=== PATIENT | female | born 1955 | race American Indian/Alaskan Native ===

== ENCOUNTER 2019-09-14 16:03 | Emergency (ER) | payer MEDICARE, OTHER ==
[~2019-09-14] VITALS: Ht 160 cm; Wt 52.6 kg
--- OUTSIDE RECORDS SUMMARY | ~2019-09-14 | XMS | Encounter Summary ---
Demographics + + + | Address | [address] | | | [place] [address] | + + + | Home Phone | | + + + | Preferred Language | Unknown | + + + | Marital Status | Single | + + + | Christian Affiliation | NRP | + + + | Race | or | + + + | Ethnic Group | Not or | + + + Author + + + | Author | [place] [facility] | + + + | Organization | [facility] | + + + | Address | Unknown | + + + | Phone | Unavailable | + + + Support + + +---------+ + | Name | Relationship | Address | Phone | + + +---------+ + | Debra Vaca | ECON | Unknown | | + + +---------+ + Care Team Providers + +------+ + | Care Screener Perfumer Name | Role | Phone | + +------+ + | No Pcp Per Patient | PCP | Unavailable | + +------+ + Encounter Details +--------+ + + + + | Date | Type | Department | Care Team | Description | +--------+ + + + + | 04/15/ | Anesthesia | Cardiac Picking Belt Operator | Guilherme Navarro, | | | 2017 | Event | at [facility] [address] | [address] | | | | | [address] | [address] | | | | | [facility] | [place], [place] | | | | | [place], [place] | [address] | | | | | [address] | [phone] | | | | | [phone] | | | | | | | Breanne Thomas CRNA | | | | | | [address] | | | | | | [address] [place], | | | | | | [place] [address] | | | | | | [phone] | | | | | | | | +--------+ + + + + Anesthesia Record + + + + + | Procedure Name | Responsible | Anesthesia Start | Anesthesia Stop Time | | | Anesthesiologist | Time | | + + + + + | CAR PCU | | | | | CARDIOVERSION | | | | + + + + + + + | No events on file. | + + +------+ | Meds | +------+ + + + No medications | on file. | + + + + + | No agents on file. | + + + + | No blood administrations on file. | + + + + | No LDAs on file. | + + documented in this encounter Social History + + + +--------+------+ | Tobacco Use | Types | Packs/Day | Years | Date | | | | | Used | | + + + +--------+------+ | Current Every Day | Cigarettes | 1 | 45 | | | Smoker | | | | | + + + +--------+------+ + + | Comments: 03/09/2017: currently smoking 5 cigarettes/day | + + + + +---------+ + | Alcohol Use | Drinks/Week | oz/Week | Comments | + + +---------+ + | No | | | | + + +---------+ + + + + | Sex Assigned at | Date Recorded | | | | + + + | Not on file | | + + + + + + + | Job Start Date | Occupation | Industry | + + + + | Not on file | Not on file | Not on file | + + + + + + + + | Travel History | Travel Start | Travel End | + + + + + + | No recent travel history available. | + + documented as of this encounter Plan of Treatment Not on filedocumented as of this encounter Visit Diagnoses Not on filedocumented in this encounter"
--- OUTSIDE RECORDS SUMMARY | ~2019-09-14 | XMS | Encounter Summary ---
Demographics + + + | Address | [address] | | | [place] [address] | + + + | Home Phone | | + + + | Preferred Language | Unknown | + + + | Marital Status | Single | + + + | Samaritan Affiliation | NRP | + + + | Race | or | + + + | Ethnic Group | Not or | + + + Author + + + | Author | [facility] | + + + | Organization | [facility] | + + + | Address | Unknown | + + + | Phone | Unavailable | + + + Support + + +---------+ + | Name | Relationship | Address | Phone | + + +---------+ + | Debra Vaca | ECON | Unknown | | + + +---------+ + Care Team Providers + +------+ + | Care Associate Professor Of Chemistry Name | Role | Phone | + +------+ + | No Pcp Per Patient | PCP | Unavailable | + +------+ + Reason for Visit Diagnostic Testing (Routine) +--------+--------+ + + + + | Status | Reason | Specialty | Diagnoses / | Referred By | Referred To | | | | | Procedures | Contact | Contact | +--------+--------+ + + + + | Closed | | Cardiology | Diagnoses | Anneliese, | Car Echo | | | | | | Elysha K, | [facility] [address] | | | | | Neuroendocri | PA-C [address] | | | | | ne tumor | [address] | | | | | Procedures | [address] | Mailcode: | | | | | [address] | [address] | [address] | | | | | DOBUTAMINE | [place], [place] | [address] | | | | | ECHOCARDIOGR | [address] | Building | | | | | AM, ADULT | Phone: | [place], [place] | | | | | | [phone] | [address] | | | | | | Fax: | Phone: | | | | | | [phone] | [phone] | +--------+--------+ + + + + Encounter Details +--------+ + + + + | Date | Type | Department | Care Team | Description | +--------+ + + + + | 04/01/ | Hospital | Cardiac | | | | 2017 | Encounter | Non-Invasive Testing | | | | | | at [facility] [address] | | | | | [address] Mailcode: | | | | | | [facility], | | | | | | [address] | | | | | | [place], [place] | | | | | | [address] | | | | | | [phone] | | | +--------+ + + + + Social History + + + +--------+------+ | [...] + + documented as of this encounter Last Filed Vital Signs + + + + + | Vital Sign | Reading | Time Taken | Comments | + + + + + | Blood Pressure | - | - | | + + + + + | Pulse | - | - | | + + + + + | Temperature | - | - | | + + + + + | Respiratory Rate | - | - | | + + + + + | Oxygen Saturation | - | - | | + + + + + | Inhaled Oxygen | - | - | | | Concentration | | | | + + + + + | Weight | 56.7 kg (125 lb) | 04/01/2017 12:41 PM | | | | | PDT | | + + + + + | Height | 160 cm (5' 3") | 04/01/2017 12:41 PM | | | | | PDT | | + + + + + | Body Mass Index | 22.14 | 04/01/2017 12:41 PM | | | | | PDT | | + + + + + documented in this encounter Medications at Time of Discharge + + + +---------+ + + | Medication | Sig | Dispensed | Refills | Start | End Date | | | | | | Date | | + + + +---------+ + + | acetaminophen 325 | Take 1-2 tablets by | | 0 | 04/07/20 | | | mg oral | mouth every four | | | 17 | | | tabletIndications: | hours as needed. | | | | | | pain | Indications: Pain | | | | | + + + +---------+ + + | carvedilol 12.5 mg | Take 1 tablet by | 60 | 0 | 04/07/20 | | | oral | mouth two times | tablet | | 17 | | | tabletIndications: | daily with meals. | | | | | | Ventricular Rate | Administer with | | | | | | Control in Atrial | food. Indications: | | | | | | Fibrillation | Ventricular Rate | | | | | | | Control in Atrial | | | | | | | Fibrillation | | | | | + + + +---------+ + + | ibuprofen 600 mg | Take 600 mg by mouth | | 0 | | | | oral | every six hours as | | | | | | tabletIndications: | needed. Indications: | | | | | | pain | Pain | | | | | + + + +---------+ + + | | Inhale 1 puff four | | 0 | 12/03/19 | | | ipratropium-albutero | times daily. 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 | | | 17 | | | tabletIndications: | Indications: | | | | | | hypertension | hypertension | | | | | + + + +---------+ + + | senna-docusate | Take 1 tablet by | 20 | 0 | 04/07/20 | | | 8.6-50 mg oral | mouth twice daily as | tablet | | 17 | | | tabletIndications: | needed. | | | | | | constipation | Indications: | | | | | | | Constipation | | | | | + + + +---------+ + + | simvastatin 20 mg | Take 20 mg by mouth | | 0 | 02/18/20 | | | oral | once daily in the | | | 17 | | | tabletIndications: | evening. | | | | | | hyperlipidemia | Indications: | | | | | | | hyperlipidemia | | | | | + + + +---------+ + + documented as of this encounter Progress Notes Lola Baltazar RN - 04/01/2017 1:32 PM PDTDobutamine stress echocardiogram completed, rep ort to follow. IV removed, catheter intact. Patient released from echo lab at 1345. documented in this enc ounter Plan of Treatment Not on filedocumented as of this encounter Procedures + +--------+ + + + | Procedure Name | Priori | Date/Time | Associated Diagnosis | Comments | | | ty | | | | + +--------+ + + + | STRESS DOBUTAMINE | Routin | 04/01/2017 | Neuroendocrine | Results for this | | ECHOCARDIOGRAM, | e | 1:18 PM | tumor | procedure are in the | | ADULT | | PDT | | results section. | + +--------+ + + + documented in this encounter Visit Diagnoses Not on filedocumented in this encounter Administered Medications + +--------+ +--------+------+------+ | Medication Order | MAR | Action | Dose | Rate | Site | | | Action | Date | | | | + +--------+ +--------+------+------+ | atropine injection 0.3-0.4 mg | Given | 04/01/20 | 0.3 mg | | | | 0.3-0.4 mg, intravenous, | | 17 1:26 | | | | | INTRAPROCEDURE PRN, Starting Wed | | PM PDT | | | | | 04/01/17 at 1241, Until Thu04/01/17 | | | | | | | at 1440, per dobutamine stress | | | | | | | echo protocol | | | | | | + +--------+ +--------+------+------+ +---+---+ | | | +---+---+ + +---------+ + +--------+---+ | DOBUTamine (DOBUTREX) 500 | New Bag | 04/01/20 | 20 | 34.02 | | | mg/250 mL (2 mg/mL) IV infusion | | 17 1:23 | mcg/kg/m | mL/hr | | | (RTU) 5-50 mcg/kg/min | | PM PDT | in | | | | 56.7 kg Dosing weight | | | | | | | (8.505-85.05 mL/hr, rounded to | | | | | | | 8.51-85.05 mL/hr), intravenous, | | | | | | | INTRAPROCEDURE CONTINUOUS PRN, | | | | | | | Starting 04/01/17 at 1241, | | | | | | | Until Thu17 at 1440, per | | | | | | | DOBUTamine stress echo protocol | | | | | | + +---------+ + +--------+---+ +---------+ + +--------+---+ | New Bag | 04/01/20 | 10 | 17.01 | | | | 17 1:20 | mcg/kg/m | mL/hr | | | | PM PDT | in | | | +---------+ + +--------+---+ | New Bag | 04/01/20 | 5 | 8.51 | | | | 17 1:17 | mcg/kg/m | mL/hr | | | | PM PDT | in | | | +---------+ + +--------+---+ +---+---+ | | | +---+---+ + +-------+ +-------+---+---+ | esmolol (BREVIBLOC) injection | Given | 04/01/20 | 10 mg | | | | 10-30 mg 10-30 mg, intravenous, | | 17 1:30 | | | | | INTRAPROCEDURE PRN, Starting Wed | | PM PDT | | | | | 04/01/17 at 1241, Until Thu04/01/17 | | | | | | | at 1440, per dobutamine stress | | | | | | | echo protocol | | | | | | + +-------+ +-------+---+---+ +---+---+ | | | +---+---+ documented in this encounter
--- OUTSIDE RECORDS SUMMARY | ~2019-09-14 | XMS | Encounter Summary ---
Demographics + + + | Address | [address] | | | [place] [address] | + + + | Home Phone | | + + + | Preferred Language | Unknown | + + + | Marital Status | Single | + + + | Protestant Affiliation | NRP | + + + | Race | or | + + + | Ethnic Group | Not or | + + + Author + + + | Author | [facility] | + + + | Organization | [facility] | + + + | Address | Unknown | + + + | Phone | Unavailable | + + + Support + + +---------+ + | Name | Relationship | Address | Phone | + + +---------+ + | Debra Vaca | ECON | Unknown | | + + +---------+ + Care Team Providers + +------+ + | Care Biometrics Consultant Name | Role | Phone | + +------+ + | No Pcp Per Patient | PCP | Unavailable | + +------+ + Reason for Visit AUTH/CERT +--------+--------+ + + + + | Status | Reason | Specialty | Diagnoses / | Referred By | Referred To | | | | | Procedures | Contact | Contact | +--------+--------+ + + + + | | | | | | | +--------+--------+ + + + + Encounter Details +--------+---------+ + + + | Date | Type | Department | Care Team | Description | +--------+---------+ + + + | 04/02/ | Surgery | 6A Intra Op [facility] | Zeeshan Heredia, | FLEXIBLE | | 2017 | | [facility] | MD [address] | BRONCHOSCOPY, RIGHT | | | | Admitting Desk | [address] | THORACOSCOPY, | | | | Located on the | [place], [place] | SUPERIOR | | | | floor [address] | [address] | SEGMENTECTOMY; | | | | [address] | [phone] | MEDIASTINAL LYMPH | | | | [place], [place] | | NODE DISSECTION | | | | [address] | | | +--------+---------+ + + + Social History + + [...] + + + | Blood Pressure | 140/83 | 04/07/2017 4:17 PM | | | | | PDT | | + + + + + | Pulse | 81 | 04/07/2017 4:17 PM | | | | | PDT | | + + + + + | Temperature | 36.3 C (97.3 F) | 04/07/2017 11:48 AM | | | | | PDT | | + + + + + | Respiratory Rate | 18 | 04/07/2017 11:48 AM | | | | | PDT | | + + + + + | Oxygen Saturation | 88% | 04/07/2017 3:05 PM | while walking | | | | PDT | | + + + + + | Inhaled Oxygen | - | - | | | Concentration | | | | + + + + + | Weight | 61.7 kg (136 lb 0.4 | 04/04/2017 6:09 PM | | | | oz) | PDT | | + + + + + | Height | 160 cm (5' 3") | 04/02/2017 5:42 AM | | | | | PDT | | + + + + + | Body Mass Index | 24.1 | 04/02/2017 5:42 AM | | | | | PDT | | + + + + + documented in this encounter Discharge Summaries Pam Morales PA - 04/07/2017 6:41 AM PDTFormatting of this note might be different fr om the original. Thoracic Surgery Discharge Summary Patient Name: BAILEY ANDERS Patient Discharge Attending: Zeeshan Heredia MD Summary Author: Pam Morales PA-C Date of admission: 04/02/2017 Date of discharge: 04/07/2017 Patient Care Team: No Pcp Per Patient as PCP - General Principle diagnosis: pulmonary carcinoid Secondary diagnoses: atrial fibrillation Principle procedure: right-sided thoracoscopy, lower lobe superior segmentectomy Other procedures: epidural catheter placement Hospital course: On the day of the patient's planned procedure, the patient was taken to the operating theat er and underwent the above-listed procedure. During the procedure, no complications were not ed. At the end of the procedure, appropriate chest drains were placed, the patient was extub ated, and transferred to the post-anesthesia care unit. Once recovered, the patient was iqbal sferred to the post-operative ICU, where she remained for 2 days. On post-op day (POD) 2, th e patient was transferred to the post-surgical howell where she remained for the rest of the h ospitalization. The chest tube was removed on POD #4 and a ggouj-um-wryavejr pneumothorax wa s noted on follow-up chest x-ray. Chest x-ray the following morning showed worsening pneumo thorax and new subcutaneous emphysema, though the patient remained asymptomatic throughout. A new chest tube was placed via the previous insertion site and connected to a portable drai n. Prior to discharge, the patient had satisfactory pain control with oral pain medications only, was ambulating without difficulty, and was tolerating adequate PO intake without naus ea, vomiting, or constipation. The patient was discharged to home on POD #5 in satisfactory condition with a chest tube in place. Discharge Medications: . Bailey Anders Home Medication Instructions [id number] Printed on:04/07/17 0250 Medication Information acetaminophen 325 mg oral tablet Take 1-2 tablets by mouth every four hours as needed. Indications: Pain carvedilol 12.5 mg oral tablet Take 1 tablet by mouth two times daily with meals. Administer with food. Indications: Vent ricular Rate Control in Atrial Fibrillation ibuprofen 600 mg oral tablet Take 600 mg by mouth every six hours as needed. Indications: Pain ipratropium-albuterol 20-100 mcg/actuation inhalation mist Inhale 1 puff four times daily. Indications: Chronic Obstructive Pulmonary Disease with Bro nchospasms lisinopril 40 mg oral tablet Take 40 mg by mouth once daily. Indications: hypertension oxyCODONE (immediate release) 5 mg oral tablet Take 1 tablet by mouth every six hours as needed for severe pain. Indications: Pain senna-docusate 8.6-50 mg oral tablet Take 1 tablet by mouth twice daily as needed. Indications: Constipation simvastatin 20 mg oral tablet Take 20 mg by mouth once daily in the evening. Indications: hyperlipidemia traMADol 50 mg oral tablet Take 50 mg by mouth every eight hours as needed. Indications: Pain Cephalexin 500mg q6 while chest tube in place. Discharge Diet: Diet Regular Regular diet- There are no restrictions to your diet. You may eat or drink whatever you pr efer, though healthy food choices are recommended. Discharge Activity: As tolerated; no lifting greater than 10 pounds for six weeks and no dr iving or operating heavy machinery while taking narcotic pain medications. Vital signs at the time of discharge: BP 119/77 | Pulse 70 | Temp 36.3 C (97.3 F) | RR 18 | Ht 1.6 m (5' 3") | Wt 61.7 kg (136 lb 0.4 oz) | SpO2 97% | BMI 24.1 kg/(m^2) Discharge Instructions: BAILEY ANDERS was advised to contact the Thoracic Surgery Clinic or call if the patient experiences fevers greater than 101.5 F, chest pain, chest pres sure, new or worse shortness of breath, new or worse difficulty breathing, or new or worse i ncisional redness, tenderness, swelling, drainage, or inflammation. Discharge exam: Gen: NAD Neuro: AOX3; following commands HEENT: Normocephalic; atraumatic; Nares patent; MMM Neck: Supple, non-tender; no JVD or tracheal deviation Lungs: slightly diminished breath sounds at the right apex, otherwise CTA bilaterally CV: RRR, S1 S2; no S3 or S4; no MRGB Abd: S/NT/ND; + flatus; + BM in last three days Ext: MAEW; no C/C/E; all extremities warm with +2 distal pulses Wound site: C/D/I; no evidence of separation, dehiscence, or infection Wound care: The patient was advised to remove all dressings one day after the last chest tu be was removed and do not replace unless additional drainage continues. Also, the patient is advised to shower beginning no earlier than two days after the last chest tube was removed. Showers should include a mild soap and the wound sites should be pat-dried only. No salves, lotions, or oils should be applied to the wound site. The patient was advised to avoid imme rsion of the wounds in any water for at least four weeks after the time of the patient's mabel rachell. Follow-up appointment(s): [facility] Thoracic Surgery, Monday, April 10, 2017 Pathology report: still pending at time of discharge Copies of this summary should be sent to: No Pcp Per PATIENT; Elena Morales PA-C documented in this e ncounter Medications at Time of Discharge + + [...] documented as of this encounter Progress Notes Nelson Mccarty NP - 04/06/2017 8:48 AM PDT Thoracic Surgery Brief Inpatient Progress Note Patient name: BAILEY ANDERS Attending: Zeeshan Heredia MD Procedure day: 4 Procedure: Right VATS with superior segmentectomy (path pending) 24 hour events: No acute events 24 hour vitals: Last 24 hour min/max Temp: 36.6 C (97.9 F) Temp Min: 36.4 C (97.5 F) Max: 36.7 C (98.1 F) Pulse: 79 Pulse Min: 75 Max: 102 Resp: 18 Resp Min: 16 Max: 19 BP: 160/84 BP Min: 131/81 Max: 173/91 SpO2 94% 2L SpO2 Min: 88 % Max: 95 % Body mass index is 24.1 kg/(m^2). Chest tube output: 140/30. W/S. -A/L. S/S drainage. Lab Results Component Value Date NA 136 04/06/2017 K 3.5 04/06/2017 CL 100 04/06/2017 BICARB 29 04/06/2017 BUN 4 04/06/2017 CR 0.54 04/06/2017 GLU 97 04/06/2017 CA 9.1 04/06/2017 Lab Results Component Value Date WBC 8.26 04/06/2017 HB 12.9 04/06/2017 HCT 37.3 04/06/2017 PLT 146 04/06/2017 MCV 92.3 04/06/2017 RDW 40.7 04/06/2017 Brief Exam: NAD AOX3 Lungs diminished RRR S/NT/ND MAEW Wound healing without complication Assessment: 61 y.o. f w/ h/o biopsy-proven RLL typical carcinoid tumor doing well s/p resec tion Plan (xphl-go-jlteyzid issues): - Post-op pain: continue PRN Tylenol and oxycodone - Chest tube management: removed earlier today - Bigeminy: monitor for now - Hypokalemia: replete (along with magnesium) today - Other: F/U final path - Prophylaxis: remains on SQ enoxaparin; bowel regimen; no GI prophylaxis while eating - Dispo: anticipate discharge to home tomorrow Plan (xcc-rivwmtfg-wtljsrd issues); the brief history and exam findings are unchanged from above for this part of the note: - Hypertension: increase metoprolol dose; continue lisinopril at current dose and frequency - Hypercholesterolemia: continue simvastatin - Discuss with Dr. Zeeshan Heredia MD Reji Hammonds MD - 0 04/05/2017 10:48 AM PDT THORACIC SURGERY PROGRESS NOTE Attending Physician: Zeeshan Heredia MD Progress Note Note Date: 04/05/2017 Admission Date: 04/02/2017 BAILEY ANDERS, [id number] Hospital Day #3 PROCEDURE: 04/02/17 Procedure: flex bronch R VATS superior segmentectomy, bronchoplasty for s egmental bronchus stump, MLND INTERVAL HISTORY and SUBJECTIVE: - Tx to floor, no acute issues - Pain very well controlled with PRN PO and IV meds - O2 needs improving. Up and ambulating. Tolerating diet MEDICATIONS: Reviewed OBJECTIVE PHYSICAL EXAM: Last Vitals: BP 173/88 | Pulse 80 | Temp 36.5 C (97.7 F) | RR 16 | Ht 1.6 m (5' 3") | W t 61.7 kg (136 lb 0.4 oz) | SpO2 96% | BMI 24.1 kg/(m^2) 24 Hour Vital Min/Max: Systolic (24hrs), Av , Min:122 , Max:173 Diastolic (24hrs), Av, Min:54, Max:88 Pulse Min: 75 Max: 117 Temp Min: 36.5 C (97.7 F) Max: 36.8 C (98.2 F) Resp Min: 16 Max: 22 SpO2 Min: 94 % Max: 98 % Intake/Output Summary (Last 24 hours) at 04/05/17 1048 Last data filed at 04/05/17 0604 Gross per 24 hour Intake 825 ml Output 4365 ml Net -3540 ml Chest tube: 220cc GENERAL: Pleasant, talkative, alert, in NAD CHEST: Unlabored on 2LNC. Slightly coarse but clearing breath sounds. Heart regular rate Chest tube: serousang output, no airleak this morning with good cough. ABDOMEN: Soft, nontender, nondistended Extremities:Warm and well perfused, no edema. LABS: Recent Labs 04/02/17 1639 04/03/17 0308 04/04/17 0515 04/04/17 1903 04/04/17 2213 04/05/17 0837 NA 140 136 138 -- -- -- K 3.5 4.3 4.0 -- -- -- CL 107 101 102 -- -- -- BICARB 25 26 31 -- -- -- BUN 15 14 10 -- -- -- CR 0.66 0.78 0.73 -- -- -- GLU 150* 102* 100* 91 101* 77 CA 8.2* 8.4* 8.3* -- -- -- ALB 2.9* 3.0* 2.9* -- -- -- Recent Labs 03/09/17 1627 04/02/17 1639 04/03/17 03004/04/17 0515 WBC 5.99 -- 17.04* 17.40* 9.02 RBC 5.33* -- 4.33 3.91* 3.73* HB 17.4* -- 13.9 12.7 11.9* HCT 51.2* < > 40.5 37.0 35.6* PLT 163 -- 129* 124* 104* NEUTROPERC 57.5 -- -- -- -- LYMPHPERC 31.4 -- -- -- -- MONOPERC 7.7 -- -- -- -- BASOPERC 0.7 -- -- -- -- EOSPERC 2.5 -- -- -- -- < > = values in this interval not displayed. Recent Labs 04/02/17 1639 04/03/17 03004/04/17 0515 ALB 2.9* 3.0* 2.9* Lab Results Component Value Date APTT 25.8 (L) 04/02/2017 FIBRINOGEN 245 04/02/2017 IMAGING: None new ASSESSMENT/PLAN: Bailey Anders is a 61yo woman with Right superior segment carcinoid s/p RIGHT VATS superior segmentectomy. Progressing very well postop, ambulating, pain well controlled. Chest tube output decreasin g but more sanguinous that wanted, keep tube and continue postop rehab. - Acute pain: Continue PRN oxy, tylenol - s/p VATS superior segmentectomy - Chest tube: Waterseal, follow output - Aggressive pulm toilet, up and ambulating TID - PT - COPD: Continue inhalers - HTN/HLD: Continue lisinopril and statin. - Prophy: Lovenox (decreased to 30mg given sanguinous output and patients wt), SCD Dispo: 1-2days. Reji Elaine MD Pager: [phone] Anne Jean PA-C - 04/04/2017 2:04 PM PDT Cardiovascular Intensive Care Unit Team Progress Note CVICU D2 Assigned #[id number] ICU Admission Reason Most Recent Value ICU Admission reason managment post thoracic surgery filed at 04/02/2017 1650 Documentation Date 04/02/17 1650 Thoracic Thoracic Thoracic Procedures VATS VATS Segmentectomy Segmentectomy anatomical location Anatomical location R superior Admission dx: Neuroendocrine cancer 2 Days in ICU 2 Days in Hospital Abbreviated HPI / Daily Assessment Ms. Bailey Anders is a 61 yo female smoker with PMH of HTN, HLD, diet controlled type 2 DM , and COPD on home O2 who presents s/p R VATS superior segmentectomy, mediastinal LND, and closure of superior segment bronchus stump on 04/02. 24 Hour events BPs low overnight, bolused 1L fluid, went down on epidural rate, no change in BP Epidural changed to Hydromorphone Pain well controlled Code Status Code Status DNR/DNI Active Diagnosis with Assessment & Plan Priority Class POA Cardiovascular Essential hypertension Yes Current Assessment & Plan Pt on lisinopril 40mg daily - start lisinopril 10mg BID Respiratory/Chest Neuroendocrine carcinoma of lung (HCC) Yes Current Assessment & Plan S/p R VATS and superior segmentectomy, mediastinal LND, and bronchial stump closure 04/02. Concern for pnemothorax after pleuravac was found without fluid in the chamber. Pt stable wi th no increase O2 need. - cont oxycodone and APAP - d/c IV HM - albuterol nebs q6h PRN - duonebs q6h - CT to water seal - f/u repeat CXR -up and walking - intermediate level of care COPD (chronic obstructive pulmonary disease) (HCC) Yes Current Assessment & Plan Pt on home O2, will keep this in mind while titrating down O2 and not target room air. - duoneb q6h Endocrine/Metabolic Hyperlipidemia Yes Current Assessment & Plan Continue home simvastatin 20mg Other Acute post-operative pain No Current Assessment & Plan APS following. HM epidural broke and pt was transitioned to oral meds. Pain well controll ed on oral meds, pt has not needed IV coverage. - d/c IV HM - cont APAP and oxycodone PRN Smoking addiction Yes Current Assessment & Plan Pt a current smoker, and apparently uses home O2. Will talk to pt about the risks of smok ing and the HIGH risk of smoking on O2. Physical Exam Constitutional: She appears well-developed not diaphoretic no distress Thin appearing femal e HENT: Head:normocephalic and atraumatic Cardiovascular: normal rate, regular rhythm, normal heart sounds and intact distal pulses n o murmur heard.Exam reveals no friction rub and no gallop. Pulmonary: effort normal. Rales noted throughout R lung field, increased in base. Abdominal: Abdomen is soft. bowel sounds are normal. Musculoskeletal: She exhibits no edema. Neurological: She is alert and oriented to person, place, and time. Skin: Skin is warm and dry. Service Cardiac Surgery [[id number]] Admitting provider and ICU treatment team members Provider Role Specialty Pager Zeeshan Heredia MD Admitting Provider Cardiothoracic Surgery [id number] The Advanced Care Note for this patient can be found under the notes tab in chart review. Quality section FAST HUG Feeding: regular Analgesia: PRN oxycodone, APAP sched Sedation: none Thromboprophylaxis: Lovenox Head of Bed: Head of Bed >30 degrees Ulcer Prophylaxis: not clinically indicated Glycemic Control: not indicated I have spent a total of 25 Minutes independently in the direct care and management of th is patient.Time is independent of any time spent teaching or performing any separately billa ble procedures. I reviewed the documented findings, all data and the recent imaging availabl e. Date of Service: 04/04/2017 ZACK Cruz PA-C Author:Anne Pat PA-C [address] [address] [place] [email or web address] signed by Anne Pat PA-C at 04/04/2017 2:07 PM Elaine Ramirez MD - 04/04/2017 10:30 AM PDTBrief APS Follow-up Note Epidural catheter pulled yesterday, patient successfully transitioned to PO meds. Reports e xcellent pain control. APS will sign off. Please re-consult as necessary. Please page [phone] with any questions or concerns Elaine Barragan MD Pain Fellow Anesthesiology and Pain Management [facility] [place] alomon, Wilfredo beard MD - 04/04/2017 9:59 AM PDT Cardiovascular Intensive Care Unit Attending Progress Note CVICU D2 Assigned #[id number] ICU Admission Reason Most Recent Value ICU Admission reason managment post thoracic surgery filed at 04/02/2017 165 Documentation Date 04/02/17 165 Thoracic Thoracic Thoracic Procedures VATS VATS Segmentectomy Segmentectomy anatomical location Anatomical location R superior Hospital admission dx: Neuroendocrine cancer 2 Days in ICU 2 Days in Hospital Abbreviated HPI / Daily Assessment Ms. Bailey Anders is a 61 yo female smoker with PMH of HTN, HLD, diet controlled type 2 DM , and COPD on home O2 who presents s/p R VATS superior segmentectomy, mediastinal LND, and closure of superior segment bronchus stump on 04/02. Medical Decision Making 24 hr events: - epidural dislodged, pain well controlled on oral meds - right chest atrium without appropriate water seal - repeat CXR shows no pneumothorax 61 yo woman who is s/p VATS and RLL superior segmentectomy for neuroendocrine tumor on . Doing very well clinically, with no PTX and minimal pain, and O2 sats robust on 2L NC. Will plan to restart lisinopril at 10mg bid (half home dose) given mild HTN overnight. Concerned that pt continues to smoke while on home O2, and will cemetery counselor on the importance o f quitting. She has confirmed that code status is DNR/DNI. Stable for howell transfer Hospital Problems Priority POA Cardiovascular Essential hypertension Yes Respiratory/Chest Neuroendocrine carcinoma of lung (HCC) Yes COPD (chronic obstructive pulmonary disease) (HCC) Yes Endocrine/Metabolic Hyperlipidemia Yes Other Acute post-operative pain No Postoperative hypotension No Smoking addiction Yes Service Cardiac Surgery [[id number]] Admitting provider and ICU treatment team members Provider Role Specialty Pager Zeeshan Heredia MD Admitting Provider Cardiothoracic Surgery [id number] Code Status Code Status DNR/DNI The Advanced Care Note for this patient can be found under the notes tab in chart review. I have spent a total of 30 minutes in the direct care and management of this patient indepe ndent of any time spent teaching or performing any separately billable procedures. I reviewe d the documented findings, all data and the recent imaging available. Greater than 50% of th is time was spent on counseling and coordination of care.Seen with PA/WIRE TESTER Adilia. Please se e their note for details. I reviewed the documented findings, all data and the recent imagin g available. Date of Service: 04/04/2017 Author:Srinivasa Latif MD [address] Zeeshan Heredia MD - 04/04/2017 9:26 AM PDTThoracic Surgery Staff Note: I personally interviewed the patient, performed the espinoza elements of the physical examinatio n, and personally formulated the assessment and plan with the PA/resident/fellow. No acute events. Reports good pain control and no pain CT with grade 1 forced exp air leak Thin serosanguinous output 240 ml RLL bronchopulmonary carcinoid s/p; superior segmentectomy - continue chest tube to water seal - awaiting tx to [facility] Zeeshan Heredia M.D. FACS manager technical training [facility] Division of Cardiothoracic Surgery Section of Thoracic Surgery [address] [place] [address], [address] [place] [address] Sonia Wharton MD - 04/03 6:41 PM PDT Thoracic Surgery Brief Inpatient Progress Note Patient name: BAILEY ANDERS Attending: Zeeshan Heredia MD Procedure day: 1 Procedure: flex bronch R VATS superior segmentectomy, bronchoplasty for segmental bronchus stump, MLND 24 hour events: Transferred to icu after surgery Did well overnight, no major events. Clarified that pt is DNR status, due to previous wishe s CXR this AM w pneumothorax that was much smaller yday night immediately after OR 24 hour vitals: Last 24 hour min/max Temp: 37 C (98.6 F) Temp Min: 36.8 C (98.2 F) Max: 37 C (98.6 F) Pulse: 70 Pulse Min: 64 Max: 121 Resp: (!) 10 Resp Min: 7 Max: 21 BP: 120/70 BP Min: 70/38 Max: 138/106 SpO2: (P) 96 % SpO2 Min: 92 % Max: 100 % Body mass index is 24.45 kg/(m^2). Chest tube output: 453cc grade I AL w cough, serosang output Lab Results Component Value Date NA 136 04/03/2017 K 4.3 04/03/2017 CL 101 04/03/2017 BICARB 26 04/03/2017 BUN 14 04/03/2017 CR 0.78 04/03/2017 GLU 102 04/03/2017 CA 8.4 04/03/2017 Lab Results Component Value Date WBC 17.40 04/03/2017 HB 12.7 04/03/2017 HCT 37.0 04/03/2017 PLT 124 04/03/2017 MCV 94.6 04/03/2017 RDW 43.2 04/03/2017 Brief Exam: NAD AOX3 Lungs course on R w chest tube rub RRR S/NT/ND MAEW Incisions w dressings c/d/i Assessment: 61yo F with R sup seg carcinoid, s/p R VATS sup segmentectomy. Doing well. Plan (wciy-mj-ahxutztt issues): - chest tubes to waterseal - if CXR tmr does not improve consider backing chest tube out and placing back to suction - epidural for pain - getting OOB PT/OT - inhalers prn - aggressive IS - HLD - simvastatin - holding lisinopril - DNR - cont gay while chest tube in place - ok to transfer to floor when bed available - Discussed with Dr. Zeeshan Heredia MD Anne Jean PA-C - 03/2017 3:35 PM PDT Cardiovascular Intensive Care Unit Team Progress Note CVICU D2 Assigned #[id number] ICU Admission Reason Most Recent Value ICU Admission reason managment post thoracic surgery filed at 04/02/2017 1650 Documentation Date 04/02/17 165 Thoracic Thoracic Thoracic Procedures VATS VATS Segmentectomy Segmentectomy anatomical location Anatomical location R superior Admission dx: Neuroendocrine cancer 1 Days in ICU 1 Days in Hospital Abbreviated HPI / Daily Assessment Ms. Bailey Anders is a 61 yo female smoker with PMH of HTN, HLD, diet controlled type 2 DM , and COPD on home O2 who presents s/p R VATS superior segmentectomy, mediastinal LND, and closure of superior segment bronchus stump on 04/02. 24 Hour events BPs low overnight, bolused 1L fluid, went down on epidural rate, no change in BP Epidural changed to Hydromorphone Pain well controlled Code Status Code Status DNR/DNI Active Diagnosis with Assessment & Plan Priority Class POA Cardiovascular Essential hypertension Yes Current Assessment & Plan Pt on lisinopril 40mg daily, hold while immediately post op Respiratory/Chest Neuroendocrine carcinoma of lung (HCC) Yes Current Assessment & Plan S/p R VATS and superior segmentectomy, mediastinal LND, and bronchial stump closure 04/02. Pt had hypotension in the PACU that resolved with 500cc bolus of fluid. Had continuing hypot ension overnight, resolved with switching of epidural to HM from HM/bupi. - cont dilaudid epidural and PRN APAP - albuterol nebs q6h PRN - duonebs q6h - CT to suction - monitor CT output - if blood pressure stable in the afternoon, pt can likely be intermediate level of care COPD (chronic obstructive pulmonary disease) (HCC) Yes Current Assessment & Plan Pt on home O2, will keep this in mind while titrating down O2 and not target room air. - duoneb q6h Endocrine/Metabolic Hyperlipidemia Yes Current Assessment & Plan Continue home simvastatin 20mg Other Acute post-operative pain No Current Assessment & Plan APS following. Pt was hypotensive after starting HM/bupi epidural, hypotension resolved w ith switch to HM only epidural. Pt still has pain control with this medication. - cont HM epidural - cont APAP PRN Postoperative hypotension No Smoking addiction Yes Code Status Updated to: DNR/DNI Physical Exam Constitutional: She appears well-developed and well-nourished not diaphoretic no distress HENT: Head:normocephalic and atraumatic Cardiovascular: normal rate, regular rhythm, normal heart sounds and intact distal pulses n o murmur heard.Exam reveals no friction rub and no gallop. Pulmonary: effort normal. She has no wheezes R sided crackles throughout, worse in RLL. R c hest tube in place draining SS fluid, tidaling normally with no appreciable air leak Abdominal: Abdomen is soft. There is no tenderness She exhibits no distention. bowel soun ds are normal. Musculoskeletal: She exhibits no edema. Neurological: She is alert and oriented to person, place, and time.Pt hard of hearing Skin: Skin is warm and dry. Psychiatric: She has a normal mood and affect. Service Cardiac Surgery [1048] Admitting provider and ICU treatment team members Provider Role Specialty Pager Zeeshan Heredia MD Admitting Provider Cardiothoracic Surgery [id number] The Advanced Care Note for this patient can be found under the notes tab in chart review. Quality section FAST HUG Feeding: regular Analgesia: HM epidural, PRN APAP Sedation: none Thromboprophylaxis: Lovenox Head of Bed: Head of Bed >30 degrees Ulcer Prophylaxis: not clinically indicated Glycemic Control: not indicated I have spent a total of 27 Minutes independently in the direct care and management of th is patient.Time is independent of any time spent teaching or performing any separately billa ble procedures. I reviewed the documented findings, all data and the recent imaging availabl e. Date of Service: 04/03/2017 ZACK Cruz PA-C Author:Anne Pat PA-C [address] [address] [place] [id number] signed by Anne Pat PA-C at 04/03/2017 4:17 PM PDTRiki Urban NP - 04/03/2017 3:21 PM PDTBrief APS note: Paged by Anne Pat that Bailey's epidural had broken off near the pump. She is still on chest tube. Spoke with Les Mccarty about transition to PO oxycodone and IV hydromorphone whic h he was in agreement with. Pain well controlled. Epidural removed with tip intact. No compl ications. APS signing off. Please call with any pain related concerns. Riki Urban NP Adult Pain Service Srinivasa villatoro MD - 04/03/2017 10:48 AM PDTFormatting of this note might be different from th e original. Cardiovascular Intensive Care Unit Attending Progress Note CVICU D2 Assigned #[id number] ICU Admission Reason Most Recent Value ICU Admission reason managment post thoracic surgery filed at 04/02/2017 1650 Documentation Date 04/02/17 165 Thoracic Thoracic Thoracic Procedures VATS VATS Segmentectomy Segmentectomy anatomical location Anatomical location R superior Hospital admission dx: Neuroendocrine cancer 1 Days in ICU 1 Days in Hospital Abbreviated HPI / Daily Assessment Ms. Bailey Anders is a 61 yo female smoker with PMH of HTN, HLD, diet controlled type 2 DM , and COPD on home O2 who presents s/p R VATS superior segmentectomy, mediastinal LND, and closure of superior segment bronchus stump on 04/02. Medical Decision Making 61 yo woman who is s/p VATS and segmentectomy for neuroendocrine tumor on 04/02/17. Hypotension overnight appears to have been 2/2 sympathectomy related to epidural. With infu dimitri changed to opioid only, pain is well controlled on low rate (2 ml/hr), and SBP is stabl e in the 120s. 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 She has confirmed that code status is DNR/DNI. Stable for howell transfer Hospital Problems Priority POA Cardiovascular Essential hypertension Yes Respiratory/Chest Neuroendocrine carcinoma of lung (HCC) Yes COPD (chronic obstructive pulmonary disease) (HCC) Yes Endocrine/Metabolic Hyperlipidemia Yes Other Acute post-operative pain No Postoperative hypotension No Smoking addiction Yes Service Cardiac Surgery [1048] Admitting provider and ICU treatment team members Provider Role Specialty Pager Zeeshan Heredia MD Admitting Provider Cardiothoracic Surgery [id number] Code Status Code Status DNR/DNI The Advanced Care Note for this patient can be found under the notes tab in chart review. I have spent a total of 35 minutes in the direct care and management of this patient indepe ndent of any time spent teaching or performing any separately billable procedures. I reviewe d the documented findings, all data and the recent imaging available. Greater than 50% of th is time was spent on counseling and coordination of care.Seen with PA/WIRE TESTER Adilia. Please se e their note for details. I reviewed the documented findings, all data and the recent imagin g available. Date of Service: 04/03/2017 Author:Srinivasa Latif MD [address] [id number] signed by Srinivasa Latif MD at 04/03/2017 3:42 PM PDT Mandi Lopez RN - 04/03/2017 9:14 AM PDTUtilization Management Assessment MCG Care Guideline1 applied: Lobectomy, Lung, by Video-Assisted Thoracic Surgery (VATS) ( S-802 ) Goal or Benchmark LOS: 2 days Today is guideline day/stage 1 of 2. 1MCG Care Guidelines are nationally recognized evidence based care guidelines that include an Optimal Recovery Course and aid in medical necessity for admission and continued stay scr eening. The goal length of stay represents the optimal length of stay for the optimal patie nt. Nationally 25-40% of patients meet the goal or benchmark length of stay. Mandi Lopez RN, BSN, ACM Utilization Management Department of Care Management [facility] P: [phone]|PGR: [phone] #[id number] F: [phone]|[email or web address] Nelson Rivero MD - 04/02/2017 8:01 PM PDT Cardiovascular Intensive Care Unit Attending Progress Note CVICU D2 Assigned #[id number] ICU Admission Reason Most Recent Value ICU Admission reason managment post thoracic surgery filed at 04/02/2017 1650 Documentation Date 04/02/17 165 Thoracic Thoracic Thoracic Procedures VATS VATS Segmentectomy Segmentectomy anatomical location Anatomical location R superior Hospital admission dx: Neuroendocrine cancer Days in ICU Days in Hospital Abbreviated HPI / Daily Assessment Ms. Bailey Anders is a 61 yo female smoker with PMH of HTN, HLD, diet controlled type 2 DM , and COPD on home O2 who presents s/p R VATS superior segmentectomy, mediastinal LND, and closure of superior segment bronchus stump on 04/02. Medical Decision Making 61 year old critically ill female presenting to the CVICU s/p VATS and segmentectomy for n euroendocrine tumor. She was extubated and sent to the PACU. Her pain appears well controlle d with her epidural, and her current respirator status appears stable. Will continue to tabitha tor for any possible deterioration in her respiratory status, and continue her home COPD med s. Plan: - appreciate APS input for epidural - aggressive pulmonary toilet - okay for DVT ppx DISPO: CVICU Hospital Problems Priority POA Cardiovascular Essential hypertension Unknown Respiratory/Chest Neuroendocrine carcinoma of lung (HCC) Yes COPD (chronic obstructive pulmonary disease) (HCC) Unknown Endocrine/Metabolic Hyperlipidemia Unknown Other Acute post-operative pain Unknown Service Cardiac Surgery [1048] Admitting provider and ICU treatment team members Provider Role Specialty Pager Zeeshan Heredia MD Admitting Provider Cardiothoracic Surgery 38180 Code Status Code Status DNR/DNI Quality section Gay necessity reviewed: Hourly/Accurate measurement of urinary output for clinical manage ment of critically ill patients I have spent a total of 31 minutes in the direct care and management of this patient indepe ndent of any time spent teaching or performing any separately billable procedures. I reviewe d the documented findings, all data and the recent imaging available. Greater than 50% of th is time was spent on counseling and coordination of care. Date of Service: 04/02/2017 Author:Nelson Smart MD [address] [id number] signed by Nelson Smart MD at 04/02/2017 8:02 PM PD Tdocumented in this encounter Plan of Treatment Not on filedocumented as of this encounter Procedures + +--------+ + + + | Procedure Name | Priori | Date/Time | Associated Diagnosis | Comments | | | ty | | | | + +--------+ + + + | TEACHING PHYSICIAN | | 04/12/2017 | | Results for this | | | | 12:00 AM | | procedure are in the | | | | PDT | | results section. | + +--------+ + + + | X-RAY PORTABLE CHEST | Routin | 04/07/2017 | | Results for this | | 1 VIEW | e | 2:04 PM | | procedure are in the | | | | PDT | | results section. | + +--------+ + + + | X-RAY PORTABLE CHEST | Routin | 04/07/2017 | | Results for this | | 1 VIEW | e | 9:37 AM | | procedure are in the | | | | PDT | | results section. | + +--------+ + + + | CARDIOLOGY | | 04/07/2017 | | Results for this | | | | 12:00 AM | | procedure are in the | | | | PDT | | results section. | + +--------+ + + + | X-RAY PORTABLE CHEST | Routin | 04/06/2017 | | Results for this | | 1 VIEW | e | 3:59 PM | | procedure are in the | | | | PDT | | results section. | + +--------+ + + + | 12 LEAD ECG | Routin | 04/06/2017 | | Results for this | | | e | 3:43 PM | | procedure are in the | | | | PDT | | results section. | + +--------+ + + + | X-RAY PORTABLE CHEST | Routin | 04/06/2017 | | Results for this | | 1 VIEW | e | 12:17 PM | | procedure are in the | | | | PDT | | results section. | + +--------+ + + + | PROCEDURE NOTE | Routin | 04/06/2017 | | Results for this | | | e | 8:26 AM | | procedure are in the | | | | PDT | | results section. | + +--------+ + + + | CBC (HEMOGRAM) ONLY | Routin | 04/06/2017 | | Results for this | | | e | 4:29 AM | | procedure are in the | | | | PDT | | results section. | + +--------+ + + + | RENAL FUNCTION SET | Routin | 04/06/2017 | | Results for this | | (NA,K,CL,CO2,BUN,CRE | e | 4:29 AM | | procedure are in the | | AT,GLUC,CA,PHOS,ALB | | PDT | | results section. | | ) | | | | | + +--------+ + + + | CBC ONLY | Routin | 04/06/2017 | | Results for this | | | e | 4:29 AM | | procedure are in the | | | | PDT | | results section. | + +--------+ + + + | CARDIOLOGY | | 04/06/2017 | | Results for this | | | | 12:00 AM | | procedure are in the | | | | PDT | | results section. | + +--------+ + + + | CARDIOLOGY | | 04/06/2017 | | Results for this | | | | 12:00 AM | | procedure are in the | | | | PDT | | results section. | + +--------+ + + + | CARDIOLOGY | | 04/06/2017 | | Results for this | | | | 12:00 AM | | procedure are in the | | | | PDT | | results section. | + +--------+ + + + | CAPILLARY BLOOD | Routin | 04/05/2017 | Neuroendocrine | Results for this | | GLUCOSE (NO CHG), | e | 8:37 AM | cancer (HCC) | procedure are in the | | POC | | PDT | | results section. | + +--------+ + + + | CARDIOLOGY | | 04/05/2017 | | Results for this | | | | 12:00 AM | | procedure are in the | | | | PDT | | results section. | + +--------+ + + + | CARDIOLOGY | | 04/05/2017 | | Results for this | | | | 12:00 AM | | procedure are in the | | | | PDT | | results section. | + +--------+ + + + | CAPILLARY BLOOD | Routin | 04/04/2017 | Neuroendocrine | Results for this | | GLUCOSE (NO CHG), | e | 10:13 PM | cancer (HCC) | procedure are in the | | POC | | PDT | | results section. | + +--------+ + + + | CAPILLARY BLOOD | Routin | 04/04/2017 | Neuroendocrine | Results for this | | GLUCOSE (NO CHG), | e | 7:03 PM | cancer (HCC) | procedure are in the | | POC | | PDT | | results section. | + +--------+ + + + | X-RAY PORTABLE CHEST | Routin | 04/04/2017 | | Results for this | | 1 VIEW | e | 10:46 AM | | procedure are in the | | | | PDT | | results section. | + +--------+ + + + | X-RAY PORTABLE CHEST | Urgent | 04/04/2017 | | Results for this | | 1 VIEW | | 7:06 AM | | procedure are in the | | | | PDT | | results section. | + +--------+ + + + | OPERATION RECORD | | 04/04/2017 | | Results for this | | | | 6:52 AM | | procedure are in the | | | | PDT | | results section. | + +--------+ + + + | CBC (HEMOGRAM) ONLY | Routin | 04/04/2017 | | Results for this | | | e | 5:15 AM | | procedure are in the | | | | PDT | | results section. | + +--------+ + + + | RENAL FUNCTION SET | Urgent | 04/04/2017 | | Results for this | | (NA,K,CL,CO2,BUN,CRE | | 5:15 AM | | procedure are in the | | AT,GLUC,CA,PHOS,ALB | | PDT | | results section. | | ) | | | | | + +--------+ + + + | CBC ONLY | Routin | 04/04/2017 | | Results for this | | | e | 5:15 AM | | procedure are in the | | | | PDT | | results section. | + +--------+ + + + | MAGNESIUM, PLASMA | Urgent | 04/04/2017 | | Results for this | | | | 5:15 AM | | procedure are in the | | | | PDT | | results section. | + +--------+ + + + | CARDIOLOGY | | 04/04/2017 | | Results for this | | | | 12:00 AM | | procedure are in the | | | | PDT | | results section. | + +--------+ + + + | PROCEDURE NOTE | Routin | 04/03/2017 | | Results for this | | | e | 2:24 PM | | procedure are in the | | | | PDT | | results section. | + +--------+ + + + | PROCEDURE NOTE | Routin | 04/03/2017 | | Results for this | | | e | 7:36 AM | | procedure are in the | | | | PDT | | results section. | + +--------+ + + + | X-RAY PORTABLE CHEST | Urgent | 04/03/2017 | | Results for this | | 1 VIEW | | 5:35 AM | | procedure are in the | | | | PDT | | results section. | + +--------+ + + + | CBC (HEMOGRAM) ONLY | Urgent | 04/03/2017 | | Results for this | | | | 3:08 AM | | procedure are in the | | | | PDT | | results section. | + +--------+ + + + | RENAL FUNCTION SET | Urgent | 04/03/2017 | | Results for this | | (NA,K,CL,CO2,BUN,CRE | | 3:08 AM | | procedure are in the | | AT,GLUC,CA,PHOS,ALB | | PDT | | results section. | | ) | | | | | + +--------+ + + + | CBC ONLY | Urgent | 04/03/2017 | | Results for this | | | | 3:08 AM | | procedure are in the | | | | PDT | | results section. | + +--------+ + + + | MAGNESIUM, PLASMA | Urgent | 04/03/2017 | | Results for this | | | | 3:08 AM | | procedure are in the | | | | PDT | | results section. | + +--------+ + + + | PROCEDURE NOTE | Routin | 04/02/2017 | | Results for this | | | e | 9:39 PM | | procedure are in the | | | | PDT | | results section. | + +--------+ + + + | CBC (HEMOGRAM) ONLY | Urgent | 04/02/2017 | | Results for this | | | | 4:39 PM | | procedure are in the | | | | PDT | | results section. | + +--------+ + + + | RENAL FUNCTION SET | Urgent | 04/02/2017 | | Results for this | | (NA,K,CL,CO2,BUN,CRE | | 4:39 PM | | procedure are in the | | AT,GLUC,CA,PHOS,ALB | | PDT | | results section. | | ) | | | | | + +--------+ + + + | CBC ONLY | Urgent | 04/02/2017 | | Results for this | | | | 4:39 PM | | procedure are in the | | | | PDT | | results section. | + +--------+ + + + | COAGULOPATHY PANEL | Urgent | 04/02/2017 | | Results for this | | (INR,APTT,FIBRINOGEN | | 4:39 PM | | procedure are in the | | ) | | PDT | | results section. | + +--------+ + + + | MAGNESIUM, PLASMA | Urgent | 04/02/2017 | | Results for this | | | | 4:39 PM | | procedure are in the | | | | PDT | | results section. | + +--------+ + + + | CAPILLARY BLOOD | Routin | 04/02/2017 | Neuroendocrine | Results for this | | GLUCOSE (NO CHG), | e | 4:38 PM | cancer (HCC) | procedure are in the | | POC | | PDT | | results section. | + +--------+ + + + | X-RAY PORTABLE CHEST | Urgent | 04/02/2017 | | Results for this | | 1 VIEW | | 3:55 PM | | procedure are in the | | | | PDT | | results section. | + +--------+ + + + | CAPILLARY BLOOD | Routin | 04/02/2017 | Neuroendocrine | Results for this | | GLUCOSE (NO CHG), | e | 2:46 PM | cancer (HCC) | procedure are in the | | POC | | PDT | | results section. | + +--------+ + + + | ABG-FULL ABL, POC | Urgent | 04/02/2017 | Neuroendocrine | Results for this | | | | 1:17 PM | cancer (HCC) | procedure are in the | | | | PDT | | results section. | + +--------+ + + + | ABG-FULL ABL, POC | Urgent | 04/02/2017 | Neuroendocrine | Results for this | | | | 11:01 AM | cancer (HCC) | procedure are in the | | | | PDT | | results section. | + +--------+ + + + | ABG-FULL ABL, POC | Urgent | 04/02/2017 | Neuroendocrine | Results for this | | | | 9:07 AM | cancer (HCC) | procedure are in the | | | | PDT | | results section. | + +--------+ + + + | THORACOSCOPY, | Electi | 04/02/2017 | Neuroendocrine | | | LOBECTOMY | ve | 7:28 AM | cancer | | | | Surgic | PDT | | | | | al | | | | + +--------+ + + + +---+--------+ | | | | | Specia | | | l | | | Needs | | | ICU | | | POST | | | OP - | | | CVICU | | | TEAM | +---+--------+ + +--------+ + + + | ANTIBODY SCREEN | Urgent | 04/02/2017 | | Results for this | | | | 6:15 AM | | procedure are in the | | | | PDT | | results section. | + +--------+ + + + | TYPE AND SCREEN | Urgent | 04/02/2017 | | Results for this | | | | 6:15 AM | | procedure are in the | | | | PDT | | results section. | + +--------+ + + + | ABO & RH TYPE | Urgent | 04/02/2017 | | Results for this | | | | 6:15 AM | | procedure are in the | | | | PDT | | results section. | + +--------+ + + + | CAPILLARY BLOOD | Routin | 04/02/2017 | Neuroendocrine | Results for this | | GLUCOSE (NO CHG), | e | 6:14 AM | cancer (HCC) | procedure are in the | | POC | | PDT | | results section. | + +--------+ + + + | CARDIOLOGY | | 04/02/2017 | | Results for this | | | | 12:00 AM | | procedure are in the | | | | PDT | | results section. | + +--------+ + + + | SURGICAL PATHOLOGY | Routin | 04/02/2017 | | Results for this | | | e | | | procedure are in the | | | | | | results section. | + +--------+ + + + documented in this encounter Results TEACHING PHYSICIAN (04/12/2017 12:00 AM PDT) + + | Procedure Note | + + | Gwendolyn Toribio MD - 04/02/2017 3:25 PM PDT Date of Service: 04/02/2017 | | Attending Surgeon:Gwendolyn Toribio MD | | Please see Dr. Heredia's note for complete details of the dictation. Co-surgeon was needed | | due to the technical difficulty of this case as the endobronchial tumor had to be | | removed thoracoscopically by superior segmentectomy.CHRISTOPHER Stapleton/KAYLEYD: | | 04/02/2017 14:23:54DT: 04/02/2017 15:25:19Job #: [id number] | | | | | | | |Gwendolyn Toribio MD | |MS/MODL | | | | | | /[id number] | + + X-RAY PORTABLE CHEST 1 VIEW (04/07/2017 2:04 PM PDT) + + | Specimen | + + | | + + + + + | Narrative | Performed At | + + + | STUDY: NE CHEST 1 VIEW 04/07/17 13:30:59 HISTORY: Status post | [facility] | | chest tube placement, recent right VATS. COMPARISON: Multiple | RADIOLOGY VOICE | | prior radiographs, most recently earlier today FINDINGS: Right | RECOGNITION | | sided chest tube has been placed; the tip projects over the right | | | hilum. Surgical changes are noted in the right lung. There is a | | | moderate right pleural effusion, decreased in size from the radiograph | | | earlier today. Left lung is clear. Right chest wall soft tissue gas | | | is unchanged. IMPRESSION: Interval right chest tube placement | | | with decrease in size of the moderate right pneumothorax. I | | | have personally reviewed the images and, if necessary, edited the | | | report. I agree with the report as now presented. | | + + + + + | Procedure Note | + + | Service Account, Radiant Res In Interface - 04/07/2017 3:03 PM PDT STUDY: NE CHEST 1 | | VIEW 04/07/17 13:30:59 HISTORY: Status post chest tube placement, recent right | | VATS.COMPARISON: Multiple prior radiographs, most recently earlier todayFINDINGS: Right | | sided chest tube has been placed; the tip projects over the right hilum. Surgical | | changes are noted in the right lung. There is a moderate right pleural effusion, | | decreased in size from the radiograph earlier today. Left lung is clear. Right chest | | wall soft tissue gas is unchanged.IMPRESSION: Interval right chest tube placement with | | decrease in size of the moderate right pneumothorax.I have personally reviewed the | | images and, if necessary, edited the report. I agree with the report as now presented. | | | |IMPRESSION: | | | |Interval right chest tube placement with decrease in size of the moderate right pneumothora x. | | | | | |I have personally reviewed the images and, if necessary, edited the report. I agree with t he report as now presented. | + + + +---------+ + + | Performing | Address | City/State/Zipcode | Phone Number | | Organization | | | | + +---------+ + + | [facility] | | | | | VOICE RECOGNITION | | | | + +---------+ + + X-RAY PORTABLE CHEST 1 VIEW (04/07/2017 9:37 AM PDT) + + | Specimen | + + | | + + + + + | Narrative | Performed At | + + + | EXAM: NE CHEST 1 VIEW 04/07/17 09:08:12 HISTORY: Evaluate for | [facility] | | pneumothorax. COMPARISON: Yesterday FINDINGS: Increased | RADIOLOGY VOICE | | moderate right apical and new right basilar pneumothorax. Right | RECOGNITION | | chest wall subcutaneous gas has increased. Right mid and lower lung | | | atelectasis has increased. No new consolidation. No pulmonary | | | edema. The cardiomediastinal contour is normal. No pleural | | | effusion. No displaced fractures. IMPRESSION: Increased | | | moderate right apical and new right basilar pneumothorax. I | | | have personally reviewed the images and, if necessary, edited the | | | report. I agree with the report as now presented. | | + + + + + | Procedure Note | + + | Service Account, Radiant Res In Interface - 04/07/2017 11:13 AM PDT EXAM: NE CHEST 1 | | VIEW 04/07/17 09:08:12 HISTORY: Evaluate for pneumothorax.COMPARISON: YesterdayFINDINGS: | | Increased moderate right apical and new right basilar pneumothorax. Right chest wall | | subcutaneous gas has increased. Right mid and lower lung atelectasis has increased. No | | new consolidation. No pulmonary edema. The cardiomediastinal contour is normal. No | | pleural effusion. No displaced fractures.IMPRESSION:Increased moderate right apical and | | new right basilar pneumothorax.I have personally reviewed the images and, if necessary, | | edited the report. I agree with the report as now presented. | |Increased moderate right apical and new right basilar pneumothorax. Right chest wall subcu taneous gas has increased. Right mid and lower lung atelectasis has increased. No new cons olidation. No pulmonary edema. | | | |The cardiomediastinal contour is normal. | | | |No pleural effusion. | | | |No displaced fractures. | | | |IMPRESSION: | | | |Increased moderate right apical and new right basilar pneumothorax. | | | | | |I have personally reviewed the images and, if necessary, edited the report. I agree with t he report as now presented. | + + + +---------+ + + | Performing | Address | City/[facility] | Phone Number | | Organization | | | | + +---------+ + + | [facility] | | | | | VOICE RECOGNITION | | | | + +---------+ + + CARDIOLOGY (04/07/2017 12:00 AM PDT) + + + | Narrative | Performed At | + + + | | | + + + X-RAY PORTABLE CHEST 1 VIEW (04/06/2017 3:59 PM PDT) + + | Specimen | + + | | + + + + + | Narrative | Performed At | + + + | EXAM: NE CHEST 1 VIEW 11/30/99 00:00:00 HISTORY: Right sided | [facility] | | pneumothorax. COMPARISON: Earlier same day. FINDINGS: | RADIOLOGY VOICE | | Redemonstration of moderate right apical pneumothorax unchanged in | RECOGNITION | | configuration. Cardiomediastinal silhouette is unchanged. Right | | | perihilar focal opacity related to recent surgery is again evident. No | | | pulmonary edema. No pleural effusion. No acute osseous abnormality is | | | evident. Moderate gaseous small bowel distention is evident in the | | | limited imaged area of the upper abdomen. IMPRESSION: | | | Unchanged configuration of the moderate right apical pneumothorax. | | | Right perihilar opacification as before. I have personally | | | reviewed the images and, if necessary, edited the report. I agree | | | with the report as now presented. | | + + + + + | Procedure Note | + + | Service Account, RadiRevistronic Res In Interface - 04/06/2017 4:43 PM PDT EXAM: NE CHEST 1 | | VIEW 11/30/99 00:00:00HISTORY: Right sided pneumothorax.COMPARISON: Earlier same | | day.FINDINGS: Redemonstration of moderate right apical pneumothorax unchanged in | | configuration. Cardiomediastinal silhouette is unchanged. Right perihilar focal opacity | | related to recent surgery is again evident. No pulmonary edema. No pleural effusion. No | | acute osseous abnormality is evident. Moderate gaseous small bowel distention is evident | | in the limited imaged area of the upper abdomen.IMPRESSION: Unchanged configuration of | | the moderate right apical pneumothorax.Right perihilar opacification as before.I have | | personally reviewed the images and, if necessary, edited the report. I agree with the | | report as now presented. | |IMPRESSION: | | | |Unchanged configuration of the moderate right apical pneumothorax. | | | |Right perihilar opacification as before. | | | | | |I have personally reviewed the images and, if necessary, edited the report. I agree with t he report as now presented. | + + + +---------+ + + | Performing | Address | City/State/Zipcode | Phone Number | | Organization | | | | + +---------+ + + | [facility] | | | | | VOICE RECOGNITION | | | | + +---------+ + + 12 LEAD ECG (04/06/2017 3:43 PM PDT) + + + + + + | Component | Value | Ref Range | Performed | Pathologist | | | | | At | Signature | + + + + + + | VENTRICULAR | 99 | bpm | [facility] | | | RATE | | | OF | | | | | | CARDIOLOGY | | + + + + + + | ATRIAL RATE | 100 | ms | [facility] | | | | | | OF | | | | | | CARDIOLOGY | | + + + + + + | P-R | 140 | ms | [facility] | | | INTERVAL | | | OF | | | | | | CARDIOLOGY | | + + + + + + | P AXIS | 64 | deg | [facility] | | | | | | OF | | | | | | CARDIOLOGY | | + + + + + + | QRS | 88 | ms | [facility] | | | DURATION | | | OF | | | | | | CARDIOLOGY | | + + + + + + | QT | 356 | ms | [facility] | | | | | | OF | | | | | | CARDIOLOGY | | + + + + + + | QTCB | 457 | ms | [facility] | | | | | | OF | | | | | | CARDIOLOGY | | + + + + + + | R AXIS | -10 | deg | [facility] | | | | | | OF | | | | | | CARDIOLOGY | | + + + + + + | T AXIS | 53 | deg | [facility] | | | | | | OF | | | | | | CARDIOLOGY | | + + + + + + | ECG | SINUS RHYTHM | | [facility] | | | IMPRESSION | | | OF | | | | | | CARDIOLOGY | | + + + + + + | ECG | BORDERLINE RIGHT AXIS | | [facility] | | | IMPRESSION | DEVIATION- OTHERWISE | | OF | | | | NORMAL ECG - | | CARDIOLOGY | | + + + + + + | ECG | Electronically signed | | [facility] | | | IMPRESSION | by: MERLINE GANDHI | | OF | | | | 04-07-2017 14:34:58 | | CARDIOLOGY | | + + + + + + + + | Specimen | + + | | + + + + + | Narrative | Performed At | + + + | | | + + + + + + + + | Performing | Address | City/State/Zipcode | Phone Number | | Organization | | | | + + + + + | [facility] | [address] | [place], [place] | | | CARDIOLOGY | [address] | [address] | | + + + + + X-RAY PORTABLE CHEST 1 VIEW (04/06/2017 12:17 PM PDT) + + | Specimen | + + | | + + + + + | Narrative | Performed At | + + + | EXAM: NE CHEST 1 VIEW 04/06/17 11:57:26 HISTORY: Thoracostomy | [facility] | | tube removal. COMPARISON: 04/04/17 FINDINGS: Interval removal | RADIOLOGY VOICE | | of right hemithorax thoracostomy tube. Cardiomediastinal silhouette is | RECOGNITION | | unchanged. There is reoccurrence of moderate right apical | | | pneumothorax. There is increased right perihilar focal opacity in | | | likely due to recent surgery. Decreased retrocardiac atelectasis. No | | | pulmonary edema. No pleural effusion. No acute osseous abnormality is | | | evident. IMPRESSION: Recurrence of moderate right apical | | | pneumothorax post thoracostomy tube removal. Right perihilar | | | opacification likely related to increased perihilar and infrahilar | | | atelectasis however retained retained secretions/aspiration remain | | | considerations. These results were discussed with MAMTA Wright by | | | radiologist-resident Dr. Guerra at the time of dictation. | | | I have personally reviewed the images and, if necessary, edited the | | | report. I agree with the report as now presented. | | + + + + + | Procedure Note | + + | Service Account, Radiant Res In Interface - 04/06/2017 3:23 PM PDT EXAM: NE CHEST 1 | | VIEW 04/06/17 11:57:26HISTORY: Thoracostomy tube removal.COMPARISON: 04/04/17FINDINGS: | | Interval removal of right hemithorax thoracostomy tube. Cardiomediastinal silhouette is | | unchanged. There is reoccurrence of moderate right apical pneumothorax. There is | | increased right perihilar focal opacity in likely due to recent surgery. Decreased | | retrocardiac atelectasis. No pulmonary edema. No pleural effusion. No acute osseous | | abnormality is evident.IMPRESSION: Recurrence of moderate right apical pneumothorax post | | thoracostomy tube removal.Right perihilar opacification likely related to increased | | perihilar and infrahilar atelectasis however retained retained secretions/aspiration | | remain considerations.These results were discussed with MAMTA Wright by | | radiologist-resident Dr. Guerra at the time of dictation.I have personally reviewed | | the images and, if necessary, edited the report. I agree with the report as now | | presented. | | | |Right perihilar opacification likely related to increased perihilar and infrahilar atelecta sis however retained retained secretions/aspiration remain considerations. | | | |These results were discussed with MAMTA Wright by radiologist-resident Dr. Guerra at t he time of dictation. | | | | | |I have personally reviewed the images and, if necessary, edited the report. I agree with t he report as now presented. | + + + +---------+ + + | Performing | Address | City/State/Zipcode | Phone Number | | Organization | | | | + +---------+ + + | [facility] | | | | | VOICE RECOGNITION | | | | + +---------+ + + PROCEDURE NOTE (04/06/2017 8:26 AM PDT) + + + | Narrative | Performed At | + + + | Nelson Mccarty NP 04/06/2017 8:26 AM Right chest drain removed | | | without complication. Suture tied. Dressing applied. | | + + + CBC (HEMOGRAM) ONLY (04/06/2017 4:29 AM PDT) + +---------+ + + + | Component | Value | Ref Range | Performed | Pathologist | | | | | At | Signature | + +---------+ + + + | WHITE CELL | 8.26 | 3.50 - 10.80 | [facility] | | | COUNT | | K/cu mm | LABORATORY | | | | | | SERVICES, | | | | | | CORE | | + +---------+ + + + | RED CELL | 4.04 | 4.00 - 5.20 | [facility] | | | COUNT | | M/cu mm | LABORATORY | | | | | | SERVICES, | | | | | | CORE | | + +---------+ + + + | HEMOGLOBIN | 12.9 | 12.0 - 16.0 | [facility] | | | | | g/dL | LABORATORY | | | | | | SERVICES, | | | | | | CORE | | + +---------+ + + + | HEMATOCRIT | 37.3 | 36.0 - 46.0 % | [facility] | | | | | | LABORATORY | | | | | | SERVICES, | | | | | | CORE | | + +---------+ + + + | MCV | 92.3 | 80.0 - 96.0 fL | [facility] | | | | | | LABORATORY | | | | | | SERVICES, | | | | | | CORE | | + +---------+ + + + | MCHC | 34.6 | 33.0 - 35.5 | [facility] | | | | | g/dL | LABORATORY | | | | | | SERVICES, | | | | | | CORE | | + +---------+ + + + | RDW SD | 40.7 | 35.1 - 46.3 fL | [facility] | | | | | | LABORATORY | | | | | | SERVICES, | | | | | | CORE | | + +---------+ + + + | PLATELET | 146 (L) | 150 - 400 K/cu | [facility] | | | COUNT | | mm | LABORATORY | | | | | | SERVICES, | | | | | | CORE | | + +---------+ + + + | MPV | 10.8 | 9.7 - 12.3 fL | [facility] | | | | | | LABORATORY | | | | | | SERVICES, | | | | | | CORE | | + +---------+ + + + | NRBC% | 0.0 | 0.0 - 0.3 % | [facility] | | | | | | LABORATORY | | | | | | SERVICES, | | | | | | CORE | | + +---------+ + + + | NRBC# | 0.00 | 0.00 - 0.02 | [facility] | | | | | K/cu mm | LABORATORY | | | | | | SERVICES, | | | | | | CORE | | + +---------+ + + + + + | Specimen | + + | Blood - Blood | | (substance) | + + + + + + + | Performing | Address | City/State/Zipcode | Phone Number | | Organization | | | | + + + + + | [facility] | [address] | [place] [address] | | | SERVICES, CORE | [address] | | | + + + + + RENAL FUNCTION SET (NA,K,CL,CO2,BUN,CREAT,GLUC,CA,PHOS,ALB ) (04/06/2017 4:29 AM PDT) + + + + + + | Component | Value | Ref Range | Performed | Pathologist | | | | | At | Signature | + + + + + + | GLUCOSE, | 97 | 60 - 99 mg/dL | [facility] | | | PLASMA | | | LABORATORY | | | (LAB) | | | SERVICES, | | | | | | CORE | | + + + + + + | BUN, PLASMA | 4 (L) | 6 - 20 mg/dL | [facility] | | | (LAB) | | | LABORATORY | | | | | | SERVICES, | | | | | | CORE | | + + + + + + | CREATININE | 0.54 (L) | 0.60 - 1.10 | [facility] | | | PLASMA | | mg/dL | LABORATORY | | | (LAB) | | | SERVICES, | | | | | | CORE | | + + + + + + | EGFR | >60 | >60 mL/min | [facility] | | | - | | | LABORATORY | | | [place] | | | SERVICES, | | | | | | CORE | | + + + + + + | EGFR NON | >60 | >60 mL/min | [facility] | | | -MANDY | | | LABORATORY | | | [facility] | | | SERVICES, | | | | | | CORE | | + + + + + + | SODIUM, | 136 | 136 - 145 | [facility] | | | PLASMA | | mmol/L | LABORATORY | | | (LAB) | | | SERVICES, | | | | | | CORE | | + + + + + + | POTASSIUM, | 3.5 | 3.4 - 5.0 | [facility] | | | PLASMA | | mmol/L | LABORATORY | | | (LAB) | | | SERVICES, | | | | | | CORE | | + + + + + + | CHLORIDE, | 100 | 97 - 108 mmol/L | [facility] | | | PLASMA | | | LABORATORY | | | (LAB) | | | SERVICES, | | | | | | CORE | | + + + + + + | TOTAL CO2, | 29 | 21 - 32 mmol/L | [facility] | | | PLASMA | | | LABORATORY | | | (LAB) | | | SERVICES, | | | | | | CORE | | + + + + + + | CALCIUM, | 9.1 | 8.6 - 10.2 | [facility] | | | PLASMA | | mg/dL | LABORATORY | | | (LAB) | | | SERVICES, | | | | | | CORE | | + + + + + + | CALCIUM(ALB | 9.8 | 8.6 - 10.2 | [facility] | | | CORRECTED) | | mg/dL | LABORATORY | | | | | | SERVICES, | | | | | | CORE | | + + + + + + | ALBUMIN, | 3.1 (L) | 3.5 - 4.7 g/dL | [facility] | | | PLASMA | | | LABORATORY | | | (LAB) | | | SERVICES, | | | | | | CORE | | + + + + + + | PHOSPHORUS, | 2.8 | 2.4 - 4.7 mg/dL | [facility] | | | PLASMA | | | LABORATORY | | | (LAB) | | | SERVICES, | | | | | | CORE | | + + + + + + | POTASSIUM | No Hemo | | [facility] | | | CMNT | | | LABORATORY | | | | | | SERVICES, | | | | | | CORE | | + + + + + + | ANION GAP | 7 | mmol/L | [facility] | | | | | | LABORATORY | | | | | | SERVICES, | | | | | | CORE | | + + + + + + | ANION | 9 | 4 - 11 mmol/L | [facility] | | | GAP(ALB | | | LABORATORY | | | CORRECTED) | | | SERVICES, | | | | | | CORE | | + + + + + + + + | Specimen | + + | Blood - Blood | | (substance) | + + + + + | Narrative | Performed At | + + + | GFR is estimated using the MDRD equation recommended by the | [facility] | | National Kidney Disease Education Program. Estimated GFR | LABORATORY | | Interpretive Information: <60 mL/min/1.73 sq m | SERVICES, CORE | | Chronic Kidney Disease <15 mL/min/1.73 sq m | | | Kidney Failure Estimated GFR greater that 60 mL/min/1.73 sq m is of | | | limited clinical value. The MDRD equation is not valid in the | | | following situations: - Patients under 18 years of age - Severe | | | malnutrition or obesity - Vegetarian diet - Rapidly changing kidney | | | function | | + + + + + + + + | Performing | Address | City/State/Zipcode | Phone Number | | Organization | | | | + + + + + | [facility] | [address] | [place] [address] | | | [place], [place] | [place]Y [place]ES | | | + + + + + CARDIOLOGY (04/06/2017 12:00 AM PDT) + + + | Narrative | Performed At | + + + | | | + + + CARDIOLOGY (04/06/2017 12:00 AM PDT) + + + | Narrative | Performed At | + + + | | | + + + CARDIOLOGY (04/06/2017 12:00 AM PDT) + + + | Narrative | Performed At | + + + | | | + + + CAPILLARY BLOOD GLUCOSE (NO CHG), POC (04/05/2017 8:37 AM PDT) + +-------+ + + + | Component | Value | Ref Range | Performed | Pathologist | | | | | At | Signature | + +-------+ + + + | BLOOD | 77 | 60 - 99 mg/dL | [facility] | | | GLUCOSE, | | | [facility] | | | POC | | | [facility] | | | | | | OF CARE | | | | | | TESTS | | + +-------+ + + + + + | Specimen | + + | | + + + + + + + | Performing | Address | City/State/Zipcode | Phone Number | | Organization | | | | + + + + + | [facility] | [address] | [place], [place] | | | [facility] | [address] | [phone] | | | TESTS | | | | + + + + + CARDIOLOGY (04/05/2017 12:00 AM PDT) + + + | Narrative | Performed At | + + + | | | + + + CARDIOLOGY (04/05/2017 12:00 AM PDT) + + + | Narrative | Performed At | + + + | | | + + + CAPILLARY BLOOD GLUCOSE (NO CHG), POC (04/04/2017 10:13 PM PDT) + +---------+ + + + | Component | Value | Ref Range | Performed | Pathologist | | | | | At | Signature | + +---------+ + + + | BLOOD | 101 (H) | 60 - 99 mg/dL | [facility] | | | GLUCOSE, | | | [facility] | | | POC | | | [facility] | | | | | | OF CARE | | | | | | TESTS | | + +---------+ + + + + + | Specimen | + + | | + + + + + + + | Performing | Address | City/State/Zipcode | Phone Number | | Organization | | | | + + + + + | [facility] | [address] | [place], [place] | | | [facility] | [address] | [phone] | | | TESTS | | | | + + + + + CAPILLARY BLOOD GLUCOSE (NO CHG), POC (04/04/2017 7:03 PM PDT) + +-------+ + + + | Component | Value | Ref Range | Performed | Pathologist | | | | | At | Signature | + +-------+ + + + | BLOOD | 91 | 60 - 99 mg/dL | [facility] | | | GLUCOSE, | | | [facility] | | | POC | | | [facility] | | | | | | OF CARE | | | | | | TESTS | | + +-------+ + + + + + | Specimen | + + | | + + + + + + + | Performing | Address | City/State/Zipcode | Phone Number | | Organization | | | | + + + + + | [facility] | [address] | [place], [place] | | | [facility] [place] | [address] | [phone] | | | TESTS | | | | + + + + + X-RAY PORTABLE CHEST 1 VIEW (04/04/2017 10:46 AM PDT) + + | Specimen | + + | | + + + + + | Narrative | Performed At | + + + | EXAM: NE CHEST 1 VIEW 04/04/17 10:08:34 HISTORY: Airleak noted | [facility] | | on CT COMPARISON: 04/04/17 FINDINGS: Right chest tube is | RADIOLOGY VOICE | | unchanged in position. Right apical pneumothorax is no longer seen. | RECOGNITION | | There is no left pneumothorax. The mediastinal contours are stable. | | | Reticular nodular right infrahilar, lower lobe, and retrocardiac | | | atelectasis/secretions are unchanged. Left midlung linear | | | atelectasis/scarring is unchanged. There is no evidence of pulmonary | | | edema. Trace bilateral pleural effusions. No discrete fractures. | | | Multiple loops of prominent bowel are again seen in the left upper | | | quadrant. IMPRESSION: 1. Stable right infrahilar, lower lobe, | | | and retrocardiac atelectasis/retained secretions. 2. Right apical | | | pneumothorax is no longer seen. I have personally reviewed the | | | images and, if necessary, edited the report. I agree with the | | | report as now presented. | | + + + + + | Procedure Note | + + | Service Account, Radiant Res In Interface - 04/04/2017 11:16 AM PDT EXAM: NE CHEST 1 | | VIEW 04/04/17 10:08:34HISTORY: Airleak noted on CTCOMPARISON: 04/04/17FINDINGS: Right | | chest tube is unchanged in position. Right apical pneumothorax is no longer seen. There | | is no left pneumothorax. The mediastinal contours are stable. Reticular nodular right | | infrahilar, lower lobe, and retrocardiac atelectasis/secretions are unchanged. Left | | midlung linear atelectasis/scarring is unchanged. There is no evidence of pulmonary | | edema. Trace bilateral pleural effusions. No discrete fractures. Multiple loops of | | prominent bowel are again seen in the left upper quadrant.IMPRESSION: 1. Stable right | | infrahilar, lower lobe, and retrocardiac atelectasis/retained secretions.2. Right apical | | pneumothorax is no longer seen.I have personally reviewed the images and, if necessary, | | edited the report. I agree with the report as now presented. | |IMPRESSION: | | | |1. Stable right infrahilar, lower lobe, and retrocardiac atelectasis/retained secretions. | | | |2. Right apical pneumothorax is no longer seen. | | | | | |I have personally reviewed the images and, if necessary, edited the report. I agree with t he report as now presented. | + + + +---------+ + + | Performing | Address | City/State/Zipcode | Phone Number | | Organization | | | | + +---------+ + + | [facility] | | | | | VOICE RECOGNITION | | | | + +---------+ + + X-RAY PORTABLE CHEST 1 VIEW (04/04/2017 7:06 AM PDT) + + | Specimen | + + | | + + + + + | Narrative | Performed At | + + + | EXAM: NE CHEST 1 VIEW 11/30/99 00:00:00 HISTORY: Postoperative | [facility] | | day #2 status post VATS COMPARISON: Chest radiographs 04/02/2017 and | RADIOLOGY VOICE | | 04/03/2017 FINDINGS: Right chest tube is in unchanged position, | RECOGNITION | | with stable small apical pneumothorax. The mediastinal contours are | | | unremarkable. The cardiac silhouette is normal in size. Right | | | perihilar and bilateral lower lobe atelectasis is stable to minimally | | | increased from the most recent prior. The lungs are otherwise clear | | | without focal consolidation. There is no pulmonary edema or pleural | | | effusion. Regional osseous structures are intact without acute | | | fracture or focal destruction. Multiple loops of mildly prominent | | | bowel are again seen within the left upper quadrant. No additional | | | soft tissue abnormality is seen. IMPRESSION: 1. Essentially | | | unchanged right perihilar and bilateral lower lung atelectasis. 2. | | | Stable small right apical pneumothorax. I have personally | | | reviewed the images and, if necessary, edited the report. I agree | | | with the report as now presented. | | + + + + + | Procedure Note | + + | Service Account, Radiant Res In Interface - 04/04/2017 8:54 AM PDT EXAM: NE CHEST 1 | | VIEW 11/30/99 00:00:00HISTORY: Postoperative day #2 status post VATSCOMPARISON: Chest | | radiographs 04/02/2017 and 04/03/2017FINDINGS:Right chest tube is in unchanged position, | | with stable small apical pneumothorax. The mediastinal contours are unremarkable. The | | cardiac silhouette is normal in size. Right perihilar and bilateral lower lobe | | atelectasis is stable to minimally increased from the most recent prior. The lungs are | | otherwise clear without focal consolidation. There is no pulmonary edema or pleural | | effusion. Regional osseous structures are intact without acute fracture or focal | | destruction. Multiple loops of mildly prominent bowel are again seen within the left | | upper quadrant. No additional soft tissue abnormality is seen.IMPRESSION:1. Essentially | | unchanged right perihilar and bilateral lower lung atelectasis.2. Stable small right | | apical pneumothorax.I have personally reviewed the images and, if necessary, edited the | | report. I agree with the report as now presented. | | | |1. Essentially unchanged right perihilar and bilateral lower lung atelectasis. | | | |2. Stable small right apical pneumothorax. | | | | | |I have personally reviewed the images and, if necessary, edited the report. I agree with t he report as now presented. | + + + +---------+ + + | Performing | Address | City/State/Zipcode | Phone Number | | Organization | | | | + +---------+ + + | [facility] | | | | | VOICE RECOGNITION | | | | + +---------+ + + OPERATION RECORD (04/04/2017 6:52 AM PDT) + + | Procedure Note | + + | Zeeshan Heredia MD - 04/03/2017 8:52 AM PDT Date of Service: 04/02/2017 | | Attending Surgeon: Zeeshan Heredia MD Co-Surgeon: Gwendolyn Toribio. | | Personal Banking Advisor(s): Sonia Butt. Preoperative Diagnoses: 1. 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 Hypertension.3. Chronic | | obstructive pulmonary disease.Postprocedure Diagnoses: 1. Right lower lobe superior | | segment bronchopulmonary carcinoid.2. Hypertension.3. Chronic obstructive pulmonary | | disease.Procedures: 1. Flexible bronchoscopy.2. Right thoracoscopy with superior | | segmentectomy.3. Mediastinal lymph node sampling.Anesthesia: General endotracheal | | anesthesia.Drains: Right 28-Emirati chest tube.Complications: None apparent.Findings: | | The patient had a superior segment endobronchial tumor just beyond the takeoff of the | | superior segment bronchi. The mass was completely obstructing the airway. We were able | | to perform a superior segmentectomy with primary closure of the bronchial | | stump.Indications: Mrs. Amin is a 61-year-old female who was found to have a right | | lower lobe lung mass. She underwent biopsy and was found to have a typical carcinoid | | tumor. She now presents for resection.Procedure In Detail: After the patient was | | appropriately identified and consent was confirmed, she was taken to the operating room | | and placed in the supine position on the operating table. She received anesthesia and | | was then intubated without difficulty. Flexible bronchoscopy was performed. We needed | | to perform a bronchoscopy to see how close the endobronchial lesion was to the bronchus | | intermedius to allow for segmentectomy. The bronchoscope was placed through the | | endotracheal tube, and the trachea and right and left bronchial trees were examined down | | to the segmental airways. There was a moderate volume of thin clear secretions, which | | were suctioned out. Within the right lower lobe, the endobronchial mass was completely | | obstructing the superior segment bronchus. There was approximately a 5 mm margin from | | the takeoff of the lower lobe bronchus to the mass. The remaining exam was normal, with | | no other endobronchial lesions noted. The bronchoscope was carefully removed. A | | single-lumen tube was exchanged for a double-lumen endotracheal tube. The patient was | | placed in the left lateral decubitus position. The right chest was prepped and draped | | in the standard surgical fashion. Local anesthetic was injected in the skin in the | | anterior axillary line and 7th intercostal space. A 1 cm incision was made, and the | | dissection was carried down. The intercostal muscle and pleura were divided. Diagnostic | | thoracoscopy was performed. There were thin adhesions of the upper lobe and lower lobe | | to the chest wall. A working incision measuring 3 cm was made in the anterior 5th | | intercostal space. A posterior 1 cm incision in the posterior axillary line of the 8th | | intercostal space was made for an conservation assistant port. We began the dissection by dividing | | all the adhesions to the chest wall. The pulmonary ligament was divided to the inferior | | pulmonary vein. A 9R lymph node was harvested and sent for frozen section. This was | | negative for malignancy. The posterior mediastinal pleura was divided up to the level | | of the azygos vein. Subcarinal lymph node was harvested and sent for pathologic | | analysis. There was a dense firm mass within the superior segment of the lower lobe | | consistent with the findings on the CT scan. We then turned our attention to the | | anterior hilum, where we divided the mediastinal pleura adjacent to the middle lobe and | | lower lobe vein. We then dissected out the pulmonary artery within the fissure. The | | anterior aspect of the major fissure between the middle and lower lobe was divided with | | the Endo-LEIGHANN tissue load stapler. A level 11R lymph node was harvested adjacent to the | | middle lobe pulmonary arterial branch. The lower lobe pulmonary arterial branches were | | then dissected out with sharp dissection and the Harmonic scalpel. The superior | | segmental pulmonary arterial branch was identified and divided with a vascular load | | stapler. Further dissection along the major fissure was performed between the upper | | lobe and superior segment. The fissure was divided with multiple firings of the tissue | | load stapler. We then identified the bronchus and sharply dissected out the superior | | segmental bronchi. The bronchus was divided sharply at the takeoff along the bronchus | | intermedius. A proximal bronchial margin was sent and was negative for malignancy. The | | parenchyma between the superior segment and the basilar segments was divided with | | multiple firings of the Endo LEIGHANN tissue load stapler. The specimen was placed into a | | protective bag and sent to Pathology. The bronchus was repaired with interrupted 4-0 | | Vicryl suture. Small parenchymal air leaks along the upper lobe from the dissection | | within the fissure were sprayed with ProGEL. Initial examination of the bronchial stump | | showed no evidence of an air leak. A chest tube was placed, and then the incisions | | were closed. When the patient was placed back on double lung ventilation, there was a | | noticeable continuous air leak with a loss of tidal volume. Bronchoscopy was performed | | and showed a small defect within the lower aspect of the bronchial stump. The patient | | was placed back on single-lung ventilation, and the utility incision in the posterior | | conservation assistant port was reopened. The previously placed sutures had become loose and, | | therefore, they were removed. The bronchial stump was then reapproximated with new | | interrupted 4-0 Vicryl sutures. Reexamination of the bronchial stump showed no air leak | | from the stump. The right pleural space was irrigated out. The lung was reinflated | | under direct vision, and the utility incision in the posterior 8th intercostal incision | | was reapproximated with absorbable suture. A chest tube was placed through the anterior | | 7th intercostal incision. Sterile dressings were applied. All sponge, instrument, and | | needle counts were correct at the end the case. I was present and scrubbed throughout | | the entirety of this procedure.RAHEEM Vogel/KAYLEYD: 04/03/2017 07:09:16DT: | | 04/03/2017 08:52:19Job #: [id number] | + + CBC (HEMOGRAM) ONLY (04/04/2017 5:15 AM PDT) + + + + + + | Component | Value | Ref Range | Performed | Pathologist | | | | | At | Signature | + + + + + + | WHITE CELL | 9.02 | 3.50 - 10.80 | [facility] | | | COUNT | | K/cu mm | LABORATORY | | | | | | SERVICES, | | | | | | CORE | | + + + + + + | RED CELL | 3.73 (L) | 4.00 - 5.20 | [facility] | | | COUNT | | M/cu mm | LABORATORY | | | | | | SERVICES, | | | | | | CORE | | + + + + + + | HEMOGLOBIN | 11.9 (L) | 12.0 - 16.0 | [facility] | | | | | g/dL | LABORATORY | | | | | | SERVICES, | | | | | | CORE | | + + + + + + | HEMATOCRIT | 35.6 (L) | 36.0 - 46.0 % | [facility] | | | | | | LABORATORY | | | | | | SERVICES, | | | | | | CORE | | + + + + + + | MCV | 95.4 | 80.0 - 96.0 fL | [facility] | | | | | | LABORATORY | | | | | | SERVICES, | | | | | | CORE | | + + + + + + | MCHC | 33.4 | 33.0 - 35.5 | [facility] | | | | | g/dL | LABORATORY | | | | | | SERVICES, | | | | | | CORE | | + + + + + + | RDW SD | 43.4 | 35.1 - 46.3 fL | [facility] | | | | | | LABORATORY | | | | | | SERVICES, | | | | | | CORE | | + + + + + + | PLATELET | 104 (L) | 150 - 400 K/cu | [facility] | | | COUNT | | mm | LABORATORY | | | | | | SERVICES, | | | | | | CORE | | + + + + + + | MPV | 10.9 | 9.7 - 12.3 fL | [facility] | | | | | | LABORATORY | | | | | | SERVICES, | | | | | | CORE | | + + + + + + | NRBC% | 0.0 | 0.0 - 0.3 % | [facility] | | | | | | LABORATORY | | | | | | SERVICES, | | | | | | CORE | | + + + + + + | NRBC# | 0.00 | 0.00 - 0.02 | [facility] | | | | | K/cu mm | LABORATORY | | | | | | SERVICES, | | | | | | CORE | | + + + + + + + + | Specimen | + + | Blood - Blood | | (substance) | + + + + + + + | Performing | Address | City/State/Zipcode | Phone Number | | Organization | | | | + + + + + | [facility] | [address] | [place] [address] | | | SERVICES, CORE | [address] | | | + + + + + MAGNESIUM, PLASMA (04/04/2017 5:15 AM PDT) + +-------+ + + + | Component | Value | Ref Range | Performed | Pathologist | | | | | At | Signature | + +-------+ + + + | MAGNESIUM,P | 1.9 | 1.8 - 2.5 mg/dL | [facility] | | | LASMA | | | LABORATORY | | | | | | SERVICES, | | | | | | CORE | | + +-------+ + + + + + | Specimen | + + | Blood - Blood | | (substance) | + + + + + + + | Performing | Address | City/State/Zipcode | Phone Number | | Organization | | | | + + + + + | [facility] | [address] | [place] [address] | | | SERVICES, CORE | [address] | | | + + + + + RENAL FUNCTION SET (NA,K,CL,CO2,BUN,CREAT,GLUC,CA,PHOS,ALB ) (04/04/2017 5:15 AM PDT) + +---------+ + + + | Component | Value | Ref Range | Performed | Pathologist | | | | | At | Signature | + +---------+ + + + | GLUCOSE, | 100 (H) | 60 - 99 mg/dL | [facility] | | | PLASMA | | | LABORATORY | | | (LAB) | | | SERVICES, | | | | | | CORE | | + +---------+ + + + | BUN, PLASMA | 10 | 6 - 20 mg/dL | [facility] | | | (LAB) | | | LABORATORY | | | | | | SERVICES, | | | | | | CORE | | + +---------+ + + + | CREATININE | 0.73 | 0.60 - 1.10 | [facility] | | | PLASMA | | mg/dL | LABORATORY | | | (LAB) | | | SERVICES, | | | | | | CORE | | + +---------+ + + + | EGFR | >60 | >60 mL/min | [facility] | | | - | | | LABORATORY | | | [place] | | | SERVICES, | | | | | | CORE | | + +---------+ + + + | EGFR NON | >60 | >60 mL/min | [facility] | | | -[facility] | | | LABORATORY | | | [facility] | | | SERVICES, | | | | | | CORE | | + +---------+ + + + | SODIUM, | 138 | 136 - 145 | [facility] | | | PLASMA | | mmol/L | LABORATORY | | | (LAB) | | | SERVICES, | | | | | | CORE | | + +---------+ + + + | POTASSIUM, | 4.0 | 3.4 - 5.0 | [facility] | | | PLASMA | | mmol/L | LABORATORY | | | (LAB) | | | SERVICES, | | | | | | CORE | | + +---------+ + + + | CHLORIDE, | 102 | 97 - 108 mmol/L | [facility] | | | PLASMA | | | LABORATORY | | | (LAB) | | | SERVICES, | | | | | | CORE | | + +---------+ + + + | TOTAL CO2, | 31 | 21 - 32 mmol/L | [facility] | | | PLASMA | | | LABORATORY | | | (LAB) | | | SERVICES, | | | | | | CORE | | + +---------+ + + + | CALCIUM, | 8.3 (L) | 8.6 - 10.2 | [facility] | | | PLASMA | | mg/dL | LABORATORY | | | (LAB) | | | SERVICES, | | | | | | CORE | | + +---------+ + + + | CALCIUM(ALB | 9.2 | 8.6 - 10.2 | [facility] | | | CORRECTED) | | mg/dL | LABORATORY | | | | | | SERVICES, | | | | | | CORE | | + +---------+ + + + | ALBUMIN, | 2.9 (L) | 3.5 - 4.7 g/dL | [facility] | | | PLASMA | | | LABORATORY | | | (LAB) | | | SERVICES, | | | | | | CORE | | + +---------+ + + + | PHOSPHORUS, | 2.2 (L) | 2.4 - 4.7 mg/dL | [facility] | | | PLASMA | | | LABORATORY | | | (LAB) | | | SERVICES, | | | | | | CORE | | + +---------+ + + + | POTASSIUM | No Hemo | | [facility] | | | CMNT | | | LABORATORY | | | | | | SERVICES, | | | | | | CORE | | + +---------+ + + + | ANION GAP | 5 | mmol/L | [facility] | | | | | | LABORATORY | | | | | | SERVICES, | | | | | | CORE | | + +---------+ + + + | ANION | 7 | 4 - 11 mmol/L | [facility] | | | GAP(ALB | | | LABORATORY | | | CORRECTED) | | | SERVICES, | | | | | | CORE | | + +---------+ + + + + + | Specimen | + + | Blood - Blood | | (substance) | + + + + + | Narrative | Performed At | + + + | GFR is estimated using the MDRD equation recommended by the | [facility] | | National Kidney Disease Education Program. Estimated GFR | LABORATORY | | Interpretive Information: <60 mL/min/1.73 sq m | SERVICES, CORE | | Chronic Kidney Disease <15 mL/min/1.73 sq m | | | Kidney Failure Estimated GFR greater that 60 mL/min/1.73 sq m is of | | | limited clinical value. The MDRD equation is not valid in the | | | following situations: - Patients under 18 years of age - Severe | | | malnutrition or obesity - Vegetarian diet - Rapidly changing kidney | | | function | | + + + + + + + + | Performing | Address | City/State/Zipcode | Phone Number | | Organization | | | | + + + + + | [facility] [employer] | [address] | [place] [address] | | | SERVICES, [place] | [address] | | | + + + + + CARDIOLOGY (04/04/2017 12:00 AM PDT) + + + | Narrative | Performed At | + + + | | | + + + PROCEDURE NOTE (04/03/2017 2:24 PM PDT) + + + | Narrative | Performed At | + + + | Riki Urban NP 04/03/2017 2:24 PM INPATIENT ADULT PAIN | | | SERVICE NEURAXIAL BLOCK PROGRESS NOTE 04/03/2017 Author: Riki | | | Jere Urban NP Epidural day # 1. POD# 1. Status post: | | | Flexible bronchoscopy R VATS superior segmentectomy Mediastinal LN | | | dissection Bronchoplasty, closure of superior segment bronchus stump | | | Past Medical History: Diagnosis Date | | | Hearing loss of right ear | | | HTN (hypertension) | | | Pneumothorax after biopsy 10/2016 treated with chest tube | | | Type II diabetes mellitus (HCC) controlled with diet | | | Interval events since last APS visit: Hypotensive in morning | | | however at 0900 was 113/72, discontinued bupi in epidural, continue | | | to evaluate. Ms. Anders complains of right sided chest and flank | | | pain. Her pain score at rest is 1/10. With activity, her pain | | | score is 2/10. Specific activities that exacerbate Ms. Anders's | | | pain include most activities. Ms. Anders is satisfied with current | | | level of pain. History of chronic or preoperative pain: yes: | | | location: right sided chest and flank. Prior to | | | hospitalization: No significant chronic use of opioids at home. | | | Prescribed tramadol but state she did not take it. ROS/Side | | | Effects: Nausea/Vomiting: none Pruritus: mild | | | Numbness/Weakness: none Low BP: | | | moderate Dizziness: none Sedation: none Activity level: | | | Out of bed Diet: Full liquids/Reg Diet/Tube Feeds Medications: | | | Current Facility-Administered Medications Medication Dose Route | | | Frequency Last Rate | | | enoxaparin (LOVENOX) injection 40 mg 40 mg subcutaneous QPM | | | | | | ipratropium-albuterol (DUO-NEB) nebulizer solution 3 mL 3 mL | | | inhalation Q6H | | | lactated Ringers IV 500 mL intravenous ONCE | | | polyethylene glycol (MIRALAX) packet 17 g 17 g oral DAILY | | | senna-docusate (SENOKOT S) 8.6-50 mg 2 tablet 2 tablet oral BID | | | | | | simvastatin (ZOCOR) tablet 20 mg 20 mg oral QPM Current | | | Facility-Administered Medications Medication Dose Route Frequency | | | Last Rate | | | acetaminophen (TYLENOL) tablet 325-650 mg 325-650 mg oral Q4H | | | PRN | | | albuterol 0.083% (PROVENTIL,VENTOLIN) 2.5 mg /3 mL (0.083 %) | | | nebulizer solution 2.5 mg 2.5 mg inhalation Q6H PRN | | | bisacodyl (DULCOLAX) suppository 10 mg 10 mg rectal DAILY PRN | | | | | | nalbuphine (NUBAIN) injection 2.5 mg 2.5 mg intravenous Q15MIN | | | PRN | | | naloxone (NARCAN) injection intravenous PRN | | | ondansetron (ZOFRAN) injection 4 mg 4 mg intravenous Q12H PRN | | | | | | polyethylene glycol (MIRALAX) packet 34 g 34 g oral TID PRN | | | | | | prochlorperazine (COMPAZINE) injection 5 mg 5 mg intravenous Q6H | | | PRN Current Facility-Administered Medications Medication | | | Dose Route Frequency Last Rate | | | bupivacaine 0.05 %-HYDROmorphone 20 mcg/mL epidural infusion | | | epidural CONTINUOUS 4 mL/hr at 04/03/17 0610 Type: Epidural | | | Rate: 6 mL/hour Anticoagulants: No Lab Results Component Value | | | Date INRPT 1.14 04/02/2017 PLT 124 (L) 04/03/2017 APTT 25.8 | | | (L) 04/02/2017 Opioids: None Other analgesics: Acetaminophen PO | | | 325-650 mg q4h Other psychoactive medications: Compazine inj 5mg q6h | | | prn Physical Exam: Last Vitals:BP 70/38 | Pulse 75 | Temp 37 C | | | (98.6 F) | RR 9 | Ht 1.6 m (5' 3") | Wt 62.6 kg (138 lb 0.1 oz) | | | | SpO2 95% | BMI 24.45 kg/(m^2) 24 hour Vitals min/max : Systolic | | | (24hrs), Av , Min:70 , Max:116 Diastolic (24hrs), Av, | | | Min:38, Max:82 Pulse Min: 65 Max: 121 Temp Min: 36.2 C (97.2 | | | F) Max: 37 C (98.6 F) Resp Min: 7 Max: 23 SpO2 Min: | | | 92 % Max: 100 % General Appearance and Neurological Examination: | | | Mental Status: Alert Orientation: Oriented Sensory Level: intact | | | Motor: bilateral lower extremity(ies) -- No block: full flexion | | | and extension of hip, knee and foot Neuraxial Catheter: | | | Location: T5-6;depth at skin 10 cm Clinically significant migration | | | since placement? No Dressing: Intact Exit Site: Dried blood and | | | Non-tender Insertion site exposed? No Chest tube in place. | | | Assessment: Ms. Anders rates her pain relief as excellent. My | | | personal assessment is concordant with this evaluation Gay | | | status: Epidural: at thoracic level; If Gay is in place, it may | | | be removed if deemed appropriate by primary care team Diagnosis: | | | 1. Acute post operative pain My treatment plan is: Continue | | | neuraxial infusion, titrate infusion as needed. BP at 1000 was | | | 136/106. Analgesia well maintained. Consider transition to PO once | | | chest tube is discontinued. Riki Urban NP | | + + + PROCEDURE NOTE (04/03/2017 7:36 AM PDT) + + + | Narrative | Performed At | + + + | Sonia Butt MD 04/02/2017 2:41 PM BRIEF OPERATIVE NOTE | | | Procedure Date: 04/02/2017 Author: Sonia Butt MD Attending | | | Physician: MD Gwendolyn Vogel MD (assisting | | | attending) Assistants: Sonia Butt MD Prior to the beginning of | | | the procedure the team paused to verify the patient's identity, as | | | well as the procedure to be performed and the correct side/site. | | | All equipment required was ready and available. The patient was | | | positioned appropriately. 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 Dense adhesions from superior segment to chest wall, | | | airway and PA, LN densely fibrotic. At end of the procedure after | | | initial bronchial stump closure, hand sewn, airleak noted on | | | anesthesia circuit despite none at testing. Bronchoscopy done | | | showing small gap in stump. Therefore incisions reopened and stump | | | reclosed only airleak from parenchyma at end of case. Estimated | | | Blood Loss: 850cc Fluids: 2.4L Specimens: R superior | | | segment, LN 11, 10, 7, 9 Complications: reclosure of bronchial | | | stump with good approximation at the end of the case and only | | | airleak from parenchyma. Drains: 28F chest tube x1 | | | Disposition: PACU then ICU Dr. Heredia was present and scrubbed | | | for the entire procedure. | | + + + X-RAY PORTABLE CHEST 1 VIEW (04/03/2017 5:35 AM PDT) + + | Specimen | + + | | + + + + + | Narrative | Performed At | + + + | EXAM: NE CHEST 1 VIEW 04/03/17 04:36:51 HISTORY: Post right VATS | [facility] | | COMPARISON: Yesterday FINDINGS: Right chest tube has | RADIOLOGY VOICE | | been slightly retracted. Right apical pneumothorax has enlarged. The | RECOGNITION | | cardiomediastinal silhouette is stable. Scattered atelectasis have | | | increased. Gaseous distention of the stomach persists. IMPRESSION: | | | Minimally enlarging right apical pneumothorax following | | | repositioning of chest tube. Worsening mild atelectasis. I | | | have personally reviewed the images and, if necessary, edited the | | | report. I agree with the report as now presented. | | + + + + + | Procedure Note | + + | Service Account, Radiant Res In Interface - 04/03/2017 8:20 AM PDT EXAM: NE CHEST 1 | | VIEW 04/03/17 04:36:51 HISTORY: Post right VATSCOMPARISON: YesterdayFINDINGS: Right | | chest tube has been slightly retracted. Right apical pneumothorax has enlarged. The | | cardiomediastinal silhouette is stable. Scattered atelectasis have increased. Gaseous | | distention of the stomach persists.IMPRESSION: Minimally enlarging right apical | | pneumothorax following repositioning of chest tube.Worsening mild atelectasis.I have | | personally reviewed the images and, if necessary, edited the report. I agree with the | | report as now presented. | |Right chest tube has been slightly retracted. Right apical pneumothorax has enlarged. The c ardiomediastinal silhouette is stable. Scattered atelectasis have increased. Gaseous distent ion of the stomach persists. | | | |IMPRESSION: | | | |Minimally enlarging right apical pneumothorax following repositioning of chest tube. | | | |Worsening mild atelectasis. | | | | | |I have personally reviewed the images and, if necessary, edited the report. I agree with t he report as now presented. | + + + +---------+ + + | Performing | Address | City/State/Zipcode | Phone Number | | Organization | | | | + +---------+ + + | [facility] | | | | | VOICE RECOGNITION | | | | + +---------+ + + CBC (HEMOGRAM) ONLY (04/03/2017 3:08 AM PDT) + + + + + + | Component | Value | Ref Range | Performed | Pathologist | | | | | At | Signature | + + + + + + | WHITE CELL | 17.40 (H) | 3.50 - 10.80 | [facility] | | | COUNT | | K/cu mm | LABORATORY | | | | | | SERVICES, | | | | | | CORE | | + + + + + + | RED CELL | 3.91 (L) | 4.00 - 5.20 | [facility] | | | COUNT | | M/cu mm | LABORATORY | | | | | | SERVICES, | | | | | | CORE | | + + + + + + | HEMOGLOBIN | 12.7 | 12.0 - 16.0 | [facility] | | | | | g/dL | LABORATORY | | | | | | SERVICES, | | | | | | CORE | | + + + + + + | HEMATOCRIT | 37.0 | 36.0 - 46.0 % | [facility] | | | | | | LABORATORY | | | | | | SERVICES, | | | | | | CORE | | + + + + + + | MCV | 94.6 | 80.0 - 96.0 fL | [facility] | | | | | | LABORATORY | | | | | | SERVICES, | | | | | | CORE | | + + + + + + | MCHC | 34.3 | 33.0 - 35.5 | [facility] | | | | | g/dL | LABORATORY | | | | | | SERVICES, | | | | | | CORE | | + + + + + + | RDW SD | 43.2 | 35.1 - 46.3 fL | [facility] | | | | | | LABORATORY | | | | | | SERVICES, | | | | | | CORE | | + + + + + + | PLATELET | 124 (L)Comment: Giant | 150 - 400 K/cu | [facility] | | | COUNT | platelets present. | mm | LABORATORY | | | | | | SERVICES, | | | | | | CORE | | + + + + + + | MPV | 10.8 | 9.7 - 12.3 fL | [facility] | | | | | | LABORATORY | | | | | | SERVICES, | | | | | | CORE | | + + + + + + | NRBC% | 0.0 | 0.0 - 0.3 % | [facility] | | | | | | LABORATORY | | | | | | SERVICES, | | | | | | CORE | | + + + + + + | NRBC# | 0.00 | 0.00 - 0.02 | [facility] | | | | | K/cu mm | LABORATORY | | | | | | SERVICES, | | | | | | CORE | | + + + + + + + + | Specimen | + + | Blood - Blood | | (substance) | + + + + + + + | Performing | Address | City/State/Zipcode | Phone Number | | Organization | | | | + + + + + | [facility] | [address] | [place] [address] | | | SERVICES, CORE | [address] | | | + + + + + MAGNESIUM, PLASMA (04/03/2017 3:08 AM PDT) + +-------+ + + + | Component | Value | Ref Range | Performed | Pathologist | | | | | At | Signature | + +-------+ + + + | MAGNESIUM,P | 2.1 | 1.8 - 2.5 mg/dL | [facility] | | | LASMA | | | LABORATORY | | | | | | SEL[facility], | | | | | | CORE | | + +-------+ + + + + + | Specimen | + + | Blood - Blood | | (substance) | + + + + + + + | Performing | Address | City/State/Zipcode | Phone Number | | Organization | | | | + + + + + | [facility] | [address] | [place] [address] | | | SERVICES, CORE | [address] | | | + + + + + RENAL FUNCTION SET (NA,K,CL,CO2,BUN,CREAT,GLUC,CA,PHOS,ALB ) (04/03/2017 3:08 AM PDT) + +---------+ + + + | Component | Value | Ref Range | Performed | Pathologist | | | | | At | Signature | + +---------+ + + + | GLUCOSE, | 102 (H) | 60 - 99 mg/dL | [facility] | | | PLASMA | | | LABORATORY | | | (LAB) | | | SERVICES, | | | | | | CORE | | + +---------+ + + + | BUN, PLASMA | 14 | 6 - 20 mg/dL | [facility] | | | (LAB) | | | LABORATORY | | | | | | SERVICES, | | | | | | CORE | | + +---------+ + + + | CREATININE | 0.78 | 0.60 - 1.10 | [facility] | | | PLASMA | | mg/dL | LABORATORY | | | (LAB) | | | SERVICES, | | | | | | CORE | | + +---------+ + + + | EGFR | >60 | >60 mL/min | [facility] | | | - | | | LABORATORY | | | [place] | | | SERVICES, | | | | | | CORE | | + +---------+ + + + | EGFR NON | >60 | >60 mL/min | [facility] | | | -[facility] | | | LABORATORY | | | [facility] | | | SERVICES, | | | | | | CORE | | + +---------+ + + + | SODIUM, | 136 | 136 - 145 | [facility] | | | PLASMA | | mmol/L | LABORATORY | | | (LAB) | | | SERVICES, | | | | | | CORE | | + +---------+ + + + | POTASSIUM, | 4.3 | 3.4 - 5.0 | [facility] | | | PLASMA | | mmol/L | LABORATORY | | | (LAB) | | | SERVICES, | | | | | | CORE | | + +---------+ + + + | CHLORIDE, | 101 | 97 - 108 mmol/L | [facility] | | | PLASMA | | | LABORATORY | | | (LAB) | | | SERVICES, | | | | | | CORE | | + +---------+ + + + | TOTAL CO2, | 26 | 21 - 32 mmol/L | [facility] | | | PLASMA | | | LABORATORY | | | (LAB) | | | SERVICES, | | | | | | CORE | | + +---------+ + + + | CALCIUM, | 8.4 (L) | 8.6 - 10.2 | [facility] | | | PLASMA | | mg/dL | LABORATORY | | | (LAB) | | | SERVICES, | | | | | | CORE | | + +---------+ + + + | CALCIUM(ALB | 9.2 | 8.6 - 10.2 | [facility] | | | CORRECTED) | | mg/dL | LABORATORY | | | | | | SERVICES, | | | | | | CORE | | + +---------+ + + + | ALBUMIN, | 3.0 (L) | 3.5 - 4.7 g/dL | [facility] | | | PLASMA | | | LABORATORY | | | (LAB) | | | SERVICES, | | | | | | CORE | | + +---------+ + + + | PHOSPHORUS, | 3.0 | 2.4 - 4.7 mg/dL | [facility] | | | PLASMA | | | LABORATORY | | | (LAB) | | | SERVICES, | | | | | | CORE | | + +---------+ + + + | POTASSIUM | No Hemo | | [facility] | | | CMNT | | | LABORATORY | | | | | | SERVICES, | | | | | | CORE | | + +---------+ + + + | ANION GAP | 9 | mmol/L | [facility] | | | | | | LABORATORY | | | | | | SERVICES, | | | | | | CORE | | + +---------+ + + + | ANION | 11 | 4 - 11 mmol/L | [facility] | | | GAP(ALB | | | LABORATORY | | | CORRECTED) | | | SERVICES, | | | | | | CORE | | + +---------+ + + + + + | Specimen | + + | Blood - Blood | | (substance) | + + + + + | Narrative | Performed At | + + + | GFR is estimated using the MDRD equation recommended by the | [facility] | | National Kidney Disease Education Program. Estimated GFR | LABORATORY | | Interpretive Information: <60 mL/min/1.73 sq m | SERVICES, CORE | | Chronic Kidney Disease <15 mL/min/1.73 sq m | | | Kidney Failure Estimated GFR greater that 60 mL/min/1.73 sq m is of | | | limited clinical value. The MDRD equation is not valid in the | | | following situations: - Patients under 18 years of age - Severe | | | malnutrition or obesity - Vegetarian diet - Rapidly changing kidney | | | function | | + + + + + + + + | Performing | Address | City/State/Zipcode | Phone Number | | Organization | | | | + + + + + | [facility] | [address] | [place] [address] | | | SERVICES, CORE | [address] | | | + + + + + PROCEDURE NOTE (04/02/2017 9:39 PM PDT)CBC (HEMOGRAM) ONLY (04/02/2017 4:39 PM PDT) + + + + + + | Component | Value | Ref Range | Performed | Pathologist | | | | | At | Signature | + + + + + + | WHITE CELL | 17.04 (H) | 3.50 - 10.80 | [facility] | | | COUNT | | K/cu mm | LABORATORY | | | | | | SERVICES, | | | | | | CORE | | + + + + + + | RED CELL | 4.33 | 4.00 - 5.20 | [facility] | | | COUNT | | M/cu mm | LABORATORY | | | | | | SERVICES, | | | | | | CORE | | + + + + + + | HEMOGLOBIN | 13.9 | 12.0 - 16.0 | [facility] | | | | | g/dL | LABORATORY | | | | | | SERVICES, | | | | | | CORE | | + + + + + + | HEMATOCRIT | 40.5 | 36.0 - 46.0 % | [facility] | | | | | | LABORATORY | | | | | | SERVICES, | | | | | | CORE | | + + + + + + | MCV | 93.5 | 80.0 - 96.0 fL | [facility] | | | | | | LABORATORY | | | | | | SERVICES, | | | | | | CORE | | + + + + + + | MCHC | 34.3 | 33.0 - 35.5 | [facility] | | | | | g/dL | LABORATORY | | | | | | SERVICES, | | | | | | CORE | | + + + + + + | RDW SD | 42.6 | 35.1 - 46.3 fL | [facility] | | | | | | LABORATORY | | | | | | SERVICES, | | | | | | CORE | | + + + + + + | PLATELET | 129 (L) | 150 - 400 K/cu | [facility] | | | COUNT | | mm | LABORATORY | | | | | | SERVICES, | | | | | | CORE | | + + + + + + | MPV | 11.5 | 9.7 - 12.3 fL | [facility] | | | | | | LABORATORY | | | | | | SERVICES, | | | | | | CORE | | + + + + + + | NRBC% | 0.0 | 0.0 - 0.3 % | [facility] | | | | | | LABORATORY | | | | | | SERVICES, | | | | | | CORE | | + + + + + + | NRBC# | 0.00 | 0.00 - 0.02 | [facility] | | | | | K/cu mm | LABORATORY | | | | | | SERVICES, | | | | | | CORE | | + + + + + + + + | Specimen | + + | Blood - Blood | | (substance) | + + + + + + + | Performing | Address | City/State/Zipcode | Phone Number | | Organization | | | | + + + + + | [facility] | [address] | [place] [address] | | | SERVICES, CORE | [address] | | | + + + + + COAGULOPATHY PANEL (INR,APTT,FIBRINOGEN) (04/02/2017 4:39 PM PDT) + + + + + + | Component | Value | Ref Range | Performed | Pathologist | | | | | At | Signature | + + + + + + | INR | 1.14 | 0.90 - 1.20 INR | [facility] | | | | | | LABORATORY | | | | | | SERVICES, | | | | | | CORE | | + + + + + + | APTT | 25.8 (L) | 26.0 - 36.0 | [facility] | | | | | seconds | LABORATORY | | | | | | SERVICES, | | | | | | CORE | | + + + + + + | FIBRINOGEN | 245 | 200 - 450 mg/dL | [facility] | | | LEVEL | | | LABORATORY | | | | | | SERVICES, | | | | | | CORE | | + + + + + + + + | Specimen | + + | Blood - Blood | | (substance) | + + + + + | Narrative | Performed At | + + + | INR Therapeutic ranges for full anticoagulation: INR for | [facility] | | Venous Thromboembolism (2.0 - 3.0) INR INR for | LABORATORY | | most patients with mech. valves (2.5 - 3.5) INR APTT | SERVICES, CORE | | Therapeutic Range: (75 - 120) sec | | | Heparin levels of 0.35 - 0.7 U/mL | | + + + + + + + + | Performing | Address | City/State/Zipcode | Phone Number | | Organization | | | | + + + + + | [facility] | [address] | [place] [address] | | | SERVICES, CORE | [address] | | | + + + + + MAGNESIUM, PLASMA (04/02/2017 4:39 PM PDT) + +---------+ + + + | Component | Value | Ref Range | Performed | Pathologist | | | | | At | Signature | + +---------+ + + + | MAGNESIUM,P | 1.5 (L) | 1.8 - 2.5 mg/dL | [facility] | | | [facility] | | | LABORATORY | | | | | | SERVICES, | | | | | | CORE | | + +---------+ + + + + + | Specimen | + + | Blood - Blood | | (substance) | + + + + + + + | Performing | Address | City/State/Zipcode | Phone Number | | Organization | | | | + + + + + | [facility] | [address] | [place] [address] | | | SELENE, DESTINEE | [address] | | | + + + + + RENAL FUNCTION SET (NA,K,CL,CO2,BUN,CREAT,GLUC,CA,PHOS,ALB ) (04/02/2017 4:39 PM PDT) + +---------+ + + + | Component | Value | Ref Range | Performed | Pathologist | | | | | At | Signature | + +---------+ + + + | GLUCOSE, | 150 (H) | 60 - 99 mg/dL | [facility] | | | PLASMA | | | LABORATORY | | | (LAB) | | | SERVICES, | | | | | | CORE | | + +---------+ + + + | BUN, PLASMA | 15 | 6 - 20 mg/dL | [facility] | | | (LAB) | | | LABORATORY | | | | | | SERVICES, | | | | | | CORE | | + +---------+ + + + | CREATININE | 0.66 | 0.60 - 1.10 | [facility] | | | PLASMA | | mg/dL | LABORATORY | | | (LAB) | | | SERVICES, | | | | | | CORE | | + +---------+ + + + | EGFR | >60 | >60 mL/min | [facility] | | | - | | | LABORATORY | | | [facility] | | | SERVICES, | | | | | | CORE | | + +---------+ + + + | EGFR NON | >60 | >60 mL/min | [facility] | | | -MAND[facility] | | | LABORATORY | | | [facility] | | | SERVICES, | | | | | | CORE | | + +---------+ + + + | SODIUM, | 140 | 136 - 145 | [facility] | | | PLASMA | | mmol/L | LABORATORY | | | (LAB) | | | SERVICES, | | | | | | CORE | | + +---------+ + + + | POTASSIUM, | 3.5 | 3.4 - 5.0 | [facility] | | | PLASMA | | mmol/L | LABORATORY | | | (LAB) | | | SERVICES, | | | | | | CORE | | + +---------+ + + + | CHLORIDE, | 107 | 97 - 108 mmol/L | [facility] | | | PLASMA | | | LABORATORY | | | (LAB) | | | SERVICES, | | | | | | CORE | | + +---------+ + + + | TOTAL CO2, | 25 | 21 - 32 mmol/L | [facility] | | | PLASMA | | | LABORATORY | | | (LAB) | | | SERVICES, | | | | | | CORE | | + +---------+ + + + | CALCIUM, | 8.2 (L) | 8.6 - 10.2 | [facility] | | | PLASMA | | mg/dL | LABORATORY | | | (LAB) | | | SERVICES, | | | | | | CORE | | + +---------+ + + + | CALCIUM(ALB | 9.1 | 8.6 - 10.2 | [facility] | | | CORRECTED) | | mg/dL | LABORATORY | | | | | | SERVICES, | | | | | | CORE | | + +---------+ + + + | ALBUMIN, | 2.9 (L) | 3.5 - 4.7 g/dL | [facility] | | | PLASMA | | | LABORATORY | | | (LAB) | | | SERVICES, | | | | | | CORE | | + +---------+ + + + | PHOSPHORUS, | 3.1 | 2.4 - 4.7 mg/dL | [facility] | | | PLASMA | | | LABORATORY | | | (LAB) | | | SERVICES, | | | | | | CORE | | + +---------+ + + + | POTASSIUM | No Hemo | | [facility] | | | CMNT | | | LABORATORY | | | | | | SERVICES, | | | | | | CORE | | + +---------+ + + + | ANION GAP | 8 | mmol/L | [facility] | | | | | | LABORATORY | | | | | | SERVICES, | | | | | | CORE | | + +---------+ + + + | ANION | 10 | 4 - 11 mmol/L | [facility] | | | GAP(ALB | | | LABORATORY | | | CORRECTED) | | | SERVICES, | | | | | | CORE | | + +---------+ + + + + + | Specimen | + + | Blood - Blood | | (substance) | + + + + + | Narrative | Performed At | + + + | GFR is estimated using the MDRD equation recommended by the | [facility] | | National Kidney Disease Education Program. Estimated GFR | LABORATORY | | Interpretive Information: <60 mL/min/1.73 sq m | SERVICES, CORE | | Chronic Kidney Disease <15 mL/min/1.73 sq m | | | Kidney Failure Estimated GFR greater that 60 mL/min/1.73 sq m is of | | | limited clinical value. The MDRD equation is not valid in the | | | following situations: - Patients under 18 years of age - Severe | | | malnutrition or obesity - Vegetarian diet - Rapidly changing kidney | | | function | | + + + + + + + + | Performing | Address | City/State/Zipcode | Phone Number | | Organization | | | | + + + + + | [facility] | [address] | [place] [address] | | | SERVICES, CORE | [address] | | | + + + + + CAPILLARY BLOOD GLUCOSE (NO CHG), POC (04/02/2017 4:38 PM PDT) + +---------+ + + + | Component | Value | Ref Range | Performed | Pathologist | | | | | At | Signature | + +---------+ + + + | BLOOD | 153 (H) | 60 - 99 mg/dL | [facility] | | | GLUCOSE, | | | [facility] | | | POC | | | [facility] | | | | | | OF CARE | | | | | | TESTS | | + +---------+ + + + + + | Specimen | + + | | + + + + + + + | Performing | Address | City/State/Zipcode | Phone Number | | Organization | | | | + + + + + | [facility] | [address] | [place], [place] | | | [facility] [place] | [address] | [address] | | | TESTS | | | | + + + + + X-RAY PORTABLE CHEST 1 VIEW (04/02/2017 3:55 PM PDT) + + | Specimen | + + | | + + + + + | Narrative | Performed At | + + + | EXAM: NE CHEST 1 VIEW 04/02/17 15:25:31 HISTORY: Post right VATS | [facility] | | COMPARISON: None. FINDINGS: The cardiomediastinal | RADIOLOGY VOICE | | silhouette is unremarkable. Right chest tube has its tip in the right | RECOGNITION | | lung apex. There is no pneumothorax, pleural effusion or pulmonary | | | edema. Minimal right perihilar atelectasis is noted. IMPRESSION: | | | Minimal right perihilar atelectasis. Otherwise clear lungs. | | | I have personally reviewed the images and, if necessary, edited | | | the report. I agree with the report as now presented. | | + + + + + | Procedure Note | + + | Service Account, Radiant Res In Interface - 04/02/2017 5:08 PM PDT EXAM: NE CHEST 1 | | VIEW 04/02/17 15:25:31 HISTORY: Post right VATSCOMPARISON: None.FINDINGS: The | | cardiomediastinal silhouette is unremarkable. Right chest tube has its tip in the right | | lung apex. There is no pneumothorax, pleural effusion or pulmonary edema. Minimal right | | perihilar atelectasis is noted.IMPRESSION: Minimal right perihilar atelectasis.Otherwise | | clear lungs.I have personally reviewed the images and, if necessary, edited the report. | | I agree with the report as now presented. | | | |The cardiomediastinal silhouette is unremarkable. Right chest tube has its tip in the right lung apex. There is no pneumothorax, pleural effusion or pulmonary edema. Minimal right per ihilar atelectasis is noted. | | | |IMPRESSION: | | | |Minimal right perihilar atelectasis. | | | |Otherwise clear lungs. | | | | | |I have personally reviewed the images and, if necessary, edited the report. I agree with t he report as now presented. | + + + +---------+ + + | Performing | Address | City/State/Zipcode | Phone Number | | Organization | | | | + +---------+ + + | [facility] | | | | | VOICE RECOGNITION | | | | + +---------+ + + CAPILLARY BLOOD GLUCOSE (NO CHG), POC (04/02/2017 2:46 PM PDT) + +---------+ + + + | Component | Value | Ref Range | Performed | Pathologist | | | | | At | Signature | + +---------+ + + + | BLOOD | 131 (H) | 60 - 99 mg/dL | [facility] | | | GLUCOSE, | | | [facility] | | | POC | | | [facility] | | | | | | OF CARE | | | | | | TESTS | | + +---------+ + + + + + | Specimen | + + | | + + + + + + + | Performing | Address | City/State/Zipcode | Phone Number | | Organization | | | | + + + + + | [facility] | [address] | [place], [place] | | | [facility] | [address] | [address] | | | TESTS | | | | + + + + + VICENTE-GETACHEW OMER (04/02/2017 1:17 PM PDT) + + + + + + | Component | Value | Ref Range | Performed | Pathologist | | | | | At | Signature | + + + + + + | PH | 7.46 (H) | 7.37 - 7.44 | [facility] | | | ARTERIAL, | | | [facility] | | | POC | | | [facility] | | | | | | OF CARE | | | | | | TESTS | | + + + + + + | PO2 | 418 (H) | 72 - 104 mmHg | [facility] | | | ARTERIAL, | | | [facility] | | | POC | | | [facility] | | | | | | OF CARE | | | | | | TESTS | | + + + + + + | PCO2 | 35 | 32 - 43 mmHg | [facility] | | | ARTERIAL, | | | [facility] | | | POC | | | [facility] | | | | | | OF CARE | | | | | | TESTS | | + + + + + + | TOTAL | 14.2 | 12.0 - 16.0 | [facility] - | | | HEMOGLOBIN, | | g/dL | [facility] | | | POC | | | [facility] | | | | | | OF CARE | | | | | | TESTS | | + + + + + + | O2 SAT | 100.3 (H) | 92.0 - 98.0 % | [facility] | | | ARTERIAL, | | | [facility] | | | POC | | | [facility] POINT | | | | | | OF CARE | | | | | | TESTS | | + + + + + + | OXYHEMOGLOB | 98.2 | 94.0 - 100 % | [facility] - | | | IN, POC | | | [facility] | | | | | | [facility] | | | | | | OF CARE | | | | | | TESTS | | + + + + + + | HEMATOCRIT, | 43.5 | 36.0 - 46.0 % | [facility] - | | | POC | | | [facility] | | | | | | [facility]INT | | | | | | OF CARE | | | | | | TESTS | | + + + + + + | POTASSIUM, | 3.0 (L) | 3.4 - 5.0 | [facility] | | | POC | | mmol/L | [facility] | | | | | | [facility] | | | | | | OF CARE | | | | | | TESTS | | + + + + + + | SODIUM, POC | 137 | 134 - 143 | [facility] - | | | | | mmol/L | [facility] | | | | | | [facility] | | | | | | OF CARE | | | | | | TESTS | | + + + + + + | MANE | 1.17 | 1.14 - 1.32 | [facility] - | | | IONIZED CA, | | mmol/L | [facility] | | | POC | | | [facility] | | | | | | OF CARE | | | | | | TESTS | | + + + + + + | CHLORIDE, | 107 | 97 - 108 mmol/L | [facility] - | | | POC | | | [facility] | | | | | | [facility] | | | | | | OF CARE | | | | | | TESTS | | + + + + + + | GLUCOSE, | 145 (H) | 60 - 99 mg/dL | [facility] - | | | POC | | | [facility] | | | | | | [facility] | | | | | | OF CARE | | | | | | TESTS | | + + + + + + | HCO3 | 24.8 | 21 - 28 mmol/L | [facility] - | | | ARTERIAL, | | | [facility] | | | POC | | | [facility] | | | | | | OF CARE | | | | | | TESTS | | + + + + + + | BASE EXCESS | 1.0 | | [facility] - | | | ARTERIAL, | | | [facility] | | | POC | | | [facility] | | | | | | OF CARE | | | | | | TESTS | | + + + + + + | LACTATE | 1.9 (H) | 0.5 - 1.6 | [facility] - | | | ARTERIAL, | | mmol/L | [facility] | | | POC | | | [facility] | | | | | | OF CARE | | | | | | TESTS | | + + + + + + | METHEMOGLOB | 0.2 | 0.0 - 1.9 % | [facility] - | | | IN, POC | | | [facility] | | | | | | [facility] | | | | | | OF CARE | | | | | | TESTS | | + + + + + + + + | Specimen | + + | Blood - Blood | | (substance) | + + + + + + + | Performing | Address | City/State/Zipcode | Phone Number | | Organization | | | | + + + + + | [facility] | [address] | [place], [place] | | | [facility] OF [facility] | [address] | [address] | | | TESTS | | | | + + + + + ABMabel-GETACHEW OMER (04/02/2017 11:01 AM PDT) + + + + + + | Component | Value | Ref Range | Performed | Pathologist | | | | | At | Signature | + + + + + + | PH | 7.43 | 7.37 - 7.44 | [facility] | | | ARTERIAL, | | | [facility] | | | POC | | | [facility] | | | | | | OF CARE | | | | | | TESTS | | + + + + + + | PO2 | 74 | 72 - 104 mmHg | [facility] - | | | ARTERIAL, | | | [facility] | | | POC | | | [facility] | | | | | | OF CARE | | | | | | TESTS | | + + + + + + | PCO2 | 38 | 32 - 43 mmHg | [facility] - | | | ARTERIAL, | | | [facility] | | | POC | | | [facility] | | | | | | OF CARE | | | | | | TESTS | | + + + + + + | TOTAL | 16.4 (H) | 12.0 - 16.0 | [facility] - | | | HEMOGLOBIN, | | g/dL | [facility] | | | POC | | | [facility] | | | | | | OF CARE | | | | | | TESTS | | + + + + + + | O2 SAT | 96.9 | 92.0 - 98.0 % | [facility] - | | | ARTERIAL, | | | [facility] | | | POC | | | [facility] | | | | | | OF CARE | | | | | | TESTS | | + + + + + + | OXYHEMOGLOB | 93.9 (L) | 94.0 - 100 % | [facility] - | | | IN, POC | | | [facility] | | | | | | [facility] | | | | | | OF CARE | | | | | | TESTS | | + + + + + + | HEMATOCRIT, | 50.3 (H) | 36.0 - 46.0 % | [facility] - | | | POC | | | [facility] | | | | | | [facility] | | | | | | OF CARE | | | | | | TESTS | | + + + + + + | POTASSIUM, | 3.3 (L) | 3.4 - 5.0 | [facility] - | | | POC | | mmol/L | [facility] | | | | | | [facility] | | | | | | OF CARE | | | | | | TESTS | | + + + + + + | SODIUM, POC | 139 | 134 - 143 | [facility] - | | | | | mmol/L | [facility] | | | | | | [facility] | | | | | | OF CARE | | | | | | TESTS | | + + + + + + | MANE | 1.21 | 1.14 - 1.32 | [facility] - | | | IONIZED CA, | | mmol/L | [facility] | | | POC | | | [facility] | | | | | | OF CARE | | | | | | TESTS | | + + + + + + | CHLORIDE, | 105 | 97 - 108 mmol/L | [facility] - | | | POC | | | [facility] | | | | | | [facility] | | | | | | OF CARE | | | | | | TESTS | | + + + + + + | GLUCOSE, | 154 (H) | 60 - 99 mg/dL | [facility] - | | | POC | | | [facility] | | | | | | [facility] | | | | | | OF CARE | | | | | | TESTS | | + + + + + + | HCO3 | 25.8 | 21 - 28 mmol/L | [facility] - | | | ARTERIAL, | | | [facility] | | | POC | | | [facility] | | | | | | OF CARE | | | | | | TESTS | | + + + + + + | BASE EXCESS | 1.5 | | [facility] - | | | ARTERIAL, | | | [facility] | | | POC | | | [facility] | | | | | | OF CARE | | | | | | TESTS | | + + + + + + | LACTATE | 1.0 | 0.5 - 1.6 | [facility] - | | | ARTERIAL, | | mmol/L | [facility] | | | POC | | | [facility] | | | | | | OF CARE | | | | | | TESTS | | + + + + + + | METHEMOGLOB | 0.3 | 0.0 - 1.9 % | [facility] - | | | IN, POC | | | [facility] | | | | | | [facility] | | | | | | OF CARE | | | | | | TESTS | | + + + + + + + + | Specimen | + + | Blood - Blood | | (substance) | + + + + + + + | Performing | Address | City/State/Zipcode | Phone Number | | Organization | | | | + + + + + | [facility] | [address] | [place], [place] | | | [facility] | [facility] | [address] | | | TESTS | | | | + + + + + ABG-FULL ABL, POC (04/02/2017 9:07 AM PDT) + + + + + + | Component | Value | Ref Range | Performed | Pathologist | | | | | At | Signature | + + + + + + | PH | 7.34 (L) | 7.37 - 7.44 | [facility] | | | ARTERIAL, | | | [facility] | | | POC | | | [facility] | | | | | | OF CARE | | | | | | TESTS | | + + + + + + | PO2 | 215 (H) | 72 - 104 mmHg | [facility] - | | | ARTERIAL, | | | [facility] | | | POC | | | [facility] | | | | | | OF CARE | | | | | | TESTS | | + + + + + + | PCO2 | 52 (H) | 32 - 43 mmHg | [facility] - | | | ARTERIAL, | | | [facility] | | | POC | | | [facility] | | | | | | OF CARE | | | | | | TESTS | | + + + + + + | TOTAL | 15.2 | 12.0 - 16.0 | [facility] - | | | HEMOGLOBIN, | | g/dL | [facility] | | | POC | | | [facility] | | | | | | OF CARE | | | | | | TESTS | | + + + + + + | O2 SAT | 99.8 (H) | 92.0 - 98.0 % | [facility] - | | | ARTERIAL, | | | [facility] | | | POC | | | [facility] | | | | | | OF CARE | | | | | | TESTS | | + + + + + + | OXYHEMOGLOB | 95.5 | 94.0 - 100 % | [facility] - | | | IN, POC | | | [facility] | | | | | | [facility] POINT | | | | | | OF CARE | | | | | | TESTS | | + + + + + + | HEMATOCRIT, | 46.7 (H) | 36.0 - 46.0 % | [facility] - | | | POC | | | [facility] | | | | | | [facility] | | | | | | OF CARE | | | | | | TESTS | | + + + + + + | POTASSIUM, | 3.6 | 3.4 - 5.0 | [facility] - | | | POC | | mmol/L | [facility] | | | | | | [facility] | | | | | | OF CARE | | | | | | TESTS | | + + + + + + | SODIUM, POC | 138 | 134 - 143 | [facility] - | | | | | mmol/L | [facility] | | | | | | [facility] | | | | | | OF CARE | | | | | | TESTS | | + + + + + + | MANE | 1.25 | 1.14 - 1.32 | [facility] - | | | IONIZED CA, | | mmol/L | [facility] | | | POC | | | [facility] | | | | | | OF CARE | | | | | | TESTS | | + + + + + + | CHLORIDE, | 106 | 97 - 108 mmol/L | [facility] - | | | POC | | | [facility] | | | | | | [facility] | | | | | | OF CARE | | | | | | TESTS | | + + + + + + | GLUCOSE, | 132 (H) | 60 - 99 mg/dL | [facility] - | | | POC | | | [facility] | | | | | | [facility] | | | | | | OF CARE | | | | | | TESTS | | + + + + + + | HCO3 | 28.1 (H) | 21 - 28 mmol/L | [facility] - | | | ARTERIAL, | | | [facility] | | | POC | | | [facility] | | | | | | OF CARE | | | | | | TESTS | | + + + + + + | BASE EXCESS | 2.4 | | [facility] - | | | ARTERIAL, | | | [facility] | | | POC | | | [facility] | | | | | | OF CARE | | | | | | TESTS | | + + + + + + | LACTATE | 0.6 | 0.5 - 1.6 | [facility] - | | | ARTERIAL, | | mmol/L | [facility] | | | POC | | | [facility] | | | | | | OF CARE | | | | | | TESTS | | + + + + + + | METHEMOGLOB | 0.6 | 0.0 - 1.9 % | [facility] - | | | IN, POC | | | [facility] | | | | | | [facility] | | | | | | OF CARE | | | | | | TESTS | | + + + + + + + + | Specimen | + + | Blood - Blood | | (substance) | + + + + + + + | Performing | Address | City/State/Zipcode | Phone Number | | Organization | | | | + + + + + | [facility] | [address] | [place], [place] | | | [facility] | [address] | [address] | | | TESTS | | | | + + + + + ANTIBODY SCREEN (04/02/2017 6:15 AM PDT) + + + + + + | Component | Value | Ref Range | Performed | Pathologist | | | | | At | Signature | + + + + + + | Antibody | Negative | | [facility] | | | Screen | | | LABORATORY | | | | | | SERVICES, | | | | | | TRANSFUSION | | | | | | MEDICINE | | + + + + + + + + | Specimen | + + | Blood - Blood | | (substance) | + + + + + + + | Performing | Address | City/State/Zipcode | Phone Number | | Organization | | | | + + + + + | [facility] | [address] | [place] [address] | | | SERVICES, | [address] | | | | TRANSFUSION MEDICINE | | | | + + + + + ABO & RH TYPE (04/02/2017 6:15 AM PDT) + + + + + + | Component | Value | Ref Range | Performed | Pathologist | | | | | At | Signature | + + + + + + | ABO Group | A | | [facility] | | | | | | LABORATORY | | | | | | SERVICES, | | | | | | TRANSFUSION | | | | | | MEDICINE | | + + + + + + | Rh Type | Positive | | [facility] | | | | | | LABORATORY | | | | | | SERVICES, | | | | | | TRANSFUSION | | | | | | MEDICINE | | + + + + + + + + | Specimen | + + | Blood - Blood | | (substance) | + + + + + + + | Performing | Address | City/State/Zipcode | Phone Number | | Organization | | | | + + + + + | [facility] | [address] | [place] [address] | | | SERVICES, | [address] | | | | TRANSFUSION MEDICINE | | | | + + + + + CAPILLARY BLOOD GLUCOSE (NO CHG), POC (04/02/2017 6:14 AM PDT) + +---------+ + + + | Component | Value | Ref Range | Performed | Pathologist | | | | | At | Signature | + +---------+ + + + | BLOOD | 111 (H) | 60 - 99 mg/dL | [facility] - | | | GLUCOSE, | | | [facility] | | | POC | | | [facility] | | | | | | OF CARE | | | | | | TESTS | | + +---------+ + + + + + | Specimen | + + | | + + + + + + + | Performing | Address | City/State/Zipcode | Phone Number | | Organization | | | | + + + + + | [facility] | [address] | [place], [place] | | | [facility] OF [facility] | [address] | [address] | | | TESTS | | | | + + + + + SURGICAL PATHOLOGY (04/02/2017) + + + + + + | Component | Value | Ref Range | Performed | Pathologist | | | | | At | Signature | + + + + + + | SURGICAL | SOURCE OF SPECIMEN:A 9R | | [facility] | | | PATHOLOGY | lymph node FSSOURCE OF | | DEPARTMENT | | | | SPECIMEN:B 11R lymph | | OF | | | | node FSSOURCE OF | | PATHOLOGY | | | | SPECIMEN:C Right lower | | | | | | lobe superior | | | | | | segmentSOURCE OF | | | | | | SPECIMEN:D Proximal | | | | | | bronchial margin | | | | | | FSSOURCE OF SPECIMEN:E | | | | | | Level 7 lymph node | | | | | | Final Pathologic | | | | | | Diagnosis:A. 9R lymph | | | | | | node, biopsy: - | | | | | | One lymph node, negative | | | | | | for malignancy (0/1) | | | | | | B.11 R lymph node, | | | | | | dissection: - Four | | | | | | lymph nodes, negative | | | | | | for malignancy (0/4) | | | | | | C. 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 | | | | | | Proximal bronchial | | | | | | margin, biopsy: - | | | | | | Neurovascular bundle and | | | | | | minor salivary gland | | | | | | tissue, negative | | | | | | formalignancy E. | | | | | | Level 7 lymph node, | | | | | | biopsy: - One | | | | | | lymph node, negative for | | | | | | malignancy (0/1) | | | | | | Comment: Non necrosis is | | | | | | identified in the | | | | | | carcinoid. The mitotic | | | | | | rate is 1per10 high | | | | | | power driscoll and the | | | | | | Ki67 proliferative rate | | | | | | (specimen C) isless than | | | | | | 2% on average. | | | | | | Case seen by:Babsran | | | | | | Neishaboori, | | | | | | M.D./Pathology | | | | | | ResidentPhilipp Raess, | | | | | | M.D., Ph.D./Pathologist | | | | | | Lung Resection | | | | | | Cancer SynopsisSpecimens | | | | | | InvolvedSpecimens: | | | | | | A: 9R lymph node FSB: | | | | | | 11R lymph node FSC: | | | | | | Right lower lobe | | | | | | superior segmentD: | | | | | | Proximal bronchial | | | | | | margin FSE: Level 7 | | | | | | lymph node LUNG: | | | | | | ResectionSpecimen: | | | | | | Lobe(s) of lungright | | | | | | lowerProcedure: | | | | | | SegmentectomySpecimen | | | | | | Laterality: | | | | | | RightTumor Site: | | | | | | Lower lobeTumor Size: | | | | | | Greatest dimension: | | | | | | 2.5cmTumor Focality: | | | | | | UnifocalHistologic | | | | | | Type: Typical | | | | | | carcinoid | | | | | | tumorHistologic Grade: | | | | | | [id number] Pleura | | | | | | Invasion: | | | | | | AbsentTumor Extension: | | | | | | None | | | | | | identifiedMarginsAll | | | | | | margins negative for | | | | | | invasive | | | | | | carcinomaSpecify margin: | | | | | | bronchialCloset | | | | | | margin: 0.1cmBronchial | | | | | | Margin: Negative for | | | | | | invasive carcinoma and | | | | | | carcinoma in | | | | | | situVascular Margin: | | | | | | Negative for invasive | | | | | | carcinomaParenchymal | | | | | | Margin: Negative for | | | | | | invasive carcinomaOther | | | | | | attached tissue margin: | | | | | | Not applicableTreatment | | | | | | Effect: Not | | | | | | applicableAngiolymphatic | | | | | | Invasion (V/L): | | | | | | AbsentAJCC Stage (7th | | | | | | Edition) (pTNM)Primary | | | | | | Tumor (pT): [id number] | | | | | | Lymph Nodes (pN): | | | | | | qY5Yzzsio of regional | | | | | | lymph nodes involved: | | | | | | 0Number of regional | | | | | | lymph nodes examined: | | | | | | 7Distant Metastasis | | | | | | (pM): Not | | | | | | applicableAdditional | | | | | | Pathologic Findings: | | | | | | Emphysema | | | | | | Intraoperative | | | | | | Consult (Frozen Section) | | | | | | Diagnosis:9R lymph node | | | | | | (specimen A):- | | | | | | Negative for | | | | | | malignancy 11 R | | | | | | lymph node (specimen | | | | | | B):- Negative for | | | | | | malignancy | | | | | | Intraoperative consult | | | | | | diagnosis confirmed by: | | | | | | [place]ian | | | | | | Patel/MedicalStudent | | | | | | Fellow and Vernon | | | | | | MD Corona, | | | | | | PhD/Pathologist | | | | | | Proximal bronchial | | | | | | margin (specimen D):- | | | | | | Negative for | | | | | | malignancy | | | | | | Intraoperative consult | | | | | | diagnosis confirmed by: | | | | | | [place] | | | | | | Patel/MedicalStudent | | | | | | Fellow, Jacque Bruner, | | | | | | MD/Surgical Pathology | | | | | | FellowFrancis | | | | | | M.Gatter/Hematopathologi | | | | | | st Clinical | | | | | | History:Per requisition: | | | | | | neuroendocrine tumor. 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 45py | | | | | | smokinghistory. | | | | | | Gross | | | | | | Description:Received are | | | | | | 5 specimens fresh in | | | | | | containers labeled with | | | | | | the patient'sname and | | | | | | medical record | | | | | | #[id number].A. 9R lymph | | | | | | node: Received is a 1.2 | | | | | | x 0.4 x 0.3 cm baez-pink | | | | | | red piece oftissue. The | | | | | | specimen is submitted | | | | | | entirely for frozen | | | | | | section diagnosis andis | | | | | | resubmitted in toto.B. | | | | | | 11 R lymph node: | | | | | | Received is a 1.5 x 1 x | | | | | | 0.5 cm red black piece | | | | | | oftissue. The specimen | | | | | | is submitted entirely | | | | | | for frozen section | | | | | | diagnosis andis | | | | | | resubmitted in toto.C. | | | | | | Right lower lobe | | | | | | superior segment: | | | | | | Received is a 45 g (post | | | | | | fixation),7.5 x 4.5 x | | | | | | 3.5 cm lung wedge | | | | | | resection closed via | | | | | | multiple staple | | | | | | lines.These pleura is | | | | | | red-purple with a 4 x | | | | | | 2.5 cm area of roughened | | | | | | adhesionAdjacent to the | | | | | | hilum is a 1.7 x 1.5 x | | | | | | 1.3 cm indurated baez | | | | | | brown mass.Sectioning | | | | | | through the mass reveals | | | | | | extension into the lung | | | | | | parenchymal andthrough | | | | | | the bronchial and | | | | | | bulging out from the | | | | | | bronchial margin. Total | | | | | | massdimension is 2.5 x | | | | | | 2.5 x 2.5 cm. The mass | | | | | | abuts nearest | | | | | | parenchymal margin(inked | | | | | | blue). Remaining | | | | | | parenchyma is dark red | | | | | | with focal areas | | | | | | offibrosis. | | | | | | Machine Spreader sections | | | | | | are submitted. A portion | | | | | | the specimen issampled | | | | | | for the Biolibrary.D. | | | | | | Proximal bronchial | | | | | | margin: Received is a | | | | | | 0.7 x 0.2 x 0.2 cm | | | | | | baez-pinkpiece of tissue. | | | | | | The specimen is | | | | | | submitted entirely for | | | | | | frozen sectiondiagnosis | | | | | | and is resubmitted in | | | | | | toto.E. Level 7 lymph | | | | | | node: Received is a 2 x | | | | | | 1.3 x 0.5 cm cole-black | | | | | | piece oftissue. The | | | | | | specimen is bisected and | | | | | | entirely submitted. | | | | | | Cassette Index:A. | | | | | | 9R lymph node:A1, frozen | | | | | | section residueB. 11 | | | | | | R lymph node:B1, frozen | | | | | | section residueC. | | | | | | Right lower lobe | | | | | | superior segment:C1, | | | | | | perpendicular section of | | | | | | tumor with respect to | | | | | | bronchial specimenmargin | | | | | | and also at closest | | | | | | approach to nearest | | | | | | parenchymal margin | | | | | | (inkedblue)C2, | | | | | | perpendicular sections | | | | | | of tumor to bronchial | | | | | | margin (entire | | | | | | remainingbronchial | | | | | | specimen margin), single | | | | | | section of vascular | | | | | | margin en faceC3, mass | | | | | | to parenchymal marginC4, | | | | | | construction sales representative | | | | | | adhesionC5, | | | | | | construction sales representative | | | | | | uninvolved pulmonary | | | | | | parenchymaD. Proximal | | | | | | bronchial margin:D1, | | | | | | frozen section residueE. | | | | | | Level 7 lymph | | | | | | node:E1, bisected | | | | | | (AMJ) (Analyte | | | | | | specific reagents are | | | | | | used in many laboratory | | | | | | tests necessary | | | | | | [facility] | | | | | | care. This test was | | | | | | developed and its | | | | | | performancecharacteristi | | | | | | cs determined by [place] | | | | | | laboratories. It has | | | | | | not been clearedor | | | | | | approved by the [place] Food | | | | | | and Drug Administration | | | | | | (FDA). FDA does | | | | | | notrequire this test to | | | | | | go through premarket FDA | | | | | | review. This test is | | | | | | used forclinical | | | | | | purposes. It should | | | | | | not be regarded as | | | | | | investigational or | | | | | | forresearch. This | | | | | | laboratory is certified | | | | | | under the Clinical | | | | | | LaboratoryImprovement | | | | | | Amendments (CLIA) as | | | | | | qualified to perform | | | | | | high complexityclinical | | | | | | laboratory testing.) | | | | | | My electronic | | | | | | signature indicates that | | | | | | I have personally | | | | | | reviewed alldiagnostic | | | | | | slides, the gross and/or | | | | | | microscopic portion of | | | | | | thisreport and | | | | | | formulated the final | | | | | | diagnosis. | | | | | | Rendering Diagnostician: | | | | | | Sky Fitch M.D., | | | | | | | | | | | | Ph.D.PathologistElectron | | | | | | kathi Signed 04/08/2017 | | | | | | 9:09AM | | | | + + + + + + + + | Specimen | + + | | + + + + + | Narrative | Performed At | + + + | | | + + + + + + + + | Performing | Address | City/State/Zipcode | Phone Number | | Organization | | | | + + + + + | [facility] | [address] | [place] [address] | | | PATHOLOGY | [address] | | | + + + + + CARDIOLOGY (04/02/2017 12:00 AM PDT) + + + | Narrative | Performed At | + + + | | | + + + documented in this encounter Visit Diagnoses Not on filedocumented in this encounter Administered Medications + +--------+ +--------+------+------+ | Medication Order | MAR | Action | Dose | Rate | Site | | | Action | Date | | | | + +--------+ +--------+------+------+ | acetaminophen (TYLENOL) tablet | Given | 04/03/20 | 650 mg | | | | 325-650 mg 325-650 mg, oral, | | 17 10:44 | | | | | EVERY 4 HOURS NEEDED, Starting | | AM PDT | | | | | Michelle 04/02/17 at 1621, Until Tue | | | | | | | 04/07/17 at 2310, mild pain, | | | | | | | multimodal pain control | | | | | | + +--------+ +--------+------+------+ +---+---+ | | | +---+---+ + +-------+ +-------+---+-------+ | bupivacaine | Given | 04/02/20 | 11 mL | | Chest | | (MARCAINE,SENSORCAINE-MPF) 0.25 % | | 17 8:52 | | | | | (2.5 mg/mL) injection | | AM PDT | | | | | INTRAPROCEDURE PRN, Starting Michelle | | | | | | | 04/02/17 at 0852, Until Michelle 04/02/17 | | | | | | | at 1440 | | | | | | + +-------+ +-------+---+-------+ +---+---+ | | | +---+---+ + +-------+ +---------+---+---+ | carvedilol (COREG) tablet 12.5 | Given | 04/07/20 | 12.5 mg | | | | mg 12.5 mg, oral, TWICE DAILY | | 17 4:14 | | | | | WITH MEALS, First dose on Mon | | PM PDT | | | | | 04/06/17 at 1700, Until | | | | | | | Discontinued | | | | | | + +-------+ +---------+---+---+ +-------+ +---------+---+---+ | Given | 04/07/20 | 12.5 mg | | | | | 17 8:48 | | | | | | AM PDT | | | | +-------+ +---------+---+---+ | Given | 04/06/20 | 12.5 mg | | | | | 17 6:07 | | | | | | PM PDT | | | | +-------+ +---------+---+---+ +---+---+ | | | +---+---+ + +-------+ +-------+---+---------+ | enoxaparin (LOVENOX) injection | Given | 04/06/20 | 30 mg | | Abdomen | | 30 mg 30 mg, subcutaneous, EVERY | | 17 9:32 | | | | | EVENING, First dose (after last | | PM PDT | | | | | modification) on 04/05/17 at | | | | | | | 2100, Until Discontinued | | | | | | + +-------+ +-------+---+---------+ +-------+ +-------+---+---------+ | Given | 04/05/20 | 30 mg | | Abdomen | | | 17 8:22 | | | | | | PM PDT | | | | +-------+ +-------+---+---------+ + +---+ | | | + +---+ | hydrALAZINE (APRESOLINE) | | | injection 10 mg 10 mg, | | | intravenous, EVERY 6 HOURS | | | NEEDED, Starting 04/06/17 at | | | 1237, Until Thu04/07/17 at 2310, | | | SBP > 170 mmHg | | + +---+ | | | + +---+ | ipratropium-albuterol (DUO-NEB) | | | nebulizer solution 3 mL 3 mL, | | | inhalation, EVERY 4 HOURS | | | NEEDED, Starting 04/04/17 at | | | 2115, Until Thu04/07/17 at 2310, | | | dyspnea/SOB | | + +---+ | | | + +---+ + +-------+ +-------+---+---+ | lisinopril (PRINIVIL) tablet 20 | Given | 04/07/20 | 20 mg | | | | mg 20 mg, oral, TWICE DAILY, | | 17 8:48 | | | | | First dose on Thu04/06/17 at 2100, | | AM PDT | | | | | Until Discontinued | | | | | | + +-------+ +-------+---+---+ +-------+ +-------+---+---+ | Given | 04/06/20 | 20 mg | | | | | 17 9:32 | | | | | | PM PDT | | | | +-------+ +-------+---+---+ +---+---+ | | | +---+---+ + +-------+ +------+---+---+ | ondansetron (ZOFRAN) injection | Given | 04/06/20 | 4 mg | | | | 4 mg 4 mg, intravenous, EVERY 12 | | 17 12:00 | | | | | HOURS NEEDED, Starting Mon | | PM PDT | | | | | 04/06/17 at 1153, Until Thu04/07/17 | | | | | | | at 2310, nausea/vomiting, first | | | | | | | line | | | | | | + +-------+ +------+---+---+ +---+---+ | | | +---+---+ + +-------+ +------+---+---+ | oxyCODONE (immediate release) | Given | 04/04/20 | 5 mg | | | | (ROXICODONE) tablet 5-15 mg 5-15 | | 17 3:10 | | | | | mg, oral, EVERY 3 HOURS | | PM PDT | | | | | NEEDED, Starting Thu04/03/17 at | | | | | | | 1508, Until Thu04/07/17 at 2310, | | | | | | | severe pain | | | | | | + +-------+ +------+---+---+ +-------+ +------+---+---+ | Given | 04/03/20 | 5 mg | | | | | 17 10:19 | | | | | | PM PDT | | | | +-------+ +------+---+---+ | Given | 04/03/20 | 5 mg | | | | | 17 5:37 | | | | | | PM PDT | | | | +-------+ +------+---+---+ +---+---+ | | | +---+---+ + +-------+ +------+---+---+ | polyethylene glycol (MIRALAX) | Given | 04/05/20 | 17 g | | | | packet 17 g 17 g, oral, DAILY, | | 17 3:22 | | | | | First dose on Thu04/03/17 at 0900, | | PM PDT | | | | | Until Discontinued | | | | | | + +-------+ +------+---+---+ +-------+ +------+---+---+ | Given | 04/04/20 | 17 g | | | | | 17 9:48 | | | | | | AM PDT | | | | +-------+ +------+---+---+ | Given | 04/03/20 | 17 g | | | | | 17 9:30 | | | | | | AM PDT | | | | +-------+ +------+---+---+ +---+---+ | | | +---+---+ + +-------+ +------+---+---+ | polyethylene glycol (MIRALAX) | Given | 04/05/20 | 34 g | | | | packet 34 g 34 g, oral, THREE | | 17 8:23 | | | | | TIMES DAILY NEEDED, Starting | | PM PDT | | | | | Michelle 04/02/17 at 1621, Until Tue | | | | | | | 04/07/17 at 2310, 1st line - for no | | | | | | | BM for 2 days | | | | | | + +-------+ +------+---+---+ + +---+ | | | + +---+ | prochlorperazine (COMPAZINE) | | | injection 5 mg 5 mg, | | | intravenous, EVERY 6 HOURS | | | NEEDED, Starting Michelle 04/02/17 at | | | 0902, Until 04/07/17 at 2310, | | | nausea/vomiting, second line | | + +---+ | | | + +---+ + +-------+ +---------+---+---+ | senna-docusate (SENOKOT S) | Given | 04/05/20 | 2 | | | | 8.6-50 mg 2 tablet 2 tablet, | | 17 8:22 | tablets | | | | oral, TWICE DAILY, First dose on | | PM PDT | | | | | Michelle 04/02/17 at 2100, Until | | | | | | | Discontinued | | | | | | + +-------+ +---------+---+---+ +-------+ +---------+---+---+ | Given | 04/05/20 | 2 | | | | | 17 9:00 | tablets | | | | | AM PDT | | | | +-------+ +---------+---+---+ | Given | 04/04/20 | 2 | | | | | 17 8:45 | tablets | | | | | PM PDT | | | | +-------+ +---------+---+---+ +---+---+ | | | +---+---+ + +-------+ +-------+---+---+ | simvastatin (ZOCOR) tablet 20 | Given | 04/06/20 | 20 mg | | | | mg 20 mg, oral, EVERY EVENING, | | 17 9:31 | | | | | First dose on Thu04/02/17 at 2100, | | PM PDT | | | | | Until Discontinued | | | | | | + +-------+ +-------+---+---+ +-------+ +-------+---+---+ | Given | 04/05/20 | 20 mg | | | | | 17 8:26 | | | | | | PM PDT | | | | +-------+ +-------+---+---+ | Given | 04/04/20 | 20 mg | | | | | 17 8:46 | | | | | | PM PDT | | | | +-------+ +-------+---+---+ +---+---+ | | | +---+---+ documented in this encounter
--- OUTSIDE RECORDS SUMMARY | ~2019-09-14 | XMS | Clinical Summary ---
Demographics + + + | Address | [address] | | | [place] [address] | + + + | Home Phone | | + + + | Preferred Language | Unknown | + + + | Marital Status | Single | + + + | Amish Affiliation | NRP | + + + | Race | or | + + + | Ethnic Group | Not or | + + + Author + + + | Author | NON REVENUE LOCATIONS | + + + | Organization | NON REVENUE LOCATIONS | + + + | Address | Unknown | + + + | Phone | Unavailable | + + + Support + + +---------+ + | Name | Relationship | Address | Phone | + + +---------+ + | Debra Vaca | ECON | Unknown | | + + +---------+ + Care Team Providers + +------+ + | Care Campground Cleaning Attendant Name | Role | Phone | + +------+ + | Elena Montano MD | PCP | | + +------+ + Source Comments KELVIN is fully live on both [facility] and [facility] In[facility] Allergies No Known Allergies Medications + + + +---------+------+------+-------+ | Medication | Sig | Dispensed | Refills | Star | End | Statu | | | | | | t | Date | s | | | | | | Date | | | + + + +---------+------+------+-------+ | lisinopril 40 mg | Take 40 mg by mouth | | 0 | 03/2 | | Activ | | oral | once daily. | | | 1/20 | | e | | tabletIndications: | Indications: | | | 17 | | | | hypertension | hypertension | | | | | | + + + +---------+------+------+-------+ | simvastatin 20 mg | Take 20 mg by mouth | | 0 | 03/2 | | Activ | | oral | once daily in the | | | 12/19 | | e | | tabletIndications: | evening. | | | 17 | | | | hyperlipidemia | Indications: | | | | | | | | hyperlipidemia | | | | | | + + + +---------+------+------+-------+ | | Inhale 1 puff four | | 0 | 01/0 | | Activ | | ipratropium-albutero | times daily. | | | 03/19 | | e | | l 20-100 | Indications: Chronic | | | 17 | | | | mcg/actuation | Obstructive | | | | | | | inhalation | Pulmonary Disease | | | | | | | mistIndications: | with Bronchospasms | | | | | | | Chronic Obstructive | | | | | | | | Pulmonary Disease | | | | | | | | with Bronchospasms | | | | | | | + + + +---------+------+------+-------+ | ibuprofen 600 mg | Take 600 mg by mouth | | 0 | | | Activ | | oral | every six hours as | | | | | e | | tabletIndications: | needed. Indications: | | | | | | | pain | Pain | | | | | | + + + +---------+------+------+-------+ | acetaminophen 325 | Take 1-2 tablets by | | 0 | 05/0 | | Activ | | mg oral | mouth every four | | | 9/20 | | e | | tabletIndications: | hours as needed. | | | 17 | | | | pain | Indications: Pain | | | | | | + + + +---------+------+------+-------+ | carvedilol 12.5 mg | Take 1 tablet by | 60 | 0 | 05/0 | | Activ | | oral | mouth two times | tablet | | 9/20 | | e | | tabletIndications: | daily with meals. | | | 17 | | | | Ventricular Rate | Administer with | | | | | | | Control in Atrial | food. Indications: | | | | | | | Fibrillation | Ventricular Rate | | | | | | | | Control in Atrial | | | | | | | | Fibrillation | | | | | | + + + +---------+------+------+-------+ | senna-docusate | Take 1 tablet by | 20 | 0 | 05/0 | | Activ | | 8.6-50 mg oral | mouth twice daily as | tablet | | 9/20 | | e | | tabletIndications: | needed. | | | 17 | | | | constipation | Indications: | | | | | | | | Constipation | | | | | | + + + +---------+------+------+-------+ | oxyCODONE | Take 1 tablet by | 30 | 0 | 05/2 | | Activ | | (immediate release) | mouth every four | tablet | | 2/20 | | e | | 5 mg oral | hours as needed for | | | 17 | | | | tabletIndications: | severe pain. | | | | | | | pain | Indications: Pain | | | | | | + + + +---------+------+------+-------+ | traMADol 50 mg | Take 1 tablet by | | 0 | 05/2 | | Activ | | oral | mouth every eight | | | 2/20 | | e | | tabletIndications: | hours as needed. | | | 17 | | | | pain | Don't take together | | | | | | | | with oxycodone | | | | | | | | Indications: Pain | | | | | | + + + +---------+------+------+-------+ Active Problems + + + | Problem | Noted Date | + + + | Smoking addiction | 04/03/2017 | + + + + + | Last Assessment & Plan: Pt a current smoker, and apparently | | uses home O2. Will talk to pt about the risks of smoking and the | | HIGH risk of smoking on O2. | + + + + + | Essential hypertension | 04/02/2017 | + + + + + | Last Assessment & Plan: Pt on lisinopril 40mg daily | | - start lisinopril 10mg BID | + + + + + | Hyperlipidemia | 04/02/2017 | + + + + + | Last Assessment & Plan: Continue home simvastatin 20mg | + + + + + | COPD (chronic obstructive pulmonary disease) | 04/02/2017 | + + + + + | Last Assessment & Plan: Pt on home O2, will keep this in mind | | while titrating down O2 and not target room air. - brandon q6h | + + + + + | Acute post-operative pain | 04/02/2017 | + + + + + | Last Assessment & Plan: APS following. HM epidural broke and | | pt was transitioned to oral meds. Pain well controlled on oral | | meds, pt has not needed IV coverage. - d/c IV HM - cont APAP and | | oxycodone PRN | + + + + + | Neuroendocrine carcinoma of lung | 03/25/2017 | + + + + + | Last Assessment & Plan: S/p R VATS and superior | | segmentectomy, mediastinal LND, and bronchial stump closure 04/02. | | Concern for pnemothorax after pleuravac was found without fluid | | in the chamber. Pt stable with no increase O2 need. 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 | + + Last Filed Vital Signs + + + + + | Vital Sign | Reading | Time Taken | Comments | + + + + + | Blood Pressure | 140/75 | 05/11/2017 11:40 AM | | | | | PDT | | + + + + + | Pulse | 68 | 05/11/2017 11:40 AM | | | | | PDT | | + + + + + | Temperature | 36.6 C (97.9 F) | 05/11/2017 11:40 AM | | | | | PDT | | + + + + + | Respiratory Rate | 15 | 05/11/2017 11:40 AM | | | | | PDT | | + + + + + | Oxygen Saturation | 92% | 05/11/2017 11:40 AM | | | | | PDT | | + + + + + | Inhaled Oxygen | - | - | | | Concentration | | | | + + + + + | Weight | 57.2 kg (126 lb) | 05/11/2017 11:40 AM | | | | | PDT | | + + + + + | Height | 160 cm (5' 3") | 04/11/2017 3:08 AM | | | | | PDT | | + + + + + | Body Mass Index | 22.32 | 04/11/2017 3:08 AM | | | | | PDT | | + + + + + Plan of Treatment + + + + + | Health Maintenance | Due Date | Last Done | Comments | + + + + + | Pneumococcal | | | | | vaccination (1 of 2 | 8 | | | | - PCV13) | | | | + + + + + | Influenza (Flu) | | | | | vaccination (#1) | 9 | | | + + + + + Implants + +------+--------+ +--------+--------+--------+ | Implanted | Type | Area | Manufacture | Device | Shelf | Model | | | | | r | | Expira | / | | | | | | Identi | tion | Serial | | | | | | fier | Date | / Lot | + +------+--------+ +--------+--------+--------+ | Kit Tissue Closure Progel | | Right: | BARD | | 10/30/ | [id number] | | Pleura Sealant Adhesive Air | | Chest | | | 2016 | 2 / | | Leak 4ml Sterile - | | | | | | [id number] | | [id number]: Qty: 2 on | | | | | | 7-001 | | 04/02/2017 by Zeeshan Heredia | | | | | | | | MD Rosh[facility] at [facility] | | | | | | | | LOC | | | | | | | + +------+--------+ +--------+--------+--------+ Results Not on filefrom Last 3 Months Advance Directives + + + + + | Code Status | Date | Date | Comments | | | Activated | Inactivated | | + + + + + | DNR/DNI | 04/16/2017 | 04/20/2017 | | | | 7:12 AM | 7:33 PM | | + + + + + +---------+ + +---+ | | | | | +---------+ + +---+ | DNR/DNI | 04/02/2017 | 04/07/2017 | | | | 7:01 PM | 11:11 PM | | +---------+ + +---+ + + + +---+ | | | | | + + + +---+ | Full Code | 04/02/2017 | 04/02/2017 | | | | 4:21 PM | 7:01 PM | | + + + +---+ + + + +---+ | | | | | + + + +---+ | Full Code | 04/02/2017 | 04/02/2017 | | | | 5:43 AM | 4:21 PM | | + + + +---+
--- OUTSIDE RECORDS SUMMARY | ~2019-09-14 | XMS | Clinical Summary ---
Demographics + + + | Address | [address] | | | [place] [address] | + + + | Home Phone | | + + + | Preferred Language | Unknown | + + + | Marital Status | | + + + | Muslim Affiliation | 1041 | + + + | Race | Unknown | + + + | Ethnic Group | Unknown | + + + Author + + + | Author | [employer] (Historical as of | | | 07-16-19) | + + + | Organization | [employer] [facility] (Historical as of | | | 07-16-19) | + + + | Address | Unknown | + + + | Phone | Unavailable | + + + Support + + +---------+ + | Name | Relationship | Address | Phone | + + +---------+ + | Torri Osuna | ECON | Unknown | | + + +---------+ + | Erica Ramirez | ECON | Unknown | | + + +---------+ + Care Team Providers + +------+ + | Care Automobile Mechanic Assistant Name | Role | Phone | + +------+ + | Shagufta Woods PA-C | PP | | + +------+ + Allergies No Known Allergies Current Medications + + +--------+---------+------+------+-------+ | Prescription | Sig. | Disp. | Refills | Star | End | Statu | | | | | | t | Date | s | | | | | | Date | | | + + +--------+---------+------+------+-------+ | lisinopril | Take 40 mg by mouth | | | | | Activ | | (ZESTRIL) 40 MG | daily. | | | | | e | | tablet | | | | | | | + + +--------+---------+------+------+-------+ | simvastatin | Take 20 mg by mouth | | | | | Activ | | (ZOCOR) 20 MG tablet | nightly. | | | | | e | + + +--------+---------+------+------+-------+ | fexofenadine | Take 60 mg by mouth | | | | | Activ | | (EDIN) 60 MG | as needed. | | | | | e | | tabletIndications: | Indications: | | | | | | | Seasonal Allergic | Hayfever | | | | | | | Rhinitis | | | | | | | + + +--------+---------+------+------+-------+ | naproxen | Take 500 mg by mouth | | | | | Activ | | (NAPROSYN) 500 MG | 2 (two) times daily | | | | | e | | tabletIndications: | with meals. | | | | | | | Pain/Inflammation | Indications: | | | | | | | | Pain/Inflammation | | | | | | + + +--------+---------+------+------+-------+ | metoprolol | Take 1 tablet by | 60 | 0 | 12/2 | | Activ | | (LOPRESSOR) 25 MG | mouth 2 (two) times | tablet | | 4/20 | | e | | tablet | daily. 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 | + + + | Simple chronic bronchitis (HCC) | 12/03/2016 | + + + | Iatrogenic pneumothorax | 11/18/2016 | + + + | Hilar mass | 11/13/2016 | + + + + + | Overview: On right | + + Family History + + +------+ + | Medical History | Relation | Name | Comments | + + +------+ + | Aneurysm | Mother | | | + + +------+ + | Diabetes type II | Mother | | | + + +------+ + + +------+ + + | Relation | Name | Status | Comments | + +------+ + + | Mother | | | | + +------+ + + Social History + +-------+ +--------+------+ | Tobacco Use | Types | Packs/Day | Years | Date | | | | | Used | | + +-------+ +--------+------+ | Current Every Day | | 0.5 | 50 | | | Smoker | | | | | + +-------+ +--------+------+ + +---+---+---+ | Smokeless Tobacco: | | | | | Current User | | | | + +---+---+---+ + + +---------+ + | Alcohol Use | Drinks/We | oz/Week | Comments | | | ek | | | + + +---------+ + | Yes | | | rarely | + + +---------+ + + + + | Sex Assigned at | Date Recorded | | | | + + + | Not on file | | + + + Last Filed Vital Signs + + + + | Vital Sign | Reading | Time Taken | + + + + | Blood Pressure | 142/85 | 12/23/2017 11:11 AM PST | + + + + | Pulse | 72 | 12/23/2017 11:11 AM PST | + + + + | Temperature | 36 C (96.8 F) | 12/23/2017 11:11 AM PST | + + + + | Respiratory Rate | 18 | 11/22/2016 7:31 AM PST | + + + + | Oxygen Saturation | 95% | 12/23/2017 11:11 AM PST | + + + + | Inhaled Oxygen | - | - | | Concentration | | | + + + + | Weight | 56.2 kg (124 lb) | 12/23/2017 11:11 AM PST | + + + + | Height | 160 cm (5' 3") | 12/23/2017 11:11 AM PST | + + + + | Body Mass Index | 21.97 | 12/23/2017 11:11 AM PST | + + + + Plan of Treatment + + + + + | Health Maintenance | Due Date | Last Done | Comments | + + + + + | Vaccine: | | | | | Dtap/Tdap/Td (1 - | 2 | | | | Tdap) | | | | + + + + + | Colon Cancer | | | | | Screening | 3 | | | | (Colonoscopy) | | | | + + + + + | Vaccine: Zoster (1 | | | | | of 2) | 3 | | | + + + + + | DEXA SCAN SCREENING | | | | | | 8 | | | + + + + + | Vaccine: | | | | | Pneumococcal 65+ | 8 | | | | Low/Medium Risk (1 | | | | | of 2 - PCV13) | | | | + + + + + | Breast Cancer | | 11/06/2016, 01/17/2016, | | | Screening | 8 | 10/30/2015, Additional history | | | (Mammogram) | | exists | | + + + + + | Vaccine: Influenza | | | | | (#1) | 9 | | | + + + + + Results Not on filefrom Last 3 Months Insurance + +--------+ +------+-------+---------+ | Payer | Benefi | Subscriber | Type | Phone | Address | | | t Plan | ID | | | | | | / | | | | | | | Group | | | | | + +--------+ +------+-------+---------+ | [employer] | [employer] | [id number] | | | | | | WORK | | | | | + +--------+ +------+-------+---------+ + +--------+ +--------+ + + | Guarantor Name | Accoun | Relation to | Date | Phone | Billing Address | | | t Type | Patient | of | | | | | | | | | | + +--------+ +--------+ + + | BAILEY ANDERS | Person | Self [birth year] | Home: | [address] | | | al/[place] | | [phone] | | | [place] | | | [phone] | [place] [id number] | + +--------+ +--------+ + +
--- OUTSIDE RECORDS SUMMARY | ~2019-09-14 | XMS | Encounter Summary ---
Demographics + + + | Address | [address] | | | [place] [address] | + + + | Home Phone | | + + + | Preferred Language | Unknown | + + + | Marital Status | Single | + + + | Hinduism Affiliation | NRP | + + + | Race | or | + + + | Ethnic Group | Not or | + + + Author + + + | Author | [place] [facility] | + + + | Organization | [facility] | + + + | Address | Unknown | + + + | Phone | Unavailable | + + + Support + + +---------+ + | Name | Relationship | Address | Phone | + + +---------+ + | Debra Vaca | ECON | Unknown | | + + +---------+ + Care Team Providers + +------+ + | Care Set Up Mechanic Crown Assembly Machine Name | Role | Phone | + +------+ + | No Pcp Per Patient | PCP | Unavailable | + +------+ + Encounter Details +--------+ + + + + | Date | Type | Department | Care Team | Description | +--------+ + + + + | 04/15/ | Anesthesia | Cardiac Gun Numberer | Guilherme Navarro, | | | 2017 | Event | at [facility] [address] | [address] | | | | | [address] | [address] | | | | | [facility] | [place], [place] | | | | | [place], [place] | [address] | | | | | [address] | [phone] | | | | | [phone] | | | | | | | Breanne Thomas CRNA | | | | | | [address] | | | | | | [place] [place], | | | | | | [place] [address] | | | | | | [phone] | | | | | | | [...]
--- OUTSIDE RECORDS SUMMARY | ~2019-09-14 | XMS | Encounter Summary ---
Demographics + + + | Address | [address] | | | [place] [address] | + + + | Home Phone | | + + + | Preferred Language | Unknown | + + + | Marital Status | Single | + + + | Yazidi Affiliation | NRP | + + + | Race | or | + + + | Ethnic Group | Not or | + + + Author + + + | Author | [place] [facility] | + + + | Organization | [facility] | + + + | Address | Unknown | + + + | Phone | Unavailable | + + + Support + + +---------+ + | Name | Relationship | Address | Phone | + + +---------+ + | Debra Vaca | ECON | Unknown | | + + +---------+ + Care Team Providers + +------+ + | Care Wire Coiler Name | Role | Phone | + +------+ + | Elena Montano MD | PCP | | + +------+ + Encounter Details +--------+ + + + + | Date | Type | Department | Care Team | Description | +--------+ + + + + | 11/20/ | Ancillary | Registration [id number] | | | [address] | [address] | [address] | [address] Mailcode: [id number] | | | | | | [place], [place] | | | | | | [address] | | | | | | [phone] | | | +--------+ + + + + Social History + +-------+ +--------+------+ | Tobacco Use | Types | Packs/Day | Years | Date | | | | | Used | | + +-------+ +--------+------+ | Never Assessed | | | | | + +-------+ +--------+------+ + + + | Sex Assigned at [...]
--- OUTSIDE RECORDS SUMMARY | ~2019-09-14 | XMS | Encounter Summary ---
Demographics + + + | Address | [address] | | | [place] [address] | + + + | Home Phone | | + + + | Preferred Language | Unknown | + + + | Marital Status | Single | + + + | Restorationist Affiliation | NRP | + + + | Race | or | + + + | Ethnic Group | Not or | + + + Author + + + | Author | [place] [facility] | + + + | Organization | [facility] | + + + | Address | Unknown | + + + | Phone | Unavailable | + + + Support + + +---------+ + | Name | Relationship | Address | Phone | + + +---------+ + | Debra Vaca | ECON | Unknown | | + + +---------+ + Care Team Providers + +------+ + | Care Drum Reel Cutter Name | Role | Phone | + +------+ + | No Pcp Per Patient | PCP | Unavailable | + +------+ + Reason for Visit + + + | Reason | Comments | + + + | Pre-op evaluation | | + + + Encounter Details +--------+ + + + + | Date | Type | Department | Care Team | Description | +--------+ + + + + | 03/31/ | Telephone-S | Preoperative | | Pre-op evaluation | | 2017 | bill | [facility] | | | | | | [facility] | | | | | | Stay [address] | | | | | | [address] | | | | | | Mailcode: [id number] | | | | | | [place] [address] | | | | | | [address] [place], [place] | | | | | | [address] | | | | | | [phone] | | | +--------+ + + + + Anesthesia Record + + + + + | Procedure Name | Responsible | Anesthesia Start | Anesthesia Stop Time | | | Anesthesiologist | Time | | + + + + + | FLEXIBLE | Chantal Yoon MD | 04/02/17 0723 | 04/02/17 1446 | | BRONCHOSCOPY, RIGHT | | | | | THORACOSCOPY, | | | | | SUPERIOR | | | | | SEGMENTECTOMY; | | | | | MEDIASTINAL LYMPH | | | | | NODE DISSECTION | | | | | (Right Chest) | | | | + + + + + +----+---+ + + | Da | T | Event | Comment | | te | i | | | | | m | | | | | e | | | +----+---+ + + | 05 | 0 | Eq Check | Anesthesia machine checked Equipment verified | | /0 | 6 | | | | 4/ | 3 | | | | 20 | 0 | | | | 17 | | | | +----+---+ + + | | 0 | Pt. Check | Prior to anesthesia start, pt. Identified, examined, chart | | | 6 | | reviewed, PARQ held, anesthetic plan made or approved by | | | 4 | | attending anesthesiologist. NPO status confirmed as appropriate | | | 8 | | for procedure Preoperative evaluation: unchanged | +----+---+ + + | | 0 | Preprocedur | Pt ID confirmed, informed consent obtained, insertion site | | | 6 | e Checklist | marked, equipment available | | | 4 | | | | | 8 | | | +----+---+ + + | | 0 | Block Pause | | | | 6 | | | | | 4 | | | | | 8 | | | +----+---+ + + | | 0 | Epidural | | | | 6 | Start | | | | 4 | | | | | 8 | | | +----+---+ + + | | 0 | Epidural | | | | 7 | Stop | | | | 1 | | | | | 0 | | | +----+---+ + + | | 0 | An Start | | | | 7 | | | | | 2 | | | | | 3 | | | +----+---+ + + | | 0 | An Start | | | | 7 | Data | | | | 2 | | | | | 9 | | | +----+---+ + + | | 0 | Vitals | Monitors applied Vital signs checked Patient ready for anesthesia | | | 7 | Checked | | | | 3 | | | | | 3 | | | +----+---+ + + | | 0 | ETT | | | | 7 | | | | | 4 | | | | | 1 | | | +----+---+ + + | | 0 | Art Line | | | | 7 | | | | | 5 | | | | | 2 | | | +----+---+ + + | | 0 | Quick Note | PATY placement | | | 7 | | | | | 5 | | | | | 8 | | | +----+---+ + + | | 0 | Ready | | | | 8 | | | | | 0 | | | | | 0 | | | +----+---+ + + | | 0 | Abx | | | | 8 | Administere | | | | 1 | d | | | | 4 | | | +----+---+ + + | | 0 | An one lung | | | | 8 | vent | | | | 2 | | | | | 0 | | | +----+---+ + + | | 0 | Timeout | | | | 8 | | | | | 2 | | | | | 7 | | | +----+---+ + + | | 0 | Local | | | | 8 | Anesthetic | | | | 2 | by Surgeon | | | | 8 | | | +----+---+ + + | | 0 | Incision | | | | 8 | | | | | 2 | | | | | 9 | | | +----+---+ + + | | 0 | An Two-Lung | | | | 8 | Vent | | | | 5 | | | | | 7 | | | +----+---+ + + | | 0 | An one lung | | | | 8 | vent | | | | 5 | | | | | 9 | | | +----+---+ + + | | 1 | Abx | | | | 2 | Administere | | | | 1 | d | | | | 4 | | | +----+---+ + + | | 1 | Quick Note | Surgeon incised pulmonary vein, unintentionally, ~600 ml blood | | | 2 | | loss | | | 4 | | | | | 0 | | | +----+---+ + + | | 1 | AN | | | | 3 | Recruitment | | | | 1 | Breath | | | | 3 | | | +----+---+ + + | | 1 | An Two-Lung | | | | 3 | Vent | | | | 2 | | | | | 8 | | | +----+---+ + + | | 1 | Quick Note | Significant air leak ~300ml Surgeon performing bronch to assess | | | 3 | | stump | | | 3 | | | | | 4 | | | +----+---+ + + | | 1 | An one lung | | | | 3 | vent | | | | 4 | | | | | 0 | | | +----+---+ + + | | 1 | An Two-Lung | | | | 4 | Vent | | | | 1 | | | | | 4 | | | +----+---+ + + | | 1 | Surgery end | | | | 4 | | | | | 3 | | | | | 5 | | | +----+---+ + + | | 1 | An Extubate | Neuromuscular function Intact. Pharynx suctioned. Patient obeys | | | 4 | | commands. Adequate pulmonary mechanics. | | | 3 | | | | | 6 | | | +----+---+ + + | | 1 | an stop | | | | 4 | data | | | | 3 | | | | | 7 | | | +----+---+ + + | | 1 | Anesthesia | | | | 4 | End | | | | 4 | | | | | 6 | | | +----+---+ + + +------+ | Meds | +------+ + + + No medications | on file. | + + + + + | No agents on file. | + + + + | No blood administrations on file. | + + +--------+ + + + | Type | Details | Placement | Removal | +--------+ + + + | Incisi | 04/02/17; 08; Dr. Heredia; Right; | 04/02/17826 by | | | on | Lateral; chest | Heide Santoyo RN | | +--------+ + + + | Incisi | 04/02/17; 08; DR. Heredia; Right; | 04/02/17843 by | | | on | Lateral; chest | Heide Santoyo RN | | +--------+ + + + | Periph | Scar Orozco; Right; Dorsal; Hand; | 04/02/17 0833 by | 04/05/17 1211 by | | eral | 18 g; None; No; Positive; | | Iris Jacome RN | | IV | 04/05/17; 1211; Drainage | | | +--------+ + + + | Periph | 04/02/17; 0615; Left; | 04/02/17 0615 by | 04/02/17 2300 by | | eral | Antecubital; 18 g; Positive; | Ileana Morel RN | Brunilda Moore, | | IV | 04/02/17; 2300; Drainage, Other | | RN | | | (Comment) (bleeding) | | | +--------+ + + + | Epidur | 04/02/17; 0648; Kenn; Thoracic; | 04/02/17 0648 by | 04/03/17 1500 by | | al | 04/03/17; 1500 | Marlin Hawk MD | Ayanna Bartlett RN | +--------+ + + + | Arteri | 04/02/17; 0752; Kenn; Standard; | 04/02/17 0752 by | 04/02/17 1620 by | | al | Left; Radial; 20g; 04/02/17; | Marlin Hawk MD | Clarita Sterling RN | | Line | 1620 | | | +--------+ + + + | Urethr | 04/02/17; 0800; NEENA Arango; | 04/02/17 0800 by | 04/03/17 0545 by | | al | Ирина; 16 Fr.; 10 mL; 04/03/17; | Heide Santoyo RN | Brunilda Moore, | | Kasieet | 0545; Per order | | RN | | er | | | | +--------+ + + + | Chest | 04/02/17; 1033; Dr. Heredia; | 04/02/17 1033 by | 04/06/17 0830 by | | Tube | Standard; Right; Pleural; 28 Fr.; | Heide Santoyo RN | Acacia Landa, | | | 04/06/17; 0830; No longer | | RN | | | present (removed per MD rivero) | | | +--------+ + + + documented in this encounter Social [...]
--- OUTSIDE RECORDS SUMMARY | ~2019-09-14 | XMS | Encounter Summary ---
Demographics + + + | Address | [address] | | | [place] [address] | + + + | Home Phone | | + + + | Preferred Language | Unknown | + + + | Marital Status | Single | + + + | Sikh Affiliation | NRP | + + + | Race | or | + + + | Ethnic Group | Not or | + + + Author + + + | Author | [facility] | + + + | Organization | [facility] [...] Team Providers + +------+ + | Care Film Producer Name | Role | Phone | + +------+ + | No Pcp Per Patient | PCP | Unavailable | + +------+ + Reason for Visit + + + | Reason | Comments | + + + | Chest Tube | | | Management | | + + + AUTH/CERT +--------+--------+ + + + + | [...] | +--------+ + + + + | 04/10/ | Hospital | [address] | Christian Martinez MD | | | 2017 - | Encounter | [address] | [address] | | | | | [address] [place] [address] | [address] | | | 04/20/ | | [place], [place] | [place], [place] | | | 2016 | | [address] | [address] | | | | | [phone] | [phone] | | | | | | | | | | | | Zeeshan Heredia MD | | | | | | [address] | | | | | | [address] [place], | | | | | | [place] [address] | | | | | | [phone] | | | | | | | [...] + + + | Blood Pressure | 145/77 | 04/20/2017 7:59 AM | | | | | PDT | | + + + + + | Pulse | 72 | 04/20/2017 7:59 AM | | | | | PDT | | + + + + + | Temperature | 36.5 C (97.7 F) | 04/20/2017 7:43 AM | | | | | PDT | | + + + + + | Respiratory Rate | 16 | 04/20/2017 7:59 AM | | | | | PDT | | + + + + + | Oxygen Saturation | 96% | 04/20/2017 7:59 AM | | | | | PDT | | + + + + + | Inhaled Oxygen | - | - | | | Concentration | | | | + + + + + | Weight | 57 kg (125 lb 10.6 | 04/13/2017 4:32 AM | | | | oz) | PDT | | + + + + + | Height | 160 cm (5' 3") | 04/11/2017 3:08 AM | | | | | PDT | | + + + + + | Body Mass Index | 22.26 | 04/11/2017 3:08 AM | | | | | PDT | | + + + + + documented in this encounter Discharge Summaries Pam Morales PA - 04/20/2017 8:29 AM PDTFormatting of this note might be different fr om the original. Thoracic Surgery Discharge Summary Patient Name: BAILEY ANDERS Patient Discharge Attending: Zeeshan Heredia MD Summary Author: MAMTA Munoz Date of admission: 04/10/2017 Date of discharge: 04/20/2017 Patient Care Team: No Pcp Per Patient as PCP - General Principle diagnosis: recurrent right-sided pneumothorax Secondary diagnoses: hypertension, history of lung cancer Principle procedure: bedside chemical pleurodesis Other procedures: re-insertion of right-sided chest tube Hospital course: Ms. Anders was admitted from [place] with reports of persistent fluid dr ainachristiano from around her right-sided chest tube (she was discharged with this drain following lung surgery for lung cancer.) The chest tube was removed on HD# 2, but she developed a pne umothorax later that day. A new chest tube was placed with re-expansion of the lung. Doxyc ycline was administered via this chest tube on HD #6 for chemical pleurodesis. The chest tu be was kept to wall suction until HD #8. She tolerated water seal for > 24 hours without si gns/symptoms of pneumothorax, so a clamping trial of the chest tube was performed. She tole rated clamping of the chest tube for > 24 hours, so the chest tube was removed. Follow-up c hest x-ray showed no pneumothorax. By HD #10, she was not requiring supplemental oxygen, to lerating a regular diet, and ambulating without difficulty. Therefore the decision was made to discharge the patient to home. Discharge Medications: . Bailey Anders Home Medication Instructions [id number] Printed on:04/20/17 0510 Medication Information acetaminophen 325 mg oral tablet [...] as needed for severe pain. Indications: Pain oxyCODONE (immediate release) 5 mg oral tablet Take 1 tablet by mouth every four hours as needed for severe pain. Indications: Pain senna-docusate 8.6-50 mg oral tablet Take 1 tablet by mouth twice daily as needed. Indications: Constipation simvastatin 20 mg oral tablet Take 20 mg by mouth once daily in the evening. Indications: hyperlipidemia traMADol 50 mg oral tablet Take 50 mg by mouth every eight hours as needed. Indications: Pain Discharge Diet: Diet Regular Regular diet- There are no restrictions to your diet. You may eat or drink whatever you pr efer, though healthy food choices are recommended. Discharge Activity: As tolerated; no lifting greater than 10 pounds for six weeks and no dr iving or operating heavy machinery while taking narcotic pain medications. Vital signs at the time of discharge: BP 132/72 | Pulse 74 | Temp 36.5 C (97.7 F) | RR 16 | Ht 1.6 m (5' 3") | Wt 57 kg (125 lb 10.6 oz) | SpO2 96% | BMI 22.26 kg/(m^2) Discharge Instructions: BAILEY Burrows ANDERS was advised to contact the Thoracic [...] non-tender; no JVD or tracheal deviation Lungs: decreased breath sounds at right base, otherwise CTA bilaterally CV: RRR, S1 S2; [...] the time of the patient's mabel rachell. Smoking cessation counseling: patient declined Follow-up appointment(s): [facility] Thoracic Surgery in 2 weeks Pathology report: N/A Copies of this summary should be sent to: No Pcp Per PATIENT; Kevan Morales PA-C documented in this e ncounter [...] + + + +---------+ + + | oxyCODONE | Take 1 tablet by | 30 | 0 | 04/20/20 | | | (immediate release) | mouth every four | tablet | | 17 | | | 5 mg oral | hours as needed for | | | | | | tabletIndications: | severe pain. | | | | | | pain [...] + + + +---------+ + + | traMADol 50 mg | Take 1 tablet by | | 0 | 04/20/20 | | | oral | mouth every eight | | | 17 | | | tabletIndications: | hours as needed. | | | | | | pain | Don't take together | | | | | | | with oxycodone | | | | | | | Indications: Pain | | | | | + + + +---------+ + + documented as of this encounter Progress Notes Micah Tee MD - 04/19/2017 9:43 PM PDTFormatting of this note might be different from t young original. [facility] DEPARTMENT OF SURGERY Cardiothoracic Surgery Attending Physician: MD Micah Vogel MD Attending Physician: Christian Martinez MD for Dr. Heredia Hospital Day #8 recurrent pneumothorax following lung resection, s/p doxycycline pleurodesi s Past 24 hour Events Passed clamp trial Subjective: Doing well, no complains Objective: Last Vitals: BP 173/88 | Pulse 65 | Temp 36.6 C (97.9 F) | RR 16 | Ht 1.6 m (5' 3") | W t 57 kg (125 lb 10.6 oz) | SpO2 98% | BMI 22.26 kg/(m^2) 24 Hour Vital Min/Max: Systolic (24hrs), Av , Min:136 , Max:173 Diastolic (24hrs), Av, Min:76, Max:89 Pulse Av.3 Min: 61 Max: 74 Temp Av.6 C (97.8 F) Min: 36.5 C (97.7 F) Max: 36.7 C (98.1 F) Resp Av.3 Min: 16 Max: 18 SpO2 Av.5 % Min: 95 % Max: 98 % Intake/Output Summary (Last 24 hours) at 04/19/17 214 Last data filed at 04/19/171999 Gross per 24 hour Intake 785 ml Output 1850 ml Net -1065 ml Right-sided chest tube output: minimal cc/24 hours. no air leak. Appearance: in no respiratory distress and acyanotic, alert and oriented times 3. Respiratory: chest is clear Cardiovascular: Regular rate, rhythm Imaging: no chest imaging today Assessment: 61 y.o. f w/ h/o typical carcinoid tumor, s/p resection, re-admitted with pneum othorax requiring chest tube replacement, doxycycline pleurodesis Plan: - Pain: PRN Tylenol, ibuprofen, & oxycodone - CT removed, f/u CXR - Hypertension: on home dose of lisinopril - Atrial fibrillation: continue Coreg (1/2 dose of home regimen) - Hypercholesterolemia: continue simvastatin - Tobacco abuse: counseling provided; we can add NRT if cravings develop - Prophylaxis: not on bowel regimen given recent diarrhea; onenoxaparin for DVT prophylax is - dispo: home Pam Henson PA - Rob 04/18/2017 2:07 PM PDT GENERAL THORACIC SURGERY INPATIENT PROGRESS NOTE Author: Pam Morales PA-C Attending Physician: Christian Martinez MD Hospital Day #8 recurrent pneumothorax following lung resection, s/p doxycycline pleurodesi s Subjective: Interval Hx: chest tube placed to water seal yesterday without increased shortness of breat h; very interested in going home soon Objective: Last Vitals: BP 107/59 | Pulse 69 | Temp 36.6 C (97.9 F) | RR 18 | Ht 1.6 m (5' 3") | W t 57 kg (125 lb 10.6 oz) | SpO2 96% | BMI 22.26 kg/(m^2) 24 Hour Vital Min/Max: Systolic (24hrs), Av , Min:107 , Max:148 Diastolic (24hrs), Av, Min:56, Max:91 Pulse Av.3 Min: 65 Max: 76 Temp Av.7 C (98 F) Min: 36.5 C (97.7 F) Max: 36.8 C (98.2 F) Resp Av.6 Min: 16 Max: 18 SpO2 Av % Min: 92 % Max: 97 % Intake/Output Summary (Last 24 hours) at 04/18/17 1409 Last data filed at 04/18/17 1200 Gross per 24 hour Intake 1082 ml Output 1600 ml Net -518 ml Right-sided chest tube output: minimal cc/24 hours. no air leak. Appearance: in no respiratory distress and acyanotic, alert and oriented times 3. Respiratory: chest is clear Cardiovascular: Regular rate, rhythm Imaging: no chest imaging today Assessment: 61 y.o. f w/ h/o typical carcinoid tumor, s/p resection, re-admitted with pneum othorax requiring chest tube replacement, doxycycline pleurodesis Plan: - Pain: PRN Tylenol, ibuprofen, & oxycodone - Pneumothorax: clamp chest tube this morning, CXR 8 hours later to assess pneumothorax; on cefazolin for coverage given recent surgery, replacement (x2) of chest tube - Lung cancer: case discussed at Lung Tumor Board yesterday; plan for surveillance alone - no chemotherapy or radiation indicated - Hypertension: on home dose of lisinopril - Atrial fibrillation: continue Coreg (1/2 dose of home regimen) - Hypercholesterolemia: continue simvastatin - Tobacco abuse: counseling provided; we can add NRT if cravings develop - Prophylaxis: not on bowel regimen given recent diarrhea; on enoxaparin for DVT prophylaxi s - Dispo: remains howell-status; anticipate discharge to home in 24-72 hours once chest tube i s safely removed MAMTA Munoz-C Nelson Peralta NP - 04/17/2017 3:38 PM PDT Thoracic Surgery Brief Inpatient Progress Note Patient name: BAILEYRA Stormy ANDERS Attending: Zeeshan Heredia MD Procedure day: ; 2 Procedure: R VATS w/ RLL superior segmentectomy (T1bN0 typical carcinoid); doxycycline pleu rodesis Hospital day: 7 Reason for admission: chest tube management 24 hour events: No acute events; weaned to room air 24 hour vitals: Last 24 hour min/max Temp: 36.8 C (98.2 F) Temp Min: 36.2 C (97.2 F) Max: 36.8 C (98.2 F) Pulse: 69 Pulse Min: 59 Max: 69 Resp: 16 Resp Min: 16 Max: 18 BP: 141/74 BP Min: 106/55 Max: 148/92 SpO2: 95 % RA SpO2 Min: 95 % Max: 97 % Body mass index is 22.26 kg/(m^2). Chest tube output: 10/0. W/S. -A/L. S/S drainage. Lab Results Component Value Date NA 138 04/10/2017 K 3.4 04/10/2017 CL 99 04/10/2017 BICARB 31 04/10/2017 BUN 16 04/10/2017 CR 0.74 04/10/2017 GLU 199 04/10/2017 CA 8.9 04/10/2017 Lab Results Component Value Date WBC 8.62 04/10/2017 HB 12.0 04/10/2017 HCT 34.8 04/10/2017 PLT 209 04/10/2017 MCV 94.1 04/10/2017 RDW 42.5 04/10/2017 Water-seal CXR: Brief Exam: NAD AOX3 Lungs clear bilaterally RRR S/NT/ND MAEW Wound healing without complication Assessment: 61 y.o. f w/ h/o typical carcinoid tumor, s/p resection, re-admitted with pneum othorax requiring chest tube replacement, doxycycline pleurodesis Plan: - Pain: PRN Tylenol, ibuprofen, & oxycodone - Pneumothorax: chest tube to water-seal; on cefazolin for coverage given recent surgery, r eplacement (x2) of chest tube; may clamp chest tube tomorrow given recent history of recurre nt pneumothoraces - Lung cancer: case discussed at Lung Tumor Board earlier today; plan for surveillance carmelita e - no chemotherapy or radiation indicated - Hypertension: lisinopril increased to full home dose - Atrial fibrillation: continue Coreg (1/2 dose of home regimen) - Hypercholesterolemia: continue simvastatin - Tobacco abuse: counseling provided; we can add NRT if cravings develop - Prophylaxis: not on bowel regimen given recent diarrhea; on enoxaparin for DVT prophylaxi s - Dispo: remains howell-status; anticipate discharge to home in 24-72 hours once chest tube i s safely removed - Discussed with Dr. Zeeshan Heredia MD Nelson Milner NP - 8:44 AM PDT Thoracic Surgery Brief Inpatient Progress Note Patient name: BAILEY ANDERS Attending: Zeeshan Heredia MD Procedure day: ; 1 Procedure: R VATS w/ RLL superior segmentectomy (T1bN0 typical carcinoid tumor); chest tube replacement; doxycycline pleurodesis 24 hour events: doxycycline pleurodesis completed; tolerated well 24 hour vitals: Last 24 hour min/max Temp: 36.8 C (98.2 F) Temp Min: 36.3 C (97.3 F) Max: 37 C (98.6 F) Pulse: 64 Pulse Min: 53 Max: 70 Resp: 16 Resp Min: 13 Max: 23 BP: 133/76 BP Min: 98/53 Max: 171/88 SpO2: 95 % RA SpO2 Min: 93 % Max: 100 % Body mass index is 22.26 kg/(m^2). Chest tube output: 25/10. -20. -A/L. S/S drainage. Lab Results Component Value Date NA 138 04/10/2017 K 3.4 04/10/2017 CL 99 04/10/2017 BICARB 31 04/10/2017 BUN 16 04/10/2017 CR 0.74 04/10/2017 GLU 199 04/10/2017 CA 8.9 04/10/2017 Lab Results Component Value Date WBC 8.62 04/10/2017 HB 12.0 04/10/2017 HCT 34.8 04/10/2017 PLT 209 04/10/2017 MCV 94.1 04/10/2017 RDW 42.5 04/10/2017 Brief Exam: NAD AOX3 Lungs with inspiratory wheezing, L>R RRR S/NT/ND MAEW Assessment: 61 y.o. f w/ h/o typical carcinoid tumor, s/p resection, re-admitted with pneum othorax requiring chest tube replacement, doxycycline pleurodesis Plan: - Pain: PRN Tylenol, ibuprofen, & oxycodone - Pneumothorax: keep chest tube to suction until tomorrow; on cefazolin for coverage given recent surgery, replacement (x2) of chest tube - Hypertension: continue lisinopril (1/2 dose of home regimen) - Atrial fibrillation: continue Coreg (1/2 dose of home regimen) - Hypercholesterolemia: continue simvastatin - Tobacco abuse: counseling provided; we can add NRT if cravings develop - Prophylaxis: not on bowel regimen given recent diarrhea; will add back enoxaparin for DVT prophylaxis - Dispo: remains howell-status; anticipate discharge to home in 24-72 hours once chest tube i s safely removed - Discussed with Dr. Zeeshan Heredia MD ijennifer, Jaclyn Bob PA-C - 04/15/2017 12:18 PM PDT Thoracic Surgery Brief Inpatient Progress Note Patient name: BAILEY ANDERS Attending: Zeeshan Heredia MD HD: 5 Reason for admission: leaking around chest tube 24 hour events: chest tube unintentionally disconnected overnight 24 hour vitals: Last 24 hour min/max Temp: 36.6 C (97.8 F) Temp Min: 36.2 C (97.2 F) Max: 36.6 C (97.9 F) Pulse: 58 Pulse Min: 58 Max: 66 Resp: 15 Resp Min: 15 Max: 18 BP: 141/72 BP Min: 107/56 Max: 157/80 SpO2: 99 % on 1 L SpO2 Min: 94 % Max: 99 % Body mass index is 22.26 kg/(m^2). Chest tube output: 2/0 ml, W/S, + 1 forced expiratory air leak, serous fluid Lab Results Component Value Date NA 138 04/10/2017 K 3.4 04/10/2017 CL 99 04/10/2017 BICARB 31 04/10/2017 BUN 16 04/10/2017 CR 0.74 04/10/2017 GLU 199 04/10/2017 CA 8.9 04/10/2017 Lab Results Component Value Date WBC 8.62 04/10/2017 HB 12.0 04/10/2017 HCT 34.8 04/10/2017 PLT 209 04/10/2017 MCV 94.1 04/10/2017 RDW 42.5 04/10/2017 Brief Exam: NAD AOX3 Lungs clear to ausculation RRR S/NT/ND MAEW Wound healing without complication Assessment: Ms. Anders is a 61 year old female c HTN, COPD on home O2, HLD, and pulmonary c arcinoid s/p R thoracoscopy and lower lobe superior segmentectomy on 04/02/2017 who was transf erredfrom OSH for persistent leaking of serosang fluid from CT insertion site. Her chest t ube was removed on April 11 and required replacement for increasing right pneumothorax and res piratory distress. Plan (osbs-wk-nqfeivuw issues): - Chest tube management: chest tube disconnected overnight and reconnected, patient remaine d asymptomatic, continue chest tube to water seal, continue ancef, add probiotic - PCU today for right doxycycline pleurodesis under conscious sedation, NPO since midnight, medications ordered (will need to go with patient to PCU), will place chest tube to suction following procedure - Post-procedural pain: continue acetaminophen and oxycodone - Bowel care: advance as tolerated - DVT Proph: encourage ambulation, SCD's while in bed - Dispo: remains howell status, anticipate discharge in 3-4 days pending progress Plan (dby-moxxbygp-qndhipw issues); the brief history and exam findings are unchanged from above for this part of the note: - HTN: hypotension resolved, consider increasing home carvedilol and lisinopril doses tomor row - Hypercholesterolemia: continue simvastatin - Discussed with MD Jaclyn Morales PA-C [address] [facility] [address] [place] [address] Jaclyn Hunt PA -C - 04/14/2017 5:10 PM PDT Thoracic Surgery Brief Inpatient Progress Note Patient name: BAILEY ANDERS Attending: Zeeshan Heredia MD HD: 4 Reason for admission: leaking around chest tube 24 hour events: small forced expiratory air leak appreciated, no acute events overnight 24 hour vitals: Last 24 hour min/max Temp: 36.2 C (97.2 F) Temp Min: 36.2 C (97.2 F) Max: 37 C (98.6 F) Pulse: 61 Pulse Min: 57 Max: 70 Resp: 16 Resp Min: 12 Max: 18 BP: 126/64 BP Min: 82/63 Max: 130/61 SpO2: 94 % on 1 L NC SpO2 Min: 93 % Max: 98 % Body mass index is 22.26 kg/(m^2). Chest tube output: 8/3 ml, W/S, + 1 intermittent forced expiratory air leak, serous drainag e Lab Results Component Value Date NA 138 04/10/2017 K 3.4 04/10/2017 CL 99 04/10/2017 BICARB 31 04/10/2017 BUN 16 04/10/2017 CR 0.74 04/10/2017 GLU 199 04/10/2017 CA 8.9 04/10/2017 Lab Results Component Value Date WBC 8.62 04/10/2017 HB 12.0 04/10/2017 HCT 34.8 04/10/2017 PLT 209 04/10/2017 MCV 94.1 04/10/2017 RDW 42.5 04/10/2017 Brief Exam: NAD AOX3 Lungs clear to auscultation RRR S/NT/ND MAEW Wound healing without complication Assessment: Ms. Anders is a 61 year old female c HTN, COPD on home O2, HLD, and pulmonary c arcinoid s/p R thoracoscopy and lower lobe superior segmentectomy on 04/02/2017 who was transf erredfrom OSH for persistent leaking of serosang fluid from CT insertion site. Her chest t ube was removed on April 11 and required replacement for increasing right pneumothorax and res piratory distress. Plan (ctxy-nl-bgjuypjb issues): - Chest tube management: continue chest tube to water seal, continue ancef, add probiotic - PCU tomorrow for right doxycycline pleurodesis under conscious sedation, NPO at midnight, medications ordered (will need to go with patient to PCU) - Post-procedural pain: continue acetaminophen and oxycodone - Bowel care: advance as tolerated - DVT Proph: encourage ambulation, SCD's while in bed - Dispo: remains howell status Plan (bmu-yugyaoxn-vruqgaa issues); the brief history and exam findings are unchanged from above for this part of the note: - HTN: some hypotension yesterday and today, asymptomatic, decrease home carvedilol and lis inopril doses - Hypercholesterolemia: continue simvastatin - Discussed with Dr. Zeeshan Heredia MD il, Ronnell Burrows MD - 04/13/2017 7:55 AM PDT Thoracic Surgery Brief Inpatient Progress Note Patient name: BAILEY ANDERS Attending: Zeeshan Heredia MD HD: 3 Reason for admission: leaking around chest tube 24 hour events: No sig events o/n. Tolerated chest tube to water seal. 24 hour vitals: Last 24 hour min/max Temp: 36.5 C (97.7 F) Temp Min: 36.2 C (97.2 F) Max: 36.7 C (98.1 F) Pulse: 63 Pulse Min: 57 Max: 69 Resp: 18 Resp Min: 14 Max: 18 BP: 99/55 BP Min: 76/41 Max: 141/71 SpO2: 97 % SpO2 Min: 93 % Max: 99 % Body mass index is 22.26 kg/(m^2). Chest tube output: 6 ml, W/S, - A/L, S/S Lab Results Component Value Date NA 138 04/10/2017 K 3.4 04/10/2017 CL 99 04/10/2017 BICARB 31 04/10/2017 BUN 16 04/10/2017 CR 0.74 04/10/2017 GLU 199 04/10/2017 CA 8.9 04/10/2017 Lab Results Component Value Date WBC 8.62 04/10/2017 HB 12.0 04/10/2017 HCT 34.8 04/10/2017 PLT 209 04/10/2017 MCV 94.1 04/10/2017 RDW 42.5 04/10/2017 Brief Exam: NAD AOX3 Lungs diminished breath sounds bilaterally RRR S/NT/ND Persistent air leak with cough Wound healing without complication Assessment: Ms. Andres is a 61 year old female c HTN, COPD on home O2, HLD, and pulmonary carcinoid s/p R thoracoscopy and lower lobe superior segmentectomy on 04/02/2017 who was transferred from [facility] for persistent leaking of serosang fluid from CT insertion site now with persistent air l eak and pneumothorax Plan (tuln-zz-olynunyd issues): - Chest tube management: continue waterseal. Will consider pleurodesis prior to removing ch est tube again. Restart Ancef. - Supplemental oxygen: patient with h/o COPD with home O2. Continue. - Post-procedural pain: continue acetaminophen and oxycodone - Bowel care: reg - DVT Proph: encourage ambulation, SCD's while in bed. Will start px lovenox this evening i f patient to remain inpatient. - Dispo: 2/2 clinical course, decision of pleurodesis during this admission vs discharge wi th CT in place. Associated attestation - Zeeshan Heredia MD - 04/13/2017 1:53 PM PDTThoracic Surgery Staf f Note: I personally interviewed the patient, performed the espinoza elements of the physical examinatio n, and personally formulated the assessment and plan with the PA/resident/fellow. See PA/res ident/fellow note for full details. Small forced expiratory airleak Discussed the risks and benefits of a right doxycycline pleurodesis She agrees and wishes to proceed Plan for pleurodesis Tues or Thu Zeeshan Heredia M.D. FACS accounting professional [facility] Division of Cardiothoracic Surgery Section of Thoracic Surgery [address] [place] [address], [address] [phone] Melly Rodriguez RN - 04/12/2017 12:16 PM PDTMD Daquan placed CT to water seal and rem robby suction. Continue to monitor pt. Sonia Wharton MD - 04/12/2017 9:49 AM PDT Thoracic Surgery Brief Inpatient Progress Note Patient name: BAILEY ANDERS Attending: Zeeshan Heredia MD HD: 2 Reason for admission: leaking around chest tube 24 hour events: Chest tube removed reaccumulation of ptx, which enlarged with pt respiratory distress, requiring replacement o f R chest tube This AM no AL 24 hour vitals: Last 24 hour min/max Temp: 36.6 C (97.9 F) Temp Min: 36.2 C (97.2 F) Max: 36.6 C (97.9 F) Pulse: 62 Pulse Min: 58 Max: 82 Resp: 16 Resp Min: 16 Max: 20 BP: 141/71 BP Min: 100/51 Max: 148/71 SpO2: 99 % SpO2 Min: 87 % Max: 100 % Body mass index is 22.14 kg/(m^2). Chest tube output: 6 ml, W/S, - A/L, S/S Lab Results Component Value Date NA 138 04/10/2017 K 3.4 04/10/2017 CL 99 04/10/2017 BICARB 31 04/10/2017 BUN 16 04/10/2017 CR 0.74 04/10/2017 GLU 199 04/10/2017 CA 8.9 04/10/2017 Lab Results Component Value Date WBC 8.62 04/10/2017 HB 12.0 04/10/2017 HCT 34.8 04/10/2017 PLT 209 04/10/2017 MCV 94.1 04/10/2017 RDW 42.5 04/10/2017 Brief Exam: NAD AOX3 Lungs diminished breath sounds bilaterally RRR S/NT/ND MAEW Wound healing without complication Assessment: Ms. Anders is a 61 year old female c HTN, COPD on home O2, HLD, and pulmonary carcinoid s/p R thoracoscopy and lower lobe superior segmentectomy on 04/02/2017 who was transferred from [facility] for persistent leaking of serosang fluid from CT insertion site. Plan (hupn-ok-lgtdryqn issues): - [facility] Will consider pleurodesis prior to removi ng chest tube again. Restart Ancef. - Post-procedural pain: continue acetaminophen and oxycodone - Bowel care: advance as tolerated - DVT Proph: encourage ambulation, SCD's while in bed - Dispo: remains howell status, anticipate discharge to home in 1-2 days pending resolution o f pneumothorax, will need assistance from rehabilitation case coordinator to arrange transport upon discharge Plan (eup-dnjjyuek-mabzxxn issues); the brief history and exam findings are unchanged from above for this part of the note: - HTN: continue home carvedilol and lisinopril - Hypercholesterolemia: continue simvastatin - Discussed with Dr. Gwendolyn Toribio nneliese, Jaclyn Bob PA-C - 3:54 PM PDT Thoracic Surgery Brief Inpatient Progress Note Patient name: BAILEY ANDERS Attending: Zeeshan Heredia MD HD: 2 Reason for admission: leaking around chest tube 24 hour events: no acute events overnight, no air leak appreciated 24 hour vitals: Last 24 hour min/max Temp: 36.4 C (97.5 F) Temp Min: 36.3 C (97.3 F) Max: 36.8 C (98.2 F) Pulse: 74 Pulse Min: 60 Max: 74 Resp: 16 Resp Min: 12 Max: 18 BP: 100/51 BP Min: 100/51 Max: 119/67 SpO2: 91 % SpO2 Min: 87 % Max: 99 % Body mass index is 22.14 kg/(m^2). Chest tube output: 22/2 ml, W/S, - A/L, S/S Lab Results Component Value Date NA 138 04/10/2017 K 3.4 04/10/2017 CL 99 04/10/2017 BICARB 31 04/10/2017 BUN 16 04/10/2017 CR 0.74 04/10/2017 GLU 199 04/10/2017 CA 8.9 04/10/2017 Lab Results Component Value Date WBC 8.62 04/10/2017 HB 12.0 04/10/2017 HCT 34.8 04/10/2017 PLT 209 04/10/2017 MCV 94.1 04/10/2017 RDW 42.5 04/10/2017 Brief Exam: NAD AOX3 Lungs diminished breath sounds bilaterally RRR S/NT/ND MAEW Wound healing without complication Assessment: Ms. Anders is a 61 year old female c HTN, COPD on home O2, HLD, and pulmonary carcinoid s/p R thoracoscopy and lower lobe superior segmentectomy on 04/02/2017 who was transferred from [facility] for persistent leaking of serosang fluid from CT insertion site. Plan (cwyu-[id number] issues): - Chest tube management: chest tube without air leak on water seal this morning, chest tube removed without complications, post-pull chest x-ray with pneumothorax, repeat chest x-ray at 1700, consider chest tube replacement if respiratory distress or enlarging pneumothorax o n repeat chest x-ray, discontinue keflex - Post-procedural pain: continue acetaminophen and oxycodone - Bowel care: advance as tolerated - DVT Proph: encourage ambulation, SCD's while in bed - Dispo: remains [facility] status, anticipate discharge to home in 1-2 days pending resolution o f pneumothorax, will need assistance from rehabilitation case coordinator to arrange transport upon discharge Plan (muf-[id number] issues); the brief history and exam findings are unchanged from above for this part of the note: - HTN: continue home carvedilol and lisinopril - Hypercholesterolemia: continue simvastatin - Discussed with Dr. Gwendolyn Toribio Mandi Fritz RN - 04/10/2017 3:51 PM PDTUtilization Management Assessment [facility] [place] Care Guideline1 applied: General Criteria: Observation Care ( OC-022 ) Goal or Benchmark LOS: <48 hrs 1MCG Care Guidelines are nationally recognized evidence based care guidelines that include an Optimal Recovery Course and aid in medical necessity for admission and continued stay scr eening. The goal length of stay represents the optimal length of stay for the optimal patie nt. Nationally 25-40% of patients meet the goal or benchmark length of stay. Mandi Lopez RN, BSN, AC Utilization Management Department of Care Management [facility] P: [phone]|PGR: [phone] #[id number] F: [phone] [email or web address] Hunt PA -[email or web address] - 04/10/2017 2:44 PM PDT Thoracic Surgery Brief Inpatient Progress Note Patient name: BAILEY Stormy ANDERS Attending: Zeeshan Heredia MD HD: 1 Reason for admission: leaking chest tube 24 hour events: arrived to [facility] 24 hour vitals: Last 24 hour min/max Temp: 36.8 C (98.2 F) Temp Min: 36.4 C (97.5 F) Max: 36.8 C (98.2 F) Pulse: 69 Pulse Min: 67 Max: 83 Resp: 18 Resp Min: 16 Max: 18 BP: 119/64 BP Min: 110/57 Max: 123/70 SpO2: 91 % SpO2 Min: 90 % Max: 97 % Body mass index is 22.14 kg/(m^2). Chest tube output: 0, - A/L, W/S Lab Results Component Value Date NA 138 04/10/2017 K 3.4 04/10/2017 CL 99 04/10/2017 BICARB 31 04/10/2017 BUN 16 04/10/2017 CR 0.74 04/10/2017 GLU 199 04/10/2017 CA 8.9 04/10/2017 Lab Results Component Value Date WBC 8.62 04/10/2017 HB 12.0 04/10/2017 HCT 34.8 04/10/2017 PLT 209 04/10/2017 MCV 94.1 04/10/2017 RDW 42.5 04/10/2017 Brief Exam: NAD AOX3 Lungs diminished breath sounds RRR S/NT/ND MAEW Wound healing without complication, small amount of S/S fluid draining around chest tube si te Assessment: Ms. Anders is a 61 year old female c HTN, COPD on home O2, HLD, and pulmonary c arcinoid s/p R thoracoscopy and lower lobe superior segmentectomy on 04/02/2017 who was transf erred from [facility] for persistent leaking of serosang fluid from CT insertion site. Plan (prrm-hl-[id number] issues): - Chest tube management: place chest tube to water seal, monitor closely for drainage and r eplace dressing as needed, drain flushed and patent, continue keflex while drain is in place - Post-procedural pain: continue acetaminophen and oxycodone - Bowel care: advance as tolerated - DVT Proph: encourage ambulation, SCD's while in bed - Dispo: remains [place] status, anticipate discharge to home in 1-2 days pending drain remova l Plan (oqv-[id number]-[id number] issues); the brief history and exam findings are unchanged from above for this part of the note: - HTN: continue home carvedilol and lisinopril - Hypercholesterolemia: continue simvastatin - Discussed with Dr. Zeeshan Heredia MD documented in this encounter Plan of Treatment Not on filedocumented as of this encounter Procedures + +--------+ + + + | Procedure Name | Priori | Date/Time | Associated Diagnosis | Comments | | | ty | | | | + +--------+ + + + | X-RAY PORTABLE CHEST | Urgent | 04/20/2017 | | Results for this | | 1 VIEW | | 8:58 AM | | procedure are in the | | | | PDT | | results section. | + +--------+ + + + | X-RAY PORTABLE CHEST | Urgent | 04/19/2017 | | Results for this | | 1 VIEW | | 10:55 AM | | procedure are in the | | | | PDT | | results section. | + +--------+ + + + | X-RAY PORTABLE CHEST | Urgent | 04/18/2017 | | Results for this | | 1 VIEW | | 5:14 PM | | procedure are in the | | | | PDT | | results section. | + +--------+ + + + | X-RAY PORTABLE CHEST | Routin | 04/17/2017 | | Results for this | | 1 VIEW | e | 12:17 PM | | procedure are in the | | | | PDT | | results section. | + +--------+ + + + | PROCEDURE NOTE | Routin | 04/15/2017 | | Results for this | | | e | 1:12 PM | | procedure are in the | | | | PDT | | results section. | + +--------+ + + + | X-RAY PORTABLE CHEST | Urgent | 04/13/2017 | | Results for this | | 1 VIEW | | 6:29 AM | | procedure are in the | | | | PDT | | results section. | + +--------+ + + + | X-RAY PORTABLE CHEST | Routin | 04/12/2017 | | Results for this | | 1 VIEW | e | 10:56 AM | | procedure are in the | | | | PDT | | results section. | + +--------+ + + + | PROCEDURE NOTE | Routin | 04/12/2017 | | Results for this | | | e | 12:04 AM | | procedure are in the | | | | PDT | | results section. | + +--------+ + + + | X-RAY PORTABLE CHEST | Routin | 04/11/2017 | | Results for this | | 1 VIEW | e | 7:34 PM | | procedure are in the | | | | PDT | | results section. | + +--------+ + + + | X-RAY PORTABLE CHEST | Routin | 04/11/2017 | | Results for this | | 1 VIEW | e | 5:10 PM | | procedure are in the | | | | PDT | | results section. | + +--------+ + + + | X-RAY PORTABLE CHEST | Routin | 04/11/2017 | | Results for this | | 1 VIEW | e | 12:59 PM | | procedure are in the | | | | PDT | | results section. | + +--------+ + + + | PROCEDURE NOTE | Routin | 04/11/2017 | | Results for this | | | e | 9:29 AM | | procedure are in the | | | | PDT | | results section. | + +--------+ + + + | X-RAY PORTABLE CHEST | Routin | 04/10/2017 | | Results for this | | 1 VIEW | e | 2:26 AM | | procedure are in the | | | | PDT | | results section. | + +--------+ + + + | CBC (HEMOGRAM) ONLY | Routin | 04/10/2017 | | Results for this | | | e | 2:09 AM | | procedure are in the | | | | PDT | | results section. | + +--------+ + + + | RENAL FUNCTION SET | Routin | 04/10/2017 | | Results for this | | (NA,K,CL,CO2,BUN,CRE | e | 2:09 AM | | procedure are in the | | AT,GLUC,CA,PHOS,ALB | | PDT | | results section. | | ) | | | | | + +--------+ + + + | CBC ONLY | Routin | 04/10/2017 | | Results for this | | | e | 2:09 AM | | procedure are in the | | | | PDT | | results section. | + +--------+ + + + | ANESTHESIA/SEDATION | | 04/10/2017 | | Results for this | | | | 12:00 AM | | procedure are in the | | | | PDT | | results section. | + +--------+ + + + documented in this encounter Results X-RAY PORTABLE CHEST 1 VIEW (04/20/2017 8:58 AM PDT) + + | Specimen | + + | | + + + + + | Narrative | Performed At | + + + | EXAM: LA CHEST 1 VIEW 04/20/17 08:35:21 HISTORY: Lung cancer. | [facility] | | Recurrent right-sided pneumothorax status post chemical pleurodesis. | RADIOLOGY VOICE | | COMPARISON: 04/19/17 FINDINGS: Resolved right apical | RECOGNITION | | pneumothorax. Cardiomediastinal silhouette is stable. The lungs are | | | otherwise unchanged with changes from right lower lobe superior | | | segmentectomy again noted. No pleural effusion, pulmonary edema or | | | left pneumothorax. IMPRESSION: Resolved right apical | | | pneumothorax I have personally reviewed the images and, if | | | necessary, edited the report. I agree with the report as now | | | presented. | | + + + + + | Procedure Note | + + | Service Account, Radiant Res In Interface - 04/20/2017 10:07 AM PDT EXAM: LA CHEST 1 | | VIEW 04/20/17 08:35:21 HISTORY: Lung cancer. Recurrent right-sided pneumothorax status | | post chemical pleurodesis.COMPARISON: 04/19/17FINDINGS: Resolved right apical | | pneumothorax. Cardiomediastinal silhouette is stable. The lungs are otherwise unchanged | | with changes from right lower lobe superior segmentectomy again noted. No pleural | | effusion, pulmonary edema or left pneumothorax.IMPRESSION: Resolved right apical | | pneumothoraxI have personally reviewed the images and, if necessary, edited the report. | | I agree with the report as now presented. | |Resolved right apical pneumothorax. Cardiomediastinal silhouette is stable. The lungs are o therwise unchanged with changes from right lower lobe superior segmentectomy again noted. No pleural effusion, pulmonary edema or left pneumothorax. | | | |IMPRESSION: | | | |Resolved right apical pneumothorax | | | | | |I have [...] + + X-RAY PORTABLE CHEST 1 VIEW (04/19/2017 10:55 AM PDT) + + | Specimen | + + | | + + + + + | Narrative | Performed At | + + + | EXAM: LA CHEST 1 VIEW 11/30/99 00:00:00 HISTORY: Chest tube | [facility] | | removal. COMPARISON: 04/18/2017 FINDINGS: Right-sided | RADIOLOGY VOICE | | chest tube has been removed. Trace right basilar pneumothorax is | RECOGNITION | | noted. Otherwise the lungs are unchanged. The cardiac mediastinal | | | silhouette is stable. Subcutaneous gas over the right upper quadrant. | | | IMPRESSION: Right chest tube removal with trace right basilar | | | pneumothorax. I have personally reviewed the images and, if | | | necessary, edited the report. I agree with the report as now | | | presented. | | + + + + + | Procedure Note | + + | Service Account, Radiant Res In Interface - 04/19/2017 10:55 AM PDT EXAM: LA CHEST 1 | | VIEW 11/30/99 00:00:00HISTORY: Chest tube removal.COMPARISON: 04/18/2017FINDINGS: | | Right-sided chest tube has been removed. Trace right basilar pneumothorax is noted. | | Otherwise the lungs are unchanged. The cardiac mediastinal silhouette is stable. | | Subcutaneous gas over the right upper quadrant.IMPRESSION: Right chest tube removal with | | trace right basilar pneumothorax.I have personally reviewed the images and, if | | necessary, edited the report. I agree with the report as now presented. | | | |Right-sided chest tube has been removed. Trace right basilar pneumothorax is noted. Otherwi se the lungs are unchanged. The cardiac mediastinal silhouette is stable. Subcutaneous gas o mouna the right upper quadrant. | | | |IMPRESSION: | | | |Right chest tube removal with trace right basilar pneumothorax. | | | | [...] + + X-RAY PORTABLE CHEST 1 VIEW (04/18/2017 5:14 PM PDT) + + | Specimen | + + | | + + + + + | Narrative | Performed At | + + + | EXAM: LA CHEST 1 VIEW 04/18/17 17:02:03 HISTORY: Chest tube. | [facility] | | COMPARISON: 04/17/2017. FINDINGS: The right-sided chest tube | RADIOLOGY VOICE | | is unchanged in position. A tiny right apical pneumothorax is | RECOGNITION | | unchanged. Remainder the chest is stable. IMPRESSION: | | | Unchanged right chest tube and trace right apical pneumothorax. | | | I have personally reviewed the images and, if necessary, edited the | | | report. I agree with the report as now presented. | | + + + + + | Procedure Note | + + | Service Account, Radiant Res In Interface - 04/18/2017 5:25 PM PDT EXAM: LA CHEST 1 | | VIEW 04/18/17 17:02:03HISTORY: Chest tube.COMPARISON: 04/17/2017.FINDINGS: The | | right-sided chest tube is unchanged in position. A tiny right apical pneumothorax is | | unchanged. Remainder the chest is stable.IMPRESSION: Unchanged right chest tube and | | trace right apical pneumothorax.I have personally reviewed the images and, if necessary, | | edited the report. I agree with the report as now presented. | |FINDINGS: | | | |The right-sided chest tube is unchanged in position. A tiny right apical pneumothorax is un changed. Remainder the chest is stable. | | | |IMPRESSION: | | | |Unchanged right chest tube and trace right apical pneumothorax. | | | | [...] + + X-RAY PORTABLE CHEST 1 VIEW (04/17/2017 12:17 PM PDT) + + | Specimen | + + | | + + + + + | Narrative | Performed At | + + + | STUDY: LA CHEST 1 VIEW 04/17/17 11:34:55 COMPARISON: 04/13/17 | [facility] | | HISTORY:Right apical pneumothorax. Chest tube to water seal. | RADIOLOGY VOICE | | FINDINGS: Support equipment: Right basilar chest tube as before. | RECOGNITION | | Lungs: No confluent parenchymal lung opacities. Pleura: Tiny right | | | apical pneumothorax with pleural separation measuring less than 3 mm. | | | Cardiomediastinal: Normal. Musculoskeletal: Thoracic | | | levoscoliosis. IMPRESSION: Tiny right apical pneumothorax. | | | I have personally reviewed the images and, if necessary, edited the | | | report. I agree with the report as now presented. | | + + + + + | Procedure Note | + + | Service Account, Radiant Res In Interface - 04/17/2017 2:35 PM PDT STUDY: LA CHEST 1 | | VIEW 04/17/17 11:34:55COMPARISON: 04/13/17HISTORY:Right apical pneumothorax. Chest | | tube to water seal.FINDINGS:Support equipment: Right basilar chest tube as before.Lungs: | | No confluent parenchymal lung opacities.Pleura: Tiny right apical pneumothorax with | | pleural separation measuring less than 3 mm.Cardiomediastinal: Normal.Musculoskeletal: | | Thoracic levoscoliosis.IMPRESSION: Tiny right apical pneumothorax.I have personally | | reviewed the images and, if necessary, edited the report. I agree with the report as | | now presented. | | | |Lungs: No confluent parenchymal lung opacities. | | | |Pleura: Tiny right apical pneumothorax with pleural separation measuring less than 3 mm. | | | |Cardiomediastinal: Normal. | | | |Musculoskeletal: Thoracic levoscoliosis. | | | |IMPRESSION: Tiny right apical pneumothorax. | | | | [...] | + +---------+ + + PROCEDURE NOTE (04/15/2017 1:12 PM PDT) + + + | Narrative | Performed At | + + + | Nelson Mccarty NP 04/15/2017 1:12 PM 20 ml of 1% lidocaine | | | and 500 mg doxycycline intrapleural sclerosing agent administered | | | for treatment of a persistent air leak. No complications. | | | Pleurevac to be lowered at 1:15 PM. | | + + + X-RAY PORTABLE CHEST 1 VIEW (04/13/2017 6:29 AM PDT) + + | Specimen | + + | | + + + + + | Narrative | Performed At | + + + | EXAM: LA CHEST 1 VIEW HISTORY: Evaluate pneumothorax. Chest | [facility] | | tube in place. Status post right lower lobe superior segmentectomy. | RADIOLOGY VOICE | | COMPARISON: Yesterday FINDINGS: Right chest tube remains | RECOGNITION | | in place. Trace right apical pneumothorax unchanged. Right basilar | | | atelectasis as before. Small right pleural effusion persists. | | | There is no pulmonary edema. No new consolidation. IMPRESSION: | | | Unchanged trace right apical pneumothorax. Small right | | | pleural effusion and minimal right basilar atelectasis. I have | | | personally reviewed the images and, if necessary, edited the report. | | | I agree with the report as now presented. | | + + + + + | Procedure Note | + + | Service Account, Radiant Res In Interface - 04/13/2017 8:34 AM PDT EXAM: LA CHEST 1 | | VIEW HISTORY: Evaluate pneumothorax. Chest tube in place. Status post right lower lobe | | superior segmentectomy.COMPARISON: YesterdayFINDINGS: Right chest tube remains in | | place. Trace right apical pneumothorax unchanged. Right basilar atelectasis as before. | | Small right pleural effusion persists. There is no pulmonary edema. No new | | consolidation.IMPRESSION: Unchanged trace right apical pneumothorax.Small right pleural | | effusion and minimal right basilar atelectasis.I have personally reviewed the images | | and, if necessary, edited the report. I agree with the report as now presented. | |Right chest tube remains in place. Trace right apical pneumothorax unchanged. Right basil ar atelectasis as before. Small right pleural effusion persists. There is no pulmonary alesia ma. No new consolidation. | | | |IMPRESSION: | | | |Unchanged trace right apical pneumothorax. | | | |Small right pleural effusion and minimal right basilar atelectasis. | | | | | |I [...] + + X-RAY PORTABLE CHEST 1 VIEW (04/12/2017 10:56 AM PDT) + + | Specimen | + + | | + + + + + | Narrative | Performed At | + + + | STUDY: LA CHEST 1 VIEW 04/12/17 10:35:01 HISTORY: Pneumothorax. | [facility] | | COMPARISON: Yesterday FINDINGS: Right sided chest tube is | RADIOLOGY VOICE | | unchanged. Right apical and basilar pneumothorax is decreased, with | RECOGNITION | | trace residual apical gas. Right lower lung mild atelectasis is | | | noted. The left lung is clear. Cardiomediastinal silhouette is | | | stable. IMPRESSION: Decrease, trace right pneumothorax. | | | Mild right lower lung atelectasis. I have personally reviewed | | | the images and, if necessary, edited the report. I agree with the | | | report as now presented. | | + + + + + | Procedure Note | + + | Service Account, Radiant Res In Interface - 04/12/2017 3:54 PM PDT STUDY: LA CHEST 1 | | VIEW 04/12/17 10:35:01HISTORY: Pneumothorax.COMPARISON: YesterdayFINDINGS: Right sided | | chest tube is unchanged. Right apical and basilar pneumothorax is decreased, with trace | | residual apical gas. Right lower lung mild atelectasis is noted. The left lung is | | clear. Cardiomediastinal silhouette is stable.IMPRESSION: Decrease, trace right | | pneumothorax.Mild right lower lung atelectasis.I have personally reviewed the images | | and, if necessary, edited the report. I agree with the report as now presented. | |Right sided chest tube is unchanged. Right apical and basilar pneumothorax is decreased, w ith trace residual apical gas. Right lower lung mild atelectasis is noted. The left lung i s clear. Cardiomediastinal silhouette is stable. | | | |IMPRESSION: | | | |Decrease, trace right pneumothorax. | | | |Mild right lower lung atelectasis. | | | | | |I [...] | + +---------+ + + PROCEDURE NOTE (04/12/2017 12:04 AM PDT) + + + | Narrative | Performed At | + + + | Sonia Butt MD 04/11/2017 7:16 PM Procedure Note: Chest | | | Tube Insertion Name: Bailey Anders 04/11/2017 | | | Time: 7:14 PM Performed By: Sonia Butt MD Indication: | | | Pneumothorax Consent: Discussion of the risks, benefits, and | | | alternatives was had with the patient prior to the procedure. A | | | signed consent form for this procedure was obtained and placed on | | | chart. Procedure Details: A Team Pause was performed. Patient | | | positioned appropriately. Landmarks appreciated and marked. | | | Local anesthetic injected subcutaneously into operative site total | | | of 10 mL of lidocaine. The area was prepped and draped in the | | | usual sterile fashion. Previous chest tube site suture was removed, | | | and immediately there was a gush of air. The chest tube was | | | carefully reinsterted through the same incision. A securing stitch | | | was placed and the chest tube was connected to a pleurevac. | | | Dressings were placed. Findings: There were no changes to | | | vital signs. Patient did tolerate procedure well. Specimens: | | | None CXR ordered to verify placement. yes Sonia Butt MD | | | Cardiothoracic Surgery Fellow Pager:[phone] | | + + + X-RAY PORTABLE CHEST 1 VIEW (04/11/2017 7:34 PM PDT) + + | Specimen | + + | | + + + + + | Narrative | Performed At | + + + | STUDY: LA CHEST 1 VIEW 04/11/17 19:22:04 HISTORY: Tube placement | [facility] | | COMPARISON: Earlier today FINDINGS: A tip of a new right | RADIOLOGY VOICE | | sided chest tube projects over the right hilum. Right-sided | RECOGNITION | | apical/basilar pneumothorax is decreased, now small to moderate in | | | size. There is mild right lung atelectasis. The left lung is | | | clear. The cardiomediastinal silhouette is stable. IMPRESSION: | | | Right sided chest tube as above, with decreased right | | | pneumothorax. I have personally reviewed the images and, if | | | necessary, edited the report. I agree with the report as now | | | presented. | | + + + + + | Procedure Note | + + | Service Account, Radiant Res In Interface - 04/11/2017 10:06 PM PDT STUDY: LA CHEST 1 | | VIEW 04/11/17 19:22:04HISTORY: Tube placementCOMPARISON: Earlier todayFINDINGS: A tip | | of a new right sided chest tube projects over the right hilum. Right-sided | | apical/basilar pneumothorax is decreased, now small to moderate in size. There is mild | | right lung atelectasis. The left lung is clear. The cardiomediastinal silhouette is | | stable.IMPRESSION: Right sided chest tube as above, with decreased right pneumothorax.I | | have personally reviewed the images and, if necessary, edited the report. I agree with | | the report as now presented. | |A tip of a new right sided chest tube projects over the right hilum. Right-sided apical/ba silar pneumothorax is decreased, now small to moderate in size. There is mild right lung at electasis. The left lung is | |clear. The cardiomediastinal silhouette is stable. | | | |IMPRESSION: | | | |Right sided chest tube as above, with decreased right pneumothorax. | | | | | |I [...] + + X-RAY PORTABLE CHEST 1 VIEW (04/11/2017 5:10 PM PDT) + + | Specimen | + + | | + + + + + | Narrative | Performed At | + + + | STUDY: LA CHEST 1 VIEW 04/11/17 17:04:14 HISTORY: Pneumothorax. | [facility] | | COMPARISON: Earlier today FINDINGS: Right sided pneumothorax | RADIOLOGY VOICE | | is increased in size, now moderate to large in size, with apical, | RECOGNITION | | lateral, and basilar components. There is increased right lung | | | atelectasis. The left lung is clear. The cardiomediastinal | | | silhouette is stable. IMPRESSION: Increased, moderate to | | | large right pneumothorax. I have personally reviewed the images | | | and, if necessary, edited the report. I agree with the report as | | | now presented. | | + + + + + | Procedure Note | + + | Service Account, Radiant Res In Interface - 04/11/2017 10:07 PM PDT STUDY: LA CHEST 1 | | VIEW 04/11/17 17:04:14HISTORY: Pneumothorax.COMPARISON: Earlier todayFINDINGS: Right | | sided pneumothorax is increased in size, now moderate to large in size, with apical, | | lateral, and basilar components. There is increased right lung atelectasis. The left | | lung is clear. The cardiomediastinal silhouette is stable.IMPRESSION: Increased, | | moderate to large right pneumothorax.I have personally reviewed the images and, if | | necessary, edited the report. I agree with the report as now presented. | |Right sided pneumothorax is increased in size, now moderate to large in size, with apical, lateral, and basilar components. There is increased right lung atelectasis. The left lung is clear. The cardiomediastinal silhouette is stable. | | | |IMPRESSION: | | | |Increased, moderate to large right pneumothorax. | | | | | |I [...] + + X-RAY PORTABLE CHEST 1 VIEW (04/11/2017 12:59 PM PDT) + + | Specimen | + + | | + + + + + | Narrative | Performed At | + + + | STUDY: LA CHEST 1 VIEW 04/11/17 11:53:56 HISTORY: Pneumothorax. | [facility] | | COMPARISON: Yesterday FINDINGS: Right sided chest tube has | RADIOLOGY VOICE | | been removed. There is a small to moderate right apical | RECOGNITION | | pneumothorax, increased in size. Right mid perihilar and lower lung | | | atelectasis is increased. The left lung is clear. Small right | | | pleural effusion is present. Cardiomediastinal contours are stable. | | | IMPRESSION: Increased, small to moderate right pneumothorax | | | following chest tube removal. Increased right lung atelectasis. | | | I have personally reviewed the images and, if necessary, edited | | | the report. I agree with the report as now presented. | | + + + + + | Procedure Note | + + | Service Account, Radiant Res In Interface - 04/11/2017 3:59 PM PDT STUDY: LA CHEST 1 | | VIEW 04/11/17 11:53:56HISTORY: Pneumothorax.COMPARISON: YesterdayFINDINGS: Right sided | | chest tube has been removed. There is a small to moderate right apical pneumothorax, | | increased in size. Right mid perihilar and lower lung atelectasis is increased. The | | left lung is clear. Small right pleural effusion is present. Cardiomediastinal | | contours are stable.IMPRESSION: Increased, small to moderate right pneumothorax | | following chest tube removal.Increased right lung atelectasis.I have personally reviewed | | the images and, if necessary, edited the report. I agree with the report as now | | presented. | | | |IMPRESSION: | | | |Increased, small to moderate right pneumothorax following chest tube removal. | | | |Increased right lung atelectasis. | | | | | |I [...] | + +---------+ + + PROCEDURE NOTE (04/11/2017 9:29 AM PDT) + + + | Narrative | Performed At | + + + | Jaclyn Coy PA-C 04/11/2017 9:29 AM Right chest drain | | | removed without complication. Suture tied. Dressing applied. | | + + + X-RAY PORTABLE CHEST 1 VIEW (04/10/2017 2:26 AM PDT) + + | Specimen | + + | | + + + + + | Narrative | Performed At | + + + | EXAM: LA CHEST 1 VIEW 04/10/17 02:11:46 HISTORY: Evaluate chest | [facility] | | tube placement. History of pulmonary carcinoid status post right lower | RADIOLOGY VOICE | | lobe superior segmentectomy. COMPARISON: Multiple outside | RECOGNITION | | radiographs from yesterday, PET/CT 01/30/17 FINDINGS: Right | | | inferolateral approach right chest tube unchanged in position. Sutures | | | from right lower lobe superior segmentectomy noted projecting over | | | the right hilum. A small right apical pneumothorax and small right | | | pleural effusion are present, unchanged. No left pneumothorax. The | | | cardiomediastinal silhouette is stable. Moderate right lateral chest | | | wall soft tissue gas noted. IMPRESSION: Stable postoperative | | | changes of right lower lobe superior segmentectomy. Unchanged | | | small right pneumothorax and small right pleural effusion. I | | | have personally reviewed the images and, if necessary, edited the | | | report. I agree with the report as now presented. | | + + + + + | Procedure Note | + + | Service Account, Radiant Res In Interface - 04/10/2017 9:37 AM PDT EXAM: LA CHEST 1 | | VIEW 04/10/17 02:11:46 HISTORY: Evaluate chest tube placement. History of pulmonary | | carcinoid status post right lower lobe superior segmentectomy.COMPARISON: Multiple | | outside radiographs from yesterday, PET/CT 01/30/17FINDINGS: Right inferolateral approach | | right chest tube unchanged in position. Sutures from right lower lobe superior | | segmentectomy noted projecting over the right hilum. A small right apical pneumothorax | | and small right pleural effusion are present, unchanged. No left pneumothorax. The | | cardiomediastinal silhouette is stable. Moderate right lateral chest wall soft tissue | | gas noted.IMPRESSION: Stable postoperative changes of right lower lobe superior | | segmentectomy.Unchanged small right pneumothorax and small right pleural effusion.I have | | personally reviewed the images and, if necessary, edited the report. I agree with the | | report as now presented. | | | |Stable postoperative changes of right lower lobe superior segmentectomy. | | | |Unchanged small right pneumothorax and small right pleural effusion. | | | | | |I have [...] + +---------+ + + CBC (HEMOGRAM) ONLY (04/10/2017 2:09 AM PDT) + + + + + + | Component | Value | Ref Range | Performed | Pathologist | | | | | At | Signature | + + + + + + | WHITE CELL | 8.62 | 3.50 - 10.80 | [facility] | | | COUNT | | K/cu mm | LABORATORY | | | | | | SERVICES, | | | | | | CORE | | + + + + + + | RED CELL | 3.70 (L) | 4.00 - 5.20 | [facility] | | | COUNT | | M/cu mm | LABORATORY | | | | | | SERVICES, | | | | | | CORE | | + + + + + + | HEMOGLOBIN | 12.0 | 12.0 - 16.0 | [facility] | | | | | g/dL | LABORATORY | | | | | | SERVICES, | | | | | | CORE | | + + + + + + | HEMATOCRIT | 34.8 (L) | 36.0 - 46.0 % | [facility] | | | | | | LABORATORY | | | | | | SERVICES, | | | | | | CORE | | + + + + + + | MCV | 94.1 | 80.0 - 96.0 fL | [facility] | | | | | | LABORATORY | | | | | | SERVICES, | | | | | | CORE | | + + + + + + | MCHC | 34.5 | 33.0 - 35.5 | [facility] | | | | | g/dL | LABORATORY | | | | | | SERVICES, | | | | | | CORE | | + + + + + + | RDW SD | 42.5 | 35.1 - 46.3 fL | [facility] | | | | | | LABORATORY | | | | | | SERVICES, | | | | | | CORE | | + + + + + + | PLATELET | 209 | 150 - 400 K/cu | [facility] | | | COUNT | | mm | LABORATORY | | | | | | SERVICES, | | | | | | CORE | | + + + + + + | MPV | 10.1 | 9.7 - 12.3 fL | [facility] [...] | + + + + + | [facility] | [address] | [place] [address] | | | [place], CORE | [address] | | | + + + + + RENAL FUNCTION SET (NA,K,CL,CO2,BUN,CREAT,GLUC,CA,PHOS,ALB ) (04/10/2017 2:09 AM PDT) + +---------+ + + + | Component | Value | Ref Range | Performed | Pathologist | | | | | At | Signature | + +---------+ + + + | GLUCOSE, | 199 (H) | 60 - 99 mg/dL | [facility] | | | PLASMA | | | LABORATORY | | | (LAB) | | | SERVICES, | | | | | | CORE | | + +---------+ + + + | BUN, PLASMA | 16 | 6 - 20 mg/dL | [facility] | | | (LAB) | | | LABORATORY | | | | | | SERVICES, | | | | | | CORE | | + +---------+ + + + | CREATININE | 0.74 | 0.60 - 1.10 | [facility] | | | PLASMA | | mg/dL | LABORATORY | | | (LAB) | | | SERVICES, | | | | | | CORE | | + +---------+ + + + | EGFR | >60 | >60 mL/min | [facility] | | | - | | | LABORATORY | | | CZECH | | | SERVICES, | | | [...] +---------+ + + + | POTASSIUM, | 3.4 | 3.4 - 5.0 | [facility] | | | PLASMA | | mmol/L | LABORATORY | | | (LAB) | | | SERVICES, | | | | | | CORE | | + +---------+ + + + | CHLORIDE, | 99 | 97 - 108 mmol/L | [facility] [...] +---------+ + + + | CALCIUM, | 8.9 | 8.6 - 10.2 | [facility] | | | PLASMA | | mg/dL | LABORATORY | | | (LAB) | | | SERVICES, | | | | | | CORE | | + +---------+ + + + | CALCIUM(ALB | 9.9 | 8.6 - 10.2 | [facility] | | | CORRECTED) | | mg/dL | LABORATORY | | | | | | SERVICES, | | | | | | CORE | | + +---------+ + + + | ALBUMIN, | 2.8 (L) | 3.5 - 4.7 g/dL | [facility] | | | PLASMA | | | LABORATORY | | | (LAB) | | | SERVICES, | | | | | | CORE | | + +---------+ + + + | PHOSPHORUS, | 2.4 | 2.4 - 4.7 mg/dL | [facility] [...] | + + + + + | [facility] | [address] | [place] [address] | | | DESTINEE MORTON | [address] | | | + + + + + ANESTHESIA/SEDATION (04/10/2017 12:00 AM PDT) + + + | Narrative | Performed At | + + + | | | + + + documented in this encounter Visit Diagnoses + + | Diagnosis | + + | 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 | + + | 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 | + + documented in this encounter Administered Medications + +--------+ +--------+------+------+ | Medication Order | MAR | Action | Dose | Rate | Site | | | Action | Date | | | | + +--------+ +--------+------+------+ | acetaminophen (TYLENOL) tablet | Given | 04/20/20 | 650 mg | | | | 325-650 mg 325-650 mg, oral, | | 17 1:05 | | | | | EVERY 4 HOURS NEEDED, Starting | | PM PDT | | | | | 04/10/17 at 0128, Until Mon | | | | | | | 04/20/17 at 1932, mild pain | | | | | | + +--------+ +--------+------+------+ +-------+ +--------+---+---+ | Given | 04/15/20 | 650 mg | | | | | 17 1:50 | | | | | | PM PDT | | | | +-------+ +--------+---+---+ +---+---+ | | | +---+---+ + +-------+ +---------+---+---+ | carvedilol (COREG) tablet 12.5 | Given | 04/14/20 | 12.5 mg | | | | mg 12.5 mg, oral, TWICE DAILY | | 17 5:06 | | | | | WITH MEALS, First dose on Thu | | PM PDT | | | | | 04/10/17 at 0730, Until | | | | | | | Discontinued | | | | | | + +-------+ +---------+---+---+ +-------+ +---------+---+---+ | Given | 04/14/20 | 12.5 mg | | | | | 17 7:33 | | | | | | AM PDT | | | | +-------+ +---------+---+---+ | Given | 04/13/20 | 12.5 mg | | | | | 17 6:42 | | | | | | PM PDT | | | | +-------+ +---------+---+---+ +---+---+ | | | +---+---+ + +-------+ +---------+---+---+ | carvedilol (COREG) tablet 6.25 | Given | 04/20/20 | 6.25 mg | | | | mg 6.25 mg, oral, TWICE DAILY | | 17 7:57 | | | | | WITH MEALS, First dose (after | | AM PDT | | | | | last modification) on Thu04/15/17 | | | | | | | at 0730, Until Discontinued | | | | | | + +-------+ +---------+---+---+ +-------+ +---------+---+---+ | Given | 04/19/20 | 6.25 mg | | | | | 17 7:30 | | | | | | PM PDT | | | | +-------+ +---------+---+---+ | Given | 04/19/20 | 6.25 mg | | | | | 17 8:29 | | | | | | AM PDT | | | | +-------+ +---------+---+---+ +---+---+ | | | +---+---+ + +---------+ +-----+-------+---+ | ceFAZolin IV 1 gram in NS (MB+) | New Bag | 04/20/20 | 1 g | 100 | | | 1 g, intravenous, EVERY 8 | | 17 7:57 | | mL/hr | | | HOURS, First dose on 04/12/17 | | AM PDT | | | | | at 2345, Until Discontinued | | | | | | + +---------+ +-----+-------+---+ +---------+ +-----+-------+---+ | New Bag | 04/20/20 | 1 g | 100 | | | | 17 12:42 | | mL/hr | | | | AM PDT | | | | +---------+ +-----+-------+---+ | New Bag | 04/19/20 | 1 g | 100 | | | | 17 4:29 | | mL/hr | | | | PM PDT | | | | +---------+ +-----+-------+---+ +---+---+ | | | +---+---+ + +-------+ +--------+---+---+ | cephALEXin (KEFLEX) capsule 500 | Given | 04/11/20 | 500 mg | | | | mg 500 mg, oral, EVERY 6 HOURS, | | 17 3:24 | | | | | First dose (after last | | PM PDT | | | | | modification) on Thu04/10/17 at | | | | | | | 0215, Until Discontinued | | | | | | + +-------+ +--------+---+---+ +-------+ +--------+---+---+ | Given | 04/11/20 | 500 mg | | | | | 17 9:08 | | | | | | AM PDT | | | | +-------+ +--------+---+---+ | Given | 04/11/20 | 500 mg | | | | | 17 2:19 | | | | | | AM PDT | | | | +-------+ +--------+---+---+ +---+---+ | | | +---+---+ + +-------+ +---+---+---+ | doxycycline (VIBRAMYCIN) 10 | Given | 04/15/20 | | | | | mg/mL 500 mg injection | | 17 11:30 | | | | | injection, PROCEDURE ONCE, 1 | | AM PDT | | | | | dose, 04/15/17 at 0600 | | | | | | + +-------+ +---+---+---+ +---+---+ | | | +---+---+ + +-------+ +-------+---+---------+ | enoxaparin (LOVENOX) injection | Given | 04/17/20 | 40 mg | | Abdomen | | 40 mg 40 mg, subcutaneous, EVERY | | 17 8:26 | | | | | EVENING, First dose on Thu | | PM PDT | | | | | 04/16/17 at 2100, Until | | | | | | | Discontinued | | | | | | + +-------+ +-------+---+---------+ +---+---+ | | | +---+---+ + +-------+ +--------+---+---+ | ibuprofen (MOTRIN) tablet 600 | Given | 04/19/20 | 600 mg | | | | mg 600 mg, oral, EVERY 6 HOURS | | 17 4:29 | | | | | NEEDED, Starting Thu04/10/17 | | PM PDT | | | | | at 0129, Until 04/20/17 at | | | | | | | 1932, moderate pain | | | | | | + +-------+ +--------+---+---+ +-------+ +--------+---+---+ | Given | 04/18/20 | 600 mg | | | | | 17 8:47 | | | | | | PM PDT | | | | +-------+ +--------+---+---+ | Given | 04/18/20 | 600 mg | | | | | 17 6:10 | | | | | | AM PDT | | | | +-------+ +--------+---+---+ +---+---+ | | | +---+---+ + +-------+ +--------+---+---+ | ipratropium-albuterol | Given | 04/20/20 | 1 puff | | | | (COMBIVENT RESPIMAT) inhaler | | 17 7:57 | | | | | puff 1 puff, inhalation, FOUR | | AM PDT | | | | | TIMES DAILY, First dose on Thu | | | | | | | 04/10/17 at 0900, Until | | | | | | | Discontinued | | | | | | + +-------+ +--------+---+---+ +-------+ +--------+---+---+ | Given | 04/19/20 | 1 puff | | | | | 17 9:42 | | | | | | PM PDT | | | | +-------+ +--------+---+---+ | Given | 04/19/20 | 1 puff | | | | | 17 4:29 | | | | | | PM PDT | | | | +-------+ +--------+---+---+ +---+---+ | | | +---+---+ + +-------+ +---------+---+---+ | lactobacillus rhamnosus (GG) | Given | 04/20/20 | 1 | | | | (CULTURELLE) 15 billion cell | | 17 7:57 | capsule | | | | capsule 1 capsule 1 capsule, | | AM PDT | | | | | oral, DAILY, First dose on Thu | | | | | | | 04/14/17 at 1915, Until | | | | | | | Discontinued | | | | | | + +-------+ +---------+---+---+ +-------+ +---------+---+---+ | Given | 04/19/20 | 1 | | | | | 17 8:29 | capsule | | | | | AM PDT | | | | +-------+ +---------+---+---+ | Given | 04/18/20 | 1 | | | | | 17 8:20 | capsule | | | | | AM PDT | | | | +-------+ +---------+---+---+ +---+---+ | | | +---+---+ + +-------+ +--------+---+---+ | lidocaine (XYLOCAINE) 10 mg/mL | Given | 04/15/20 | 100 mg | | | | (1 %) injection 100 mg 100 mg, | | 17 11:30 | | | | | infiltration, PROCEDURE ONCE, 1 | | AM PDT | | | | | dose, 04/15/17 at 0600 | | | | | | + +-------+ +--------+---+---+ +---+---+ | | | +---+---+ + +-------+ +-------+---+---+ | lidocaine (XYLOCAINE) 10 mg/mL | Given | 04/11/20 | 20 mL | | | | (1 %) injection 20 mL 20 mL, | | 17 7:29 | | | | | infiltration, ONCE, 1 dose, Sat | | PM PDT | | | | | 04/11/17 at 1815 | | | | | | + +-------+ +-------+---+---+ +---+---+ | | | +---+---+ + +-------+ +-------+---+---+ | lisinopril (PRINIVIL) tablet 20 | Given | 04/17/20 | 20 mg | | | | mg 20 mg, oral, DAILY, First | | 17 7:55 | | | | | dose (after last modification) on | | AM PDT | | | | | 04/15/17 at 0900, Until | | | | | | | Discontinued | | | | | | + +-------+ +-------+---+---+ +-------+ +-------+---+---+ | Given | 04/16/20 | 20 mg | | | | | 17 8:54 | | | | | | AM PDT | | | | +-------+ +-------+---+---+ | Given | 04/15/20 | 20 mg | | | | | 17 9:12 | | | | | | AM PDT | | | | +-------+ +-------+---+---+ +---+---+ | | | +---+---+ + +-------+ +-------+---+---+ | lisinopril (PRINIVIL) tablet 40 | Given | 04/12/20 | 40 mg | | | | mg 40 mg, oral, DAILY, First | | 17 8:52 | | | | | dose on Thu04/10/17 at 0900, | | AM PDT | | | | | Until Discontinued | | | | | | + +-------+ +-------+---+---+ +-------+ +-------+---+---+ | Given | 04/11/20 | 40 mg | | | | | 17 9:08 | | | | | | AM PDT | | | | +-------+ +-------+---+---+ | Given | 04/10/20 | 40 mg | | | | | 17 10:03 | | | | | | AM PDT | | | | +-------+ +-------+---+---+ +---+---+ | | | +---+---+ + +-------+ +-------+---+---+ | lisinopril (PRINIVIL) tablet 40 | Given | 04/20/20 | 40 mg | | | | mg 40 mg, oral, DAILY, First | | 17 7:57 | | | | | dose (after last modification) on | | AM PDT | | | | | 04/18/17 at 0900, Until | | | | | | | Discontinued | | | | | | + +-------+ +-------+---+---+ +-------+ +-------+---+---+ | Given | 04/19/20 | 40 mg | | | | | 17 8:28 | | | | | | AM PDT | | | | +-------+ +-------+---+---+ | Given | 04/18/20 | 40 mg | | | | | 17 8:20 | | | | | | AM PDT | | | | +-------+ +-------+---+---+ +---+---+ | | | +---+---+ + +-------+ +------+---+---+ | oxyCODONE (immediate release) | Given | 04/20/20 | 5 mg | | | | (ROXICODONE) tablet 5 mg 5 mg, | | 17 1:27 | | | | | oral, EVERY 6 HOURS NEEDED, | | PM PDT | | | | | Starting Thu04/10/17 at 0130, | | | | | | | Until 04/20/17 at 1932, severe | | | | | | | pain | | | | | | + +-------+ +------+---+---+ +-------+ +------+---+---+ | Given | 04/20/20 | 5 mg | | | | | 17 8:07 | | | | | | AM PDT | | | | +-------+ +------+---+---+ | Given | 04/17/20 | 5 mg | | | | | 17 8:26 | | | | | | PM PDT | | | | +-------+ +------+---+---+ +---+---+ | | | +---+---+ + +-------+ +------+---+---+ | polyethylene glycol (MIRALAX) | Given | 04/13/20 | 34 g | | | | packet 34 g 34 g, oral, THREE | | 17 3:36 | | | | | TIMES DAILY NEEDED, Starting | | PM PDT | | | | | Thu04/10/17 at 0131, Until Mon | | | | | | | 04/20/17 at 1932, 1st line - for | | | | | | | no BM for 2 days | | | | | | + +-------+ +------+---+---+ +-------+ +------+---+---+ | Given | 04/13/20 | 34 g | | | | | 17 6:59 | | | | | | AM PDT | | | | +-------+ +------+---+---+ +---+---+ | | | +---+---+ + +-------+ + +---+---+ | senna-docusate (SENOKOT S) | Given | 04/14/20 | 1 tablet | | | | 8.6-50 mg 1 tablet 1 tablet, | | 17 9:25 | | | | | oral, TWICE DAILY NEEDED, | | AM PDT | | | | | Starting Thu04/10/17 at 0130, | | | | | | | Until 04/20/17 at 1932, | | | | | | | constipation | | | | | | + +-------+ + +---+---+ +-------+ + +---+---+ | Given | 04/13/20 | 1 tablet | | | | | 17 6:59 | | | | | | AM PDT | | | | +-------+ + +---+---+ +---+---+ | | | +---+---+ + +-------+ + +---+---+ | senna-docusate (SENOKOT S) | Given | 04/10/20 | 1 tablet | | | | 8.6-50 mg 1 tablet 1 tablet, | | 17 10:03 | | | | | oral, TWICE DAILY, First dose on | | AM PDT | | | | | Thu04/10/17 at 0900, Until | | | | | | | Discontinued | | | | | | + +-------+ + +---+---+ +---+---+ | | | +---+---+ + +-------+ +-------+---+---+ | simvastatin (ZOCOR) tablet 20 | Given | 04/19/20 | 20 mg | | | | mg 20 mg, oral, EVERY EVENING, | | 17 9:42 | | | | | First dose on 5/12/17 at | | PM PDT | | | | | 2100, Until Discontinued | | | | | | + +-------+ +-------+---+---+ +-------+ +-------+---+---+ | Given | 05/20/20 | 20 mg | | | | | 17 8:47 | | | | | | PM PDT | | | | +-------+ +-------+---+---+ | Given | 05//20 | 20 mg | | | | | 17 8:26 | | | | | | PM PDT | | | | +-------+ +-------+---+---+ +---+---+ | | | +---+---+ documented in this encounter
--- OUTSIDE RECORDS SUMMARY | ~2019-09-14 | XMS | Encounter Summary ---
Demographics + + + | Address | [address] | | | [place] [address] | + + + | Home Phone | | + + + | Preferred Language | Unknown | + + + | Marital Status | Single | + + + | Restoration Affiliation | NRP | + + + | Race | or | + + + | Ethnic Group | Not or | + + + Author + + + | Author | [facility] | + + + | Organization | [facility] | + + + | Address | Unknown | + + + | Phone | Unavailable | + + + Support + + +---------+ + | Name | Relationship | Address | Phone | + + +---------+ + | Debra Vaca | ECON | Unknown | | + + +---------+ + Care Team Providers + +------+ + | Care Textile Science Technician Name | Role | Phone | + +------+ + | No Pcp Per Patient | PCP | Unavailable | + +------+ + Reason for Visit + + + | Reason | Comments | + + + | Thoracic Oncology | | | Conference | | + + + Encounter Details +--------+ + + + + | Date | Type | Department | Care Team | Description | +--------+ + + + + | 04/24/ | Documentati | Cardiothoracic | Christian Martinez MD | Thoracic Oncology | | 2017 | on | [facility] at [facility] | [address] | Conference | | | | [facility] | [address] | | | | | Dev Mailcode: [id number] | [place], [place] | | | | | Physician's | [address] | | | | | [place], | [phone] | | | | | [place] [address] | | | | | | [phone] | | | +--------+ + + + [...]
--- OUTSIDE RECORDS SUMMARY | ~2019-09-14 | XMS | Encounter Summary ---
Demographics + + + | Address | [address] | | | [place] [address] | + + + | Home Phone | | + + + | Preferred Language | Unknown | + + + | Marital Status | Single | + + + | Latter Day Affiliation | NRP | + + + | Race | or | + + + | Ethnic Group | Not or | + + + Author + + + | Author | [facility] | + + + | Organization | [facility] | + + + | Address | Unknown | + + + | Phone | Unavailable | + + + Support + + +---------+ + | Name | Relationship | Address | Phone | + + +---------+ + | Debra Vaca | ECON | Unknown | | + + +---------+ + Care Team Providers + +------+ + | Care Icing Machine Operator Name | Role | Phone | + +------+ + | No Pcp Per Patient | PCP | Unavailable | + +------+ + Reason for Visit + + + | Reason | Comments | + + + | Neuroendocrine tumor | right lower lobe | + + + Consultation (Routine) +--------+--------+ + + + + | Status | Reason | Specialty | Diagnoses / | Referred By | Referred To | | | | | Procedures | Contact | Contact | +--------+--------+ + + + + | Closed | | Thoracic | Diagnoses | Charmaine, | Yan, | | | | Surgery | right hilar | MD Elena | Zeeshan Barakat MD | | | | | carcinoid | [address] | [address] [facility] | | | | | | [address]ethals | [facility] | | | | | | Drive | Rd | | | | | | [place], [place] | [place], [place] | | | | | | [address] | [address] | | | | | | Phone: | Phone: | | | | | | [phone] | [phone] | | | | | | Fax: | Fax: | | | | | | [phone] | [phone] | +--------+--------+ + + + + Encounter Details +--------+---------+ + + + | Date | Type | Department | Care Team | Description | +--------+---------+ + + + | 03/09/ | Office | Cardiothoracic | Yan, Zeeshan H, | Neuroendocrine | | 2017 | Visit | Surgery at [facility] [address] | MD [address] | cancer (HCC) | | | | [address] | (Primary Dx) | | | | Rd [address]: [address] | [place], [place] | | | | | Physician's | [address] | | | | | [place], | [phone] | | | | | [place] [address] | | | | | | [phone] | | | +--------+---------+ + + + [...] + + + | Blood Pressure | 135/78 | 03/09/2017 2:43 PM | | | | | PDT | | + + + + + | Pulse | 70 | 03/09/2017 2:43 PM | | | | | PDT | | + + + + + | Temperature | - | - | | + + + + + | Respiratory Rate | 16 | 03/09/2017 2:43 PM | | | | | PDT | | + + + + + | Oxygen Saturation | 95% | 03/09/2017 2:43 PM | on room air | | | | PDT | | + + + + + | Inhaled Oxygen | - | - | | | Concentration | | | | + + + + + | Weight | 58.5 kg (129 lb) | 03/09/2017 2:43 PM | | | | | PDT | | + + + + + | Height | - | - | | + + + + + | Body Mass Index | - | - | | + + + + + documented in this encounter Progress Notes Pam Morales PA - 03/09/2017 2:45 PM PDTFormatting of this note might be different fr om the original. General Thoracic Surgery Clinic Date of Service: 03/09/2017 Referring Provider: Elena Montano MD [address] [id number] Primary Care Physician: No Pcp Per PATIENT NO PCP PER PATIENT None Care Team: NO PCP PER PATIENT Chief Complaint: Neuroendocrine tumor (right lower lobe) History of Present Illness: Ms. Bailey Frias is a 61 year old female who presented with left-sided chest pain and wa s found to have a right hilar lung mass. A CT-guided needle biopsy in October 2016 reveale d a low-grade neuroendocrine carcinoma. Staging work-up included a PET scan, which revealed low avidity of the mass and no other areas suspicious for malignancy. She was referred to Thoracic Surgery clinic by Dr. Elena Montano, CT surgeon, for consideration of surgical res ection due to the central location of the mass. She uses supplemental oxygen at the snf home where she lives in [place], but did n ot bring it with her to [place] today and reports that she walks frequently. She continues to have chest pain but cannot describe it in any more detail (frequency, alleviating or wor sening factors.) She has no complaint of headache. She has not lost weight in the last [address] [facility]. Exercise Capacity: She walks frequently. She climbed 4 flights of stairs in clinic today before stopping for shortness of breath. Medications: ibuprofen 600 mg oral tablet, Take 600 mg by mouth every six hours as needed. ipratropium-albuterol 20-100 mcg/actuation inhalation mist, Inhale. lisinopril 40 mg oral tablet, simvastatin 20 mg oral tablet, traMADol 50 mg oral tablet, Allergies: The patient has No Known Allergies.. Past Medical History: No date: Hearing loss of right ear No date: HTN (hypertension) 10/2016: Pneumothorax after biopsy Comment: treated with chest tube No date: Type II diabetes mellitus (HCC) Comment: controlled with diet Past Surgical History: 1967: APPENDECTOMY 10/2016: INSERTION OF RIGHT CHEST TUBE Comment: iatrogenic pneumothorax s/p needle biopsy of lung No date: TUBAL LIGATION Social History: She reports that she has been smoking Cigarettes. She has a 45.00 pack-year smoking histo ry. She does not have any smokeless tobacco history on file. She reports that she does not d rink alcohol. Review of Systems Constitutional: Negative for chills, fever and weight loss. HENT: Positive for hearing loss. Negative for headaches and neck pain. Bilateral hearing loss, right > left Eyes: Negative for blurred vision and double vision. Respiratory: Positive for shortness of breath. Negative for cough and hemoptysis. Cardiovascular: Positive for chest pain. Negative for palpitations and leg swelling. Center of her chest Gastrointestinal: Negative for constipation, diarrhea, heartburn, nausea and vomiting. Genitourinary: Negative for dysuria. Musculoskeletal: Negative for myalgias and neck pain. Neurological: Negative for dizziness and loss of consciousness. Psychiatric/Behavioral: Negative for depression. Filed Vitals: 03/09/2017 2:43 PM Weight: 58.5 kg (129 lb) BP: 135/78 Pulse: 70 Resp: 16 SpO2: 95% PainSc: 03 - Mild to Moderate PainLoc: Back (Lower) Physical Exam Constitutional: She is oriented to person, place, and time and well-developed, well-nourish ed, and in no distress. HENT: Head: Normocephalic and atraumatic. Eyes: Conjunctivae are normal. Pupils are equal, round, and reactive to light. Neck: Normal range of motion. Neck supple. No tracheal deviation present. Cardiovascular: Normal rate, regular rhythm and normal heart sounds. Pulmonary/Chest: Effort normal and breath sounds normal. No stridor. No respiratory distres s. Abdominal: Soft. Bowel sounds are normal. She exhibits no distension. Musculoskeletal: Normal range of motion. She exhibits no edema. Neurological: She is alert and oriented to person, place, and time. Skin: Skin is warm and dry. Psychiatric: Affect and judgment normal. Studies: I personally reviewed the patient's chest CT scan, PET scan, PFTs and prior medical records . PET/CT scan: 01/30/2017 Pulmonary Function Tests: 02/03/2017 FEV1 = 52% DLCO = 53% Assessment: In summary, Ms. 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 I had a long conversation with Ms. Frias, her sister, and her daughter regarding her condition and the natural history of this. We discussed the potential risks, benefits, and alternatives of flexible bronchoscopy, right-sided thoracosco py, possible thoracotomy, right superior segmentectomy, possible lower lobectomy in detail. Ms. Frias expressed understanding and would like to proceed with this. Plan: We will be obtaining some routine preoperative tests today. These include: CBC, renal function panel, INR, type and screen We also plan to get a dobutamine stress echo due to her chest pain and high risk factors fo r coronary artery disease (smoking, HTN, age) If these are favorable, we plan on proceeding with surgery on 04/02/2017. I spent 60 minutes with Ms. Frias. Greater than 50% of this time was spent counseling her and coordinating her care. Pam Morales PA-C CARDIOTHORACIC SURGERY AT [address] Mailcode: [address] [place] [id number] Zeeshan Olson MD - 03/09/2017 2:45 PM PDTPatient Name: Bailey Frias Date of : 1955 [facility] I personally interviewed the patient, performed espinoza elements of the physical examination, a nd personally formulated the assessment and plan with Pam Max. See her note for deta ils. I spent 30 minutes on the unit with Ms. Frias. Greater than 50% of this time was spent c ounseling her and coordinating her care. Ms Frias presents with a biopsy proven RLL low grade NE carcinoma. She reports no symptoms related to the this tumor but does note anterior chest wall pain. She has a long smoking hx and continues to smoke. She tries to remain active and walked 4 flights of stairs today. She reports some anterior chest wall pain which appears to be unrelated to the mass. CT and PET/CT reviewed: RLL mass in the superior segment with obstruction of the superior s egment bronchus. No other lesions noted. Mild PET avidity Path report: SPECIMEN(S): A Rt. LUNG BIOPSY Rt. HILAR MASS SPECIMEN SOURCE: A. Rt. LUNG BIOPSY Rt. HILAR MASS CLINICAL HISTORY: 11/18/2016 at 0935 H.Right lung hilar mass. FINAL PATHOLOGIC DIAGNOSIS: Right hilar mass, CT-guided needle core biopsies: - Low-grade neuroendocrine tumor (typical carcinoid).See description and comment. COMMENT: As part of the Mortgage Analyst Program, this case was reviewed by another member of [facility] ([facility]). AMB:emb:C1NR GROSS DESCRIPTION: The specimen is received in formalin labeled with the patient's name and designated "right lung" and consists of multiple pink-white needle core tissue fragments that range in length from 0.3 cm up to 1.7 cm and have an average diameter of 0.1 cm.The specimen is entirely submitted in ganesh settes A1-A4.FAM:[facility] Intraprocedural Cytologic Examination (I.C.E.) The pathologist performed an Intraprocedural Cytologic Exam [I.C.E.] ([id number], [id number]) The patient's name, date, specimen site were confirmed at time of collection. Core # Slides [facility] or [facility] Pathologist Notes 11 AM R 21A MR 31A A Cytologic Exam Pathologist Name: Dr. Kevan Rojas Evaluation Episodes: 3 Number of Lesions: 1 MICROSCOPIC EXAMINATION: Nearly all of the biopsies show infiltration of pulmonary tissue by groups of small round b lue cells with high NC ratios, but minimal nuclear pleomorphism and no appreciable increased mitotic activity. Distinct glandular structures are not identified. Immunostains are performed on A 3 with appropriate positive controls, showing the following results: - CD56:strong membranous positivity in lesional cells. - Chromogranin:positive in lesional cells. - CK AE1/AE3:dot-like cytoplasmic positivity in lesional cells. - Synaptophysin: strongly positive in lesional cells. - Ki-67:proliferation index <2% - PAX8:negative in lesional cells. Immunohistochemical studies were performed on this case with the appropriate controls. Th debra tests were developed and their performance characteristics determined by [facility] and/or [facility]. These tests may have not been cleared or approved by the U.S. Food and Drug Ad ministration. The FDA has determined that such clearance or approval is not necessary. T his test is intended to be used for clinical purposes. It should not be regarded as investigational or for res earch. [facility] and [facility] are certified under the Clinical Laboratory Improvement Amendment Act of 1988 (CLIA) as qualified to perform high complexity clinical laboratory testing. PERFORMING LABORATORY: Professional interpretation and technical preparation was performed by freee, [facility] [address] [address] (Marble Mechanic Helper: Kevan Lacey M.D.; CLIA#:[id number]). 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 FEV-1/FVC is 0.49. 2. FEV-1 is 1.24L/52%. 3. FVC is 22.51L/81%. 4.There is no significant bronchodilator response. DIFFUSING CAPACITY: 1. Diffusing capacity is 53%. 2. DLCO/VA is 70%. INTERPRETATION: Moderately severe obstructive lung disease is present without significant bronchodilator response.Diffusing capacity is moderately reduced. Dheeraj Cherry MD 02/03/2017 12:31 PM A/P: RLL low grade NE carcinoma- [id number], Stage IB We discussed the natural hx of this disease and recommended surgical resection via a right VATs, possible thoracotomy, superior segmentectomy, possible lobectomy. We have ordered a dobutamine stress test as she is having chest pain and is high risk for C AD Surgery scheduled for April [address] Catarino Heredia M.D. FACS gunsmith apprentice [facility] [place] Division of Cardiothoracic Surgery Section of Thoracic Surgery [address], [address] [place] [address] documented in this en counter Plan of Treatment + +------+--------+ + + | Name | Type | Priori | Associated Diagnoses | Order Schedule | | | | ty | | | + +------+--------+ + + | 12 LEAD ECG | ECG | Routin | Neuroendocrine | Ordered: 03/09/2017 | | | | e | cancer (HCC) | | + +------+--------+ + + documented as of this encounter Procedures + +--------+ + + + | Procedure Name | Priori | Date/Time | Associated Diagnosis | Comments | | | ty | | | | + +--------+ + + + | RADIOLOGY | | 01/30/2017 | | Results for this | | | | 12:00 AM | | procedure are in the | | | | PST | | results section. | + +--------+ + + + | RADIOLOGY | | 11/18/2016 | | Results for this | | | | 12:00 AM | | procedure are in the | | | | PST | | results section. | + +--------+ + + + documented in this encounter Results RENAL FUNCTION SET (NA,K,CL,CO2,BUN,CREAT,GLUC,CA,PHOS,ALB ) (03/09/2017 4:27 PM PDT) + +---------+ + + + | Component | Value | Ref Range | Performed | Pathologist | | | | | At | Signature | + +---------+ + + + | GLUCOSE, | 71 | 60 - 99 mg/dL | [facility] [...] +---------+ + + + | CREATININE | 0.84 | 0.60 - 1.10 | [facility] | | | PLASMA | | mg/dL | LABORATORY | | | (LAB) | | | SERVICES, | | | | | | CORE | | + +---------+ + + + | EGFR | >60 | >60 mL/min | [facility] | | | - | | | LABORATORY | | | TRISTANIAN | | | SERVICES, | | | | | | CORE | | + +---------+ + + + | EGFR NON | >60 | >60 mL/min | [facility] | | | -MANDY | | | LABORATORY | | | RICAN | | | SERVICES, | | | | | | CORE | | + +---------+ + + + | SODIUM, | 142 | 136 - 145 | [facility] | | | PLASMA | | mmol/L | LABORATORY | | | (LAB) | | | SERVICES, | | | | | | CORE | | + +---------+ + + + | POTASSIUM, | 3.9 | 3.4 - 5.0 | [facility] | | | PLASMA | | mmol/L | LABORATORY | | | (LAB) | | | SERVICES, | | | | | | CORE | | + +---------+ + + + | CHLORIDE, | 103 | 97 - 108 mmol/L | [facility] [...] +---------+ + + + | CALCIUM, | 9.8 | 8.6 - 10.2 | [facility] | | | PLASMA | | mg/dL | LABORATORY | | | (LAB) | | | SERVICES, | | | | | | CORE | | + +---------+ + + + | CALCIUM(ALB | 9.8 | 8.6 - 10.2 | [facility] | | | CORRECTED) | | mg/dL | LABORATORY | | | | | | SERVICES, | | | | | | CORE | | + +---------+ + + + | ALBUMIN, | 4.0 | 3.5 - 4.7 g/dL | [facility] | | | PLASMA | | | LABORATORY | | | (LAB) | | | SERVICES, | | | | | | CORE | | + +---------+ + + + | PHOSPHORUS, | 3.8 | 2.4 - 4.7 mg/dL | [facility] [...] +---------+ + + + | ANION | 8 | 4 - 11 mmol/L | [facility] [...] | + + + + + | [facility] | [address] | [place] [address] | | | SERVICES, CORE | [address] | | | + + + + + INR (03/09/2017 4:27 PM PDT) + +-------+ + + + | Component | Value | Ref Range | Performed | Pathologist | | | | | At | Signature | + +-------+ + + + | INR | 0.94 | 0.90 - 1.20 INR | [facility] [...] with mech. valves (2.5 - 3.5) INR | SERVICES, CORE | + + + + + + + + | Performing | Address | City/State/Zipcode | Phone Number | | Organization | | | | + + + + + | [facility] | [address] | [place] [address] | | | SERVICES, CORE | [address] | | | + + + + + HEMOGLOBIN A1C, BLOOD (03/09/2017 4:27 PM PDT) + + + + + + | Component | Value | Ref Range | Performed | Pathologist | | | | | At | Signature | + + + + + + | HEMOGLOBIN | 4.9Comment: Hgb A1C | <5.7 % | [facility] | | | A1C | Interpretive | | LABORATORY | | | | Information: | | SERVICES, | | | | <5.7% - Normal | | SPECIAL IMM | | | | 5.7-6.4% - Consistent | | + COAG | | | | with pre-diabetes | | | | | | >6.4% - Consistent | | | | | | with diabetes | | | | | | | | | | + + + + + + + + | Specimen | + + | Blood - Blood | | (substance) | + + + + + | Narrative | Performed At | + + + | Alternate forms of testing such as glycated serum protein or | [facility] | | glycated albumin should be considered for monitoring salvage determiner | LABORATORY | | glycemic control in patients with: Increased red cell turnover, | SERVICES, | | certain hemoglobinopathies (e.g., HbS, HbE, HbC and thalassemia | SPECIAL IMM + | | syndromes), anemias, blood loss, chronic liver disease and | [facility] | | hemochromatosis (artefactually low HbA1c); iron deficiency anemia | | | (artefactually high HbA1c due to enhanced glycation of hemoglobin). | | | | | + + + + + + + + | Performing | Address | City/State/Zipcode | Phone Number | | Organization | | | | + + + + + | [facility] | [address] | [place] [address] | | | SERVICES, SPECIAL | [address] | | | | IMM + COAG | | | | + + + + + RADIOLOGY (01/30/2017 12:00 AM PST) + + + | Narrative | Performed At | + + + | | | + + + RADIOLOGY (11/18/2016 12:00 AM PST) + + + | Narrative | Performed At | + + + | | | + + + documented in this encounter Visit Diagnoses + + | Diagnosis | + + | Neuroendocrine cancer (HCC) - Primary Other malignant neoplasm without specification | | of site | + + documented in this encounter
--- OUTSIDE RECORDS SUMMARY | ~2019-09-14 | XMS | Clinical Summary ---
Demographics + + + | Address | [address] | | | [place] [address] | + + + | Home Phone | | + + + | Preferred Language | Unknown | + + + | Marital Status | | + + + | Spiritism Affiliation | [phone] | + + + | Race | Unknown | + + + | Ethnic Group | Unknown | + + + Author + + + | Author | [employer] (Historical as of | | | 07-16-19) | + + + | Organization | [email or web address] (Historical as of | | | 07-16-19) [...] Team Providers + +------+ + | Care Technology Administrator Name | Role | Phone | + [...] +------+-------+---------+ | [employer] | [employer] | [phone] | | | | | | WORK [...] | | | [address] | [place] [address] | + +--------+ +--------+ + +
--- OUTSIDE RECORDS SUMMARY | ~2019-09-14 | XMS | Encounter Summary ---
Demographics + + + | Address | [address] | | | [place] [address] | + + + | Home Phone | | + + + | Preferred Language | Unknown | + + + | Marital Status | Single | + + + | Adventism Affiliation | NRP | + + + | Race | or | + + + | Ethnic Group | Not or | + + + Author + + + | Author | [place] [employer] [facility] | + + + | Organization | [facility] | + + + | Address | Unknown | + + + | Phone | Unavailable | + + + Support + + +---------+ + | Name | Relationship | Address | Phone | + + +---------+ + | Debra Vaca | ECON | Unknown | | + + +---------+ + Care Team Providers + +------+ + | Care Electric Power Superintendent Name | Role | Phone | + +------+ + | No Pcp Per Patient | PCP | Unavailable | + +------+ + Encounter Details +--------+------+ + + + | Date | Type | Department | Care Team | Description | +--------+------+ + + + | 03/09/ | Lab | Laboratory, | | Neuroendocrine | | 2016 | | Specimen Collection | | cancer (HCC) | | | | at [facility] 3rd Floor | | | | | | [address] | | | | | | [place], | | | | | | [place] [address] | | | | | | [phone] | | | +--------+------+ + + + Social History + +-------+ +--------+------+ | Tobacco Use | Types | Packs/Day | Years | Date | | | | | Used | | + +-------+ +--------+------+ | Current Every Day | | | | | | Smoker | | | [...] + +--------+ + + + | CBC AND AUTO DIFF | Routin | 03/09/2017 | Neuroendocrine | Results for this | | | e | 4:27 PM | cancer (HCC) | procedure are in the | | | | PDT | | results section. | + +--------+ + + + | INR | Routin | 03/09/2017 | Neuroendocrine | Results for this | | | e | 4:27 PM | cancer (HCC) | procedure are in the | | | | PDT | | results section. | + +--------+ + + + | CBC, WITH | Routin | 03/09/2017 | Neuroendocrine | Results for this | | DIFFERENTIAL | e | 4:27 PM | cancer (HCC) | procedure are in the | | | | PDT | | results section. | + +--------+ + + + | RENAL FUNCTION SET | Routin | 03/09/2017 | Neuroendocrine | Results for this | | (NA,K,CL,CO2,BUN,CRE | e | 4:27 PM | cancer (HCC) | procedure are in the | | AT,GLUC,CA,PHOS,ALB | | PDT | | results section. | | ) | | | | | + +--------+ + + + | ANTIBODY SCREEN | Routin | 03/09/2017 | Neuroendocrine | Results for this | | | e | 4:27 PM | cancer (HCC) | procedure are in the | | | | PDT | | results section. | + +--------+ + + + | TYPE AND SCREEN | Routin | 03/09/2017 | Neuroendocrine | Results for this | | | e | 4:27 PM | cancer (HCC) | procedure are in the | | | | PDT | | results section. | + +--------+ + + + | ABO & RH TYPE | Routin | 03/09/2017 | Neuroendocrine | Results for this | | | e | 4:27 PM | cancer (HCC) | procedure are in the | | | | PDT | | results section. | + +--------+ + + + | HEMOGLOBIN A1C, | Routin | 03/09/2017 | Neuroendocrine | Results for this | | BLOOD | e | 4:27 PM | cancer (HCC) | procedure are in the | | | | PDT | | results section. | + +--------+ + + + documented in this encounter Results ANTIBODY SCREEN (03/09/2017 4:27 PM PDT) + + + [...] + + | [facility] | [address] | [place] [address] | | | SERVICES, | [address] | | | | TRANSFUSION MEDICINE | | | | + + + + + ABO & RH TYPE (03/09/2017 4:27 PM PDT) + + + [...] + | [facility] | [address] | [place] [address] | | | SERVICES, | [address] | | | | TRANSFUSION MEDICINE | | | | + + + + + CBC AND AUTO DIFF (03/09/2017 4:27 PM PDT) + + + + + + | Component | Value | Ref Range | Performed | Pathologist | | | | | At | Signature | + + + + + + | WHITE CELL | 5.99 | 3.50 - 10.80 | [facility] | | | COUNT | | K/cu mm | LABORATORY | | | | | | SERVICES, | | | | | | CORE | | + + + + + + | RED CELL | 5.33 (H) | 4.00 - 5.20 | [facility] | | | COUNT | | M/cu mm | LABORATORY | | | | | | SERVICES, | | | | | | CORE | | + + + + + + | HEMOGLOBIN | 17.4 (H) | 12.0 - 16.0 | [facility] | | | | | g/dL | LABORATORY | | | | | | SERVICES, | | | | | | CORE | | + + + + + + | HEMATOCRIT | 51.2 (H) | 36.0 - 46.0 % | [facility] | | | | | | LABORATORY | | | | | | SERVICES, | | | | | | CORE | | + + + + + + | MCV | 96.1 (H) | 80.0 - 96.0 fL | [facility] | | | | | | LABORATORY | | | | | | SERVICES, | | | | | | CORE | | + + + + + + | MCHC | 34.0 | 33.0 - 35.5 | [facility] | | | | | g/dL | LABORATORY | | | | | | SERVICES, | | | | | | CORE | | + + + + + + | RDW SD | 46.6 (H) | 35.1 - 46.3 fL | [facility] | | | | | | LABORATORY | | | | | | SERVICES, | | | | | | CORE | | + + + + + + | PLATELET | 163 | 150 - 400 K/cu | [facility] [...] + + + + + + | NEUTROPHIL | 57.5 | 50.0 - 70.0 % | [facility] | | | % | | | LABORATORY | | | | | | SERVICES, | | | | | | CORE | | + + + + + + | LYMPHOCYTE | 31.4 | 18.0 - 42.0 % | [facility] | | | % | | | LABORATORY | | | | | | SERVICES, | | | | | | CORE | | + + + + + + | MONOCYTE % | 7.7 | 3.5 - 9.0 % | [facility] | | | | | | LABORATORY | | | | | | SERVICES, | | | | | | CORE | | + + + + + + | EOS % | 2.5 | 1.0 - 3.0 % | [facility] | | | | | | LABORATORY | | | | | | SERVICES, | | | | | | CORE | | + + + + + + | BASO % | 0.7 | 0.0 - 2.0 % | [facility] | | | | | | LABORATORY | | | | | | SERVICES, | | | | | | CORE | | + + + + + + | IG% | 0.2Comment: Immature | 0.0 - 0.6 % | [facility] | | | | Granulocytes (IG) | | LABORATORY | | | | include metamyelocytes, | | SERVICES, | | | | myelocytes and | | CORE | | | | promyelocytes. Bands | | | | | | are not included in the | | | | | | IG count. Bands are | | | | | | included in the | | | | | | neutrophil count. | | | | + + + + + + | NEUTROPHIL | 3.45 | 1.80 - 7.70 | [facility] | | | # | | K/cu mm | LABORATORY | | | | | | SERVICES, | | | | | | CORE | | + + + + + + | LYMPHOCYTE | 1.88 | 1.00 - 4.80 | [facility] | | | # | | K/cu mm | LABORATORY | | | | | | SERVICES, | | | | | | CORE | | + + + + + + | MONOCYTE # | 0.46 | 0.10 - 0.90 | [facility] | | | | | K/cu mm | LABORATORY | | | | | | SERVICES, | | | | | | CORE | | + + + + + + | EOS # | 0.15 | 0.00 - 0.50 | [facility] | | | | | K/cu mm | LABORATORY | | | | | | SERVICES, | | | | | | CORE | | + + + + + + | BASO # | 0.04 | 0.00 - 0.10 | [facility] | | | | | K/cu mm | LABORATORY | | | | | | SERVICES, | | | | | | CORE | | + + + + + + | IG# | 0.01 | 0.00 - 0.03 | [facility] | | | | | K/cu mm | LABORATORY | | | | | | SERVICES, | | | | | | CORE | | + + + + + + + + | Specimen | + + | Blood - Blood | | (substance) | + + + + + | Narrative | Performed At | + + + | New adult WBC reference ranges effective October 15, 2016. | [facility] | | Immature Granulocytes (IG) include metamyelocytes, myelocytes and | LABORATORY | | promyelocytes. Bands are not included in the IG count. Bands are | [facility] | | included in the neutrophil count. | | + + + + + + + + | Performing | Address | City/State/Zipcode | Phone Number | | Organization | | | | + + + + + | [facility] | [address] | [place] [address] | | | [place] | [address] | | | + + + + + RENAL FUNCTION SET (NA,K,CL,CO2,BUN,CREAT,GLUC,CA,PHOS,ALB ) (03/09/2017 4:27 [...] | | | LABORATORY | | | [place] | | | SERVICES, | | | [...] | + + + + + | [facility] [facility] | [address] | [place] [address] | | | SERVICES, CORE | [address] | | | + + + + [...] | + + + + + | [facility] | [address] | [place] [address] | | | SERVICES, CORE | [address] [...] glycated albumin should be considered for monitoring snf | LABORATORY | | glycemic control in [...] + | [facility] | [address] | [place] [address] | | | SERVICES, SPECIAL | [address] | | | | IMM + COAG | | | | + + + + + documented in this encounter Visit Diagnoses + + | Diagnosis | + + | Neuroendocrine cancer (HCC) Other malignant neoplasm without specification of site | + + documented in this encounter"
--- OUTSIDE RECORDS SUMMARY | ~2019-09-14 | XMS | Encounter Summary ---
Demographics + + + | Address | [address] | | | [place] [address] | + + + | Home Phone | | + + + | Preferred Language | Unknown | + + + | Marital Status | Single | + + + | Oriental Orthodox Affiliation | NRP | + + + | Race | or | + + + | Ethnic Group | Not or | + + + Author + + + | Author | [place] [employer] [facility] | + + + | Organization | [facility] | + + + | Address | Unknown | + + + | Phone | Unavailable | + + + Support + + +---------+ + | Name | Relationship | Address | Phone | + + +---------+ + | Debra Vaca | ECON | Unknown | | + + +---------+ + Care Team Providers + +------+ + | Care Development Administrator Name | Role | Phone | + +------+ + | Elena Montano MD | PCP | | + +------+ + Encounter Details +--------+ + + + + | Date | Type | Department | Care Team | Description | +--------+ + + + + | 04/02/ | Procedure | 6A Intra Op [facility] | | | | 2017 | Pass | [facility] | | | | | | Admitting Desk | | | | | | Located on the 9th | | | | | | floor [address] | | | | | | [address] | | | | | | [place], [place] | | | | | | [address] | | | +--------+ + + + [...]
--- OUTSIDE RECORDS SUMMARY | ~2019-09-14 | XMS | Encounter Summary ---
Demographics + + + | Address | [address] | | | [place] [address] | + + + | Home Phone [...] Author + + + | Author | [place] [employer] [facility] | + + + | Organization | [facility] | + + + | Address | Unknown | + + + | Phone | Unavailable | + + + Support + + +---------+ + | Name | Relationship | Address | Phone | + + +---------+ + | Debra Vaca | ECON | Unknown | | + + +---------+ + Care Team Providers + +------+ + | Care Driver License Agent Name | Role | Phone | + [...] | | | | Elysha K, | [facility] [address] | | | | | Neuroendocri | PA-C [address] | | | | | ne tumor | [address] | | | | | Procedures | [address] | Mailcode: | | | | | STRESS | [address] | [id number] | | | | | DOBUTAMINE | [place] | [address] | | | | | ECHOCARDIOGR | [address] | Building | | | | | AM, ADULT | Phone: | [place], [place] | | | | | | [phone] | [address] | | | | | | Fax: | Phone: | | | | | | [phone] | [phone] | +--------+--------+ + + + + Encounter Details +--------+ + + + + | Date | Type | Department | Care Team | Description | +--------+ + + + + | 04/01/ | Hospital | Cardiac | | | | 2017 | Encounter | Non-Invasive Testing | | | | | | at [facility] [address] | | | | | | [address] Mailcode: | | | | | | [facility] | [facility], | | | | | | [address] | | | | | | [place], [place] | | | | | | [address] | | | | | | [phone] | | | +--------+ + + + [...]
--- OUTSIDE RECORDS SUMMARY | ~2019-09-14 | XMS | Clinical Summary ---
Demographics + + + | Address | [address] | | | [place] [address] | + + + | Home Phone | | + + + | Preferred Language | Unknown | + + + | Marital Status | Single | + + + | Congregational Affiliation | NRP | + + + [...] Team Providers + +------+ + | Care Sighter Name | Role | Phone | + +------+ + | Elena Montano MD | PCP | | + +------+ + Source Comments [facility] is fully live on both [facility] and [facility] InPatient.[facility] Allergies No Known Allergies Medications + + [...] - | | | | | | /[id number] | | [id number]: Qty: 2 on | | | | | | 7-001 | | 04/02/2017 by Zeeshan Heredia | | | | | | | | MD [facility] at [facility] | | | | | [...]
--- OUTSIDE RECORDS SUMMARY | ~2019-09-14 | XMS | Encounter Summary ---
Demographics + + + | Address | [address] | | | [place] [address] | + + + | Home Phone | | + + + | Preferred Language | Unknown | + + + | Marital Status | Single | + + + | Anabaptist Affiliation | NRP | + + + | Race | or | + + + | Ethnic Group | Not or | + + + Author + + + | Author | [facility] | + + + | Organization | [facility] | + + + | Address | Unknown | + + + | Phone | Unavailable | + + + Support + + +---------+ + | Name | Relationship | Address | Phone | + + +---------+ + | Debra Vaca | ECON | Unknown | | + + +---------+ + Care Team Providers + +------+ + | Care Aviation Maintenance Instructor Name | Role | Phone | + [...] + + + + | 04/02/ | Anesthesia | 6A Intra Op [facility] | Chantal Yoon MD | | | 2017 | Event | [facility] | [address] | | | | | Admitting Desk | Baylee Méndez [facility] | | | | | [facility] on the | [place] [address] | | | | | floor [address] [place] [address] | [phone] | | | | | [address] | | | | | | [place], [place] | | | | | | [address] | | | +--------+ + + + [...] | Meds | +------+ + + + | Name | Total | + + + | lidocaine 1.5% EPINEPHrine 1:200K | 5 mL | + + + | midazolam | 1 mg | + + + | fentaNYL | 150 mcg | + + + | lidocaine 2% | 60 mg | + + + | propofol | 220 mg | + + + | rocuronium | 170 mg | + + + | ceFAZolin | 4,000 mg | + + + | dexamethasone | 6 mg | + + + | PHENYLEPHrine | 1,750 mcg | + + + | ePHEDrine | 5 mg | + + + | ondansetron | 4 mg | + + + | glycopyrrolate | 0.9 mg | + + + | neostigmine | 2.5 mg | + + + | albuterol inhaler | 18 puff | + + + | bupivacaine 0.125% | 20 mL | + + + | PHENYLEPHrine INF (50mg/250mL) | 7,641.44 mcg | + + + | LR | 2,200 mL | + + + + + | Name | + + | O2 FR Avance (Total Liters) | + + | N2O FR Avance (l/min) | + + | Insp Sevo | + + | Et Sevo | + + | EtN2O % | + + | Insp N2O % | + + | O2 Flow Rate (Total Liters) | + + + + | No blood administrations on file. | + + +--------+ + + + | Type | Details | Placement | Removal | +--------+ + + + | Incisi | 04/02/17; 08; Dr. Heredia; Right; | 04/02/17826 by | | | on | Lateral; chest | Heide Santoyo RN | | +--------+ + + + | Incisi | 04/02/17; 0844; DR. Heredia; Right; | 04/02/17 08 by | | | on | Lateral; chest | Heide Santoyo RN | | +--------+ + + + | Delmi | Scar Orozco; Right; Dorsal; Hand; | 04/02/17 0833 by | 04/05/17 1211 by | | eral | 18 g; None; No; Positive; | | Iris Jacome RN | | IV | 04/05/17; 1211; Drainage | | | +--------+ + + + | Periph | 04/02/17; 0615; Left; | 04/02/17 0615 by | 04/02/17 2300 by | | yeison | Antecubital; 18 g; Positive; | Ileana [...] Santoyo RN | Brunilda Moore, | | Cathet | 0545; Per order | | RN [...] | + +--------+ + + + | ANE ETT | Routin | 04/02/2017 | | Results for this | | | e | 9:13 AM | | procedure are in the | | | | PDT | | results section. | + +--------+ + + + | ANE ETT | Routin | 04/02/2017 | | Results for this | | | e | 9:13 AM | | procedure are in the | | | | PDT | | results section. | + +--------+ + + + | ANE ART LINE | Routin | 04/02/2017 | | Results for this | | | e | 9:13 AM | | procedure are in the | | | | PDT | | results section. | + +--------+ + + + | ANE EPIDURAL | Routin | 04/02/2017 | | Results for this | | | e | 9:13 AM | | procedure are in the | | | | PDT | | results section. | + +--------+ + + + documented in this encounter Results ANE ETT (04/02/2017 9:13 AM PDT) + + + | Narrative | Performed At | + + + | Marlin Hawk MD 04/02/2017 8:35 AM Procedure Reason for | | | Intubation: For surgical procedure, Location Performed: [place] , Patient | | | was preoxygenated Mask Ventilation Grade 2 - Ventilated by mask | | | with oral airway/adjuvant Intubation Blade type: Virgie , | | | Blade size: 3, Atraumatic laryngoscopy: Atraumatic Laryngoscopy, | | | Intubation adjuncts: N/A , Laryngoscopic view: Grade I, Fiberoptics | | | used: N/A , Number of Attempts: 1, Positive for EtCO2: Yes, Breath | | | sounds: Bilateral and equal ETT Ett Adult: Single-lumen | | | cuffed ETT Size: 8 ETT secured with: adhesive tape Depth at | | | Lip: 22 Cm Narrative Attending physically present | | | Performed by Resident | | + + + ANE ETT (04/02/2017 9:13 AM PDT) + + + | Narrative | Performed At | + + + | Marlin Hawk MD 04/02/2017 8:44 AM Procedure Reason for | | | Intubation: For surgical procedure, Location Performed: [place] , Patient | | | was preoxygenated Mask Ventilation Grade 0 - Ventilation by mask | | | not attempted Intubation Blade type: Virgie , Blade size: 3, | | | Atraumatic laryngoscopy: Atraumatic Laryngoscopy, Intubation | | | adjuncts: Other Other intubation adjuncts: stylet, Laryngoscopic | | | view: Grade I, Number of Attempts: 1, Positive for EtCO2: Yes, | | | Breath sounds: Bilateral and equal ETT Ett Adult: | | | Double-lumen (left) ETT Size: 35F ETT secured with: adhesive tape | | | Depth at Lip: 29 Cm Narrative Attending physically present | | | Performed by Resident No damage to lips, gums, teeth, or tongue. | | | ETT passed easily through open cords. | | + + + ANE ART LINE (04/02/2017 9:13 AM PDT) + + + | Narrative | Performed At | + + + | Marlin Hawk MD 04/02/2017 8:34 AM Procedure ART LINE | | | Procedure Information Inserted: After Induction 5 minutes to | | | perform. Type Catheter: Arrow kit Indications: Beat to beat blood | | | pressure monitoring and Frequent lab draws Location Performed: [place] | | | Informed Consent: Included in anesthesia consent Protective Barrier: | | | Cap, Mask, Hand scrub and Sterile Gloves Skin Prep: Chloraprep | | | Draped: Partially draped Anesthesia Method: General anesthesia | | | Insertion side: Left Insertion Site: Radial Access device: 20g | | | Line secured by:Tape, Dressing Applied and StatLock | | | Assessment Number of attempts: 1st Complications: None Assessment: | | | Catheter connected to pressure line and flushed, catheter manually | | | flushed, Tolerated procedure well and Perfusion checked distal to | | | catheter Attending physically present Attending Name: CARMEN | | | EVELINE Hermosillo Performed by Resident Name: MARLIN HAWK | | + + + ANE EPIDURAL (04/02/2017 9:13 AM PDT) + + + | Narrative | Performed At | + + + | Marlin Hawk MD 04/02/2017 7:17 AM PROCEDURE NAME | | | Epidural or Caudal Information Epidural . Have received and | | | accepted request from attending surgeon to offer advanced acute pain | | | management services to the patient Location performed: Pre-Op | | | Adult or Pediatric: Adult Procedure Patient position: | | | Sitting, Epidural approach: Midline, Monitors: NIBP, SpO2 and EKG, | | | Supplemental Oxygen Given, Sterile prep (ChloraPrep) drape and | | | technique Technology Used: None Needle Tuohy with a 17g | | | Needle insertion depth 4 cm Catheter depth 10 cm Depth at loss | | | of resistance 4 cm on the 1st attempt Parasthesia: No. Negative | | | for blood. Vertebral Interspace: T5-6 CSF: Aspiration | | | negative for CSF, Sensory Band:Side: bilateral, Tested: | | | Temperature sensation to cold spray, Upper Level: T2, Lower Band:T8 | | | MACIE: saline Assessment test dose given, Negative test dose | | | reaction See MAR for Drug and Dose Complications: None, Technical | | | Difficulty: Easy Intended Analgesia: Satisfactory block in | | | appropriate fashion Sensory Assessment: Decreased in area of block | | | Motor Assessment: Deferred; Narrative Attending physically | | | present EVELINE MORALES RPerformed by Resident: MARLIN HAWK | | + + + documented in this encounter Visit Diagnoses Not on filedocumented in this encounter Administered Medications + +--------+ + +------+------+ | Medication Order | MAR | Action | Dose | Rate | Site | | | Action | Date | | | | + +--------+ + +------+------+ | albuterol (PROVENTIL, VENTOLIN) | Given | 04/02/20 | 12 puffs | | | | 90 mcg/actuation inhaler | | 17 8:52 | | | | | INTRAPROCEDURE PRN, Starting Michelle | | AM PDT | | | | | 04/02/17 at 0733, Until Michelle 04/02/17 | | | | | | | at 1439 | | | | | | + +--------+ + +------+------+ +-------+ +---------+---+---+ | Given | 04/02/20 | 6 puffs | | | | | 17 7:33 | | | | | | AM PDT | | | | +-------+ +---------+---+---+ +---+---+ | | | +---+---+ + +-------+ +------+---+---+ | bupivacaine 0.125% PF injection | Given | 04/02/20 | 4 mL | | | | INTRAPROCEDURE PRN, Starting | | 17 1:23 | | | | | Michelle 04/02/17 at 0915, Until Michelle | | PM PDT | | | | | 04/02/17 at 1439 | | | | | | + +-------+ +------+---+---+ +-------+ +------+---+---+ | Given | 04/02/20 | 5 mL | | | | | 17 11:49 | | | | | | AM PDT | | | | +-------+ +------+---+---+ | Given | 04/02/20 | 5 mL | | | | | 17 10:06 | | | | | | AM PDT | | | | +-------+ +------+---+---+ +---+---+ | | | +---+---+ + +-------+ + +---+---+ | ceFAZolin (ANCEF) injection | Given | 04/02/20 | 2,000 mg | | | | intravenous, INTRAPROCEDURE PRN, | | 17 12:14 | | | | | Starting [facility] 04/02/17 at 0814, | | PM PDT | | | | | Until [facility] 04/02/17 at 1439 | | | | | | + +-------+ + +---+---+ +-------+ + +---+---+ | Given | 04/02/20 | 2,000 mg | | | | | 17 8:14 | | | | | | AM PDT | | | | +-------+ + +---+---+ +---+---+ | | | +---+---+ + +-------+ +------+---+---+ | dexamethasone (DECADRON) | Given | 04/02/20 | 6 mg | | | | injection intravenous, | | 17 8:14 | | | | | INTRAPROCEDURE PRN, Starting Michelle | | AM PDT | | | | | 04/02/17 at 0814, Until Michelle 04/02/17 | | | | | | | at 1439 | | | | | | + +-------+ +------+---+---+ +---+---+ | | | +---+---+ + +-------+ +------+---+---+ | ePHEDrine injection | Given | 04/02/20 | 5 mg | | | | intravenous, INTRAPROCEDURE PRN, | | 17 9:04 | | | | | Starting Michelle 04/02/17 at 0904, | | AM PDT | | | | | Until Michelle 04/02/17 at 1439 | | | | | | + +-------+ +------+---+---+ +---+---+ | | | +---+---+ + +-------+ +--------+---+---+ | fentaNYL citrate (PF) | Given | 04/02/20 | 50 mcg | | | | (SUBLIMAZE) injection | | 17 8:33 | | | | | intravenous, INTRAPROCEDURE PRN, | | AM PDT | | | | | Starting Michelle 04/02/17 at 0738, | | | | | | | Until Michelle 04/02/17 at 1439 | | | | | | + +-------+ +--------+---+---+ +-------+ +---------+---+---+ | Given | 04/02/20 | 100 mcg | | | | | 17 7:38 | | | | | | AM PDT | | | | +-------+ +---------+---+---+ +---+---+ | | | +---+---+ + +-------+ +--------+---+---+ | glycopyrrolate (ROBINUL) | Given | 04/02/20 | 0.4 mg | | | | injection intravenous, | | 17 2:30 | | | | | INTRAPROCEDURE PRN, Starting Michelle | | PM PDT | | | | | 04/02/17 at 0912, Until Michelle 04/02/17 | | | | | | | at 1439 | | | | | | + +-------+ +--------+---+---+ +-------+ +--------+---+---+ | Given | 04/02/20 | 0.1 mg | | | | | 17 12:54 | | | | | | PM PDT | | | | +-------+ +--------+---+---+ | Given | 04/02/20 | 0.2 mg | | | | | 17 10:08 | | | | | | AM PDT | | | | +-------+ +--------+---+---+ +---+---+ | | | +---+---+ + + + +---+---+---+ | lactated Ringers IV | given by | 04/02/20 | | | | | intravenous, INTRAPROCEDURE | | 17 1:59 | | | | | CONTINUOUS PRN, Starting Michelle | anesthes | PM PDT | | | | | 04/02/17 at 0648, Until Michelle 04/02/17 | iology | | | | | | at 1439 | | | | | | + + + +---+---+---+ + + +---+---+---+ | New Bag | 04/02/20 | | | | | | 17 1:30 | | | | | | PM PDT | | | | + + +---+---+---+ | given by anesthesiology | 04/02/20 | | | | | | 17 1:21 | | | | | | PM PDT | | | | + + +---+---+---+ +---+---+ | | | +---+---+ + +-------+ +-------+---+---+ | lidocaine PF (XYLOCAINE MPF) 20 | Given | 04/02/20 | 60 mg | | | | mg/mL (2 %) injection | | 17 7:38 | | | | | INTRAPROCEDURE PRN, Starting Michelle | | AM PDT | | | | | 04/02/17 at 0738, Until Michelle 04/02/17 | | | | | | | at 1439 | | | | | | + +-------+ +-------+---+---+ +---+---+ | | | +---+---+ + +-------+ +------+---+---+ | lidocaine-EPINEPHrine | Given | 04/02/20 | 2 mL | | | | (XYLOCAINE-MPF WITH EPINEPHRINE) | | 17 7:10 | | | | | 1.5 %-1:200,000 injection | | AM PDT | | | | | INTRAPROCEDURE PRN, Starting Michelle | | | | | | | 04/02/17 at 0700, Until Michelle 04/02/17 | | | | | | | at 1439 | | | | | | + +-------+ +------+---+---+ +-------+ +------+---+---+ | Given | 04/02/20 | 3 mL | | | | | 17 7:00 | | | | | | AM PDT | | | | +-------+ +------+---+---+ +---+---+ | | | +---+---+ + +-------+ +------+---+---+ | midazolam (VERSED) injection | Given | 04/02/20 | 1 mg | | | | intravenous, INTRAPROCEDURE PRN, | | 17 7:23 | | | | | Starting Michelle 04/02/17 at 0723, | | AM PDT | | | | | Until Michelle 5/4/17 at 1439 | | | | | | + +-------+ +------+---+---+ +---+---+ | | | +---+---+ + +-------+ +--------+---+---+ | neostigmine (PROSTIGMIN) | Given | 04/02/20 | 2.5 mg | | | | injection intravenous, | | 17 2:30 | | | | | INTRAPROCEDURE PRN, Starting Michelle | | PM PDT | | | | | 04/02/17 at 1430, Until Michelle 04/02/17 | | | | | | | at 1439 | | | | | | + +-------+ +--------+---+---+ +---+---+ | | | +---+---+ + +-------+ +------+---+---+ | ondansetron (ZOFRAN) injection | Given | 04/02/20 | 4 mg | | | | intravenous, INTRAPROCEDURE PRN, | | 17 2:30 | | | | | Starting Michelle 04/02/17 at 1430, | | PM PDT | | | | | Until Michelle 04/02/17 at 1439 | | | | | | + +-------+ +------+---+---+ +---+---+ | | | +---+---+ + +-------+ +---------+---+---+ | PHENYLEPHrine 100 mcg/mL IV | Given | 04/02/20 | 100 mcg | | | | syringe intravenous, | | 17 1:55 | | | | | INTRAPROCEDURE PRN, Starting Michelle | | PM PDT | | | | | 04/02/17 at 0753, Until Michelle 04/02/17 | | | | | | | at 1439 | | | | | | + +-------+ +---------+---+---+ +-------+ +---------+---+---+ | Given | 04/02/20 | 100 mcg | | | | | 17 1:19 | | | | | | PM PDT | | | | +-------+ +---------+---+---+ | Given | 04/02/20 | 200 mcg | | | | | 17 12:46 | | | | | | PM PDT | | | | +-------+ +---------+---+---+ +---+---+ | | | +---+---+ + + + + +-------+---+ | PHENYLEPHrine 50 mg/250 mL (0.2 | Rate/Dos | 04/02/20 | 0.4 | 7.03 | | | mg/mL) IV infusion (ADC) | e Change | 17 12:56 | mcg/kg/m | mL/hr | | | intravenous, INTRAPROCEDURE | | PM PDT | in | | | | CONTINUOUS PRN, Starting Michelle | | | | | | | 04/02/17 at 0925, Until Michelle 04/02/17 | | | | | | | at 1439 | | | | | | + + + + +-------+---+ + + + +--------+---+ | Rate/Dose Change | 04/02/20 | 0.6 | 10.55 | | | | 17 12:29 | mcg/kg/m | mL/hr | | | | PM PDT | in | | | + + + +--------+---+ | Rate/Dose Change | 04/02/20 | 0.4 | 7.03 | | | | 17 12:18 | mcg/kg/m | mL/hr | | | | PM PDT | in | | | + + + +--------+---+ +---+---+ | | | +---+---+ + +-------+ +-------+---+---+ | propofol intravenous, | Given | 04/02/20 | 20 mg | | | | INTRAPROCEDURE PRN, Starting Michelle | | 17 10:12 | | | | | 04/02/17 at 0738, Until Michelle 04/02/17 | | AM PDT | | | | | at 1439 | | | | | | + +-------+ +-------+---+---+ +-------+ +-------+---+---+ | Given | 04/02/20 | 20 mg | | | | | 17 10:10 | | | | | | AM PDT | | | | +-------+ +-------+---+---+ | Given | 04/02/20 | 30 mg | | | | | 17 9:15 | | | | | | AM PDT | | | | +-------+ +-------+---+---+ +---+---+ | | | +---+---+ + +-------+ +-------+---+---+ | rocuronium (ZEMURON) injection | Given | 04/02/20 | 20 mg | | | | intravenous, INTRAPROCEDURE PRN, | | 17 12:17 | | | | | Starting Michelle 04/02/17 at 0738, | | PM PDT | | | | | Until Michelle 04/02/17 at 1439 | | | | | | + +-------+ +-------+---+---+ +-------+ +-------+---+---+ | Given | 04/02/20 | 30 mg | | | | | 17 9:54 | | | | | | AM PDT | | | | +-------+ +-------+---+---+ | Given | 04/02/20 | 20 mg | | | | | 17 9:41 | | | | | | AM PDT | | | | +-------+ +-------+---+---+ +---+---+ | | | +---+---+ documented in this encounter"
--- OUTSIDE RECORDS SUMMARY | ~2019-09-14 | XMS | Encounter Summary ---
Demographics + + + | Address | [address] | | | [place] [address] | + + + | Home Phone | | + + + | Preferred Language | Unknown | + + + | Marital Status | Single | + + + | Mandaen Affiliation | NRP | + + + | Race | or | + + + | Ethnic Group | Not or | + + + Author + + + | Author | [place] [employer] [facility] | + + + | Organization | [facility] | + + + | Address | Unknown | + + + | Phone | Unavailable | + + + Support + + +---------+ + | Name | Relationship | Address | Phone | + + +---------+ + | Debra Vaca | ECON | Unknown | | + + +---------+ + Care Team Providers + +------+ + | Care Cane Stripper Name | Role | Phone | + +------+ + | No Pcp Per Patient | PCP | Unavailable | + +------+ + Reason for Visit + + + | Reason | Comments | + + + | Referral to social | | | worker | | + + + Encounter Details +--------+ + + + + | Date | Type | Department | Care Team | Description | +--------+ + + + + | 03/18/ | Telephone | SOCIAL WORK | [facility] | Referral to social | | 2017 | | [facility] [address] | worker | | | | [address] | Baylee Méndez [place], | | | | | Mailcode: [facility] | [place] [address] | | | | | [place], [place] | | | | | | [address] | | | | | | [phone] | | | +--------+ + + + [...]
--- OUTSIDE RECORDS SUMMARY | ~2019-09-14 | XMS | Encounter Summary ---
Demographics + + + | Address | [address] | | | [place] [address] | + + + | Home Phone | | + + + | Preferred Language | Unknown | + + + | Marital Status | Single | + + + | Pentecostalism Affiliation | NRP | + + + | Race | or | + + + | Ethnic Group | Not or | + + + Author + + + | Author | [place] [employer] [facility] | + + + | Organization | [facility] | + + + | Address | Unknown | + + + | Phone | Unavailable | + + + Support + + +---------+ + | Name | Relationship | Address | Phone | + + +---------+ + | Debra Vaca | ECON | Unknown | | + + +---------+ + Care Team Providers + +------+ + | Care Oracle Fusion Middleware Developer Name | Role | Phone | + +------+ + | Elena Montano MD | PCP | | + +------+ + Encounter Details +--------+ + + + + | Date | Type | Department | Care Team | Description | +--------+ + + + + | 05/11/ | Hospital | Diagnostic | Jaclyn Coy, | | | 2017 | Encounter | [facility] | PA-C [address] | | | | | [address] | [address] | | | | | [place]lee M[place]dez Mailcode: | [place], [place] | | | | | [address] [facility] | [phone] | | | | | [place], | [phone] | | | | | [place] [address] | | | | | | [phone] | | | +--------+ + + + [...] + + documented as of this encounter Medications at Time of Discharge [...] + +--------+ + + + | X-RAY CHEST 2 VIEW | Routin | 05/11/2017 | Neuroendocrine | Results for this | | | e | 11:03 AM | carcinoma of lung | procedure are in the | | | | PDT | ([facility]) | results section. | + +--------+ + + + documented in this encounter Results X-RAY CHEST 2 VIEW (05/11/2017 11:03 AM PDT) + + | Specimen | + + | | + + + + + | Narrative | Performed At | + + + | EXAM: CHEST 2 VIEWS HISTORY: Lung cancer, status post right | [facility] | | lower lobe superior segmentectomy, recurrent right-sided pneumothorax, | RADIOLOGY VOICE | | status post pleurodesis. COMPARISON: 04/19/17 FINDINGS: | RECOGNITION | | Right chest wall subcutaneous gas has resolved. Trace right | | | costophrenic angle blunting noted. There is no pneumothorax. Right | | | perihilar postoperative change redemonstrated. There is no new | | | consolidation. IMPRESSION: No pneumothorax. | | | Postoperative changes of right lower lobe superior segmentectomy. No | | | new consolidation. I have personally reviewed the images and, | | | if necessary, edited the report. I agree with the report as now | | | presented. | | + + + + + | Procedure Note | + + | Service Account, Radiant Res In Interface - 05/11/2017 11:22 AM PDT EXAM: CHEST 2 | | VIEWS HISTORY: Lung cancer, status post right lower lobe superior segmentectomy, | | recurrent right-sided pneumothorax, status post pleurodesis.COMPARISON: 04/19/17FINDINGS: | | Right chest wall subcutaneous gas has resolved. Trace right costophrenic angle | | blunting noted. There is no pneumothorax. Right perihilar postoperative change | | redemonstrated. There is no new consolidation.IMPRESSION: No pneumothorax. | | Postoperative changes of right lower lobe superior segmentectomy. No new | | consolidation.I have personally reviewed the images and, if necessary, edited the | | report. I agree with the report as now presented. | | | |IMPRESSION: | | | |No pneumothorax. | | | |Postoperative changes of right lower lobe superior segmentectomy. No new consolidation. 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
--- OUTSIDE RECORDS SUMMARY | ~2019-09-14 | XMS | Encounter Summary ---
Demographics + + + | Address | [address] | | | [place] [address] | + + + | Home Phone | | + + + | Preferred Language | Unknown | + + + | Marital Status | Single | + + + | Rastafari Affiliation | NRP | + + + | Race | or | + + + | Ethnic Group | Not or | + + + Author + + + | Author | [place] [facility] | + + + | Organization | [facility] | + + + | Address | Unknown | + + + | Phone | Unavailable | + + + Support + + +---------+ + | Name | Relationship | Address | Phone | + + +---------+ + | Debra Vaca | ECON | Unknown | | + + +---------+ + Care Team Providers + +------+ + | Care Supervisor Maintenance Name | Role | Phone | + [...] | | | 2017 | Event | [facility] | [address] | | | | | Admitting Desk | [place]lee M[place]dez [facility] | | | | | [facility] on the | [place] [address] | | | | | floor [address] [place] [address] | [phone] | | | | | [address] | | | | | | [place], [place] | | | | | | [address] | | | +--------+ + + + [...] 12:14 | | | | | Starting [facility] 04/02/17 at 0814, | | PM PDT | | | | | Until [facility] 04/02/17 at 1439 | | | | [...] PDT | | | | | Until Michele[facility] 04/02/17 at 1439 | | | | [...]
--- OUTSIDE RECORDS SUMMARY | ~2019-09-14 | XMS | Encounter Summary ---
Demographics + + + | Address | [address] | | | [place] [address] | + + + | Home Phone | | + + + | Preferred Language | Unknown | + + + | Marital Status | Single | + + + | Quaker Affiliation | NRP | + + + | Race | or | + + + | Ethnic Group | Not or | + + + Author + + + | Author | [place] [facility] | + + + | Organization | Replaced By [facility] | + + + | Address | Unknown | + + + | Phone | Unavailable | + + + Support + + +---------+ + | Name | Relationship | Address | Phone | + + +---------+ + | Debra Vaca | ECON | Unknown | | + + +---------+ + Care Team Providers + +------+ + | Care Nurse Wound Care Name | Role | Phone | + [...] | | carcinoid | [address] | [address] [facility] [address] | | | | | | [place] | [facility] | | | | | | Drive | Rd | | | | | | [place], [place] | [place], [place] | | | | | | [address] | [address] | | | | | | Phone: | Phone: | | | | | | [phone] | [phone] | | | | | | Fax: | Fax: | | | | | | [phone] | [phone] | +--------+--------+ + + + + Encounter [...] | | | Rd Mailcode: [address] | [place], [place] | | | | | Physician's | [address] | | | | | [place], | [phone] | | | | | [place] [address] | | | | | | [phone] | | | +--------+---------+ + + + [...] Service: 03/09/2017 Referring Provider: Elena Montano MD [address] [address] Primary Care Physician: No Pcp Per PATIENT [...] mass. She uses supplemental oxygen at the skilled nursing home where she lives in [place], but did n ot bring it with her to [place] today and reports that she walks frequently. She continues to have chest pain but cannot describe it in any more detail (frequency, alleviating or wor sening factors.) She has no complaint of headache. She has not lost weight in the last 3 m [place]. Exercise Capacity: She walks frequently. She climbed [...] care. Pam Morales PA-C CARDIOTHORACIC SURGERY AT [address] Mailcode: [address] [place] [id number] Zeeshan Olson MD - 03/09/2017 2:45 PM PDTPatient Name: Bailey Frias Date of : 1955 [facility] I personally interviewed the patient, performed espinoza elements of the physical examination, a nd personally formulated the assessment and plan with Pma Max. See her note for deta ils. [...] and comment. COMMENT: As part of the [employer] [facility], this case was reviewed by another member of [facility] ([facility]). AMB:emb:C1NR GROSS DESCRIPTION: The specimen is received in formalin labeled with the patient's name and designated "right lung" and consists of multiple pink-white needle core tissue fragments that range in length from 0.3 cm up to 1.7 cm and have an average diameter of 0.1 cm.The specimen is entirely submitted in ganesh settes A1-A4.FAM:[facility] [place] Intraprocedural Cytologic Examination (I.C.E.) The pathologist performed an Intraprocedural Cytologic Exam [I.C.E.] ([id number], [id number]) The patient's name, date, specimen site were [...] developed and their performance characteristics determined by [facility] and/or [facility]. These tests may have not been cleared or approved by the U.S. Food and Drug Ad ministration. The FDA has determined that such clearance or approval is not necessary. T his test is intended to be used for clinical purposes. It should not be regarded as investigational or for res earch. [facility] and [facility] are certified under the Clinical Laboratory Improvement Amendment Act of 1988 (CLIA) as qualified to perform high complexity clinical laboratory testing. PERFORMING LABORATORY: Professional interpretation and technical preparation was performed by [place], [facility] [address] (Seamstress Fitter: Kevan Lacey M.D.; CLIA#:[id number]). Diagnostician:Kevan Lacey MD Pathologist Diagnostician:Ami Carrillo MD Pathologist Electronically Signed 11/20/2016 PFTs Dheeraj Cherry MD 02/03/2017 12:34 PM [facility]:Pulmonology PULMONARY FUNCTION TEST Name : Bailey [...] PM A/P: RLL low grade NE carcinoma- [id number], Stage IB We discussed the natural hx of this disease and recommended surgical resection via a right VATs, possible thoracotomy, superior segmentectomy, possible lobectomy. We have ordered a dobutamine stress test as she is having chest pain and is high risk for C AD Surgery scheduled for April [address] Catarino Heredia M.D. FACS compliance quality performance analyst Replaced By [facility] Division of Cardiothoracic Surgery Section of Thoracic Surgery [address] [facility] [address], [address] [place] [address] documented in this en counter Plan of [...] | | | LABORATORY | | | [facility] | | | SERVICES, | | | [...] | + + + + + | [facility] | [address] | [place] [address] | | | SERVICES, CORE | PARK [...] | + + + + + | [facility] | [address] | [place] [address] | | | SERVICES, CORE | WILLY [...] glycated albumin should be considered for monitoring exterminator helper termite | LABORATORY | | glycemic control in [...] | + + + + + | [facility] | [address] | [place] [address] | | | SERVICES, SPECIAL | WILLY [...]
--- OUTSIDE RECORDS SUMMARY | ~2019-09-14 | XMS | Encounter Summary ---
Demographics + + + | Address | [address] | | | [place] [address] | + + + | Home Phone | | + + + | Preferred Language | Unknown | + + + | Marital Status | Single | + + + | Yazidism Affiliation | NRP | + + + | Race | or | + + + | Ethnic Group | Not or | + + + Author + + + | Author | [place] [facility] | + + + | Organization | [facility] | + + + | Address | Unknown | + + + | Phone | Unavailable | + + + Support + + +---------+ + | Name | Relationship | Address | Phone | + + +---------+ + | Debra Vaca | ECON | Unknown | | + + +---------+ + Care Team Providers + +------+ + | Care Oil Separator Name | Role | Phone | + [...] | [address] | [place], | | | | | Mailcode: [facility] | [place] [address] | | | | | [place], [place] | | | | | | [address] | | | | | | [phone] | | | +--------+ + + + [...]
--- OUTSIDE RECORDS SUMMARY | ~2019-09-14 | XMS | Encounter Summary ---
Demographics + + + | Address | [address] | | | [place] [address] | + + + | Home Phone | | + + + | Preferred Language | Unknown | + + + | Marital Status | Single | + + + | Hoahaoism Affiliation | NRP | + + + | Race | or | + + + | Ethnic Group | Not or | + + + Author + + + | Author | [place] [facility] | + + + | Organization | [facility] | + + + | Address | Unknown | + + + | Phone | Unavailable | + + + Support + + +---------+ + | Name | Relationship | Address | Phone | + + +---------+ + | Debra Vaca | ECON | Unknown | | + + +---------+ + Care Team Providers + +------+ + | Care Sand Temperer Name | Role | Phone | + +------+ + | No Pcp Per Patient | PCP | Unavailable | + +------+ + Reason for Referral Diagnostic Testing (Routine) +--------+--------+ + + + + | Status | Reason | Specialty | Diagnoses / | Referred By | Referred To | | | | | Procedures | Contact | Contact | +--------+--------+ + + + + | Closed | | Cardiology | Diagnoses | Anneliese, | Car Echo | | | | | | Elysha K, | [facility] [address] | | | | | Neuroendocri | PA-C [address] | | | | | ne tumor | [address] | | | | | Procedures | [place] | Mailcode: | | | | | STRESS | Rd | [address] | | | | | DOBUTAMINE | [place], [place] | [facility] | | | | | ECHOCARDIOGR | [address] | Building | | | | | AM, ADULT | Phone: | [place], [place] | | | | | | [phone] | [address] | | | | | | Fax: | Phone: | | | | | | [phone] | [phone] | +--------+--------+ + + + + Encounter Details +--------+ + + + + | Date | Type | Department | Care Team | Description | +--------+ + + + + | 03/23/ | Photographic Plate Maker | Cardiothoracic | Jaclyn Coy, | Neuroendocrine tumor | | 2017 | | Surgery at [facility] [address] | PA-C [address] | (Primary Dx) | | | | [address] | [address] | | | | | Rd Mail[address]: [address] | [place], [place] | | | | | Physician's | [address] | | | | | [place], | [phone] | | | | | [place] [address] | | | | | | [phone] | | | +--------+ + + + [...] + + documented in this encounter Results STRESS DOBUTAMINE ECHOCARDIOGRAM, ADULT (04/01/2017 1:18 PM PDT) + + | Specimen | + + | | + + + + + | Narrative | Performed At | + + + | [facility] | [facility] DEPT OF | | [facility] Adult Echocardiography Laboratory [address] | CARDIOLOGY | | [address], [place] [address] Ph: | | | Pt Name: BAILEY ANDERS | | | Study Date / Time 04/01/2017 / 1:18:09 PMMRN: [id number] | | | Most recent prior: -Acc #: [id number] | | | No. previous echos: 0DOB: 1955 Age: 61 | | | years Gender: FHeight: 63.0 in | | | BSA: 1.60 i8Dmpukw: 128 lb | | | Order ID: [id number] | | | medications: Japser-Inhibitor and Anti-hyperlipidemic.Indications: | | | Preoperative Evaluation Junior Software Engineer: Ashley Brower [facility] Referring | | | Provider: Jaclyn Sloan Location: [facility] Performed: | | | Definity contrast and Dobutamine stress echo.History: 61 year old | | | female who presented with left-sided chest pain and was found to have | | | a right hilar lung mass. Patient history has been obtained from the | | | [facility] Dobutamine Stress Echocardiographic Report | | | + | | | ---------+Final Impressions: | | | | | | | | | | | | | | | 1. At rest there is normal left ventricular systolic function. | | | 2. There was no chest pain reported with | | | infusion. 3. The blood | | | pressure response was flat. | | | | | | 4. EKG | | | portion of stress test is normal. | | | 5. Echo negative for ischemia. | | | 6. Low risk | | | stress echo in a patient who achieved > 85% MAPHR or > 25,000 | | | peak DP, and no inducible ischemia. | | | | | | | | | | | | + | | | + Exercise Capacity:Symptoms: The patient had no symptoms | | | during the test. Exam Protocol: The patient was infused with | | | Dobutamine for 10 minutes and 28 seconds. Dobutamine infused in | | | increasing doses up to a maximum of 20 mcg/kg/min was given. Atropine | | | .30 mg was given. Esmolol 10 mg was given. Procedural Findings: The | | | patients resting blood pressure was 115 /68 mmHg. The peak blood | | | pressure during stress was 128/44 mm Hg. The blood pressure response | | | was flat. The peak heart rate achieved was 151 beats per minute, which | | | was 96% of the age predicted maximal heart rate of 157 beats per | | | minute. The test was stopped due to target heart rate achieved. There | | | was no chest pain reported with infusion. Peak Stress ECG Findings: | | | EKG portion of stress test is normal. There were premature atrial | | | contractions during stress. Echocardiographic Findings: The quality of | | | echo imaging is good (with contrast). There were no stress-induced | | | wall motion abnormalities. Echo negative for ischemia. There is normal | | | left ventricular ejection fraction. At peak stress the LV function | | | augments normally. Due to poor endocardial definition, ultrasound | | | contrast was used (Definity). Baseline All segments are normal. | | | 1=Normal, 2=Hypokinetic, 3=Akinetic, | | | 4=Dyskinetic, | | | 5=Aneurysmal Low Dose All segments are normal. | | | 1=Normal, 2=Hypokinetic, 3=Akinetic, | | | 4=Dyskinetic, | | | 5=Aneurysmal Peak All segments are normal. 1=Normal, 2=Hypokinetic, | | | 3=Akinetic, 4=Dyskinetic, | | | 5=Aneurysmal | | | Recovery All segments are normal. 1=Normal, | | | 2=Hypokinetic, 3=Akinetic, | | | 4=Dyskinetic, 5=Aneurysmal | | | Supervising RN: Lola Baltazar, RNSupervising Physician: Terry Johnson | | | , PhDReport electronically signed by: [id number] Terry Johnson MD, | | | PhD (04/01/2017, 2:30:24 PM) Final | | | | | |Peak All segments are normal. 1=Normal, 2=Hypokinetic, 3=Akinetic, 4=Dyskinetic, | | | 5=Aneurysmal | | | | | |Recovery All segments are normal. 1=Normal, 2=Hypokinetic, 3=Akinetic, | | | 4=Dyskinet ic, 5=Aneurysmal | | | | | | | | |Supervising RN: Lola Baltazar RN | | |Supervising Physician: Terry Johnson MD, PhD | | |Report electronically signed by: [id number] Terry Johnson MD, PhD (04/01/2017, 2:30:24 | | | PM) | | | | | | | | | | | | | | | | | | | | | | | | Final | | + + + + + | Procedure Note | + + | Interface, Cardiology Results - 04/01/2017 2:30 PM PDT [facility] Rank By Search | | [facility] Echocardiography Laboratory [facility] | | [place], [place] [address] Pt Name: BAILEY Burrows | | MARTITA Study Date / Time 04/01/2017 / 1:18:09 PMMRN: [id number] | | Most recent prior: -[facility] #: [id number] No. previous echos: 0DOB: | | 1955 Age: 61 years Gender: FHeight: 63.0 in BSA: | | 1.60 d7Ygbegq: 128 lb Order ID: | | [id number] medications: Jasper-Inhibitor and Anti-hyperlipidemic.Indications: | | Preoperative Evaluation Junior Software Engineer: Ashley Brower RDCS Referring Provider: Jaclyn Bob | | WiestPatient Location: [facility] Performed: Definity contrast and Dobutamine stress | | echo.History: 61 year old female who presented with left-sided chest pain and was found | | to have a right hilar lung mass. Patient history has been obtained from the EHR | | Dobutamine Stress Echocardiographic | | Report+ +Fi | | nal Impressions: | | | | 1. At rest there is normal left | | ventricular systolic function. 2. There was no chest pain reported with | | infusion. 3. The blood pressure response was flat. | | | | 4. EKG portion of stress test is normal. | | 5. Echo negative for ischemia. 6. | | Low risk stress echo in a patient who achieved > 85% MAPHR or > 25,000 peak DP, and | | no inducible ischemia. | | | | + + | | Exercise Capacity:Symptoms: The patient had no symptoms during the test. Exam Protocol: | | The patient was infused with Dobutamine for 10 minutes and 28 seconds. Dobutamine | | infused in increasing doses up to a maximum of 20 mcg/kg/min was given. Atropine .30 mg | | was given. Esmolol 10 mg was given. Procedural Findings: The patients resting blood | | pressure was 115 /68 mmHg. The peak blood pressure during stress was 128/44 mm Hg. The | | blood pressure response was flat. The peak heart rate achieved was 151 beats per minute, | | which was 96% of the age predicted maximal heart rate of 157 beats per minute. The test | | was stopped due to target heart rate achieved. There was no chest pain reported with | | infusion. Peak Stress ECG Findings: EKG portion of stress test is normal. There were | | premature atrial contractions during stress. Echocardiographic Findings: The quality of | | echo imaging is good (with contrast). There were no stress-induced wall motion | | abnormalities. Echo negative for ischemia. There is normal left ventricular ejection | | fraction. At peak stress the LV function augments normally. Due to poor endocardial | | definition, ultrasound contrast was used (Definity). Baseline All segments are normal. | | 1=Normal, 2=Hypokinetic, 3=Akinetic, | | 4=Dyskinetic, 5=AneurysmalLow Dose All segments are normal. | | 1=Normal, 2=Hypokinetic, 3=Akinetic, | | 4=Dyskinetic, 5=AneurysmalPeak All segments are normal. 1=Normal, 2=Hypokinetic, | | 3=Akinetic, 4=Dyskinetic, | | 5=AneurysmalRecovery All segments are normal. 1=Normal, 2=Hypokinetic, | | 3=Akinetic, 4=Dyskinetic, | | 5=Aneurysmal Supervising RN: Lola Baltazar, RNSupervising Physician: Terry Johnson MD, | | PhDReport electronically signed by: [id number] Terry Johnson MD, PhD (04/01/2017, 2:30:24 | | PM) Final | |Procedural Findings: The patients resting blood pressure was 115 /68 mmHg. The peak | |blood pressure during stress was 128/44 mm Hg. The blood pressure response was flat. | |The peak heart rate achieved was 151 beats per minute, which was 96% of the age | |predicted maximal heart rate of 157 beats per minute. The test was stopped due to | |target heart rate achieved. There was no chest pain reported with infusion. | | | |Peak Stress ECG Findings: EKG portion of stress test is normal. There were premature | |atrial contractions during stress. | | | |Echocardiographic Findings: The quality of echo imaging is good (with contrast). | |There were no stress-induced wall motion abnormalities. Echo negative for ischemia. | |There is normal left ventricular ejection fraction. At peak stress the LV function | |augments normally. Due to poor endocardial definition, ultrasound contrast was used | |(Definity). | | | |Baseline All segments are normal. 1=Normal, 2=Hypokinetic, 3=Akinetic, | | 4=Dyskinetic, 5=Aneurysmal | | | |Low Dose All segments are normal. 1=Normal, 2=Hypokinetic, 3=Akinetic, | | 4=Dyskinetic, 5=Aneurysmal | | | |Peak All segments are normal. 1=Normal, 2=Hypokinetic, 3=Akinetic, 4=Dyskinetic, | | 5=Aneurysmal | | | |Recovery All segments are normal. 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
--- OUTSIDE RECORDS SUMMARY | ~2019-09-14 | XMS | Encounter Summary ---
Demographics + + + | Address | [address] | | | [place] [address] | + + + | Home Phone [...] + + + | Author | [place] [facility] | + + + | Organization | [facility] | + + + | Address | Unknown | + + + | Phone | Unavailable | + + + Support + + +---------+ + | Name | Relationship | Address | Phone | + + +---------+ + | Debra Vaca | ECON | Unknown | | + + +---------+ + Care Team Providers + +------+ + | Care Women Nurse Name | Role | Phone | + [...] | +--------+--------+ + + + + | Denied | | Cardiology | Diagnoses | Morales, | | | | | | Carcinoid | Pam, PA | | | | | | tumor of | [address] [facility] | | | | | | lung | [place] | | | | | | Procedures | Rd | | | | | | STRESS | [place], [place] | | | | | | DOBUTAMINE | [address] | | | | | | ECHOCARDIOGR | Phone: | | | | | | AM, ADULT | [phone] | | | | | | | Fax: | | | | | | | [phone] | | +--------+--------+ + + + + Encounter Details +--------+ + + + + | Date | Type | Department | Care Team | Description | +--------+ + + + + | 03/10/ | City Carrier Assistant | Cardiothoracic | Morales, Pam, | Carcinoid tumor of | | 2017 | | Surgery at [facility] [address] | [place] [address] | lung (Primary Dx) | | | | [address] [facility] | [facility] [address] | | | | | Rd Mail[address]: [address] | [place], [place] | | | | | Physician's | [address] | | | | | [place], | [phone] | | | | | [place] [address] | | | | | | [phone] | | | +--------+ + + + [...] as of this encounter Plan of Treatment + +------+--------+ + + | Name | Type | Priori | Associated Diagnoses | Order Schedule | | | | ty | | | + +------+--------+ + + | STRESS DOBUTAMINE | ECG | Routin | Carcinoid tumor of | Ordered: 03/10/2017 | | ECHOCARDIOGRAM, | | e | lung | | | ADULT | | | | | + +------+--------+ + + | 12 LEAD ECG | ECG | Routin | Carcinoid tumor of | Ordered: 03/10/2017 | | | | e | lung | | + +------+--------+ + + documented as of this encounter Visit Diagnoses + + | Diagnosis | + + | 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
--- OUTSIDE RECORDS SUMMARY | ~2019-09-14 | XMS | Encounter Summary ---
Demographics + + + | Address | [address] | | | [place] [address] | + + + | Home Phone [...] Author + + + | Author | [place] [email or web address] [facility] | + + + | Organization | [facility] | + + + | Address | Unknown | + + + | Phone | Unavailable | + + + Support + + +---------+ + | Name | Relationship | Address | Phone | + + +---------+ + | Debra Vaca | ECON | Unknown | | + + +---------+ + Care Team Providers + +------+ + | Care Engine Tester Name | Role | Phone | + +------+ + | No Pcp Per Patient | PCP | Unavailable | + +------+ + Encounter Details +--------+ + + + + | Date | Type | Department | Care Team | Description | +--------+ + + + + | 03/23/ | Engagement Mgr | Cardiothoracic | Nelson Mccarty NP | Neuroendocrine tumor | | 2017 | | Surgery at [facility] [address] | [address] | (Primary Dx) | | | | [address] [facility] | [place], [place] | | | | | Rd Mail[address]: [address] | [address] | | | | | Physician's | [phone] | | | | | [place], | | | | | | [place] [address] | | | | | | [phone] | | | +--------+ + + + [...] filedocumented as of this encounter Visit Diagnoses + + | Diagnosis | + + | 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
--- OUTSIDE RECORDS SUMMARY | ~2019-09-14 | XMS | Encounter Summary ---
Demographics + + + | Address | [address] | | | [place] [address] | + + + | Home Phone | | + + + | Preferred Language | Unknown | + + + | Marital Status | Single | + + + | Religion Affiliation | NRP | + + + | Race | or | + + + | Ethnic Group | Not or | + + + Author + + + | Author | [place] [facility] [facility] | + + + | Organization | Formerly [facility] | + + + | Address | Unknown | + + + | Phone | Unavailable | + + + Support + + +---------+ + | Name | Relationship | Address | Phone | + + +---------+ + | Debra Vaca | ECON | Unknown | | + + +---------+ + Care Team Providers + +------+ + | Care Powder Line Repairer Name | Role | Phone | + [...] + + + + | 04/02/ | Hospital | [facility] [address] | Zeeshan Heredia, | | | 2017 - | Encounter | [address] | [address] [facility] | | | | | [id number] [facility] | [address] | | | 04/07/ | | [facility], | [place], [place] | | | 2016 | | [place] [address] | [address] | | | | | [phone] | [phone] | | | | | | | [...] was removed on POD #4 and a hiier-nc-bcodtwoo pneumothorax wa s noted on follow-up chest [...] Medications: . Bailey Anders Home Medication Instructions JAM:[id number] Printed on:04/07/17 0642 Medication Information acetaminophen 325 mg oral tablet [...] of the patient's mabel rachell. Follow-up appointment(s): [facility] Thoracic Surgery, Monday, April 10, 2017 Pathology report: still pending at time of discharge Copies of this summary should be sent to: No Pcp Per PATIENT; Elnea Morales PA-C documented in this e ncounter [...] as of this encounter Progress Notes Nelson Mccarty, SAM - 04/06/2017 8:48 AM PDT Thoracic Surgery [...] tumor doing well s/p resec tion Plan (gask-jg-ounulque issues): - Post-op pain: continue PRN Tylenol and oxycodone - Chest tube management: removed earlier today - Bigeminy: monitor for now - Hypokalemia: replete (along with magnesium) today - Other: F/U final path - Prophylaxis: remains on SQ enoxaparin; bowel regimen; no GI prophylaxis while eating - Dispo: anticipate discharge to home tomorrow Plan (suf-liqymzlp-eqryhxr issues); the brief history and exam findings [...] Date: 04/05/2017 Admission Date: 04/02/2017 BAILEY ANDERS, [id number] Hospital Day #3 PROCEDURE: 04/02/17 Procedure: flex [...] Recent Labs 03/09/17 1627 04/02/17 1639 04/03/17 0308 04/04/17 0515 WBC 5.99 -- 17.04* 17.40* 9.02 [...] SCD Dispo: 1-2days. Reji Elaine MD Pager: [phone] Anne Jean PA-C - 04/04/2017 2:04 PM PDT Cardiovascular Intensive Care Unit Team Progress Note CVICU D2 Assigned #[id number] ICU Admission Reason Most Recent Value ICU Admission reason managment post thoracic surgery filed at 04/02/2017 165 Documentation Date 04/02/171649 Thoracic Thoracic Thoracic Procedures VATS VATS Segmentectomy [...] Zeeshan Heredia MD Admitting Provider Cardiothoracic Surgery [id number] The Advanced Care Note for this patient [...] 04/04/2017 ZACK Cruz PA-C Author:Anne Pat PA-C [address] [place] [address]Blytdtuznhblfa signed by Anne Pat PA-C at 04/04/2017 2:07 PM Elaine Ramirez MD - 04/04/2017 10:30 AM PDTBrief APS Follow-up Note Epidural catheter pulled yesterday, patient successfully transitioned to PO meds. Reports e xcellent pain control. APS will sign off. Please re-consult as necessary. Please page [phone] with any questions or concerns Elaine Barragan MD Pain Fellow Anesthesiology and Pain Management [facility] ak, Wilfredo beard MD - 04/04/2017 9:59 AM PDT Cardiovascular Intensive Care Unit Attending Progress Note CVICU D2 Assigned #[id number] ICU Admission Reason Most Recent Value ICU [...] smoke while on home O2, and will breastfeeding peer counselor on the importance o f quitting. [...] Zeeshan Heredia MD Admitting Provider Cardiothoracic Surgery 75459 Code Status Code Status DNR/DNI The Advanced [...] on counseling and coordination of care.Seen with PA/VECTOR CONTROL ASSISTANT Adilia. Please se e their note for details. I reviewed the documented findings, all data and the recent imagin g available. Date of Service: 04/04/2017 Author:Srinivasa Latif MD [address] [id number] signed by Srinivasa Latif MD at 04/04/2017 12:43 PM PDT Zeeshan Heredia MD - 04/04/2017 9:26 AM [...] tx to howell Zeeshan Heredia M.D. FACS bottling equipment sales representative [facility] Division of Cardiothoracic Surgery Section of Thoracic Surgery [address] [facility] [place] [address] Sonia Wharton MD - 04/03 6:41 PM [...] R VATS sup segmentectomy. Doing well. Plan (kpps-fk-saryalsy issues): - chest tubes to waterseal - [...] Unit Team Progress Note CVICU D2 Assigned #[id number] ICU Admission Reason Most Recent Value ICU [...] Zeeshan Heredia MD Admitting Provider Cardiothoracic Surgery 10732 The Advanced Care Note for this patient [...] 04/03/2017 ZACK Cruz PA-C Author:Anne Pat PA-C [address] [id number] signed by Anne Pat PA-C at 04/03/2017 4:17 PM Riki Alamo NP - 04/03/2017 3:21 PM PDTBrief APS [...] concerns. Riki Urban NP Adult Pain Service akSrinivasa MD - 04/03/2017 10:48 AM PDTFormatting of this note might be different from th e original. Cardiovascular Intensive Care Unit Attending Progress Note CVICU D2 Assigned #[id number] ICU Admission Reason Most Recent Value ICU [...] smoke while on home O2, and will breastfeeding peer counselor on the importa nce of quitting. [...] Zeeshan Heredia MD Admitting Provider Cardiothoracic Surgery 94760 Code Status Code Status DNR/DNI The Advanced [...] on counseling and coordination of care.Seen with PA/VECTOR CONTROL ASSISTANT Lavarias. Please se e their note for details. I reviewed the documented findings, all data and the recent imagin g available. Date of Service: 04/03/2017 Author:Srinivasa Latif MD [address] [email or web address] signed by Srinivasa Latif MD at 04/03/2017 3:42 PM PDT Mandi Lopez RN - 04/03/2017 9:14 AM PDTUtilization Management Assessment [facility] Care Guideline1 applied: Lobectomy, Lung, by Video-Assisted [...] ACM Utilization Management Department of Care Management [facility] P: [phone]|PGR: [phone] #[id number] F: [phone]|[email or web address] Nelson Rivero MD - 04/02/2017 8:01 PM PDT Cardiovascular Intensive Care Unit Attending Progress Note CVICU D2 Assigned #[id number] ICU Admission Reason Most Recent Value ICU [...] status appears stable. Will continue to tabitha earlene for any possible deterioration in her respiratory [...] Zeeshan Heredia MD Admitting Provider Cardiothoracic Surgery 89595 Code Status Code Status DNR/DNI Quality section [...] Date of Service: 04/02/2017 Author:Nelson Smart MD [address] [id number] signed by Nelson Smart MD at 04/02/2017 [...] | | removed thoracoscopically by superior segmentectomy.CHRISTOPHER Stapleton/OTONIELLDD: | | 04/02/2017 14:23:54DT: 04/02/2017 15:25:19Job #: [id number] | | | | | | | |Gwendolyn Toribio MD | |MS/MODL | | | | | | /[id number] | + + X-RAY PORTABLE CHEST 1 VIEW (04/07/2017 2:04 PM PDT) + + | Specimen | + + | | + + + + + | Narrative | Performed At | + + + | STUDY: CT CHEST 1 VIEW 04/07/17 13:30:59 HISTORY: Status [...] Interface - 04/07/2017 3:03 PM PDT STUDY: CT CHEST 1 | | VIEW 04/07/17 13:30:59 [...] At | + + + | EXAM: CT CHEST 1 VIEW 04/07/17 09:08:12 HISTORY: Evaluate [...] Interface - 04/07/2017 11:13 AM PDT EXAM: CT CHEST 1 | | VIEW 04/07/17 09:08:12 [...] At | + + + | EXAM: CT CHEST 1 VIEW 11/30/99 00:00:00 HISTORY: Right [...] Account, Radiant Res In Interface - 04/06/2017 4:43 PM PDT EXAM: CT CHEST 1 | | VIEW 11/30/99 00:00:00HISTORY: [...] + + + + + | [facility] | [address] | [place], [place] | | | CARDIOLOGY | [address] | [address] | | + + + + + X-RAY PORTABLE CHEST 1 VIEW (04/06/2017 12:17 PM PDT) + + | Specimen | + + | | + + + + + | Narrative | Performed At | + + + | EXAM: CT CHEST 1 VIEW 04/06/17 11:57:26 HISTORY: Thoracostomy [...] Interface - 04/06/2017 3:23 PM PDT EXAM: CT CHEST 1 | | VIEW 04/06/17 11:57:26HISTORY: [...] | | + +---------+ + + | [facility] | | | | | VOICE [...] | + + + + + | [facility] | [address] | [place] [address] | | | SERVICES, CORE | PARK [...] | | | LABORATORY | | | AUSTRIAN | | | SERVICES, | | | [...] the MDRD equation recommended by the | [facility] | | National Kidney Disease Education Program. [...] + + + + + | [facility] | [address] [facility] | [place] [address] | | | SELENE, DESTINEE | WILLY [...] [facility] | [address] | [place], [place] | | | YOLANDA AVERY OF CARE | [address] | [address] | | | TESTS | | | [...] + | [facility] | [address] | [place], [place] | | | YOLANDA AVERY OF CARE | [address] | [address] | | | TESTS | | | [...] [facility] | [address] | [place], [place] | | | BENNIE POINT OF CARE | [address] | [address] | | | TESTS | | | | + + + + + X-RAY PORTABLE CHEST 1 VIEW (04/04/2017 10:46 AM PDT) + + | Specimen | + + | | + + + + + | Narrative | Performed At | + + + | EXAM: CT CHEST 1 VIEW 04/04/17 10:08:34 HISTORY: Airleak [...] Interface - 04/04/2017 11:16 AM PDT EXAM: CT CHEST 1 | | VIEW 04/04/17 10:08:34HISTORY: [...] At | + + + | EXAM: CT CHEST 1 VIEW 11/30/99 00:00:00 HISTORY: Postoperative [...] Interface - 04/04/2017 8:54 AM PDT EXAM: CT CHEST 1 | | VIEW 11/30/99 00:00:00HISTORY: [...] Heredia MD Co-Surgeon: Gwendolyn Toribio. | | Fuselage Framer(s): Sonia Butt. Preoperative Diagnoses: 1. 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 Hypertension.3. Chronic | | obstructive pulmonary disease.Postprocedure Diagnoses: 1. Right lower lobe superior | | segment bronchopulmonary carcinoid.2. Hypertension.3. Chronic obstructive pulmonary | | disease.Procedures: 1. Flexible bronchoscopy.2. Right thoracoscopy with superior | | segmentectomy.3. Mediastinal lymph node sampling.Anesthesia: General endotracheal | | anesthesia.Drains: Right 28-Setswana chest tube.Complications: None apparent.Findings: | | The [...] | intercostal space was made for an assistant professor of chemistry port. We began the dissection by dividing [...] utility incision in the posterior | | assistant professor of chemistry port was reopened. The previously placed sutures [...] 04/03/2017 07:09:16DT: | | 04/03/2017 08:52:19Job #: [id number] | + + CBC (HEMOGRAM) ONLY (04/04/2017 [...] | + + + + + | [facility] | [address] | [place] [address] | | | SERVICES, CORE | [address] | | | + [...] SELENE, | | | | | | DESTINEE | | + +-------+ + + + + + | Specimen | + + | Blood - Blood | | (substance) | + + + + + + + | Performing | Address | City/State/Zipcode | Phone Number | | Organization | | | | + + + + + | [facility] | [address] | [place] [address] | | | [place] | WILLY [...] | | | LABORATORY | | | AUSTRIAN | | | SERVICES, | | | [...] | + + + + + | [facility] | [address] [facility] | [place] [address] | | | [place]INEE [place] | WILLY [...] At | + + + | EXAM: CT CHEST 1 VIEW 04/03/17 04:36:51 HISTORY: Post [...] Interface - 04/03/2017 8:20 AM PDT EXAM: CT CHEST 1 | | VIEW 04/03/17 04:36:51 [...] + + + + + | [facility] | [address] | [place] [address] | | | SERVICES, CORE | [address] | | | + + + + + MAGNESIUM, PLASMA (04/03/2017 3:08 AM PDT) + +-------+ + + + | Component | Value | Ref Range | Performed | Pathologist | | | | | At | Signature | + +-------+ + + + | MAGNESIUM,P | 2.1 | 1.8 - 2.5 mg/dL | [facility]O | | | JUSTUSMA | | | [...] | + + + + + | [facility] | [address] [facility] | [place] [address] | | | SERVICES, CORE | WILLY [...] | | | LABORATORY | | | AUSTRIAN | | | SERVICES, | | | [...] the MDRD equation recommended by the | [facility] | | National Kidney Disease Education Program. [...] [facility] | [address] | [place] [address] | | | SERVICES, CORE | PARK [...] [facility] | [address] | [place] [address] | | | SERVICES, CORE | WILLY [...] + + + + + | [facility] | [address] | [place] [address] | | | SERVICES, CORE | [address] | | | + + + + + MAGNESIUM, PLASMA (04/02/2017 4:39 PM PDT) + +---------+ + + + | Component | Value | Ref Range | Performed | Pathologist | | | | | At | Signature | + +---------+ + + + | MAGNESIUM,P | 1.5 (L) | 1.8 - 2.5 mg/dL | [facility] [...] + + + + + | [facility] | [address] | [place] [address] | | | SERVICES, CORE | PARK [...] | | | LABORATORY | | | AUSTRIAN | | | SERVICES, | | | [...] | + + + + + | [facility] | [address] | [place] [address] | | | SERVICES, CORE | WILLY [...] + + + + + | [facility] | [address] | [place], [place] | | | YOL[place]DA AVERY OF [place] | [address] | [address] | | | TESTS | | | | + + + + + X-RAY PORTABLE CHEST 1 VIEW (04/02/2017 3:55 PM PDT) + + | Specimen | + + | | + + + + + | Narrative | Performed At | + + + | EXAM: CT CHEST 1 VIEW 04/02/17 15:25:31 HISTORY: Post [...] Interface - 04/02/2017 5:08 PM PDT EXAM: CT CHEST 1 | | VIEW 04/02/17 15:25:31 [...] + + + + + | [facility] | [address] | [place], [place] | | | YOLANDA AVERY OF CARE | [address] | [address] | | | TESTS | | | [...] + + + + + | [facility] | [address] | [place], [place] | | | YOLANDA AVERY OF CARE | [address] | [address] | | | TESTS | | | | + + + + + ABG-FULL ABL, POC (04/02/2017 11:01 AM PDT) + + + [...] % | [facility] - | | | IN POC | | | [facility] | | | | | | YOLANDA [...] [facility] | [address] | [place], [place] | | | YOLANDA AVERY OF CARE | [facility] | [address] | | | TESTS | | | [...] [facility] | [address] | [place], [place] | | | BENNIE POINT OF CARE | [address] | [address] | | | TESTS | | | [...] | + + + + + | [facility] | [address] | [place] [address] | | | SERVICES, | [address] [...] + + + + + | [facility] | [address] | [place] [address] | | | SELENE | [address] | | | | TRANSFUSION MEDICINE | [...] (H) | 60 - 99 mg/dL | [facility] - | | | GLUCOSE, | | [...] [facility] | [address] | [place], [place] | | | BENNIE POINT OF CARE | [address] | [address] | | | TESTS | | | [...] | | | | | Case seen by:Nastaran | | | | | | Neishaboori, [...] Grade: | | | | | | C0Fpdpejsc Pleura | | | | | | [...] | | | | | Tumor (pT): [id number] | | | | | | Lymph Nodes (pN): | | | | | | pK1Ckvawt of regional | | | | | [...] by: | | | | | | [place] | | | | | | Patel/MedicalStudent | | | | | | Fellow and Mosque | | | | | | MD [...] by: | | | | | | [place] | | | | | | Patel/MedicalStudent | | | | | | Fellow, Jacque Bruner, | | | | | | MD/Surgical Pathology | | | | | | Fellow and Romain | | | | | | Prateek/Hematopathologi | | | | | | st [...] record | | | | | | #[id number].A. 9R lymph | | | | | [...] offibrosis. | | | | | | Carbon Coating Machine Operator sections | | | | | | [...] marginC4, | | | | | | lead generation representative | | | | | | adhesionC5, | | | | | | lead generation representative | | | | | | [...] necessary | | | | | | forstanda medical | | | | | | care. This test was | | | | | | developed and its | | | | | | performancecharacteristi | | | | | | cs determined by [facility] | | | | | | laboratories. [...] Ph.D.PathologistElectron | | | | | | ically Signed 04/08/2017 | | | | | [...] | + + + + + | 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 | + + | COPD (chronic obstructive pulmonary disease) (HCC) Chronic airway obstruction, not | | elsewhere classified | + + | Acute post-operative pain | + + | Postoperative hypotension Other iatrogenic hypotension | + + | Smoking addiction Tobacco use disorder | + + documented in this encounter [...] +--------+------+------+ +---+---+ | | | +---+---+ + + + +---+---------+---+ | bupivacaine 0.05 | Rate/Dos | 04/03/20 | | 2 mL/hr | | | %-HYDROmorphone 20 mcg/mL | e Verify | 17 10:00 | | | | | epidural infusion epidural, | | AM PDT | | | | | CONTINUOUS, Starting Michelle 04/02/17 | | | | | | | at 0800, Until 04/03/17 at 1508 | | | | | | + + + +---+---------+---+ + + +---+---------+---+ | Rate/Dose Verify | 04/03/20 | | 2 mL/hr | | | | 17 9:00 | | | | | | AM PDT | | | | + + +---+---------+---+ | Rate/Dose Verify | 04/03/20 | | 2 mL/hr | | | | 17 8:00 | | | | | | AM PDT | | | | + + +---+---------+---+ +---+---+ | | | +---+---+ + +-------+ [...] +---+---+ | | | +---+---+ + +---------+ +-----+---+---+ | ceFAZolin IV 2 gram in dextrose | New Bag | 04/03/20 | 2 g | | | | (RTU) 2 g, intravenous, EVERY 8 | | 17 4:02 | | | | | HOURS, 2 doses, First dose on | | AM PDT | | | | | Michelle 04/02/17 at 2000, Last dose on | | | | | | | 04/03/17 at 0400 | | | | | | + +---------+ +-----+---+---+ +---------+ +-----+---+---+ | New Bag | 04/02/20 | 2 g | | | | | 17 8:25 | | | | | | PM PDT | | | | +---------+ +-----+---+---+ +---+---+ | | | +---+---+ + +---------+ + + +---+ | dextrose 5%-NaCl 0.45%-KCl 20 | New Bag | 04/02/20 | 50 mL/hr | 50 mL/hr | | | mEq/L IV infusion 50 mL/hr, | | 17 3:28 | | | | | intravenous, CONTINUOUS, Starting | | PM PDT | | | | | Michelle 04/02/17 at 1515, Until Michelle | | | | | | | 04/02/17 at 1636 | | | | | | + +---------+ + + +---+ +---+---+ | | | +---+---+ + +-------+ [...] PDT | | | | +-------+ +-------+---+---------+ +---+---+ | | | +---+---+ + +-------+ +-------+---+---------+ | enoxaparin (LOVENOX) injection | Given | 04/04/20 | 40 mg | | Abdomen | | 40 mg 40 mg, subcutaneous, EVERY | | 17 8:46 | | | | | EVENING, First dose on Fri | | PM PDT | | | | | 04/03/17 at 2100, Until | | | | | | | Discontinued | | | | | | + +-------+ +-------+---+---------+ +-------+ +-------+---+---------+ | Given | 04/03/20 | 40 mg | | Abdomen | | | 17 10:09 | | | | | | PM PDT | | | | +-------+ +-------+---+---------+ +---+---+ | | | +---+---+ + +-------+ +--------+---+---+ | fentaNYL (SUBLIMAZE) injection | Given | 04/02/20 | 50 mcg | | | | 50 mcg 50 mcg, intravenous, | | 17 3:15 | | | | | POSTPROCEDURE PRN, 4 doses, | | PM PDT | | | | | Starting Michelle 04/02/17 at 0902, | | | | | | | Until Michelle 04/02/17 at 1620, severe | | | | | | | pain while in Phase I Recovery | | | | | | + +-------+ +--------+---+---+ + +---+ | | | + +---+ | fentaNYL (SUBLIMAZE) injection | | | 1 dose, Starting Michelle 04/02/17 at | | | 1515, Until [facility] 04/02/17 at 1515 | | + +---+ | | | + +---+ | hydrALAZINE (APRESOLINE) | | | injection 10 mg 10 mg, | | | intravenous, EVERY 6 HOURS | | | NEEDED, Starting 04/06/17 at | | | 1237, Until 04/07/17 at 2310, | | | SBP > 170 mmHg | | + +---+ | | | + +---+ + +-------+ +--------+---+---+ | HYDROmorphone (DILAUDID) | Given | 04/02/20 | 0.3 mg | | | | injection 0.2-0.5 mg 0.2-0.5 mg, | | 17 3:27 | | | | | intravenous, POSTPROCEDURE PRN, | | PM PDT | | | | | Starting [facility] 04/02/17 at 0902, | | | | | | | Until [facility] 04/02/17 at 1620, | | | | | | | moderate pain while in Phase I | | | | | | | Recovery | | | | | | + +-------+ +--------+---+---+ +-------+ +--------+---+---+ | Given | 04/02/20 | 0.2 mg | | | | | 17 3:17 | | | | | | PM PDT | | | | +-------+ +--------+---+---+ + +---+ | | | + +---+ | HYDROmorphone (DILAUDID) | | | injection 1 dose, Starting Michelle | | | 04/02/17 at 1515, Until Michelle 04/02/17 | | | at 1517 | | + +---+ | | | + +---+ + +-------+ +------+---+---+ | ipratropium-albuterol (DUO-NEB) | Given | 04/04/20 | 3 mL | | | | nebulizer solution 3 mL 3 mL, | | 17 9:01 | | | | | inhalation, EVERY 6 HOURS, First | | PM PDT | | | | | dose (after last modification) on | | | | | | | Michelle 04/02/17 at 1730, Until | | | | | | | Discontinued | | | | | | + +-------+ +------+---+---+ +-------+ +------+---+---+ | Given | 04/04/20 | 3 mL | | | | | 17 4:00 | | | | | | PM PDT | | | | +-------+ +------+---+---+ | Given | 04/04/20 | 3 mL | | | | | 17 10:06 | | | | | | AM PDT | | | | +-------+ +------+---+---+ + +---+ | | | + +---+ | ipratropium-albuterol (JORGEO-NEB) | | | nebulizer solution 3 mL 3 mL, | | | inhalation, EVERY 4 HOURS | | | NEEDED, Starting 04/04/17 at | | | 2115, Until Thu04/07/17 at 2310, | | | dyspnea/SOB | | + +---+ | | | + +---+ | ipratropium-albuterol (DUO-NEB) | | | nebulizer solution 1 dose, | | | Starting Michelle 04/02/17 at 1705, | | | Until Michelle 04/02/17 at 1707 | | + +---+ | | | + +---+ + +---------+ + + +---+ | lactated Ringers IV 10 mL/hr, | New Bag | 04/02/20 | 10 mL/hr | 10 mL/hr | | | intravenous, PROCEDURE | | 17 6:16 | | | | | CONTINUOUS, Starting Michelle 04/02/17 | | AM PDT | | | | | at 0545, Until Michelle 04/02/17 at 1620 | | | | | | + +---------+ + + +---+ +---+---+ | | | +---+---+ + + + +--------+---+---+ | lactated Ringers IV 500 mL, | Bolus | 04/02/20 | 500 mL | | | | intravenous, POSTPROCEDURE PRN, 1 | from | 17 10:10 | | | | | dose, Starting Michelle 04/02/17 at | Same Bag | PM PDT | | | | | 0902, Until Michelle 04/02/17 at 2210, | | | | | | | systolic blood pressure less than | | | | | | | 80 mmHg. 1st line | | | | | | + + + +--------+---+---+ +---------+ +--------+---+---+ | New Bag | 04/02/20 | 500 mL | | | | | 17 3:39 | | | | | | PM PDT | | | | +---------+ +--------+---+---+ +---+---+ | | | +---+---+ + +---------+ +--------+---+---+ | lactated Ringers IV 500 mL, | New Bag | 04/02/20 | 500 mL | | | | intravenous, ONCE, 1 dose, Michelle | | 17 5:09 | | | | | 04/02/17 at 1745 | | PM PDT | | | | + +---------+ +--------+---+---+ +---+---+ | | | +---+---+ + +---------+ +--------+---+---+ | lactated Ringers IV 500 mL, | New Bag | 04/03/20 | 500 mL | | | | intravenous, ONCE, 1 dose, Fri | | 17 6:56 | | | | | 04/03/17 at 0715 | | AM PDT | | | | + +---------+ +--------+---+---+ +---+---+ | | | +---+---+ + +---------+ +--------+---+---+ | lactated Ringers IV 500 mL, | New Bag | 04/03/20 | 500 mL | | | | intravenous, ONCE, 1 dose, Fri | | 17 8:14 | | | | | 04/03/17 at 0815 | | AM PDT | | | | + +---------+ +--------+---+---+ +---+---+ | | | +---+---+ + +-------+ +-------+---+---+ | lisinopril (PRINIVIL) tablet 10 | Given | 04/05/20 | 10 mg | | | | mg 10 mg, oral, TWICE DAILY, | | 17 9:00 | | | | | First dose on 04/04/17 at 1015, | | AM PDT | | | | | Until Discontinued | | | | | | + +-------+ +-------+---+---+ +-------+ +-------+---+---+ | Given | 04/04/20 | 10 mg | | | | | 17 8:45 | | | | | | PM PDT | | | | +-------+ +-------+---+---+ | Given | 04/04/20 | 10 mg | | | | | 17 11:33 | | | | | | AM PDT | | | | +-------+ +-------+---+---+ +---+---+ | | | +---+---+ + +-------+ +-------+---+---+ | lisinopril (PRINIVIL) tablet 20 | Given | 04/06/20 | 20 mg | | | | mg 20 mg, oral, TWICE DAILY, | | 17 10:05 | | | | | First dose (after last | | AM PDT | | | | | modification) on Thu04/05/17 at | | | | | | | 2100, Until Discontinued | | | | | | + +-------+ +-------+---+---+ +-------+ +-------+---+---+ | Given | 04/05/20 | 20 mg | | | | | 17 8:22 | | [...] +-------+---+---+ +---+---+ | | | +---+---+ + +---------+ +-----+---+---+ | magnesium sulfate in water IV | New Bag | 04/02/20 | 2 g | | | | (RTU) 2 g 2 g, intravenous, | | 17 5:38 | | | | | ONCE, 1 dose, Michelle 04/02/17 at 1815 | | PM PDT | | | | + +---------+ +-----+---+---+ +---+---+ | | | +---+---+ + +---------+ +-----+---+---+ | magnesium sulfate in water IV | New Bag | 04/06/20 | 2 g | | | | (RTU) 2 g 2 g, intravenous, | | 17 10:09 | | | | | ONCE, 1 dose, 04/06/17 at 0900 | | AM PDT | | | | + +---------+ +-----+---+---+ +---+---+ | | | +---+---+ + +-------+ +---------+---+---+ | metoprolol tartrate (LOPRESSOR) | Given | 04/06/20 | 12.5 mg | | | | tablet 12.5 mg 12.5 mg, oral, | | 17 10:05 | | | | | EVERY 6 HOURS, First dose (after | | AM PDT | | | | | last modification) on 04/06/17 | | | | | | | at 1000, Until Discontinued | | | | | | + +-------+ +---------+---+---+ +---+---+ | | | +---+---+ + +-------+ +---------+---+---+ | metoprolol tartrate (LOPRESSOR) | Given | 04/06/20 | 6.25 mg | | | | tablet 6.25 mg 6.25 mg, oral, | | 17 5:07 | | | | | EVERY 6 HOURS, First dose on Sun | | AM PDT | | | | | 04/05/17 at 1545, Until | | | | | | | Discontinued | | | | | | + +-------+ +---------+---+---+ +-------+ +---------+---+---+ | Given | 04/05/20 | 6.25 mg | | | | | 17 9:42 | | | | | | PM PDT | | | | +-------+ +---------+---+---+ | Given | 04/05/20 | 6.25 mg | | | | | 17 3:45 | | | | | | PM PDT | | | | +-------+ +---------+---+---+ +---+---+ | | | +---+---+ + +-------+ +--------+---+---+ | nalbuphine (NUBAIN) injection | Given | 04/03/20 | 2.5 mg | | | | 2.5 mg 2.5 mg, intravenous, | | 17 10:43 | | | | | EVERY 15 MINUTES NEEDED, | | AM PDT | | | | | Starting Michelle 04/02/17 at 0724, | | | | | | | Until 04/03/17 at 1508, | | | | | | | itching, persistent | | | | | | | nausea/vomiting 30 min following | | | | | | | ondansetron administration | | | | | | + +-------+ +--------+---+---+ +---+---+ | | | +---+---+ + +-------+ +------+---+---+ | ondansetron (ZOFRAN) injection | Given | 04/03/20 | 4 mg | | | | 4 mg 4 mg, intravenous, EVERY 12 | | 17 6:42 | | | | | HOURS NEEDED, Starting Michelle | | AM PDT | | | | | 04/02/17 at 0724, Until 04/03/17 | | | | | | | at 1508, nausea/vomiting, first | | | | | [...] | | +---+---+ + +-------+ +--------+---+---+ | potassium chloride (KAOCHLOR) | Given | 04/06/20 | 60 mEq | | | | liquid 10% 60 mEq 60 mEq, oral, | | 17 10:05 | | | | | ONCE, 1 dose, 04/06/17 at 0900 | | AM PDT | | | | + +-------+ +--------+---+---+ +---+---+ | | | +---+---+ + +---------+ +--------+---+---+ | potassium chloride IV | New Bag | 04/02/20 | 20 mEq | | | | (peripheral line) 20 mEq 20 mEq, | | 17 6:15 | | | | | intravenous, ONCE, 1 dose, Michelle | | PM PDT | | | | | 04/02/17 at 1815 | | | | | | + +---------+ +--------+---+---+ + +---+ | | | + +---+ [...]
--- OUTSIDE RECORDS SUMMARY | ~2019-09-14 | XMS | Encounter Summary ---
Demographics + + + | Address | [address] | | | [place] [address] | + + + | Home Phone [...] Author + + + | Author | [place] [employer] [facility] | + + + | Organization | [facility] | + + + | Address | Unknown | + + + | Phone | Unavailable | + + + Support + + +---------+ + | Name | Relationship | Address | Phone | + + +---------+ + | Debra Vaca | ECON | Unknown | | + + +---------+ + Care Team Providers + +------+ + | Care Cota Name | Role | Phone | + [...] cancer (HCC) | | | | at [facility] 3rd Floor | | | | | | [address] | | | | | | [place], | | | | | | [place] [address] | | | | | | [phone] | | | +--------+------+ + + + [...] + + | [facility] | [address] [facility] | [place] [address] | | | SERVICES, | [address] [...] [facility] | [address] | [place] [address] | | | SERVICES, | [address] [...] | + + + + + | [facility] | [address] | [place] [address] | | | DESTINEE MORTON | WILLY [...] | | | LABORATORY | | | GERMAN | | | SERVICES, | | | [...] | + + + + + | [facility] | [address] | [place] [address] | | | SERVICES, CORE | WILLY [...] | + + + + + | [facility] | [address] | [place] [address] | | | SERVICES, CORE | [address] [...] glycated albumin should be considered for monitoring half-way | LABORATORY | | glycemic control in [...] [facility] | [address] | [place] [address] | | | SERVICES, SPECIAL | [address] | | | | IMM + COAG | | | | + + + + + documented in this encounter Visit Diagnoses + + | Diagnosis | + + | Neuroendocrine cancer (HCC) Other malignant neoplasm without specification of site | + + documented in this encounter"
--- OUTSIDE RECORDS SUMMARY | ~2019-09-14 | XMS | Encounter Summary ---
Demographics + + + | Address | [address] | | | [place] [address] | + + + | Home Phone | | + + + | Preferred Language | Unknown | + + + | Marital Status | Single | + + + | Confucianism Affiliation | NRP | + + + | Race | or | + + + | Ethnic Group | Not or | + + + Author + + + | Author | [place] [employer] [facility] | + + + | Organization | [facility] | + + + | Address | Unknown | + + + | Phone | Unavailable | + + + Support + + +---------+ + | Name | Relationship | Address | Phone | + + +---------+ + | Debra Vaca | ECON | Unknown | | + + +---------+ + Care Team Providers + +------+ + | Care Real Estate Internship Name | Role | Phone | + +------+ + | No Pcp Per Patient | PCP | Unavailable | + +------+ + Encounter Details +--------+ + + + + | Date | Type | Department | Care Team | Description | +--------+ + + + + | 04/09/ | Clinical Documentation Improvement Specialist | Cardiothoracic | Nelson Mccarty NP | Neuroendocrine | | 2017 | | Surgery at [facility] [address] | [address] | carcinoma of lung | | | | [facility] | [place], [place] | (HCC) (Primary Dx) | | | | Rd Mail[address]: [address] | [address] | | | | | Physician's | [phone] | | | | | [place], | | | | | | [place] [address] | | | | | | [phone] | | | +--------+ + + + [...] | bronchus and lung | + + documented in this encounter"
--- OUTSIDE RECORDS SUMMARY | ~2019-09-14 | XMS | Encounter Summary ---
Demographics + + + | Address | [address] | | | [place] [address] | + + + | Home Phone | | + + + | Preferred Language | Unknown | + + + | Marital Status | Single | + + + | Yarsani Affiliation | NRP | + + + | Race | or | + + + | Ethnic Group | Not or | + + + Author + + + | Author | [place] [employer] [facility] | + + + | Organization | [facility] | + + + | Address | Unknown | + + + | Phone | Unavailable | + + + Support + + +---------+ + | Name | Relationship | Address | Phone | + + +---------+ + | Debra Vaca | ECON | Unknown | | + + +---------+ + Care Team Providers + +------+ + | Care Silo Painter Name | Role | Phone | + +------+ + | No Pcp Per Patient | PCP | Unavailable | + +------+ + Encounter Details +--------+ + + + + | Date | Type | Department | Care Team | Description | +--------+ + + + + | 04/09/ | Server Security Administrator | Cardiothoracic | Nelson Mccarty NP | Neuroendocrine | | 2017 | | Surgery at [facility] [address] | [address] | carcinoma of lung | | | | [facility] | [place], [place] | (HCC) (Primary Dx) | | | | Rd Mail[address]: [address] | [address] | | | | | Physician's | [phone] | | | | | [place], | | | | | | [place] [address] | | | | | | [phone] | | | +--------+ + + + [...]
--- OUTSIDE RECORDS SUMMARY | ~2019-09-14 | XMS | Encounter Summary ---
Demographics + + + | Address | [address] | | | [place] [address] | + + + | Home Phone | | + + + | Preferred Language | Unknown | + + + | Marital Status | Single | + + + | Gnosticism Affiliation | NRP | + + + | Race | or | + + + | Ethnic Group | Not or | + + + Author + + + | Author | [place] [employer] [facility] | + + + | Organization | [facility] | + + + | Address | Unknown | + + + | Phone | Unavailable | + + + Support + + +---------+ + | Name | Relationship | Address | Phone | + + +---------+ + | Debra Vaca | ECON | Unknown | | + + +---------+ + Care Team Providers + +------+ + | Care Hospice Office Coordinator Name | Role | Phone | + [...] evaluation | | 2017 | bill | [facility] at | | | | | | [facility] | | | | | | Stay [address] [facility] | | | | | | [place] | | | | | | Mailcode: UHN65 | | | | | | [place] | | | | | | [address] [place], [place] | | | | | | [address] | | | | | | [phone] | | | +--------+ + + + [...] +--------+ + + + | Periph | cSar Orozco; Right; Dorsal; Hand; | 04/02/17 0833 [...]
--- OUTSIDE RECORDS SUMMARY | ~2019-09-14 | XMS | Encounter Summary ---
Demographics + + + | Address | [address] | | | [place] [address] | + + + | Home Phone | | + + + | Preferred Language | Unknown | + + + | Marital Status | Single | + + + | Cheondoism Affiliation | NRP | + + + | Race | or | + + + | Ethnic Group | Not or | + + + Author + + + | Author | [place] [employer] [facility] | + + + | Organization | [facility] | + + + | Address | Unknown | + + + | Phone | Unavailable | + + + Support + + +---------+ + | Name | Relationship | Address | Phone | + + +---------+ + | Debra Vaca | ECON | Unknown | | + + +---------+ + Care Team Providers + +------+ + | Care Tele Rn Name | Role | Phone | + [...] Hakeem | Conference | | | | [facility] | [address] | | | | | Dev Mailcode: [address] | [place], [place] | | | | | Physician's | [address] | | | | | [place], | [phone] | | | | | [place] [address] | | | | | | [phone] | | | +--------+ + + + [...]
--- OUTSIDE RECORDS SUMMARY | ~2019-09-14 | XMS | Encounter Summary ---
Demographics + + + | Address | [address] | | | [place] [address] | + + + | Home Phone [...] Author + + + | Author | [place] [employer] [facility] | + + + | Organization | [facility] | + + + | Address | Unknown | + + + | Phone | Unavailable | + + + Support + + +---------+ + | Name | Relationship | Address | Phone | + + +---------+ + | Debra Vaca | ECON | Unknown | | + + +---------+ + Care Team Providers + +------+ + | Care Anvil Seating Press Operator Name | Role | Phone | + +------+ + | No Pcp Per Patient | PCP | Unavailable | + +------+ + Encounter Details +--------+ + + + + | Date | Type | Department | Care Team | Description | +--------+ + + + + | 03/23/ | Stack Supervisor | Cardiothoracic | Nelson Mccarty NP | Neuroendocrine tumor | | 2017 | | Surgery at [facility] [address] | [address] | (Primary Dx) | | | | [address] [facility] | [place], [place] | | | | | Rd Mail[address]: [address] | [address] | | | | | Physician's | [phone] | | | | | [place], | | | | | | [place] [address] | | | | | | [phone] | | | +--------+ + + + [...]
--- OUTSIDE RECORDS SUMMARY | ~2019-09-14 | XMS | Clinical Summary ---
Demographics + + + | Address | [address] | | | [place] [address] | + + + | Home Phone | | + + + | Preferred Language | Unknown | + + + | Marital Status | Unknown | + + + | Buddhism Affiliation | Unknown | + + + | Race | Unknown | + + + | Ethnic Group | Unknown | + + + Author + + + | Author | [facility] | | | and [place] | + + + | Organization | [facility] | | | and [place] | + + + | Address | Unknown | + + + | Phone | Unavailable | + + + Care Team Providers + +------+ + | Care Executive Community Planning Name | Role | Phone | + +------+ + | Shagufta Woods PA-C | PCP | Unavailable | + +------+ + Allergies No Known Allergies Medications + + + +---------+------+------+-------+ | Medication | Sig | Dispensed | Refills | Star | End | Statu | | | | | | t | Date | s | | | | | | Date | | | + + + +---------+------+------+-------+ | lisinopril | Take 40 mg by mouth | | 0 | 12/1 | | Activ | | (PRINIVIL,ZESTRIL) | daily. | | | 4/20 | | e | | 40 MG tablet | | | | 16 | | | + + + +---------+------+------+-------+ | simvastatin | Take 20 mg by mouth | | 0 | 12/1 | | Activ | | (ZOCOR) 20 mg tablet | nightly. | | | 4/20 | | e | | | | | | 16 | | | + + + +---------+------+------+-------+ | fexofenadine | Take 60 mg by mouth | | 0 | 12/2 | | Activ | | (EDIN) 60 mg | as needed. | | | 0/20 | | e | | tablet | Indications: | | | 16 | | | | | Hayfever | | | | | | + + + +---------+------+------+-------+ | naproxen | Take 500 mg by mouth | | 0 | 12/2 | | Activ | | (NAPROSYN) 500 mg | 2 (two) times daily | | | 0/20 | | e | | tablet | with meals. | | | 16 | | | | | Indications: | | | | | | | | Pain/Inflammation | | | | | | + + + +---------+------+------+-------+ Active Problems + + + | Problem | Noted Date | + + + | Carcinoid tumor | 12/03/2016 | + + + | Simple chronic bronchitis | 12/03/2016 | + + + | [...] | | + + +------+ + | Diabetes, NIDDM | Mother | | | + + +------+ + + +------+ + + | Relation | Name | Status | Comments | + +------+ + + | Mother | | | | + +------+ + + | Mother | | | | + +------+ + + Social History + +-------+ +--------+------+ | Tobacco Use | Types | Packs/Day | Years | Date | | | | | Used | | + +-------+ +--------+------+ | Current Every Day | | 0.5 | | | | Smoker | | [...] | Blood Pressure | 142/85 | 12/23/2017 1113 PST | + + + + | Pulse | 72 | 12/23/20171112 PST | + + + + | Temperature | 36 C (96.8 F) | 12/23/20171112 PST | + + + + | Respiratory Rate | 18 | 11/22/2016732 PST | + + + + | Oxygen Saturation | - | - | + + + + | Inhaled Oxygen | - | - | | Concentration | | | + + + + | Weight | 56.2 kg (124 lb) | 12/23/20171112 PST | + + + + | Height | 160 cm (5' 3") | 12/23/20171112 PST | + + + + | Body Mass Index | 21.97 | 12/23/20171112 PST | + + + + Plan of Treatment + + + + + | Health Maintenance | Due Date | Last Done | Comments | + + + + + | Hepatitis C | | | | | Screening | 3 | | | + + + + + | Vaccine: | | | | | Dtap/Tdap/Td (1 - | 2 | | | | Tdap) | | | | + + + + + | Colorectal Cancer | | | | | Screening [...] + | Breast Cancer | | 11/06/2016, 10/30/2015, | | | Screening | 8 | 05/17/2014, Additional history | | | | | exists | | + + + + + | Adult Annual | | | | | Wellness Visit | 9 | | | + + + + + | Vaccine: Influenza | | | | | (#1) | 9 | | | + + + + + Results Not on filefrom Last 3 Months
--- OUTSIDE RECORDS SUMMARY | ~2019-09-14 | XMS | Encounter Summary ---
Demographics + + + | Address | [address] | | | [place] [address] | + + + | Home Phone | | + + + | Preferred Language | Unknown | + + + | Marital Status | Single | + + + | Denominational Affiliation | NRP | + + + | Race | or | + + + | Ethnic Group | Not or | + + + Author + + + | Author | [facility] | + + + | Organization | [facility] | + + + | Address | Unknown | + + + | Phone | Unavailable | + + + Support + + +---------+ + | Name | Relationship | Address | Phone | + + +---------+ + | Debra Vaca | ECON | Unknown | | + + +---------+ + Care Team Providers + +------+ + | Care Gse Mechanic Name | Role | Phone | + [...] + + | 04/10/ | Hospital | [address] | Christian Martinez MD | | | 2017 - | Encounter | [address] | [address] | | | | | [address] [place] [address] | [address] | | | 04/20/ | | [place], [place] | [place], [place] | | | 2016 | | [address] | [address] | | | | | [phone] | [phone] | | | | | | | | | | | | Zeeshan Heredia MD | | | | | | [address] | | | | | | [place], | | | | | | [place] [address] | | | | | | [phone] | | | | | | | [...] Hospital course: Ms. Anders was admitted from [place] with reports of persistent fluid dr ainachristiano [...] Medications: . Bailey Anders Home Medication Instructions [id number] Printed on:04/20/17 9653 Medication Information acetaminophen 325 mg oral tablet [...] Smoking cessation counseling: patient declined Follow-up appointment(s): [facility] Thoracic Surgery in 2 weeks Pathology report: [...] might be different from t young original. [facility] DEPARTMENT OF SURGERY Cardiothoracic Surgery Attending Physician: [...] right pneumothorax and res piratory distress. Plan (qykf-qf-hgmmzueh issues): - Chest tube management: chest tube [...] discharge in 3-4 days pending progress Plan (xfy-hrdpdghe-pjtqnzu issues); the brief history and exam findings are unchanged from above for this part of the note: - HTN: hypotension resolved, consider increasing home carvedilol and lisinopril doses tomor row - Hypercholesterolemia: continue simvastatin - Discussed with MD Jaclyn Morales PA-C [address] [facility] [address] [place] [address] Jaclyn Hunt PA -C - 04/14/2017 5:10 PM PDT Thoracic Surgery Brief Inpatient Progress Note Patient name: BAILEY ANDERS Attending: Zeeshan Heredai MD HD: 4 Reason for admission: leaking [...] right pneumothorax and res piratory distress. Plan (scvk-xa-sxknjmqn issues): - Chest tube management: continue chest [...] bed - Dispo: remains howell status Plan (ugm-zzxfewkq-ayjcvbf issues); the brief history and exam findings [...] cough Wound healing without complication Assessment: Ms. 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 [...] Tues or Thu Zeeshan Heredia M.D. FACS security strategist [facility] Division of Cardiothoracic Surgery Section of Thoracic Surgery [address] [place] [address], [address] [address] Melly Rodriguez RN - 04/12/2017 12:16 PM [...] segmentectomy on 04/02/2017 who was transferred from [facility] for persistent leaking of serosang fluid from CT insertion site. Plan (kpur-zy-wcwgztok issues): - Chest tube management: [facility]. Will consider pleurodesis prior to removi ng chest tube again. Restart Ancef. - Post-procedural pain: continue acetaminophen and oxycodone - Bowel care: advance as tolerated - DVT Proph: encourage ambulation, SCD's while in bed - Dispo: remains howell status, anticipate discharge to home in 1-2 days pending resolution o f pneumothorax, will need assistance from correctional case manager to arrange transport upon discharge Plan (upa-laboesxf-rqoiiin issues); the brief history and exam findings [...] segmentectomy on 04/02/2017 who was transferred from [facility] for persistent leaking of serosang fluid from CT insertion site. Plan (mgdm-bh-kksranro issues): - Chest tube management: chest tube [...] o f pneumothorax, will need assistance from correctional case manager to arrange transport upon discharge Plan (vlv-eeeojula-gcligwy issues); the brief history and exam findings are unchanged from above for this part of the note: - HTN: continue home carvedilol and lisinopril - Hypercholesterolemia: continue simvastatin - Discussed with Dr. Gwendolyn Toribio Mandi Fritz RN - 04/10/2017 3:51 PM PDTUtilization Management Assessment [facility] Care Guideline1 applied: General Criteria: Observation Care [...] AC Utilization Management Department of Care Management [facility] P: [phone]|PGR: [phone] #[id number] F: [phone]|[email or web address] Jaclyn Hunt PA -C - 04/10/2017 [...] serosang fluid from CT insertion site. Plan (zymp-ky-helyhosi issues): - Chest tube management: place chest [...] 1-2 days pending drain remova l Plan (gnz-cyrmkhfa-jfnpspg issues); the brief history and exam findings [...] At | + + + | EXAM: OK CHEST 1 VIEW 04/20/17 08:35:21 HISTORY: Lung [...] Interface - 04/20/2017 10:07 AM PDT EXAM: OK CHEST 1 | | VIEW 04/20/17 08:35:21 [...] At | + + + | EXAM: OK CHEST 1 VIEW 11/30/99 00:00:00 HISTORY: Chest [...] Interface - 04/19/2017 10:55 AM PDT EXAM: OK CHEST 1 | | VIEW 11/30/99 00:00:00HISTORY: [...] At | + + + | EXAM: OK CHEST 1 VIEW 04/18/17 17:02:03 HISTORY: Chest [...] Interface - 04/18/2017 5:25 PM PDT EXAM: OK CHEST 1 | | VIEW 04/18/17 17:02:03HISTORY: [...] At | + + + | STUDY: OK CHEST 1 VIEW 04/17/17 11:34:55 COMPARISON: 04/13/17 [...] Interface - 04/17/2017 2:35 PM PDT STUDY: OK CHEST 1 | | VIEW 04/17/17 11:34:55COMPARISON: [...] At | + + + | EXAM: OK CHEST 1 VIEW HISTORY: Evaluate pneumothorax. Chest [...] Interface - 04/13/2017 8:34 AM PDT EXAM: OK CHEST 1 | | VIEW HISTORY: Evaluate [...] At | + + + | STUDY: OK CHEST 1 VIEW 04/12/17 10:35:01 HISTORY: Pneumothorax. [...] Interface - 04/12/2017 3:54 PM PDT STUDY: OK CHEST 1 | | VIEW 04/12/17 10:35:01HISTORY: [...] MD | | | Cardiothoracic Surgery Fellow Pager:[phone] | | + + + X-RAY PORTABLE CHEST 1 VIEW (04/11/2017 7:34 PM PDT) + + | Specimen | + + | | + + + + + | Narrative | Performed At | + + + | STUDY: OK CHEST 1 VIEW 04/11/17 19:22:04 HISTORY: Tube [...] Interface - 04/11/2017 10:06 PM PDT STUDY: OK CHEST 1 | | VIEW 04/11/17 19:22:04HISTORY: [...] At | + + + | STUDY: OK CHEST 1 VIEW 04/11/17 17:04:14 HISTORY: Pneumothorax. [...] Interface - 04/11/2017 10:07 PM PDT STUDY: OK CHEST 1 | | VIEW 04/11/17 17:04:14HISTORY: [...] At | + + + | STUDY: OK CHEST 1 VIEW 04/11/17 11:53:56 HISTORY: Pneumothorax. [...] Interface - 04/11/2017 3:59 PM PDT STUDY: OK CHEST 1 | | VIEW 04/11/17 11:53:56HISTORY: [...] At | + + + | EXAM: OK CHEST 1 VIEW 04/10/17 02:11:46 HISTORY: Evaluate [...] Interface - 04/10/2017 9:37 AM PDT EXAM: OK CHEST 1 | | VIEW 04/10/17 02:11:46 [...] | + + + + + | [facility] | [address] | [place] [address] | | | SELENE, CORE | WILLY [...] | | | LABORATORY | | | BRITISH | | | SERVICES, | | | [...] | + + + + + | [facility] | [address] | [place] [address] | | | DESTINEE MORTON | WILLY [...]
--- OUTSIDE RECORDS SUMMARY | ~2019-09-14 | XMS | Encounter Summary ---
Demographics + + + | Address | [address] | | | [place] [address] | + + + | Home Phone [...] Author + + + | Author | [place] [employer] [facility] | + + + | Organization | [facility] | + + + | Address | Unknown | + + + | Phone | Unavailable | + + + Support + + +---------+ + | Name | Relationship | Address | Phone | + + +---------+ + | Debra Vaca | ECON | Unknown | | + + +---------+ + Care Team Providers + +------+ + | Care Model Engine Mechanic Name | Role | Phone | + +------+ + | No Pcp Per Patient | PCP | Unavailable | + +------+ + Encounter Details +--------+ + + + + | Date | Type | Department | Care Team | Description | +--------+ + + + + | 05/06/ | Mushroom Cutter | Cardiothoracic | Jaclyn Coy, | Neuroendocrine | | 2016 | | Surgery at [facility] [address] | PA-C [address] [facility] | carcinoma of lung | | | | [address] [facility] | [address] | (HCC) (Primary Dx) | | | | Rd Mailcode: [address] | [place], [place] | | | | | Physician's | [address] | | | | | [place], | [phone] | | | | | [place] [address] | | | | | | [phone] | | | +--------+ + + + [...] Not on filedocumented as of this encounter Results X-RAY CHEST 2 VIEW [...] | | + +---------+ + + | [facility] | | | | | VOICE RECOGNITION | | | | + +---------+ + + documented in this encounter Visit Diagnoses + + | Diagnosis | + + | 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
--- OUTSIDE RECORDS SUMMARY | ~2019-09-14 | XMS | Encounter Summary ---
Demographics + + + | Address | [address] | | | [place] [address] | + + + | Home Phone | | + + + | Preferred Language | Unknown | + + + | Marital Status | Single | + + + | Taoism Affiliation | NRP | + + + | Race | or | + + + | Ethnic Group | Not or | + + + Author + + + | Author | [place] [employer] [facility] | + + + | Organization | [facility] [...] Team Providers + +------+ + | Care Light Armored Vehicle Officer Name | Role | Phone | + [...] | | | Baylee Méndez Mailcode: | [place], [place] | | | | | [address] | [address] | | | | | [place], | [phone] | | | | | [place] [address] | | | | | | [phone] | | | +--------+ + + + [...] the | | | | PDT | ([facility]) | results section. | + +--------+ + [...]
--- OUTSIDE RECORDS SUMMARY | ~2019-09-14 | XMS | Encounter Summary ---
Demographics + + + | Address | [address] | | | [place] [address] | + + + | Home Phone | | + + + | Preferred Language | Unknown | + + + | Marital Status | Single | + + + | Voodoo Affiliation | NRP | + + + | Race | or | + + + | Ethnic Group | Not or | + + + Author + + + | Author | [place] [employer] [facility] | + + + | Organization | [facility] | + + + | Address | Unknown | + + + | Phone | Unavailable | + + + Support + + +---------+ + | Name | Relationship | Address | Phone | + + +---------+ + | Debra Vaca | ECON | Unknown | | + + +---------+ + Care Team Providers + +------+ + | Care Document Preparation Specialist Name | Role | Phone | + +------+ + | Elena Montano MD | PCP | | + +------+ + Encounter Details +--------+ + + + + | Date | Type | Department | Care Team | Description | +--------+ + + + + | 04/02/ | Procedure | 6A Intra Op [facility] | | | | 2017 | Pass | [facility] | | | | | | Admitting Desk | | | | | | Located on the 9th | | | | | | floor [address] [facility] [address] | | | | | | [address] | | | | | | [place], [place] | | | | | | [address] | | | +--------+ + + + [...]
--- OUTSIDE RECORDS SUMMARY | ~2019-09-14 | XMS | Encounter Summary ---
Demographics + + + | Address | [address] | | | [place] [address] | + + + | Home Phone [...] + + + | Author | [place] [employer] [facility] | + + + | Organization | [facility] | + + + | Address | Unknown | + + + | Phone | Unavailable | + + + Support + + +---------+ + | Name | Relationship | Address | Phone | + + +---------+ + | Debra Vaca | ECON | Unknown | | + + +---------+ + Care Team Providers + +------+ + | Care Touch Up Edger Name | Role | Phone | + [...] + + + + | 04/15/ | Hospital | Procedural Care | | | | 2016 | Encounter | Unit at [facility] [address] | | | | | [address] | | | | | | [facility] | | | | | | [place], [place] | | | | | | [address] | | | | | | [phone] | | | +--------+ + + + [...]
--- OUTSIDE RECORDS SUMMARY | ~2019-09-14 | XMS | Encounter Summary ---
Demographics + + + | Address | [address] | | | [place] [address] | + + + | Home Phone [...] Author + + + | Author | [place] [employer] [facility] | + + + | Organization | [facility] | + + + | Address | Unknown | + + + | Phone | Unavailable | + + + Support + + +---------+ + | Name | Relationship | Address | Phone | + + +---------+ + | Debra Vaca | ECON | Unknown | | + + +---------+ + Care Team Providers + +------+ + | Care Job Checker Name | Role | Phone | + [...] | 2016 | Encounter | Unit at [facility] [address] | | | | | [address] | | | | | | [facility] | | | | | | [place], [place] | | | | | | [address] | | | | | | [phone] | | | +--------+ + + + [...]
--- OUTSIDE RECORDS SUMMARY | ~2019-09-14 | XMS | Encounter Summary ---
Demographics + + + | Address | [address] | | | [place] [address] | + + + | Home Phone [...] + + | Author | [place] [employer] [facility] | + + + | Organization | [facility] | + + + | Address | Unknown | + + + | Phone | Unavailable | + + + Support + + +---------+ + | Name | Relationship | Address | Phone | + + +---------+ + | Debra Vaca | ECON | Unknown | | + + +---------+ + Care Team Providers + +------+ + | Care Counter Top Maker Name | Role | Phone | + [...] [id number] | | | | | | [place], [place] | | | | | | [address] | | | | | | [phone] | | | +--------+ + + + [...]
--- OUTSIDE RECORDS SUMMARY | ~2019-09-14 | XMS | Encounter Summary ---
Demographics + + + | Address | [address] | | | [place] [address] | + + + | Home Phone [...] + + + | Author | [place] [employer] [facility] | + + + | Organization | [facility] | + + + | Address | Unknown | + + + | Phone | Unavailable | + + + Support + + +---------+ + | Name | Relationship | Address | Phone | + + +---------+ + | Debra Vaca | ECON | Unknown | | + + +---------+ + Care Team Providers + +------+ + | Care Student Services Coordinator Name | Role | Phone | [...] | FLEXIBLE | | 2017 | | [facility] | MD [address] [facility] [address] [facility] | BRONCHOSCOPY, RIGHT | | | | Admitting Desk | [address] | THORACOSCOPY, | | | | Located on the | [place], [place] | SUPERIOR | | | | floor [address] [facility] | [address] | SEGMENTECTOMY; | | | | [address] | [phone] | MEDIASTINAL LYMPH | | | | [place], [place] | | NODE DISSECTION | | | | [address] | | | +--------+---------+ + + + [...] was removed on POD #4 and a qbact-fs-umsairjx pneumothorax wa s noted on follow-up chest [...] Medications: . Bailey Anders Home Medication Instructions JAM:[id number] Printed on:04/07/17 6443 Medication Information acetaminophen 325 mg oral tablet [...] of the patient's mabel rachell. Follow-up appointment(s): [facility] Thoracic Surgery, Monday, April 10, 2017 Pathology [...] tumor doing well s/p resec tion Plan (ysll-ew-ieqssxoq issues): - Post-op pain: continue PRN Tylenol and oxycodone - Chest tube management: removed earlier today - Bigeminy: monitor for now - Hypokalemia: replete (along with magnesium) today - Other: F/U final path - Prophylaxis: remains on SQ enoxaparin; bowel regimen; no GI prophylaxis while eating - Dispo: anticipate discharge to home tomorrow Plan (fyk-ywsvvcyh-goudtcn issues); the brief history and exam findings [...] Date: 04/05/2017 Admission Date: 04/02/2017 BAILEY ANDERS, [id number] Hospital Day #3 PROCEDURE: 04/02/17 Procedure: flex [...] SCD Dispo: 1-2days. Reji Elaine MD Pager: [phone] Anne Jean PA-C - 04/04/2017 2:04 PM PDT Cardiovascular Intensive Care Unit Team Progress Note CVICU D2 Assigned #[id number] ICU Admission Reason Most Recent Value ICU [...] Zeeshan Heredia MD Admitting Provider Cardiothoracic Surgery 62866 The Advanced Care Note for this patient [...] 04/04/2017 ZACK Cruz PA-C Author:Anne Pat PA-C [address] [address] [place] [address]Vxfkehmjzutdlv signed by Anne Pat PA-C at 04/04/2017 2:07 PM Elaine Ramirez MD - 04/04/2017 10:30 AM PDTBrief APS Follow-up Note Epidural catheter pulled yesterday, patient successfully transitioned to PO meds. Reports e xcellent pain control. APS will sign off. Please re-consult as necessary. Please page [phone] with any questions or concerns Elaine Barragan MD Pain Fellow Anesthesiology and Pain Management [facility] [place] alomon, Wilfredo beard MD - 04/04/2017 9:59 AM PDT Cardiovascular Intensive Care Unit Attending Progress Note CVICU D2 Assigned #[id number] ICU Admission Reason Most Recent Value ICU [...] smoke while on home O2, and will career and guidance counselor on the importance o f quitting. [...] Zeeshan Heredia MD Admitting Provider Cardiothoracic Surgery 90940 Code Status Code Status DNR/DNI The Advanced [...] on counseling and coordination of care.Seen with PA/CHILD AND FAMILY SERVICES SPECIALIST Adilia. Please se e their note for details. I reviewed the documented findings, all data and the recent imagin g available. Date of Service: 04/04/2017 Author:Srinivasa Latif MD [address] Zeeshan Heredia MD - 04/04/2017 9:26 [...] tx to howell Zeeshan Heredia M.D. FACS credentialing coordinator [facility] Division of Cardiothoracic Surgery Section of Thoracic Surgery [address] [place] [address], [address] [place] [address] Sonia Wharton MD - 04/03 6:41 PM [...] R VATS sup segmentectomy. Doing well. Plan (cxwi-ci-jrkmxapy issues): - chest tubes to waterseal - [...] Unit Team Progress Note CVICU D2 Assigned #[id number] ICU Admission Reason Most Recent Value ICU [...] Zeeshan Heredia MD Admitting Provider Cardiothoracic Surgery 94875 The Advanced Care Note for this patient [...] 04/03/2017 ZACK Cruz PA-C Author:Anne Pat PA-C [address] [address] [place] [email or web address] signed by Anne Pat PA-C at 04/03/2017 [...] Unit Attending Progress Note CVICU D2 Assigned #[id number] ICU Admission Reason Most Recent Value ICU [...] smoke while on home O2, and will career and guidance counselor on the importa nce of quitting. [...] Zeeshan Heredia MD Admitting Provider Cardiothoracic Surgery 67090 Code Status Code Status DNR/DNI The Advanced [...] on counseling and coordination of care.Seen with PA/CHILD AND FAMILY SERVICES SPECIALIST Adilia. Please se e their note for details. I reviewed the documented findings, all data and the recent imagin g available. Date of Service: 04/03/2017 Author:Srinivasa Latif MD [address] [id number] signed by Srinivasa Latif MD at 04/03/2017 [...] ACM Utilization Management Department of Care Management [facility] P: [phone]|PGR: [phone] #[id number] F: [phone] Nelson Rivero MD - 04/02/2017 8:01 PM PDT Cardiovascular Intensive Care Unit Attending Progress Note CVICU D2 Assigned #[id number] ICU Admission Reason Most Recent Value ICU [...] Zeeshan Heredia MD Admitting Provider Cardiothoracic Surgery 79253 Code Status Code Status DNR/DNI Quality section [...] Date of Service: 04/02/2017 Author:Nelson Smart MD [address] [address]Lhowfzirjighvh signed by Nelson Smart MD at 04/02/2017 [...] | | 04/02/2017 14:23:54DT: 04/02/2017 15:25:19Job #: [id number] | | | | | | | |Gwendolyn Toribio MD | |MS/MODL | | | | | | /[id number] | + + X-RAY PORTABLE CHEST 1 VIEW (04/07/2017 2:04 PM PDT) + + | Specimen | + + | | + + + + + | Narrative | Performed At | + + + | STUDY: TX CHEST 1 VIEW 04/07/17 13:30:59 HISTORY: Status [...] Interface - 04/07/2017 3:03 PM PDT STUDY: TX CHEST 1 | | VIEW 04/07/17 13:30:59 [...] At | + + + | EXAM: TX CHEST 1 VIEW 04/07/17 09:08:12 HISTORY: Evaluate [...] Interface - 04/07/2017 11:13 AM PDT EXAM: TX CHEST 1 | | VIEW 04/07/17 09:08:12 [...] + + | Performing | Address | [facility] | Phone Number | | Organization | [...] At | + + + | EXAM: TX CHEST 1 VIEW 11/30/99 00:00:00 HISTORY: Right [...] Note | + + | Service Account, [employer] In Interface - 04/06/2017 4:43 PM PDT EXAM: TX CHEST 1 | | VIEW 11/30/99 00:00:00HISTORY: [...] LOT OF | [address] | [place], [place] | | | CARDIOLOGY | [address] | [address] | | + + + + + X-RAY PORTABLE CHEST 1 VIEW (04/06/2017 12:17 PM PDT) + + | Specimen | + + | | + + + + + | Narrative | Performed At | + + + | EXAM: TX CHEST 1 VIEW 04/06/17 11:57:26 HISTORY: Thoracostomy [...] Interface - 04/06/2017 3:23 PM PDT EXAM: TX CHEST 1 | | VIEW 04/06/17 11:57:26HISTORY: [...] [facility] | [address] | [place] [address] | | | SERVICES, CORE | [address] [...] | | | LABORATORY | | | [place]RA[place]I | | | SERVICES, | | | [...] the MDRD equation recommended by the | [facility] | | National Kidney Disease Education Program. [...] | + + + + + | [facility] | [address] | [place] [address] | | | SELENE, DESTINEE | WILLY [...] [facility] | [address] | [place], [place] | | | YOLANDA AVERY OF CARE | [address] | [address] | | | TESTS | | | [...] [place] | [address] | [place], [place] | | | BENNIE POINT OF CARE | [address] | [address] | | | TESTS | | | [...] [place] | [address] | [place], [place] | | | YOLANDA AVERY OF [place] | [address] | [address] | | | TESTS | | | | + + + + + X-RAY PORTABLE CHEST 1 VIEW (04/04/2017 10:46 AM PDT) + + | Specimen | + + | | + + + + + | Narrative | Performed At | + + + | EXAM: TX CHEST 1 VIEW 04/04/17 10:08:34 HISTORY: Airleak [...] Interface - 04/04/2017 11:16 AM PDT EXAM: TX CHEST 1 | | VIEW 04/04/17 10:08:34HISTORY: [...] At | + + + | EXAM: TX CHEST 1 VIEW 11/30/99 00:00:00 HISTORY: Postoperative [...] Interface - 04/04/2017 8:54 AM PDT EXAM: TX CHEST 1 | | VIEW 11/30/99 00:00:00HISTORY: [...] Heredia MD Co-Surgeon: Gwendolyn Toribio. | | Projector Operator(s): Sonia Butt. Preoperative Diagnoses: 1. 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 Hypertension.3. Chronic | | obstructive pulmonary disease.Postprocedure Diagnoses: 1. Right lower lobe superior | | segment bronchopulmonary carcinoid.2. Hypertension.3. Chronic obstructive pulmonary | | disease.Procedures: 1. Flexible bronchoscopy.2. Right thoracoscopy with superior | | segmentectomy.3. Mediastinal lymph node sampling.Anesthesia: General endotracheal | | anesthesia.Drains: Right 28-Burkinan chest tube.Complications: None apparent.Findings: | | The [...] | intercostal space was made for an facilities maintenance assistant port. We began the dissection by [...] utility incision in the posterior | | facilities maintenance assistant port was reopened. The previously placed [...] 04/03/2017 07:09:16DT: | | 04/03/2017 08:52:19Job #: [id number] | + + CBC (HEMOGRAM) ONLY (04/04/2017 [...] | + + + + + | [facility] | [address] | [place] [address] | | | SERVICES, CORE | WILLY [...] [facility] | [address] | [place] [address] | | | SERVICES, CORE | PARK [...] | | | LABORATORY | | | ISRAELI | | | SERVICES, | | | [...] + + + + + | [facility] [employer] | [address] | [place] [address] | | | SERVICES, DESTINEE | WILLY [...] At | + + + | EXAM: TX CHEST 1 VIEW 04/03/17 04:36:51 HISTORY: Post [...] Interface - 04/03/2017 8:20 AM PDT EXAM: TX CHEST 1 | | VIEW 04/03/17 04:36:51 [...] + + + + + | [facility] | [address] | [place] [address] | | | SERVICES, CORE | PARK [...] | + + + + + | [facility] | [address] | [place] [address] | | | SERVICES, CORE | PARK [...] | | | LABORATORY | | | ISRAELI | | | SERVICES, | | | [...] + + | [facility] | [address] | [place] [address] | | | SERVICES, CORE | PARK [...] [facility] | [address] | [place] [address] | | | SERVICES, CORE | PARK [...] | + + + + + | [facility] | [address] | [place] [address] | | | SERVICES, CORE | PARK [...] [facility] | [address] | [place] [address] | | | SELENE, DESTINEE | WILLY [...] | | | LABORATORY | | | ISRAELI | | | SERVICES, | | | [...] | + + + + + | [facility] | [address] | [place] [address] | | | SERVICES, CORE | WILLY [...] [place] | [address] | [place], [place] | | | YOLANDA AVERY OF [place] | [address] | [address] | | | TESTS | | | | + + + + + X-RAY PORTABLE CHEST 1 VIEW (04/02/2017 3:55 PM PDT) + + | Specimen | + + | | + + + + + | Narrative | Performed At | + + + | EXAM: TX CHEST 1 VIEW 04/02/17 15:25:31 HISTORY: Post [...] Interface - 04/02/2017 5:08 PM PDT EXAM: TX CHEST 1 | | VIEW 04/02/17 15:25:31 [...] [facility] | [address] | [place], [place] | | | BENNIE POINT OF CARE | [address] | [address] | | | TESTS | | | [...] | | POC | | | [address] | | | | | | OF [...] [place] | [address] | [place], [place] | | | YOLANDA AVERY OF [facility] | [address] | [address] | | | TESTS | | | [...] [place] | [address] | [place], [place] | | | YOLANDA AVERY OF CARE | [facility] | [address] | | | TESTS | | | [...] [facility] | [address] | [place], [place] | | | YOLANDA AVERY OF CARE | [address] | [address] | | | TESTS | | | [...] | + + + + + | [facility] | [address] | [place] [address] | | | SERVICES, | [address] [...] + + + + + | [facility] | [address] | [place] [address] | | | SERVICES, | [address] [...] (H) | 60 - 99 mg/dL | [facility] - | | | GLUCOSE, | | [...] + + + | [facility] | [address] | [place], [place] | | | YOLANDA AVERY OF [facility] | [address] | [address] | | | TESTS | | | [...] Grade: | | | | | | F4Yoaqviqd Pleura | | | | | | [...] | | | | | Tumor (pT): [id number] | | | | | | Lymph Nodes (pN): | | | | | | mG5Pfrnnn of regional | | | | | [...] by: | | | | | | [place] | | | | | | Patel/MedicalStudent [...] by: | | | | | | [place] | | | | | | Patel/MedicalStudent [...] record | | | | | | #[id number].A. 9R lymph | | | | | [...] offibrosis. | | | | | | Jet Handler sections | | | | | | [...] marginC4, | | | | | | customer support representative | | | | | | adhesionC5, | | | | | | customer support representative | | | | | | [...] necessary | | | | | | [facility] | | | | | | care. [...] | + + + + + | [facility] | [address] | [place] [address] | | | PATHOLOGY | [address] [...]
--- OUTSIDE RECORDS SUMMARY | ~2019-09-14 | XMS | Encounter Summary ---
Demographics + + + | Address | [address] | | | [place] [address] | + + + | Home Phone | | + + + | Preferred Language | Unknown | + + + | Marital Status | Single | + + + | Buddhism Affiliation | NRP | + + + | Race | or | + + + | Ethnic Group | Not or | + + + Author + + + | Author | [place] [facility] | + + + | Organization | [facility] | + + + | Address | Unknown | + + + | Phone | Unavailable | + + + Support + + +---------+ + | Name | Relationship | Address | Phone | + + +---------+ + | Debra Vaac | ECON | Unknown | | + + +---------+ + Care Team Providers + +------+ + | Care Hand Candle Molder Name | Role | Phone | + +------+ + | Elena Montano MD | PCP | | + +------+ + Reason for Visit Consult to [place] (Routine) +--------+--------+ + + + + | Status | Reason | Specialty | Diagnoses / | Referred By | Referred To | | | | | Procedures | Contact | Contact | +--------+--------+ + + + + | Closed | | Thoracic | Diagnoses | Yan, | Yan, | | | | Surgery | | Zeeshan Barakat, | Zeeshan Barakat MD | | | | | Neuroendocri | [address] | [address] | | | | | ne cancer | Hakeem Jernigan | [place] | | | | | (HCC) | [address] | Rd | | | | | Cancer of | [place], [place] | [place] | | | | | lower lobe | [address] | [address] | | | | | of right | Phone: | Phone: | | | | | lung (HCC) | [phone] | [phone] | | | | | Procedures | Fax: | Fax: | | | | | [place] | [phone] | [phone] | | | | | THORACOSCOPY | | | | | | | , | | | | | | | W/LOBECTOMY | | | | | | | UT | | | | | | | THORACOSCOPY | | | | | | | , WITH | | | | | | | REMOVAL OF A | | | | | | | SINGLE LUNG | | | | | | | SEGMENT UT | | | | | | | REMOVAL | | | | | | | LUNG, OTHER | | | | | | | THAN | | | | | | | PNEUMONECTOM | | | | | | | Y,LOBECTOMY | | | | | | | UT REMOVAL | | | | | | | OF | | | | | | | LUNG,SEGMENT | | | | | | | ECTOMY UT | | | | | | | BRONCHOSCOPY | | | | | | | ,DIAGNOSTIC | | | | | | | Flex | | | | | | | bronch, | | | | | | | right-sided | | | | | | | thoracoscopy | | | | | | | , possible | | | | | | | thoracotomy, | | | | | | | | | | | | | | segmentectom | | | | | | | y, possible | | | | | | | lobectomy | | | | | | | [address] | | | | | | | Bronchoscopy | | | | | | | , rigid or | | | | | | | flexible, | | | | | | | including | | | | | | | fluoroscopic | | | | | | | guidance, | | | | | | | whe | | | | | | | performed; | | | | | | | diagnostic, | | | | | | | with cell | | | | | | | washing, | | | | | | | when | | | | | | | performed | | | | | | | [address] | | | | | | | Thoracoscopy | | | | | | | , surgical; | | | | | | | with | | | | | | | lobectomy | | | | | | | (single | | | | | | | lobe) | | | | | | | [id number] - | | | | | | | Thoracoscopy | | | | | | | , surgical; | | | | | | | with removal | | | | | | | of single | | | | | | | lung segment | | | | | | | (segment | | | | | | | ctomy) | | | | | | | [address] | | | | | | | Removal of | | | | | | | lung, other | | | | | | | than | | | | | | | pneumonectom | | | | | | | y; single | | | | | | | lobe | | | | | | | (lobectomy) | | | | | | | [address] | | | | | | | Removal of | | | | | | | lung, other | | | | | | | than | | | | | | | pneumonectom | | | | | | | y; single | | | | | | | segment | | | | | | | (segment | | | | | | | ctomy) | | | +--------+--------+ + + + + Encounter Details +--------+---------+ + + + | Date | Type | Department | Care Team | Description | +--------+---------+ + + + | 05/11/ | Office | Cardiothoracic | Zeeshan Heredia, | Neuroendocrine | | 2017 | Visit | Surgery at [address] [address] | [address] [facility] | carcinoma of lung | | | | [facility] | [address] | (HCC) (Primary Dx) | | | | Rd Mail[address]: [address] | [place], [place] | | | | | Physician's | [address] | | | | | [place], | [phone] | | | | | [place] [address] | | | | | | [phone] | | | +--------+---------+ + + + [...] + documented in this encounter Progress Notes Zeeshan Heredia MD - 05/11/2017 11:30 AM PDT[facility] Date of Service: 05/11/2017 Referring Providers: Elena Montano MD Patient Care Team: Elena Montano MD as PCP - General (Thoracic Surgery) Reason for Visit: Postoperative check Subjective: Ms. Bailey Frias is well known to our service. Briefly, she is a 61 year o ld female who presented with right superior segment low grade NE carcinoma treated with a se gmentectomy. Her postoperative course was complicated by prolonged air leak. Since discharge on 04/20/17, she has been doing well. The patient's current medications include: acetaminophen 325 mg oral tablet, Take 1-2 tablets by mouth every four hours as needed. Ind ications: Pain carvedilol 12.5 mg oral tablet, Take 1 tablet by mouth two times daily with meals. Administ er with food. Indications: Ventricular Rate Control in Atrial Fibrillation ibuprofen 600 mg oral tablet, Take 600 mg by mouth every six hours as needed. Indications: Pain ipratropium-albuterol 20-100 mcg/actuation inhalation mist, Inhale 1 puff four times daily. Indications: Chronic Obstructive Pulmonary Disease with Bronchospasms lisinopril 40 mg oral tablet, Take 40 mg by mouth once daily. Indications: hypertension oxyCODONE (immediate release) 5 mg oral tablet, Take 1 tablet by mouth every four hours as needed for severe pain. Indications: Pain senna-docusate 8.6-50 mg oral tablet, Take 1 tablet by mouth twice daily as needed. Indicat ions: Constipation simvastatin 20 mg oral tablet, Take 20 mg by mouth once daily in the evening. Indications: hyperlipidemia traMADol 50 mg oral tablet, Take 1 tablet by mouth every eight hours as needed. Don't take together with oxycodone Indications: Pain Objective: Vital Signs: BP 140/75 | Pulse 68 | Temp (Src) 36.6 C (97.9 F) (Oral) | RR 15 | Wt 57.2 kg (126 lb) | SpO2 92% | BMI 22.32 kg/(m^2) General healthy, alert and cooperative Chest Lungs clear to auscultation bilaterally. Chest Incision location right wound edges well approximated without redness or drainage Cardiovascular PMI normal. No lifts, heaves, or thrills. RRR. Heart sounds normal. No murm urs, clicks or gallops. No peripheral edema. Chest Radiograph: Assessment/Plan: In summary, Ms. 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 Ms. Frias will continue to increase her activity. I h ave advised her to not drive an automobile until it has been at least 1 month since her oper ation and she is off narcotic pain medicines. She should not lift more than 10 lbs until 6 weeks post-operatively. She would like to do her surveillance follow up with Dr Montano rather than come all the [place] to [place]. We will arrange for follow up with him. I have asked Ms. Frias to schedule a followup appointment Dr. Elena Montano MD in [facility] with a Chest CT. I have not scheduled a followup visit with Ms. Frias but I would be happy to see her again if she develops any problems related to her surgery. Zeeshan Heredia M.D. 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
--- OUTSIDE RECORDS SUMMARY | ~2019-09-14 | XMS | Clinical Summary ---
Demographics + + + | Address | [address] | | | [place] [address] | + + + | Home Phone | | + + + | Preferred Language | Unknown | + + + | Marital Status | Unknown | + + + | Temple Affiliation | Unknown | + + + | Race | Unknown | + + + | Ethnic Group | Unknown | + + + Author + + + | Author | [facility] | | | and [place] | + + + | Organization | [facility] | | | and [place] | + + + | Address | Unknown | + + + | Phone | Unavailable | + + + Care Team Providers + +------+ + | Care Optician Apprentice Name | Role | Phone | + [...]
--- OUTSIDE RECORDS SUMMARY | ~2019-09-14 | XMS | Encounter Summary ---
Demographics + + + | Address | [address] | | | [place] [address] | + + + | Home Phone | | + + + | Preferred Language | Unknown | + + + | Marital Status | Single | + + + | Holiness Affiliation | NRP | + + + | Race | or | + + + | Ethnic Group | Not or | + + + Author + + + | Author | [place] [facility] | + + + | Organization | [facility] | [...] Team Providers + +------+ + | Care Allergist/Immunologist Name | Role | Phone | + +------+ + | No Pcp Per Patient | PCP | Unavailable | + +------+ + Encounter Details +--------+ + + + + | Date | Type | Department | Care Team | Description | +--------+ + + + + | 05/06/ | Elevator Worker | Cardiothoracic | Jaclyn Coy, | Neuroendocrine | | 2016 | | Surgery at [facility] [address] | PA-C [address] [facility] | carcinoma of lung | | | | [address] [facility] | [address] | (HCC) (Primary Dx) | | | | Rd [address]: [address] | [place], [place] | | | | | Physician's | [address] | | | | | [place], | [phone] | | | | | [place] [address] | | | | | | [phone] | | | +--------+ + + + [...] | | + +---------+ + + | 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
--- OUTSIDE RECORDS SUMMARY | ~2019-09-14 | XMS | Encounter Summary ---
Demographics + + + | Address | [address] | | | [place] [address] | + + + | Home Phone | | + + + | Preferred Language | Unknown | + + + | Marital Status | Single | + + + | Mandaeism Affiliation | NRP | + + + | Race | or | + + + | Ethnic Group | Not or | + + + Author + + + | Author | [place] [facility] | + + + | Organization | [facility] | + + + | Address | Unknown | + + + | Phone | Unavailable | + + + Support + + +---------+ + | Name | Relationship | Address | Phone | + + +---------+ + | Debra Vaca | ECON | Unknown | | + + +---------+ + Care Team Providers + +------+ + | Care Perinatal Instructor Name | Role | Phone | [...] | | | tumor of | [address] [facility] | | | | | | lung | [place] | | | | | | Procedures | Rd | | | | | | STRESS | [place], [place] | | | | | | DOBUTAMINE | [address] | | | | | | ECHOCARDIOGR | Phone: | | | | | | AM, ADULT | [phone] | | | | | | | Fax: | | | | | | | [phone] | | +--------+--------+ + + + + Encounter Details +--------+ + + + + | Date | Type | Department | Care Team | Description | +--------+ + + + + | 03/10/ | Linoleum Floor Installer | Cardiothoracic | Morales, Pam, | Carcinoid tumor of | | 2017 | | Surgery at [facility] [address] | [place] [address] | lung (Primary Dx) | | | | [address] [facility] | [facility] [address] | | | | | Rd Mail[address]: [address] | [place], [place] | | | | | Physician's | [address] | | | | | [place], | [phone] | | | | | [place] [address] | | | | | | [phone] | | | +--------+ + + + [...]
--- OUTSIDE RECORDS SUMMARY | ~2019-09-14 | XMS | Encounter Summary ---
Demographics + + + | Address | [address] | | | [place] [address] | + + + | Home Phone | | + + + | Preferred Language | Unknown | + + + | Marital Status | Single | + + + | Buddhist Affiliation | NRP | + + + | Race | or | + + + | Ethnic Group | Not or | + + + Author + + + | Author | [place] [facility] | + + + | Organization | [facility] | + + + | Address | Unknown | + + + | Phone | Unavailable | + + + Support + + +---------+ + | Name | Relationship | Address | Phone | + + +---------+ + | Debra Vaca | ECON | Unknown | | + + +---------+ + Care Team Providers + +------+ + | Care User Acceptance Tester Name | Role | Phone | [...] + | 04/02/ | Hospital | [facility] [address] | Zeeshan Heredia, | | | 2017 - | Encounter | [address] | [address] [facility] | | | | | [id number] [facility] | [address] | | | 04/07/ | | [facility], | [place], [place] | | | 2016 | | [place] [address] | [address] | | | | | [phone] | [phone] | | | | | | | [...] documented in this encounter Discharge Summaries Pam Morlaes PA - 04/07/2017 6:41 AM PDTFormatting of [...] was removed on POD #4 and a nrepf-qy-eykjmrlz pneumothorax wa s noted on follow-up chest [...] Medications: . Bailey Anders Home Medication Instructions [id number] Printed on:04/07/17 0642 Medication Information acetaminophen 325 [...] the patient's mabel rachell. Follow-up appointment(s): [facility] Thoracic Surgery, Monday, April 10, 2017 [...] tumor doing well s/p resec tion Plan (nxvo-ap-nhmzmwkv issues): - Post-op pain: continue PRN Tylenol and oxycodone - Chest tube management: removed earlier today - Bigeminy: monitor for now - Hypokalemia: replete (along with magnesium) today - Other: F/U final path - Prophylaxis: remains on SQ enoxaparin; bowel regimen; no GI prophylaxis while eating - Dispo: anticipate discharge to home tomorrow Plan (nli-krnjazhg-rwrrnef issues); the brief history and exam findings [...] Date: 04/05/2017 Admission Date: 04/02/2017 BAILEY ANDERS, [id number] Hospital Day #3 PROCEDURE: 04/02/17 Procedure: flex [...] SCD Dispo: 1-2days. Reji Elaine MD Pager: [phone] Anne Jean PA-C - 04/04/2017 2:04 PM PDT Cardiovascular Intensive Care Unit Team Progress Note CVICU D2 Assigned #[id number] ICU Admission Reason Most Recent Value ICU [...] Zeeshan Heredia MD Admitting Provider Cardiothoracic Surgery 43986 The Advanced Care Note for this patient [...] 04/04/2017 ZACK Cruz PA-C Author:Anne Pat PA-C [address] [address] [place] [address]Grmvvtyvnbwydv signed by Anne Pat PA-C at 04/04/2017 2:07 PM Elaine Ramirez MD - 04/04/2017 10:30 AM PDTBrief APS Follow-up Note Epidural catheter pulled yesterday, patient successfully transitioned to PO meds. Reports e xcellent pain control. APS will sign off. Please re-consult as necessary. Please page [phone] with any questions or concerns Elaine Barragan MD Pain Fellow Anesthesiology and Pain Management [facility] ak, Wilfredo beard MD - 04/04/2017 9:59 AM PDT Cardiovascular Intensive Care Unit Attending Progress Note CVICU D2 Assigned #[id number] ICU Admission Reason Most Recent Value ICU [...] smoke while on home O2, and will rehabilitation services counselor on the importance o f quitting. [...] Zeeshan Heredia MD Admitting Provider Cardiothoracic Surgery 64385 Code Status Code Status DNR/DNI The Advanced [...] on counseling and coordination of care.Seen with PA/MANUFACTURER REPRESENTATIVE Adilia. Please se e their note for details. I reviewed the documented findings, all data and the recent imagin g available. Date of Service: 04/04/2017 Author:Srinivasa Latif MD [address] [id number] signed by Srinivasa Latif MD at 04/04/2017 [...] tx to howell Zeeshan Heredia M.D. FACS meter reading clerk [facility] Division of Cardiothoracic Surgery Section of Thoracic Surgery [address] [facility], [address] [place] [address] Sonia Wharton MD - 04/03 6:41 PM [...] R VATS sup segmentectomy. Doing well. Plan (zswd-sv-jzqtqwla issues): - chest tubes to waterseal - [...] Unit Team Progress Note CVICU D2 Assigned #[id number] ICU Admission Reason Most Recent Value ICU [...] Zeeshan Heredia MD Admitting Provider Cardiothoracic Surgery 87714 The Advanced Care Note for this patient [...] 04/03/2017 ZACK Cruz PA-C Author:Anne Pat PA-C [address] [id number] signed by Anne Pat PA-C at 04/03/2017 [...] Unit Attending Progress Note CVICU D2 Assigned #[id number] ICU Admission Reason Most Recent Value ICU [...] smoke while on home O2, and will rehabilitation services counselor on the importa nce of quitting. [...] Zeeshan Heredia MD Admitting Provider Cardiothoracic Surgery 89682 Code Status Code Status DNR/DNI The Advanced [...] on counseling and coordination of care.Seen with PA/MANUFACTURER REPRESENTATIVE Lavarias. Please se e their note for details. I reviewed the documented findings, all data and the recent imagin g available. Date of Service: 04/03/2017 Author:Srinivasa Latif MD [address] [address]Appeadmwdhlaeu signed by Srinivasa Latif MD at 04/03/2017 3:42 PM PDT Mandi Lopez RN - 04/03/2017 9:14 AM PDTUtilization Management Assessment [facility] Care Guideline1 applied: Lobectomy, Lung, by Video-Assisted [...] ACM Utilization Management Department of Care Management [facility] P: [phone]|PGR: [phone] #[id number] F: [phone] Nelson Rivero MD - 04/02/2017 8:01 PM PDT Cardiovascular Intensive Care Unit Attending Progress Note CVICU D2 Assigned #[id number] ICU Admission Reason Most Recent Value ICU [...] Zeeshan Heredia MD Admitting Provider Cardiothoracic Surgery 76472 Code Status Code Status DNR/DNI Quality section [...] Date of Service: 04/02/2017 Author:Nelson Smart MD [address] [address]Uojzgpujfylulp signed by Nelson Smart MD at 04/02/2017 [...] | | 04/02/2017 14:23:54DT: 04/02/2017 15:25:19Job #: [id number] | | | | | | | |Gwendolyn Toribio MD | |MS/MODL | | | | | | /[id number] | + + X-RAY PORTABLE CHEST 1 VIEW (04/07/2017 2:04 PM PDT) + + | Specimen | + + | | + + + + + | Narrative | Performed At | + + + | STUDY: MA CHEST 1 VIEW 04/07/17 13:30:59 HISTORY: Status [...] Interface - 04/07/2017 3:03 PM PDT STUDY: MA CHEST 1 | | VIEW 04/07/17 13:30:59 [...] At | + + + | EXAM: MA CHEST 1 VIEW 04/07/17 09:08:12 HISTORY: Evaluate [...] Interface - 04/07/2017 11:13 AM PDT EXAM: MA CHEST 1 | | VIEW 04/07/17 09:08:12 [...] At | + + + | EXAM: MA CHEST 1 VIEW 11/30/99 00:00:00 HISTORY: Right [...] Interface - 04/06/2017 4:43 PM PDT EXAM: MA CHEST 1 | | VIEW 11/30/99 00:00:00HISTORY: [...] DEPT OF | [address] | [place], [place] | | | CARDIOLOGY | [address] | [address] | | + + + + + X-RAY PORTABLE CHEST 1 VIEW (04/06/2017 12:17 PM PDT) + + | Specimen | + + | | + + + + + | Narrative | Performed At | + + + | EXAM: MA CHEST 1 VIEW 04/06/17 11:57:26 HISTORY: Thoracostomy [...] Interface - 04/06/2017 3:23 PM PDT EXAM: MA CHEST 1 | | VIEW 04/06/17 11:57:26HISTORY: [...] | + +---------+ + + | [facility] RADIOLOGY | | | | | [...] [facility] | [address] | [place] [address] | | | SERVICES, CORE | [address]ARK [...] | | | LABORATORY | | | MONTSERRATIAN | | | SERVICES, | | | [...] MDRD equation recommended by the | [facility] | | National Kidney Disease Education [...] + + + + | [facility]OR[facility]ORY | [address] | [place] [address] | | | SELENE, DESTINEE | WILLY [...] [facility] | [address] | [place], [place] | | | YOLANDA AVERY OF CARE | [address] | [address] | | | TESTS | | | [...] - [place] | [address] | [place], [place] | | | YOLANDA AVERY OF CARE | [address] | [address] | | | TESTS | | | [...] [place] | [address] | [place], [place] | | | BENNIE POINT OF CARE | [address] | [address] | | | TESTS | | | | + + + + + X-RAY PORTABLE CHEST 1 VIEW (04/04/2017 10:46 AM PDT) + + | Specimen | + + | | + + + + + | Narrative | Performed At | + + + | EXAM: MA CHEST 1 VIEW 04/04/17 10:08:34 HISTORY: Airleak [...] Interface - 04/04/2017 11:16 AM PDT EXAM: MA CHEST 1 | | VIEW 04/04/17 10:08:34HISTORY: [...] At | + + + | EXAM: MA CHEST 1 VIEW 11/30/99 00:00:00 HISTORY: Postoperative [...] Interface - 04/04/2017 8:54 AM PDT EXAM: MA CHEST 1 | | VIEW 11/30/99 00:00:00HISTORY: [...] Heredia MD Co-Surgeon: Gwendolyn Toribio. | | Podiatric Assistant(s): Sonia Butt. Preoperative Diagnoses: 1. 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 Hypertension.3. Chronic | | obstructive pulmonary disease.Postprocedure Diagnoses: 1. Right lower lobe superior | | segment bronchopulmonary carcinoid.2. Hypertension.3. Chronic obstructive pulmonary | | disease.Procedures: 1. Flexible bronchoscopy.2. Right thoracoscopy with superior | | segmentectomy.3. Mediastinal lymph node sampling.Anesthesia: General endotracheal | | anesthesia.Drains: Right 28-Divehi chest tube.Complications: None apparent.Findings: | | The [...] | intercostal space was made for an engineering assistant port. We began the dissection by [...] utility incision in the posterior | | engineering assistant port was reopened. The previously placed [...] 04/03/2017 07:09:16DT: | | 04/03/2017 08:52:19Job #: [id number] | + + CBC (HEMOGRAM) ONLY (04/04/2017 [...] | + + + + + | [facility] | [address] | [place] [address] | | | SERVICES, CORE | WILLY [...] [facility] | [address] | [place] [address] | | | DESTINEE MORTON | WILLY [...] | | | LABORATORY | | | MONTSERRATIAN | | | SERVICES, | | | [...] | + + + + + | [facility] | [address] | [place] [address] | | | DESTINEE MORTON | WILLY [...] At | + + + | EXAM: MA CHEST 1 VIEW 04/03/17 04:36:51 HISTORY: Post [...] Interface - 04/03/2017 8:20 AM PDT EXAM: MA CHEST 1 | | VIEW 04/03/17 04:36:51 [...] + + + + | [facility] LABORATORY | [address] | [place] [address] | | | SERVICES, CORE | [address] | | | + + + + + MAGNESIUM, PLASMA (04/03/2017 3:08 AM PDT) + +-------+ + + + | Component | Value | Ref Range | Performed | Pathologist | | | | | At | Signature | + +-------+ + + + | MAGNESIUM,P | 2.1 | 1.8 - 2.5 mg/dL | VAFORTUNATO | | | JUSTUSMA | | | [...] | + + + + + | [facility] | [address] | [place] [address] | | | SERVICES, CORE | WILLY [...] | | | LABORATORY | | | MONTSERRATIAN | | | SERVICES, | | | [...] MDRD equation recommended by the | [facility] | | National Kidney Disease Education [...] [facility] | [address] | [place] [address] | | | SERVICES, CORE | PARK [...] [facility] | [address] | [place] [address] | | | SERVICES, CORE | WILLY [...] + + + + | [facility] | [address] | [place] [address] | | | SERVICES, CORE | [address] | | | + + + [...] + + + + | [facility] | [address] | [place] [address] | | | SERVICES, CORE | PARK [...] | | | LABORATORY | | | MONTSERRATIAN | | | SERVICES, | | | [...] | + + + + + | [facility] | [address] | [place] [address] | | | SERVICES, CORE | WILLY [...] SWATI | [address] | [place], [place] | | | YOLANDA AVERY OF [place] | [address] | [address] | | | TESTS | | | | + + + + + X-RAY PORTABLE CHEST 1 VIEW (04/02/2017 3:55 PM PDT) + + | Specimen | + + | | + + + + + | Narrative | Performed At | + + + | EXAM: MA CHEST 1 VIEW 04/02/17 15:25:31 HISTORY: Post [...] Interface - 04/02/2017 5:08 PM PDT EXAM: MA CHEST 1 | | VIEW 04/02/17 15:25:31 [...] SW[facility]I | [address] | [place], [place] | | | YOLANDA AVERY OF CARE | [address] | [address] | | | TESTS | | | [...] SWATI | [address] | [place], [place] | | | YOLANDA AVERY OF CARE | [address] | [address] | | | TESTS | | | [...] [facility] | [address] | [place], [place] | | | YOLANDA AVERY OF CARE | [facility] | [address] | | | TESTS | | | [...] SWATI | [address] | [place], [place] | | | BENNIE POINT OF CARE | [address] | [address] | | | TESTS | | | [...] | + + + + + | [facility] | [address] | [place] [address] | | | SERVICES, | [address] [...] + + + + | [facility] LABORATORY | [address] | [place] [address] | | | SELENE | [address] [...] | 60 - 99 mg/dL | [facility] - | | | GLUCOSE, | [...] [facility] | [address] | [place], [place] | | | BENNIE POINT OF CARE | [address] | [address] | | | TESTS | | | [...] Grade: | | | | | | I3Eztvigja Pleura | | | | | | [...] | | | | | Tumor (pT): lK9sYtkskhfs | | | | | | Lymph Nodes (pN): | | | | | | rN4Cghtrr of regional | | | | | [...] by: | | | | | | Russian | | | | | | Patel/MedicalStudent | | | | | | Fellow and Jainism | | | | | | MD [...] by: | | | | | | Russian | | | | | | Patel/MedicalStudent [...] record | | | | | | #[id number].A. 9R lymph | | | | | [...] offibrosis. | | | | | | Sub Plant Manager sections | | | | | | [...] marginC4, | | | | | | sales and merchandising representative | | | | | | adhesionC5, | | | | | | sales and merchandising representative | | | | | | [...] | | | cs determined by [facility] | | | | | | laboratories. [...] | + + + + + | [facility] | [address] | [place] [address] | | | PATHOLOGY | [address] [...] 04/02/17 at | | | 1515, Until [facility] 04/02/17 at 1515 | | + +---+ [...] PDT | | | | | Starting [facility] 04/02/17 at 0902, | | | | | | | Until [facility] 04/02/17 at 1620, | | | | [...]
--- OUTSIDE RECORDS SUMMARY | ~2019-09-14 | XMS | Encounter Summary ---
Demographics + + + | Address | [address] | | | [place] [address] | + + + | Home Phone | | + + + | Preferred Language | Unknown | + + + | Marital Status | Single | + + + | Jewish Affiliation | NRP | + + + | Race | or | + + + | Ethnic Group | Not or | + + + Author + + + | Author | [facility] [facility] | + + + | Organization | [facility] | + + + | Address | Unknown | + + + | Phone | Unavailable | + + + Support + + +---------+ + | Name | Relationship | Address | Phone | + + +---------+ + | Debra Vaca | ECON | Unknown | | + + +---------+ + Care Team Providers + +------+ + | Care Embosser Apprentice Name | Role | Phone | [...] | | | | Cancer of | [place] | [place] | | | | | lower lobe | [address] | [address] | | | | | of right | Phone: | Phone: | | | | | lung (HCC) | [phone] | [phone] | | | | | Procedures | Fax: | Fax: | | | | | [place] | [phone] | [phone] | | | | | THORACOSCOPY | | | | | | | , | | | | | | | W/LOBECTOMY | | | | | | | [place] | | | | | | | THORACOSCOPY | | | | | | | , WITH | | | | | | | REMOVAL OF A | | | | | | | SINGLE LUNG | | | | | | | SEGMENT [place] | | | | | | | REMOVAL | | | | | | | LUNG, OTHER | | | | | | | THAN | | | | | | | PNEUMONECTOM | | | | | | | Y,LOBECTOMY | | | | | | | [place] REMOVAL | | | | | | | OF | | | | | | | LUNG,SEGMENT | | | | | | | ECTOMY [place] | | | | | | | [...] | | | | | | | [address] | | | | | | | [...] | | | | | | | [address] | | | | | | | Thoracoscopy | | | | | | | , surgical; | | | | | | | with | | | | | | | lobectomy | | | | | | | (single | | | | | | | lobe) | | | | | | | [id number] - | | | | | | [...] | | | | | | | [address] | | | | | | | [...] | | | | | | | [address] | | | | | | | [...] 05/11/ | Office | Cardiothoracic | Zeeshan Herdeia, | Neuroendocrine | | 2017 | Visit | Surgery at [facility] [address] | [address] [facility] | carcinoma of lung | | | | [facility] | [address] | (HCC) (Primary Dx) | | | | Rd Mailcode: [address] | [place], [place] | | | | | Physician's | [address] | | | | | [place], | [phone] | | | | | [place] [address] | | | | | | [phone] | | | +--------+---------+ + + + [...] than come all the wa y to [place]. We will arrange for follow up with him. I have asked Ms. Frias to schedule a followup appointment Dr. Elena Montano MD in [facility] with a [facility] CT. I have not scheduled a followup visit with Ms. Frias but I would be happy to see her again if she develops any problems related to her surgery. Zeeshan Heredia M.D. 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
--- OUTSIDE RECORDS SUMMARY | ~2019-09-14 | XMS | Encounter Summary ---
Demographics + + + | Address | [address] | | | [place] [address] | + + + | Home Phone | | + + + | Preferred Language | Unknown | + + + | Marital Status | Single | + + + | Caodaism Affiliation | NRP | + + + | Race | or | + + + | Ethnic Group | Not or | + + + Author + + + | Author | [place] [employer] [facility] | + + + | Organization | [facility] | + + + | Address | Unknown | + + + | Phone | Unavailable | + + + Support + + +---------+ + | Name | Relationship | Address | Phone | + + +---------+ + | Debra Vaca | ECON | Unknown | | + + +---------+ + Care Team Providers + +------+ + | Care Javascript Ui Developer Name | Role | Phone | [...] | | | | Elysha K, | [facility] [address] | | | | | Neuroendocri | PA-C [address] | | | | | ne tumor | [address] | | | | | Procedures | [address] [address] | Mailcode: | | | | | STRESS | Rd | [address] | | | | | DOBUTAMINE | [place], [place] | [facility] | | | | | ECHOCARDIOGR | [address] | Building | | | | | AM, ADULT | Phone: | [place], [place] | | | | | | [phone] | [address] | | | | | | Fax: | Phone: | | | | | | [phone] | [phone] | +--------+--------+ + + + + Encounter Details +--------+ + + + + | Date | Type | Department | Care Team | Description | +--------+ + + + + | 03/23/ | Flexographic Press Operator | Cardiothoracic | Jaclyn Coy, | Neuroendocrine tumor | | 2017 | | Surgery at [facility] [address] | PA-C [address] | (Primary Dx) | | | | [address] | [address] | | | | | Rd [address]: [address] | [place], [place] | | | | | Physician's | [address] | | | | | [place], | [phone] | | | | | [place] [address] | | | | | | [phone] | | | +--------+ + + + [...] Performed At | + + + | [facility] | [facility] DEPT OF | | [facility] Adult Echocardiography [facility] [address] | CARDIOLOGY | | [place], [place] [address] Ph: | | | Pt Name: BAILEY ANDERS | | | Study Date / Time 04/01/2017 / 1:18:09 PMMRN: [id number] | | | Most recent prior: -Acc #: [id number] | | | No. previous echos: 0DOB: 1955 Age: 61 | | | years Gender: FHeight: 63.0 in | | | BSA: 1.60 f6Dozjsf: 128 lb | | | Order ID: [id number] | | | medications: Jasper-Inhibitor and Anti-hyperlipidemic.Indications: | | | Preoperative Evaluation Software Test Developer: Ashley Brower [facility] Referring | | | Provider: Jaclyn Sloan Location: [facility] Performed: | | | Definity contrast and Dobutamine stress echo.History: 61 year old | | | female who presented with left-sided chest pain and was found to have | | | a right hilar lung mass. Patient history has been obtained from the | | | [facility] Dobutamine Stress Echocardiographic Report | | | [...] | | , PhDReport electronically signed by: [id number] Terry Johnson MD, | | | PhD [...] PhD | | |Report electronically signed by: [id number] Terry Johnson MD, PhD (04/01/2017, 2:30:24 | | | PM) | | | | | | | | | | | | | | | | | | | | | | | | Final | | + + + + + | Procedure Note | + + | Interface, Cardiology Results - 04/01/2017 2:30 PM PDT [facility] | | [facility] Echocardiography Laboratory [facility] | | [place], [place] [address] Pt Name: BALIEY Burrows | | MARTITA Study Date / Time 04/01/2017 / 1:18:09 PMMRN: [id number] | | Most recent prior: -[facility] #: [id number] No. previous echos: 0DOB: | | 1955 Age: 61 years Gender: FHeight: 63.0 in BSA: | | 1.60 m1Hyvaud: 128 lb Order ID: | | [id number] medications: Jasper-Inhibitor and Anti-hyperlipidemic.Indications: | | Preoperative Evaluation Software Test Developer: Ashley Brower RDCS Referring Provider: Jaclyn Bob | | WiestPatient Location: [facility] Performed: Definity contrast and Dobutamine [...] MD, | | PhDReport electronically signed by: [id number] Terry Johnson MD, PhD (04/01/2017, 2:30:24 | [...] MD, PhD | |Report electronically signed by: [id number] Terry Johnson MD, PhD (04/01/2017, 2:30:24 | [...] DEPT OF | [address] | [place], [place] | | | CARDIOLOGY | [address] | [address] | | + + + + + documented in this encounter Visit Diagnoses + + | Diagnosis | + + | 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
[~2019-09-14 16:03] MED LIST: COMBIVENT RESPIM4 GM INH; HYDROCHLOROTHIA25 MG PO; LISINOPRIL40 MG PO; METOPROLOL TART25 MG PO; SIMVASTATIN20 MG PO
--- OUTSIDE RECORDS SUMMARY | 2019-09-14 16:06 | XMS ---
PreManage Notification: MIAH ANDERS Security Methods Examiner Events No recent Security Events currently on file CRITERIA MET - Group Notification CARE PROVIDERS NAYELY MATHUR Primary Care 03/30/2017-Current PHONE: [phone] Kanchan has no Care Guidelines for this patient. E.Lora VISIT COUNT (12 MO.) 1 JAYLEEN Eagle TOTAL 1 NOTE: Visits indicate total known visits. ED/UCC VISIT TRACKING (12 MO.) 09/14/2019 16:04 JAYLEEN [place] TYPE: Emergency COMPLAINT: - LEFT LEG PAIN INPATIENT VISIT TRACKING (12 MO.) No inpatient visits to display in this time frame [email or web address]
[2019-09-14] MEDS ORDERED: CENTANY30 GM TOP (18:13)
[2019-09-14] MEDS ORDERED: DOXYCYCLINE HY100 M3 PO (18:13)
== END 2019-09-14 18:33 | disposition home or self-care (01) ==
LOC: ED 16:03
DX: L03.116 Cellulitis of left lower limb (principal); L02.416 Cutaneous abscess of left lower limb; I10 Essential (primary) hypertension; E78.5 Hyperlipidemia, unspecified; Z85.118 Personal history of other malignant neoplasm of bronchus and lung; F17.200 Nicotine dependence, unspecified, uncomplicated
CPT/HCPCS: 99283

== ENCOUNTER 2020-01-15 12:34 | Emergency (ER) | payer MEDICARE, OTHER ==
[~2020-01-15] VITALS: Ht 160 cm; Wt 52.6 kg
[~2020-01-15 12:34] MED LIST changes: +CENTANY30 GM TOP; +DOXYCYCLINE HY100 M3 PO
--- OUTSIDE RECORDS SUMMARY | 2020-01-15 12:38 | XMS ---
PreManage Notification: MIAH ANDERS Security Master Merchandiser Events No recent Security Events currently on file CRITERIA MET - Group Notification CARE PROVIDERS Name Unknown Clinic/Center 09/15/2019-Current PHONE: [phone] NAYELY MATHUR Primary Care 03/30/2017-Current PHONE: [phone] Kanchan has no Care Guidelines for this patient. Care History Medical/Surgical 09/15/2019 [facility] \T\middot;\T\nbsp; PATIENT- [facility] ELIGIBLE \T\middot;\T\nbsp; PLEASE REFER PATIENT TO [facility] FOR NON EMERGENT MEDICAL NEEDS. \T\middot;\ T\nbsp; [facility] CAN SEE PATIENTS SAME DAY FOR APTS IF PATIENT CALLS FIRST THING IN THE MORNING. E.D. VISIT COUNT (12 MO.) 2 [facility] [place] TOTAL 2 NOTE: Visits indicate total known visits. ED/UCC VISIT TRACKING (12 MO.) 01/15/2020 12:35 [facility] [place] TYPE: Emergency COMPLAINT: - VOMITING 09/14/2019 16:04 [facility] [place] TYPE: Emergency COMPLAINT: - LEFT LEG PAIN DIAGNOSES: - Personal history of malignant neoplasm of bronchus and lung - Hyperlipidemia, unspecified - Cutaneous abscess of left lower limb - Essential (primary) hypertension - Cellulitis of left lower limb - Nicotine dependence, unspecified, uncomplicated INPATIENT VISIT TRACKING (12 MO.) No inpatient visits to display in this time frame [email or web address]
--- NOTE | 2020-01-15 18:13 | EKG ---
[facility] [address] [facility] [place], [place] [address] Signed Accelerated Junctional rhythm Abnormal ECG No previous ECGs available Confirmed by ANIRUDH GREY DO ([id number]) on 01/15/2020 6:12:57 PM Electronically Signed By: ANIRUDH GREY DO 01/15/20 1813 PATIENT NAME: MIAH ANDERS Electrocardiogram DATE OF : 51 PHYSICIAN: ANIRUDH GREY DO REPORT #: [id number] REPORT IS CONFIDENTIAL AND NOT TO BE RELEASED WITHOUT AUTHORIZATION
[2020-01-15] MEDS ORDERED: ZOFRAN4 MG PO (19:52)
[2020-01-15] MEDS ORDERED: ZITHROMAX250 MG PO (20:01)
== END 2020-01-15 21:07 | disposition home or self-care (01) ==
LOC: ED 12:34
DX: R11.2 Nausea with vomiting, unspecified (principal); R51 Headache; D72.829 Elevated white blood cell count, unspecified; J18.9 Pneumonia, unspecified organism; I10 Essential (primary) hypertension; F17.200 Nicotine dependence, unspecified, uncomplicated
CPT/HCPCS: 70450; 70496; 71045; 80053; 81001; 83605; 83690; 84484; 85025; 93005; 93010; 96361; 99284-25; J1885; J2405; J7030; Q9967

== ENCOUNTER 2020-01-24 13:06 | Inpatient (IN) | payer MEDICARE, OTHER ==
[~2020-01-24] VITALS: Ht 160 cm; Wt 50.5 kg
[~2020-01-24 13:06] MED LIST changes: +ZITHROMAX250 MG PO; +ZOFRAN4 MG PO
--- OUTSIDE RECORDS SUMMARY | 2020-01-24 13:10 | XMS ---
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 Care History Medical/Surgical 09/15/2019 [facility] \T\middot;\T\nbsp; PATIENT- [facility] ELIGIBLE \T\middot;\T\nbsp; PLEASE REFER PATIENT TO [facility] FOR NON EMERGENT MEDICAL NEEDS. \T\middot;\ T\nbsp; [facility] CAN SEE PATIENTS SAME DAY FOR APTS IF PATIENT CALLS FIRST THING IN THE MORNING. E.D. VISIT COUNT (12 MO.) 3 JAYLEEN Eagle TOTAL 3 NOTE: Visits indicate total known visits. ED/UCC VISIT TRACKING (12 MO.) 01/24/2020 13:07 [facility] [place] TYPE: Emergency COMPLAINT: - REFUSING TO TAKE MEDS, AND FOOD 01/15/2020 12:35 [facility] [place] TYPE: Emergency COMPLAINT: - VOMITING DIAGNOSES: - Essential (primary) hypertension - Nicotine dependence, unspecified, uncomplicated - Nausea with vomiting, unspecified - Headache - Pneumonia, unspecified organism - Elevated white blood cell count, unspecified 09/14/2019 16:04 [facility] [place] TYPE: Emergency COMPLAINT: - LEFT LEG PAIN DIAGNOSES: - Personal history of malignant neoplasm of bronchus and lung - Hyperlipidemia, unspecified - Cutaneous abscess of left lower limb - Essential (primary) hypertension - Cellulitis of left lower limb - Nicotine dependence, unspecified, uncomplicated INPATIENT VISIT TRACKING (12 MO.) No inpatient visits to display in this time frame [email or web address]
--- NOTE | 2020-01-24 20:22 | NUR ---
RECEIVED REPORT FROM INGRID PAZ RN.
--- NOTE | 2020-01-24 20:30 | NUR ---
RECEIVED CALL FROM ED, PT GOING TO CT PRIOR TO COMING TO THE FLOOR
--- NOTE | 2020-01-24 21:30 | NUR ---
PT ADMITTED TO ROOM 115, A/O VERY HARD OF HEARING, READS LIPS AND SLOW LOUD SPEECH. 2 L O2, SATS IN THE 90'S. STATED SHE WAS HUNGRY, OFFERED JELLO AND PUDDING. SHE ATE 100%, DRANK WATER NO VOMITING. EDUCATED ABOUT CALL LIGHT, AND NOT GETTING UP WITHOUT HELP. WILL PLACE BED ALARM UNTIL IT IS DETERMINED SHE IS SAFE AND STAYS WITHIN THE RISKS. SCD'S IN PLACE
--- NOTE | 2020-01-24 21:54 | NUR ---
PT STATED SHE IS GETTING HEARING AIDES SOON, AND NEW GLASSES. SHE IS UNABLE TO READ D/T TO THIS.
--- NOTE | 2020-01-24 23:15 | NUR ---
IN ROOM TO ADMINISTER MEDICATION AND ASSESS PT. SHE DENIES PAIN AT THIS TIME. SHE IS ON 2LNC. SHE DENIES EMESIS AND ATE JELLO AND PUDDING. SHE DENIES NEEDS AT THIS TIME. CALL LIGHT IS CLOSE.
--- NOTE | 2020-01-25 00:08 | NUR ---
PT IS RESTING WITH EYES CLOSED, RR IS EVEN AND NONLABORED. CALL LIGHT IS CLOSE.
--- NOTE | 2020-01-25 02:25 | NUR ---
PT IS RESTING WITH EYES CLOSED, RR IS EVEN AND NONLABORED. CALL LIGHT IS CLOSE AND BED ALARM IS ON.
--- NOTE | 2020-01-25 03:35 | NUR ---
GURINDER ESCOTO ASSISTED PT TO THE RESTROOM AFTER HER BED ALARM SOUNDED. SHE WAS FOUND SITTING AT THE EDGE OF THE BED. ADMINISTERED LACTULOSE, PT HAS NOT HAD A BM YET. SHE IS HAVING A VERY HARD TIME HEARING WHICH MAKES COMMUNICATION DIFFICULT AND SHE DOES NOT HAVE HER GLASSES SO SHE IS HAVING A HARD TIME SEEING WELL. HER IV IS INFUSING FINE AND SHE DENIES PAIN/SOB. CALL LIGHT IS CLOSE AND BED ALARM IS ON.
--- NOTE | 2020-01-25 04:13 | NUR ---
PT IS AWAKE IN BED. ASKING ABOUT WHAT TIME DR JO WILL COME IN TO SEE HER. SHE HAS FRESH COFFEE AT BEDSIDE AND DENIES FURTHER NEEDS. CALL LIGHT IS CLOSE.
--- NOTE | 2020-01-25 06:25 | NUR ---
IN ROOM TO ADMINISTER MORE LACTULOSE. PT HAD A SMALL BM EARLIER AND IS UP TO THE BATHROOM AGAIN AT THIS TIME.
--- NOTE | 2020-01-25 07:51 | NUR ---
0730: Report recieved from Melly CHAUDHARY. Pt resting in her bed having just returning from the br and had a large loose bm. Bed alarm is on and call lopez within reach.
--- NOTE | 2020-01-25 07:54 | NUR ---
PATIENT WAS AWKE, UP TO THE BATHROOM,1PA OR STAND BY CALL LIGHT IN REACH
--- NOTE | 2020-01-25 10:04 | NUR ---
PT RESTING IN HER CHAIR WATCHING TV. SHE STATES HER BREATHING FEELS FINE AND HER SAT ON 2L OF O2 VIA NC IS 94% WITH COARSE LUNG SOUNDS NOTED. SHE STATES SHE HAS SOME ABD CRAMPING WITH ACTIVE BOWEL SOUNDS HEARD. SHE HAS HAD SEVERAL LOOSE BMS THIS AM. WILL CONTINUE TO MONITOR. SEE EMAR AND ASSESSMENT.
--- NOTE | 2020-01-25 10:30 | NUR ---
Spoke with Bailey and she is having difficulty with her memory and history. Oriented x 1 and has difficulty remembering her siblings names. States she lives with her sister and brother. I was able to find her sisters name in admit papers and phone number. Pt knows her spouse , but does not remember when. She is on 02 at 4-5 L today. She initially denies having 02 at home, states 02 was for her spouse. She later states she does think she had 02, but sent it back as she didn't think she needed any more. Confirmed this with [facility] and she had 02 in 2016. I called and spoke with her sister Torri. They live in a 1 story house, no steps. Pt came to live with her 12/21/19. 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 She was seen by Dr. Sotelo at [facility] and mass was explained. Per Torri, pt stopped eating and drinking post that appt. and will no longer attempt to help herself. Torri states she cannot care for her in this condition. She would like Bailey placed. She also states pt has a long history of difficult behavior of drinking/gambling. She has been asked to leave her last two residences. She lived with her daughter and was not able to cont. to stay there. Pt does not have 02 in the home, she has a shower chair and does not use other DME. Again sister stating she would like her placed. Requested sister call [facility] for eval and let her know to obtain their services it can take 45 days. She states she will call today. I will speak with Dr. Lackey and check if she qualifies for an IP stay and possible placement to a SNF.
--- NOTE | 2020-01-25 11:15 | NUR ---
Pt resting in her chair watching tv and she denies any abd pain at this time and she states that her breathing also feels ok. Moist cough noted.
--- NOTE | 2020-01-25 12:30 | NUR ---
Dr Lackey in to speak with pt. Sister Torri in and speaking with Dr. Lackey she is very upset as she feels she cannot get any help. States pt is confused and hard of hearing. She attempted to call [facility] and reach a voice mail. Dr. Lackey assesses the patient and states she is wheezy. Pt has removed her oxygen and her oximeter. 02 returned and oximeter replaced, pt sat at 87%, but quickly returns to 91. Pt is hard of hearing and also confused during visit. Pt will be made IP for exacerbation of COPD by Dr. Lackey.
[2020-01-25] MEDS ORDERED: ZESTRIL20 MG PO (13:54)
[2020-01-25] MEDS ORDERED: ALBUTEROL2.5 MG/3 M INH (13:54)
--- NOTE | 2020-01-25 14:12 | NUR ---
1410: PT TAKEN TO MRI AT THIS TIME.
--- NOTE | 2020-01-25 14:30 | NUR ---
WENT TO CHECK ON PT-IMAGING IS HERE TO TAKE PT. WILL FOLLOW NEEDED
--- NOTE | 2020-01-25 15:01 | NUR ---
Pt returned from MRI. Pt is now in the BR.
--- NOTE | 2020-01-25 15:19 | NUR ---
PT UNABLE TO ANSWER WHAT MONTH IT IS OR WHAT FACILITY WE ARE IN. SHE IS ALSO VERY IMPULSIVE AND MOVES QUICKLY. PT ENCOARAGED TO CALL BE FOR GETTING UP THE THE BED ALARM IS ON. PT DENIES ANY SOB AT THIS TIME, SAT IS 94% ON 2L VIA NC. CPOX WAS PLACED AND REMAINS ON. MRI WAS DONE, AWAITING RESULTS. REEL MAN NOTIFIED OF THE PT'S CONFUSION.
--- NOTE | 2020-01-25 16:29 | NUR ---
Pt sleeping at this time. Call lopez within reach and bed alarm is on.
--- NOTE | 2020-01-25 16:56 | NUR ---
Er note, H &P, progress notes, face sheet, medication list faxed to [facility].
--- NOTE | 2020-01-25 17:10 | NUR ---
PT'S BED ALARM WENT OFF. PT STANDING IN HER ROOM TANGLED IN HER PHONE CORD AND THE SCD CORDS. PT HAD REMOVED HER O2 AND PULSE OX PROBE. PT ASSISTED BACK TO BED AND HER SAT IS 83% ON ROOM AIR. O2 REPLACED AT 2L AND SAT INCREASED TO 89%. PT DENIES THE NEED FOR ANYTHING OR ANY SOB BUT REMAINS CONFUSED. BED ALARM IS TURNED BACK ON. SCD'S LEFT OFF FOR SAFETY AND PT ENCOUARGED TO CALL BEFORE GETTING UP AND BED ALARM IS TURNED BACK ON.
--- NOTE | 2020-01-25 17:28 | NUR ---
PT MOVED TO ROOM 122 TO BE CLOSER TO THE NURSES STATION FOR SAFETY. CALL LARSON IN REACH AND BED ALARM IS ON.
--- NOTE | 2020-01-25 17:38 | NUR ---
Dr Lackey notified of pt's room moving due to her confusion. Order recieved to dc scd's due to fall risk. Pt continues resting in bed at this time. Bailey rowlandeusted a cigarette, pt offered a lozeange.
--- NOTE | 2020-01-25 20:56 | NUR ---
HELPED PT TO THE BATHROOM AND BACK TO BED. BEDSIDE TABLE AND CALL LIGHT IN REACH. BED ALARM SET. PT NEEDS NOTHING MORE AT THIS TIME.
--- NOTE | 2020-01-25 23:00 | NUR ---
IN ROOM TO ADMINISTER MEDICATIONS AND ASSESS PT. SHE IS HAVING A DIFFICULT TIME UNDERSTANDING WHICH IS DIFFICULT KNOWING IF SHE CANNOT HEAR WHAT IS SAID OR IF SHE IS CONFUSED. SHE STATED HER NAME AND KNOWS SHE IS IN [place]. PT DENIES PAIN AND DOES NOT APPEAR TO BE IN PAIN. CALL LIGHT IS CLOSE AND BED ALARM IS ON.
--- NOTE | 2020-01-26 00:11 | NUR ---
PT IS RESTING WITH EYES CLOSED, RR IS EVEN AND NONLABORED. CALL LIGHT IS CLOSE.
--- NOTE | 2020-01-26 02:56 | NUR ---
BED ALARM SOUNDED, PT WAS STANDING AT BEDSIDE. 1PA TO RESTROOM AND TO CHAIR. BED ALARM IN PLACE. PT REPORTS A LUMP IN HER ABDOMEN ON LLQ AND STATES "EVERYTHING IS MOVING ALONG THROUGH THERE". THERE IS A PALPABLE LUMP IN THAT AREA. WILL CONTINUE TO MONITOR AND PASS ALONG.
--- NOTE | 2020-01-26 04:03 | NUR ---
PT IS AWAKE IN THE CHAIR SHE DENIES NEEDS AT THIS TIME.CALL LIGHT IS CLOSE AND CHAIR ALARM IS ON.
--- NOTE | 2020-01-26 05:13 | NUR ---
PT'S CHAIR ALARM SOUNDED. PT WANTED TO USE THE RESTROOM. SBA TO BATHROOM AND BACK TO BED. VS TAKEN AND ENTERED. PT DENIES NEEDS AT THIS TIME. BED ALARM IS ON.
--- NOTE | 2020-01-26 06:14 | NUR ---
IN ROOM TO ADMINISTER SOLUMEDROL. PT DENIES FURTHER NEEDS AT THIS TIME. CALL LIGHT IS CLOSE. WARMPACK PROVIDED FOR LUMP ON PT'S LLQ.
--- NOTE | 2020-01-26 07:53 | NUR ---
PATIENT LYING IN BED WITH EYES OPEN. PATIENT ON CHRONIC 2L 02 SATS 95%. CALL LIGHT IN REACH.
--- NOTE | 2020-01-26 09:53 | NUR ---
MED REC COMPLETE
--- NOTE | 2020-01-26 10:27 | NUR ---
ONLINE MEDIA BUYER NOTIFIED THIS RN OF OXYGEN SATURATION OF 83% ON 4L NC. THIS NURSE TO BEDSIDE TO CHANGE FINGER PROB. ENCOURAGED COUGHING AND DEEP BREATHING, AND ACCAPELLA USE. CHANGED PT TO SIMPLE MASK. INCREASED OXYGEN TO 8L. RT CALLED AND RECOMENDED DR SAUCEDO. DR JO CALLED AND NOTIFIED. ORDERS TO ADMINTER 1 BREATHING TREATMENT AND REASSESS.
--- NOTE | 2020-01-26 10:55 | NUR ---
PATIENT SITTING UP IN CHAIR. OXY MASK IN PLACE. SATS 92% W/ 8L O2. NO REPORTS OF PAIN. PATIENT CAN STATE SHE IS IN [facility] AND . INCORRECTLY STATES THE YEAR. CALL LIGHT IN REACH.
--- NOTE | 2020-01-26 11:41 | NUR ---
PT SITTING IN CHAIR, O2 MASK IN USE. PT SEEMED SOMEWHAT DISORIENTED, IS ALSO MAKAH, BUT RESPONDED WHEN SPOKEN TO. PT DID THANK ME FOR COMING IN, EXTENDED A BLESSING. WILL FOLLOW NEEDED
--- NOTE | 2020-01-26 13:08 | NUR ---
PATIENT SITTING ON EOB WITH TRAY TABLE IN FRONT OF HER. LIGHTS OFF IN ROOM SO TO PT LIGHT SENSITIVITY. PT REPORTS NO PAIN. RESPIRATIONS EQUAL AND UNLABORED ON RA. CALL LIGHT IN REACH.
--- NOTE | 2020-01-26 13:11 | NUR ---
PATIENT UP IN CHAIR EATING LUNCH. NURSE ENCOURAGED PATIENT TO EAT MORE OF HER LUNCH. PATIENT ATE MORE AFTER ADDING SALT TO MEAL. ORDERED STRAWBERRY ENSURE. NO COMPLAINTS OF PAIN. PATIENT SWITCHED FROM OXYMASK TO NC, 7L O2 WHILE EATING. CALL LIGHT IN REACH.
--- NOTE | 2020-01-26 13:30 | NUR ---
Met with pt, her sister, and two brothers. All state concern patient is not caring for herself properly by not eating, drinking, taking medications as ordered, or monitoring blood sugar. Notified Bailey she cannot return to live with them if she does not agree to begin caring for self. They want Bailey to go to a SNF for conditioning and further education on diabetes. Pt agrees to all and states she does want to live with them. Pt is very hard of hearing, but does understand conversation with family. She agrees to go to [facility] for short term and then discharge to home with Sister and brother. Brother Ruel does state if things don't work out with sister, she may live with he and his . Chart was sent to T yesterday, awaiting confirmation for admission. Possible admit to SNF on Sat.
--- NOTE | 2020-01-26 17:10 | NUR ---
PATIENT SITTING UP IN CHAIR RECIEVING NEBULIZER RX. NO REPORTS OF PAIN. PATIENT IS ASKING FOR CIGARETTE. NURSE ADMINISTERED NICOTINE LOZENGE. DINNER ARRIVED AFTER NEBS COMPLETED. 4L O2 NC WHILE PATIENT IS EATING. CALL LIGHT IN REACH.
--- NOTE | 2020-01-26 19:10 | NUR ---
SHIFT REPORT RECEIVED FROM DAYSHIFT NEENA VERGARA. PT AWAKE AND RESTING IN CHAIR, REQUESTING TO GO TO BED. SBA BACK TO BED, ALARM ON. 4LNC IN PLACE. NO FURTHER NEEDS, CALL LIGHT IN REACH.
--- NOTE | 2020-01-26 22:45 | NUR ---
Pts bed alarm was going off, pt was standing at side of bed when i entered the room, helped pt to the restroom, pt had bm, pt was unsteady while walking back to bed, pt went back to bed.
--- NOTE | 2020-01-26 23:00 | NUR ---
ASSESSMENT COMPLETE, VSS. SCHEDULED MEDS GIVEN (SEE EMAR). PT A/O TO PERSON AND PLACE. REPORTS MINIMAL PAIN IN LLQ R/T LUMP. DENIES NEED FOR PAIN MEDICATION, WILL MONITOR. IV SITE WNL, FLUSHES EASILY. CPOX IN PLACE, PT ON 3-4LNC. NO SOB OR RESPIRATORY DISTRESS NOTED. PT APPEARS COMFORTABLE, NO FURTHER NEEDS. BED ALARM ON, CALL LIGHT IN REACH.
--- NOTE | 2020-01-27 00:58 | NUR ---
Pt alarm going off, pt sitting at bed side, walked pt to restroom and back to bed, hooked pt back up to oxygen, pulse ox, and reset bed alarm.
--- NOTE | 2020-01-27 01:54 | NUR ---
PT RESTING IN BED WITH EYES CLOSED, RESPIRATIONS EVEN AND UNLABORED. 3-4LNC IN PLACE, CPOX ON. O2 SAT 94%, HR 70'S. NO DISTRESS NOTED, CALL LIGHT IN REACH. PT APPEARS COMFORTABLE, BED ALARM ON FOR SAFETY.
--- NOTE | 2020-01-27 04:03 | NUR ---
CPOX ALARMING, NC OFF OF FACE. O2 SAT MID 80'S. 3-4LNC BACK IN PLACE, O2 SAT QUICKLY RETURNED TO ABOVE 90%. NO DISTRESS NOTED, RR WNL. CALL LIGHT IN REACH, BED ALARM ON FOR SAFETY.
--- NOTE | 2020-01-27 05:20 | NUR ---
ASSESSMENT COMPLETE, NO NEW CHANGES OR CONCERNS. VSS, CPOX IN PLACE. PT ON 3-4LNC, LUNG SOUNDS CLEAR. WHEEZES HEARD IN MICHAEL, NO DISTRESS NOTED. O2 SAT LOW TO MID 90'S. PT REPORTS VERY MINIMAL PAIN R/T LUMP IN LLQ. COMB PROVIDED PER PT REQUEST, CALL LIGHT IN REACH. BED ALARM ON.
--- NOTE | 2020-01-27 07:00 | NUR ---
Bed alarm triggered with pt trying to exit to bathroom without assistance. this nurse in to assist pt to bathroom. Pt wanting dentures in and to sit up in chair. Pt steady on feet, walker used to ambulate. pt helped to chair with 3L NC in place. Chair alarm on, cpox on. Call light in reach
--- NOTE | 2020-01-27 07:31 | NUR ---
PATIENT UP IN CHAIR AWAKE. NURSE HELPED PT PUT NC BACK ON FACE PT WAS STRUGGLING WITH APPLICATION. 02 AT 3L SATS 91%. CHAIR ALARM ON. CALL LIGHT IN REACH.
--- NOTE | 2020-01-27 10:01 | NUR ---
PATIENT UP IN CHAIR EATING BREAKFAST AND WATCHING TV. TITRATED 02 VIA NC TO 2L. PATIENT SATS STEADY BETWEEN 91-92%. pATIENT REPORTS MILD PAIN IN LLQ FROM HEMATOMA (LOVONOX REACTION). NICOTINE PATCH APPLIED TO RIGHT SHOULDER. PATIENT STATES SHE IS AN EVERYDAY SMOKER, DOES NOT EXPRESS INTEREST IN QUITTING WHEN DISCUSSED BY NURSE. PROVIDED WARM BLANKET. CALL LIGHT IN REACH.
--- NOTE | 2020-01-27 10:12 | NUR ---
MAICO CALLED TO GET UPDATE ON PT CONDITION. UPDATED ON POC. QUESTIONS ANSWERED ABOUT OXYGEN SATURATION, ORAL INTAKE, AND PT COGNITION.
--- NOTE | 2020-01-27 11:02 | NUR ---
Pt taking breathing treatment. Has been accepted to [facility]. OT worked with her today and per report, pt is unsteady on feet. Chart faxed to [facility] at request of pt and sister for continuity of care.
--- NOTE | 2020-01-27 11:55 | NUR ---
ROUNDED ON PATIENT. PATIENT UP IN CHAIR. O2 91% ON 2L O2. NO NEEDS REPORTED AT THIS TIME. CALL LIGHT IN REACH, CHAIR ALARM ON.
--- NOTE | 2020-01-27 12:51 | NUR ---
Called and left message with Ldumila and Torri to check if they can transport Bailey to the SNF tomorrow. Return call from Torri, she states she cant as Bailey will insist she stop and buy cigaretts. Informed I will have nurses schedule transportation.
--- NOTE | 2020-01-27 13:04 | NUR ---
PATIENT REQUESTED TO MOVE BACK TO BED. RT IN ROOM ADMINISTERING BREATHING TX. PT ON 2L NC/ SATS 91%. PATIENTS LUNCH IN ROOM BUT PT STATED SHE WASNT HUNGRY AND WOULD LIKE TO EAT LATER. CALL LIGHT IN REACH. BED ALARM ON.
[2020-01-27] MEDS ORDERED: IPRAT-ALBUT 0.5-3 ML INH (13:51)
[2020-01-27] MEDS ORDERED: ZESTRIL20 MG PO (13:52)
[2020-01-27] MEDS ORDERED: TYLENOL EXTRA500 MG PO (13:52)
[2020-01-27] MEDS ORDERED: NICOTINE1 EAC1 TD (13:52)
[2020-01-27] MEDS ORDERED: DEEP SEA44 ML NAS (13:53)
[2020-01-27] MEDS ORDERED: METHYLPREDNISOL16 MG PO (13:53)
[2020-01-27] MEDS ORDERED: DOK PLUS TABLE1 EACH PO (13:53)
[2020-01-27] MEDS ORDERED: BUDESONIDE0.5 MG/2 M INH (13:54)
[2020-01-27] MEDS ORDERED: ALBUTEROL2.5 MG/3 M INH (13:55)
[2020-01-27] MEDS ORDERED: ONDANSETRON HCL4 MG PO (13:55)
--- NOTE | 2020-01-27 14:30 | NUR ---
Signed orders, dc summary, medications, face sheet faxed to [facility] for admit tomorrow. Instuction list placed on dc packet for nurses to contact Blaze from [facility] with phone number prior to dc and phone number for nurse to nurse report for dc.
--- NOTE | 2020-01-27 15:50 | NUR ---
PATIENT SITTING UP IN BED WATCHING TV. PERFORMED FOCUS ASSESSMENT. PT REPORTS PAIN IN LLQ FROM HEMATOMA CAUSED BY LOVENOX. SATS 91% ON 2L NC. PATEINT STATES THAT SHE FEELS IF SHE IS ABLE TO BREATH EASIER SINCE HER INITIAL ADMISSION. PT AMBULATED TO BATHROOM SBA FWW. CALL LIGHT IN REACH.
--- NOTE | 2020-01-27 17:45 | NUR ---
PATIENT SITTING UP IN BED WATCHING TV. ADMINISTERED SCHEDULED ZESTRIL. PATIENTS B/P WAS ELEVATED 188/98. RESPIRATIONS EQUAL AND UNLABORED ON 2L O2 NC. PATIENTS WANTED TO EAT DINNER WHILE SITTING UP IN BED. WILL REASSESS B/P IN 30 MIN. CALL LIGHT IN REACH.
--- NOTE | 2020-01-27 18:25 | NUR ---
PATIENT SITTING UP IN BED. FINISHED 100% OF DINNER. REAASSESSED B/P AFTER ZESTRIL ADMIN. B/P LOWERE AT 166/86. PT REPORTS NO PAIN. SATS 92% ON 2L NC. cALL LIGHT IN REACH. PATIENT AMBULATED WITH FWW 1P ASSIST TODAY.
--- NOTE | 2020-01-27 19:10 | NUR ---
RECIEVED REPORT AT BEDSIDE. ENTERED PT ROOM TO FIND PT ON RA O2 SAT AT 90%. PT RESIGHINI. NO REQUEST AT THIS TIME. CALL LIGHT IN REACH
--- NOTE | 2020-01-27 20:35 | NUR ---
RAILCAR SWITCHMAN ROUNDING NOTE. PT UP TO BATHROOM WITH PRIMARY RN IN ROOM. NEEDS DENIED AT THIS TIME. WHITE BOARD UPDATED.
--- NOTE | 2020-01-27 20:52 | NUR ---
PATIENT IS AWAKE A LITTLE COMFUSED. WATCHING TV .
--- NOTE | 2020-01-28 00:58 | NUR ---
PATIENT HAS BEEN UP 2 X TO THE BATHROOM. FRESH WATER GIVEN AND COFFEE
--- NOTE | 2020-01-28 02:29 | NUR ---
ASSISTED PT TO BATHROOM. PT BED ALARM GOING OFF, REMINDED PT FOR SAFETY PURPOSES SHE SHOULD USE CALL LIGTH WHEN SHE NEEDS TO USE BATHROOM. PULSE OX MALFUNCTIONING SO I REPLACED IT. PT ON 3L NC 99%
--- NOTE | 2020-01-28 03:46 | NUR ---
patient up to the bathroom
--- NOTE | 2020-01-28 07:32 | NUR ---
RECIEVED BEDSIDE REPORT FROM URSULA Pope RN. PT IS SLEEPING AT THIS TIME. PLAN IS TO DC TODAY TO [place]. BEDALARM ON. PT SLEPT SEVERAL HOURS OVERNIGHT.
[2020-01-28] MEDS ORDERED: LISINOPRIL40 MG PO (08:54)
--- NOTE | 2020-01-28 09:14 | NUR ---
PATIENT IN BED. IV TAKEN OUT UPON RN REQUEST. CATH INTACT AND LOOKED GOOD, RN NOTIFIED. CALL LIGHT IN REACH. NO FURTHER NEEDS AT THIS TIME.
--- NOTE | 2020-01-28 09:44 | NUR ---
CALLED RN TO RN REPORT TO [facility]. DISCUSSED MEDS, HISTORY, LABS, ACTIVITY. ALL QUESTIONS ANSWERED. ADVISED PT WILL BE ARRIVING ABOUT 1030
== END 2020-01-28 10:00 | DRG 191 ==
LOC: ED 13:06 → MS 13:08
PROVIDERS: ADMIT Internal Medicine
DX: J43.1 Panlobular emphysema (principal); J96.11 Chronic respiratory failure with hypoxia; Q62.39 Other obstructive defects of renal pelvis and ureter; F17.210 Nicotine dependence, cigarettes, uncomplicated; K59.00 Constipation, unspecified; D32.0 Benign neoplasm of cerebral meninges; Z79.899 Other long term (current) drug therapy; Z85.118 Personal history of other malignant neoplasm of bronchus and lung
CPT/HCPCS: 36600; 70553; 71046; 71260; 74018; 74176; 80053; 82803; 83605; 85025; 87040; 94640; 94667; 94668; 94760; 96361; 97162; 97165; 99285-25; 99406; A9579; G0378; J1100; J1650; J2920; J2930; J7030; J7121; Q9967

== ENCOUNTER 2020-10-27 09:36 | Emergency (ER) | payer MEDICARE, OTHER ==
[~2020-10-27] VITALS: Ht 160 cm; Wt 50.5 kg
[~2020-10-27 09:36] MED LIST changes: +ALBUTEROL2.5 MG/3 M INH; +BUDESONIDE0.5 MG/2 M INH; +DEEP SEA44 ML NAS; +DOK PLUS TABLE1 EACH PO; +IPRAT-ALBUT 0.5-3 ML INH; +METHYLPREDNISOL16 MG PO; +NICOTINE1 EAC1 TD; +ONDANSETRON HCL4 MG PO; +TYLENOL EXTRA500 MG PO; +ZESTRIL20 MG PO
--- OUTSIDE RECORDS SUMMARY | 2020-10-27 09:40 | XMS ---
PreManage Notification: MIAH ANDERS Security Health Careers Instructor Events No recent Security Events currently on file CRITERIA MET - Group Notification CARE PROVIDERS Collette Mehul Registry Np/Clarification Operator 04/10/2020-Current PHONE: [phone] Name [facility]/Center 09/15/2019-Current PHONE: [phone] Kanchan has no Care Guidelines for this patient. Care History Medical/Surgical 09/15/2019 [facility] \T\middot;\T\nbsp; PATIENT- [facility] ELIGIBLE \T\middot;\T\nbsp; PLEASE REFER PATIENT TO [facility] FOR NON EMERGENT MEDICAL NEEDS. \T\middot;\ T\nbsp; [facility] CAN SEE PATIENTS SAME DAY FOR APTS IF PATIENT CALLS FIRST THING IN THE MORNING. E.D. VISIT COUNT (12 MO.) 3 JAYLEEN Eagle TOTAL 3 NOTE: Visits indicate total known visits. ED/UCC VISIT TRACKING (12 MO.) 10/27/2020 09:37 [facility] [place] TYPE: Emergency COMPLAINT: - WEAKNESS 01/24/2020 13:07 [facility] [place] TYPE: Emergency COMPLAINT: - REFUSING TO TAKE MEDS, AND FOOD 01/15/2020 12:35 [facility] [place] TYPE: Emergency COMPLAINT: - VOMITING DIAGNOSES: - Essential (primary) hypertension - Nicotine dependence, unspecified, uncomplicated - Nausea with vomiting, unspecified - Headache - Pneumonia, unspecified organism - Elevated white blood cell count, unspecified INPATIENT VISIT TRACKING (12 MO.) 10/11/2020 11:04 [facility] TYPE: Ear, Nose, Throat DIAGNOSES: 278[address]. 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
[2020-10-27] MEDS ORDERED: GABAPENTIN100 MG PO (09:55)
[2020-10-27] MEDS ORDERED: ONDANSETRON ODT8 MG PO (11:20)
[2020-10-27] MEDS ORDERED: ZESTRIL40 MG PO (11:20)
== END 2020-10-27 11:58 | disposition home or self-care (01) ==
LOC: ED 09:36
DX: I10 Essential (primary) hypertension (principal); K29.00 Acute gastritis without bleeding; E78.5 Hyperlipidemia, unspecified; F17.200 Nicotine dependence, unspecified, uncomplicated; Z79.899 Other long term (current) drug therapy
CPT/HCPCS: 71046; 80053; 85025; 96374; 99284-25; J2405; J7040

== ENCOUNTER 2020-12-15 19:41 | Emergency (ER) | payer MEDICARE, OTHER ==
[~2020-12-15] VITALS: Ht 160 cm; Wt 59.0 kg
[~2020-12-15 19:41] MED LIST changes: +GABAPENTIN100 MG PO; +ONDANSETRON ODT8 MG PO; +ZESTRIL40 MG PO
--- OUTSIDE RECORDS SUMMARY | 2020-12-15 19:44 | XMS ---
PreManage Notification: MIAH ANDERS Security Web Machine Tender Events No recent Security Events currently on file CRITERIA MET - Group Notification CARE PROVIDERS Sophia Santiago Senior Electrical Controls Engineer/Radiographer Cardiac Catheterization 04/10/2020-Current PHONE: [phone] Name [facility] 09/15/2019-Current PHONE: [phone] Kanchan has no Care Guidelines for this patient. Care History Medical/Surgical 09/15/2019 [facility] \T\middot;\T\nbsp; PATIENT- [facility] ELIG[facility] \T\middot;\T\nbsp; PLEASE REFER PATIENT TO [facility] FOR NON EMERGENT MEDICAL NEEDS. \T\middot;\ T\nbsp; [facility] CAN SEE PATIENTS SAME DAY FOR APTS IF PATIENT CALLS FIRST THING IN THE MORNING. E.D. VISIT COUNT (12 MO.) 4 JAYLEEN Eagle TOTAL 4 NOTE: Visits indicate total known visits. ED/UCC VISIT TRACKING (12 MO.) 12/15/2020 19:41 [facility] [place] TYPE: Emergency COMPLAINT: - GROUND LEVEL FALL 10/27/2020 09:37 [facility] [place] TYPE: Emergency COMPLAINT: - WEAKNESS DIAGNOSES: - Essential (primary) hypertension - Acute gastritis without bleeding - Hyperlipidemia, unspecified - Other termite treater helper (current) drug therapy - Nicotine dependence, unspecified, uncomplicated - Nausea with vomiting, unspecified 01/24/2020 13:07 [facility] Kim TYPE: Emergency COMPLAINT: - REFUSING TO TAKE MEDS, AND FOOD 01/15/2020 12:35 [facility] TYPE: Emergency COMPLAINT: - VOMITING DIAGNOSES: - Essential (primary) hypertension - Nicotine dependence, unspecified, uncomplicated - Nausea with vomiting, unspecified - Headache - Pneumonia, unspecified organism - Elevated white blood cell count, unspecified INPATIENT VISIT TRACKING (12 MO.) 10/11/2020 11:04 [facility] TYPE: Ear, Nose, Throat DIAGNOSES: 07181. 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
== END 2020-12-15 20:40 | disposition home or self-care (01) ==
LOC: ED 19:41
DX: S50.12XA Contusion of left forearm, initial encounter (principal); S30.0XXA Contusion of lower back and pelvis, initial encounter; W22.8XXA Striking against or struck by other objects, initial encounter; E78.5 Hyperlipidemia, unspecified; I10 Essential (primary) hypertension; F17.200 Nicotine dependence, unspecified, uncomplicated; Z85.118 Personal history of other malignant neoplasm of bronchus and lung; Z85.818 Personal history of malignant neoplasm of other sites of lip, oral cavity, and pharynx; Z79.899 Other long term (current) drug therapy
CPT/HCPCS: 73090; 99283-25

== ENCOUNTER 2021-01-21 16:05 | Inpatient (IN) | payer MEDICARE, OTHER ==
[~2021-01-21] VITALS: Ht 160 cm; Wt 60.9 kg
--- OUTSIDE RECORDS SUMMARY | 2021-01-21 16:10 | XMS ---
PreManage Notification: MIAH ANDERS Security Air Traffic Control Equipment Repairer Events No recent Security Events currently on file CRITERIA MET - Group Notification CARE PROVIDERS Sophia Santiago Haircutter/Coffee Shop Manager 12/31/2020-Current PHONE: [phone] [facility] 09/15/2019-[facility] PHONE: [phone] Kanchan has no Care Guidelines for this patient. Care History Medical/Surgical 09/15/2019 [facility] \T\middot;\T\nbsp; PATIENT- [facility] ELIGIBLE \T\middot;\T\nbsp; PLEASE REFER PATIENT TO [facility] FOR NON EMERGENT MEDICAL NEEDS. \T\middot;\ T\nbsp; [facility] CAN SEE PATIENTS SAME DAY FOR APTS IF PATIENT CALLS FIRST THING IN THE MORNING. E.D. VISIT COUNT (12 MO.) 4 JAYLEEN Eagle TOTAL 4 NOTE: Visits indicate total known visits. ED/UCC VISIT TRACKING (12 MO.) 01/21/2021 16:05 [facility] [place] TYPE: Emergency COMPLAINT: - MULTIPLE COMPLAINTS 12/15/2020 19:41 [facility] [place] TYPE: Emergency COMPLAINT: - GROUND LEVEL FALL DIAGNOSES: - Nicotine dependence, unspecified, uncomplicated - Other superintendent terminal (current) drug therapy - Hyperlipidemia, unspecified - Contusion of left forearm, initial encounter - Essential (primary) hypertension - Striking against or struck by other objects, initial encounter - Personal history of malignant neoplasm of other sites of lip, oral cavity, and pharynx - Personal history of other malignant neoplasm of bronchus and lung - Contusion of lower back and pelvis, initial encounter 10/27/2020 09:37 [facility] [place] TYPE: Emergency COMPLAINT: - WEAKNESS DIAGNOSES: - Essential (primary) hypertension - Acute gastritis without bleeding - Hyperlipidemia, unspecified - Other snf (current) drug therapy - Nicotine dependence, unspecified, uncomplicated - Nausea with vomiting, unspecified 01/24/2020 13:07 [facility] [place] TYPE: Emergency COMPLAINT: - REFUSING TO TAKE MEDS, AND FOOD INPATIENT VISIT TRACKING (12 MO.) 10/11/2020 11:04 [facility] TYPE: Ear, Nose, Throat DIAGNOSES: 87504. 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
[2021-01-21] MEDS ORDERED: NICOTINE PATCH1 EACH TD (16:27)
[2021-01-22] MEDS ORDERED: LIDOCAINE HCL100 ML PO (16:07)
[2021-01-22] MEDS ORDERED: ZESTRIL20 MG PO (16:08)
--- NOTE | 2021-01-22 22:03 | EKG ---
[facility] [address] [place] [address] Signed Sinus tachycardia Rightward axis Borderline ECG When compared with ECG of 15-JAN-2020 13:36, Sinus rhythm has replaced Junctional rhythm Vent. rate has increased BY 45 BPM Confirmed by MIGUEL JO MD ([id number]) on 01/22/2021 10:02:55 PM Electronically Signed By: MIGUEL JO MD 01/22/212202 PATIENT NAME: MIAH ANDERS Stormy Electrocardiogram DATE OF : 51 PHYSICIAN: MIGUEL JO MD REPORT #: [id number] REPORT IS CONFIDENTIAL AND NOT TO BE RELEASED WITHOUT AUTHORIZATION
[2021-01-24] MEDS ORDERED: CEPHALEXIN500 MG PO (12:26)
== END 2021-01-24 13:30 | disposition home or self-care (01) | DRG 871 ==
LOC: ED 16:05 → CCU 20:27 → MS 01-23 14:00
PROVIDERS: ADMIT Internal Medicine; ATTEND Internal Medicine
PROC: 3E033XZ Introduction of Vasopressor into Peripheral Vein, Percutaneous Approach (ICD-10-PCS; principal; 2021-01-22)
DX: A41.51 Sepsis due to Escherichia coli [E. coli] (principal); R65.21 Severe sepsis with septic shock; G93.41 Metabolic encephalopathy; N10 Acute pyelonephritis; J96.11 Chronic respiratory failure with hypoxia; Q62.39 Other obstructive defects of renal pelvis and ureter; Z20.822 Contact with and (suspected) exposure to COVID-19; I10 Essential (primary) hypertension; H91.10 Presbycusis, unspecified ear; C10.3 Malignant neoplasm of posterior wall of oropharynx; E83.42 Hypomagnesemia; E87.6 Hypokalemia; Z79.899 Other long term (current) drug therapy; Z85.118 Personal history of other malignant neoplasm of bronchus and lung; Z90.2 Acquired absence of lung [part of]
CPT/HCPCS: 36415; 51701; 71045; 74178; 80053; 81001; 83605; 83735; 85025; 87040; 87077; 87088; 87186; 93005; 93010; 99285-25; C9803; J0690; J0692; J3370; J3475; J7030; J7060; J7121; Q9967; U0003

== ENCOUNTER 2021-05-03 12:03 | Emergency (ER) | payer MEDICARE, OTHER ==
[~2021-05-03] VITALS: Ht 160 cm; Wt 60.8 kg
[~2021-05-03 12:03] MED LIST changes: +CEPHALEXIN500 MG PO; +LIDOCAINE HCL100 ML PO; +NICOTINE PATCH1 EACH TD
--- OUTSIDE RECORDS SUMMARY | 2021-05-03 12:06 | XMS ---
PreManage Notification: MIAH ANDERS Security Planishing Hammer Operator Events No recent Security Events currently on file CRITERIA MET - Group Notification - History of Sepsis Dx CARE PROVIDERS Sophia Santiago Compressor Assembler/Patient Insurance Clerk 12/31/2020-Current PHONE: [phone] [facility] 09/15/2019-[facility] PHONE: [phone] Kanchan has no Care Guidelines for this patient. Care History Medical/Surgical 09/15/2019 [facility] \T\middot;\T\nbsp; PATIENT- [facility] ELIGIBLE \T\middot;\T\nbsp; PLEASE REFER PATIENT TO [facility] FOR NON EMERGENT MEDICAL NEEDS. \T\middot;\ T\nbsp; [facility] CAN SEE PATIENTS SAME DAY FOR APTS IF PATIENT CALLS FIRST THING IN THE MORNING. E.D. VISIT COUNT (12 MO.) 4 JAYLEEN Eagle TOTAL 4 NOTE: Visits indicate total known visits. ED/UCC VISIT TRACKING (12 MO.) 05/03/2021 12:04 [facility] [place] TYPE: Emergency COMPLAINT: - REFER FROM [place], DEHYDRATION 01/21/2021 16:05 [facility] TYPE: Emergency COMPLAINT: - MULTIPLE COMPLAINTS 12/15/2020 19:41 [facility] [place] TYPE: Emergency COMPLAINT: - GROUND LEVEL FALL DIAGNOSES: - Nicotine dependence, unspecified, uncomplicated - Other nursing home (current) drug therapy - Hyperlipidemia, unspecified - [...] without bleeding - Hyperlipidemia, unspecified - Other process mechanic (current) drug therapy - Nicotine dependence, unspecified, uncomplicated - Nausea with vomiting, unspecified INPATIENT VISIT TRACKING (12 MO.) 01/21/2021 20:[address] 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 coli] - Other process mechanic (current) drug therapy - Chronic respiratory failure with hypoxia - Acquired absence of lung [part of] - Hypomagnesemia - Acute pyelonephritis - Severe sepsis with septic shock - Chronic respiratory failure with hypoxia - Personal history of other malignant neoplasm of bronchus and lung - Personal history of other malignant neoplasm of bronchus and lung - Presbycusis, unspecified ear - Presbycusis, unspecified ear - Sepsis due to Escherichia coli [E. 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
[2021-05-03] MEDS ORDERED: HYDROXYZINE PAM25 MG PO (12:44)
--- NOTE | 2021-05-03 17:33 | EKG ---
[facility] [address] [facility] [place] [address] Signed Normal sinus rhythm Nonspecific ST and T wave abnormality Abnormal ECG When compared with ECG of 21-JAN-2021 16:53, Vent. rate has decreased BY 60 BPM T wave inversion now evident in Anterior leads Confirmed by BONIFACIO JACKSON MD ([id number]) on 05/03/2021 5:33:17 PM Electronically Signed By: BONIFACIO JACKSON MD 05/03/21 1733 PATIENT NAME: MIAH ANDERS Stormy Electrocardiogram DATE OF : 51 PHYSICIAN: BONIFACIO JACKSON MD REPORT #: [id number] REPORT IS CONFIDENTIAL AND NOT TO BE RELEASED WITHOUT AUTHORIZATION
== END 2021-05-03 17:20 | disposition home or self-care (01) ==
LOC: ED 12:03
DX: R41.82 Altered mental status, unspecified (principal); E78.5 Hyperlipidemia, unspecified; I10 Essential (primary) hypertension; F17.200 Nicotine dependence, unspecified, uncomplicated; Z79.899 Other long term (current) drug therapy; Z85.118 Personal history of other malignant neoplasm of bronchus and lung
CPT/HCPCS: 70470; 71045; 80053; 81001; 84484; 85025; 93005; 93010; 99285-25; Q9967

== ENCOUNTER 2021-12-03 14:34 | Emergency (ER) | payer MEDICARE, OTHER ==
[~2021-12-03] VITALS: Ht 160 cm; Wt 60.8 kg
[~2021-12-03 14:34] MED LIST changes: -GABAPENTIN100 MG PO
--- OUTSIDE RECORDS SUMMARY | 2021-12-03 14:36 | XMS ---
PreManage Notification: MIAH ANDERS Security Primer Supervisor Events No recent Security Events currently on file CRITERIA MET - Group Notification - PDMP CARE PROVIDERS Sushil Jiménez Solderer/Associate Genetics Professor 09/30/2021-Current PHONE: [phone] [facility] 09/15/2019-[facility] PHONE: [phone] Kanchan has no Care Guidelines for this patient. Care History Medical/Surgical 09/15/2019 [facility] \T\middot;\T\nbsp; PATIENT- [facility] ELIGIBLE \T\middot;\T\nbsp; PLEASE REFER PATIENT TO [facility] FOR NON EMERGENT MEDICAL NEEDS. \T\middot;\ T\nbsp; [facility] CAN SEE PATIENTS SAME DAY FOR APTS IF PATIENT CALLS FIRST THING IN THE MORNING. E.D. VISIT COUNT (12 MO.) 4 JAYLEEN Eagle TOTAL 4 NOTE: Visits indicate total known visits. ED/UCC VISIT TRACKING (12 MO.) 12/03/2021 14:34 [facility] [place] TYPE: Emergency COMPLAINT: - FALL 05/03/2021 12:04 [facility] [place] TYPE: Emergency COMPLAINT: - REFER FROM DIMAS, TITO DIAGNOSES: - Weakness - Nicotine dependence, unspecified, uncomplicated - Other tank terminal gauger (current) drug therapy - Altered mental status, unspecified - Essential (primary) hypertension - Hyperlipidemia, unspecified - Personal history of other malignant neoplasm of bronchus and lung 01/21/2021 16:05 [facility] TYPE: Emergency COMPLAINT: - MULTIPLE COMPLAINTS 12/15/2020 19:41 [facility] TYPE: Emergency COMPLAINT: - GROUND LEVEL FALL DIAGNOSES: - Nicotine dependence, unspecified, uncomplicated - Other penitentiary (current) drug therapy - Hyperlipidemia, unspecified - Contusion of left forearm, initial encounter - Essential (primary) hypertension - Striking against or struck by other objects, initial encounter - Personal history of malignant neoplasm of other sites of lip, oral cavity, and pharynx - Personal history of other malignant neoplasm of bronchus and lung - Contusion of lower back and pelvis, initial encounter INPATIENT VISIT TRACKING (12 MO.) 01/21/2021 20:[address] 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
[2021-12-03] MEDS ORDERED: LEVOTHYROXINE50 MC1 PO (15:06)
[2021-12-03] MEDS ORDERED: ZYPREXA2.5 MG PO (15:06)
[2021-12-03] MEDS ORDERED: ATIVAN0.5 MG PO (15:06)
[2021-12-03] MEDS ORDERED: GABAPENTIN100 MG PO (15:07)
[2021-12-03] MEDS ORDERED: HYDROXYZINE PAM25 MG PO (15:07)
[2021-12-03] MEDS ORDERED: ZYPREXA5 MG PO (15:07)
[2021-12-03] MEDS ORDERED: ZOFRAN4 MG PO (15:08)
== END 2021-12-03 18:45 | disposition home or self-care (01) ==
LOC: ED 14:34
DX: S09.90XA Unspecified injury of head, initial encounter (principal); E78.5 Hyperlipidemia, unspecified; I10 Essential (primary) hypertension; F17.200 Nicotine dependence, unspecified, uncomplicated; Z90.49 Acquired absence of other specified parts of digestive tract; Z79.899 Other long term (current) drug therapy; W19.XXXA Unspecified fall, initial encounter
CPT/HCPCS: 70450; 72125; 99285-25

== ENCOUNTER 2022-03-05 13:24 | Inpatient (IN) | payer MEDICARE, OTHER ==
[~2022-03-05] VITALS: Ht 160 cm; Wt 60.8 kg
[~2022-03-05 13:24] MED LIST changes: +ATIVAN0.5 MG PO; +GABAPENTIN100 MG PO; +HYDROXYZINE PAM25 MG PO; +ONDANSETRON HCL8 MG PO; +SYNTHROID50 MCG PO; +ZYPREXA2.5 MG PO; +ZYPREXA5 MG PO
--- OUTSIDE RECORDS SUMMARY | 2022-03-05 13:26 | XMS ---
PreManage Notification: MIAH ANDERS Security Bath Mixer Events No recent Security Events currently on file CRITERIA MET - PDMP - Group Notification CARE PROVIDERS Sushil Jiménez Stripper Printed Circuit Boards/Satellite Communications Engineer 01/28/2022-[facility] PHONE: [phone] [facility] Case Management 12/04/2021-[facility] PHONE: [phone] [facility] 09/15/2019-[facility] PHONE: [phone] Kanchan has no Care Guidelines for this patient. Care History Medical/Surgical 12/04/2021 [facility] PATIENT- [facility] ELIGIBLE PLEASE REFER PATIENT TO [facility] FOR NON EMERGENT MEDICAL NEEDS. [facility] CAN SEE PATIENTS SAME DAY FOR APTS IF PATIENT CALLS FIRST THING IN THE MORNING. Nithin VISIT COUNT (12 MO.) 3 JAYLEEN Eagle TOTAL 3 NOTE: Visits indicate total known visits. ED/UCC VISIT TRACKING (12 MO.) 03/05/2022 13:25 [facility] [place] TYPE: Emergency COMPLAINT: - WEAKNESS 12/03/2021 14:34 [facility] TYPE: Emergency COMPLAINT: - FALL DIAGNOSES: - Essential (primary) hypertension - Contusion of scalp, initial encounter - Hyperlipidemia, unspecified - Other assisted (current) drug therapy - Unspecified injury of head, initial encounter - Localized swelling, mass and lump, head - Unspecified fall, initial encounter - Nicotine dependence, unspecified, uncomplicated - Acquired absence of other specified parts of digestive tract 05/03/2021 12:04 [facility] TYPE: Emergency COMPLAINT: - REFER FROM TITO COCHRAN DIAGNOSES: - Weakness - Nicotine dependence, unspecified, uncomplicated - Other assisted (current) drug therapy - Altered mental status, unspecified - Essential (primary) hypertension - Hyperlipidemia, unspecified - Personal history of other malignant neoplasm of bronchus and lung INPATIENT VISIT TRACKING (12 MO.) No inpatient visits to display in this time frame [id number]
[2022-03-05] MEDS ORDERED: GABAPENTIN300 MG PO (13:35)
--- NOTE | 2022-03-05 18:47 | NUR ---
66 YEAR OLD FEMALE PATIENT ADMITTED TO CCU UNDER DR. JO WITH DX OF AMS, UTI, SHANNON. STAFF AT [facility] NOTICED INCREASED CONFUSION TODAY AT NOON. PATIENT RECIEVED 3 LITERS ON NS IN ER. UPON ADMIT TO CCU PATIENT IS RESTLESS. GUZMAN CATH PATENT. ADMISSION PROCESS STARTED.
--- NOTE | 2022-03-05 23:32 | NUR ---
Patient laying in bed, occasionally attempts to get up. Picking at IV sites, removing gown, pulling at leads. When asked questions she mumbles incorrect answers or says that she doesn't know. Gave 1mg Haldol IV for agitation. Held zyprexa due to decreased activity after Haldol. Will continue to monitor.
--- NOTE | 2022-03-06 08:14 | NUR ---
PT REPOSITIONED IN BED, ALERT THIS AM, COOPERATIVE WITH CARE. VERBALING NOT UNDERSTANDABLE MUFFLED. CLEAR LIQUID BREAKFAST AT BEDSIDE. SUPERVISOR SILVERING DEPARTMENT ASSISTING PT WITH EATING.
--- NOTE | 2022-03-06 08:40 | NUR ---
Pt with nurses in room. Will see her tomorrow or later today.
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
--- NOTE | 2022-03-06 11:09 | NUR ---
PT RESTING QUIETLY IN BED, OXYMITRY PROBE ON HER NASAL FOR IMPROVED READING AT THIS TIME. PT PRODUCING QUANTITY SUFFICIENT URINE PLUS. SHE HAS BEEN COOPERATIVE WITH CARE THIS SHIFT.
--- NOTE | 2022-03-06 11:40 | NUR ---
ROUNDING WITH INTO PT ROOM, PT VERY DROWSY/LETHARGY AFTER ZYPREXA SCHEDULED DOSE THIS AM, PT RESPONDS TO REPOSITIONING STIMULI. PT OPENED HER EYES AT ONE POINT FOR AND THEN WENT BACK TO SLEEP. VERBALIZED HE PLANS TO TRANSFER PT TO MED/SURG TODAY.
--- NOTE | 2022-03-06 14:50 | NUR ---
PT'S BROTHER INTO SEE PT HE VERBALIZED "THEY DIDNT CALL ME THAT SHE WAS COMING TO THE HOSPITAL, I WENT OUT THERE TO TAKE HER SOME TREATS TO EAT AND THAT IS HOW I FOUND OUT" THIS RN APOLIGIZED TO MARCUS PT'S BROTHER, THIS RN ASKED FOR HIS PHONE NUMBER TO NOTIFY HIM OF WHEN PT TRANSFERS TO MED/SURG AND LET HIM KNKOW HER NEW ROOM NUMBER. ASSISTED PT OUT TO HIS TRIKE MOTORCYCLE VIA WHEELCHAIR. PT REMAINS DROWSY, SHE IS NOTED TO MUMBLE AT ONE PT TO HER BROTHER.
--- NOTE | 2022-03-06 15:33 | NUR ---
PT STARTING TO MOVE HER ARMS OCCASIONALLY. SHE IS STILL DROWSY BUT RESPONSIVE AT THIS TIME.
--- NOTE | 2022-03-06 16:02 | NUR ---
GUZMAN CATHETER REMOVED PT TOLERATED WELL. PT ASSISTED UP TO RECLINER. SHE IS VERY ALERT COOPERATIVE WITH CARE. SHE DEMONSTRATED GOOD STRENGTH STANDING AND AMBULATING TO CHAIR APPROX. 4FT DISTANCE. CHAIR ALARM ON FOR PT SAFETY.
[2022-03-06] MEDS ORDERED: ACETAMINOPHEN500 M1 PO (16:49)
--- NOTE | 2022-03-06 17:12 | NUR ---
TOOK PT ON WC RIDE AROUND HOSPITAL. PT TOLERATED WELL. PT 2 PERSONA SSIST BACK INTO BED FOR DINNER.
--- NOTE | 2022-03-06 17:14 | NUR ---
PT BACK TO RECLINER AFTER WHEELCHAIR RIDE AROUND FACILITY WITH TJ CHAUDHARY. PT MORE VERBAL AND INTERACTIVE WITH STAFF. COOPERATIVE WITH CARE AT THIS TIME.
--- NOTE | 2022-03-06 17:27 | EKG ---
[facility] [address] [facility] [place], [place] [address] Signed Normal sinus rhythm Normal ECG No previous ECGs available Confirmed by MIGUEL JO MD ([id number]) on 03/06/2022 5:27:26 PM Electronically Signed By: MIGUEL JO MD 03/06/22 1727 PATIENT NAME: MIAH ANDERS Stormy Electrocardiogram DATE OF : 51 PHYSICIAN: MIGUEL JO MD REPORT #: [id number] REPORT IS CONFIDENTIAL AND NOT TO BE RELEASED WITHOUT AUTHORIZATION
--- NOTE | 2022-03-06 17:52 | NUR ---
PT SITTING UP IN RECLINER EATING DINNER AND WATCHING TV. SHEIS ALSO FOLDING WASH CLOTHS TO KEEP HER HAND BUSY. NO DISTRESS, NO NEW CONCERNS
--- NOTE | 2022-03-06 18:11 | NUR ---
medications reconciled using facility [facility]
--- NOTE | 2022-03-06 18:25 | NUR ---
CLEANED UP DINNER TRAY, PT CONSUMED 40%, SHE FEED HERSELF WELL. V/S COMPLETE, GUZMAN CATH OUT AT 1605 WAITING FOR VOID. PT DRANK RAMOS CLEAR ENSURE AFTER DINNER, SHE HAS BEEN COOPERATIVE WITH CARE, SHE HAS NOT BEEN COMBATIVE OVER THIS SHIFT, SHE HAS VERBALIZED THANK YOU FOR CARE PROVIDED, SHE IS VERBALIZING MORE CLEARLY THIS LATE AFTERNOON.
--- NOTE | 2022-03-06 19:37 | NUR ---
RECEIVED REPORT FROM NEENA HANDLEY. pt GETTING OUT OF CHAIR. SPEECH GARBLED AT TIMES, OTHER TIMES WORDS ARE EASY TO UNDERSTAND. pt COOPERATIVE WITH CARES. DENIES PAIN OR NEED TO VOID. AFTER SOME TIME WAS ABLE TO LAY DOWN IN BED AND SAID "I'M GOING TO GO TO SLEEP RIGHT NOW." BED ALARM ON. ASSESSMENT DONE. SL pt CONTINUED TO GET UP AND PULL ON IV TUBING, CONCERNED THAT IT WOULD CAUSE A FALL. CALL LIGHT WITHIN REACH.
--- NOTE | 2022-03-06 20:04 | NUR ---
BED ALARMING pt UP WANDERING ROOM, UNSTEADY AT TIMES. REQUIRED 1PA. TO TOILET, REFUSED TO REMOVE DEPENDS, "AFTER I'M DONE!" VOID IN DEPENDS AND SOME IN TOILET, UNMEASURED. SMALL AMOUNT OF BLOOD NOTED IN DEPENDS AND IN HAT, URINE WITH A SLIGHT PINK TINT. pt DECLINED ASSISTANCE TO WIPE. OR FURTHER ASSESSMENT. pt SETTLED IN BED AFTER SOMETIME WANDERING AROUND ROOM WITH THIS RN. VITALS RECORDED. CALL LIGHT WITHIN REACH. BED ALARM ON.
--- NOTE | 2022-03-06 20:42 | NUR ---
pt ATTEMPTING TO GET UP. ASSISTED TO TAKE OFF SOCKS, BACK TO BED. NO FURTHER REQUESTS. BED ALARM ON.
--- NOTE | 2022-03-06 21:02 | NUR ---
BED ALARMING. pt ATTEMPTING TO GET UP. SOME GARBLED SPEECH "I WAS GOING TO ASK BRONWYN." pt BACK TO BED. BED ALARM ON. CURTAIN OPEN TO NURSES STATION.
--- NOTE | 2022-03-06 22:30 | NUR ---
PT ATTEMPTING TO GET OUT OF CHAIR. PT ASSISTED IN GETTING UP OUT OF CHAIR AND TRANSFERRING OVER TO THE BED. PT CONFUSED AND WAS REORIENTED AND GUIDED TO THE BED. PT NOW LAYING IN BED. WARM BLANKETS AND STUFFED ANIMAL PROVIDED TO PT. BED ALARM UP, BED IN LOWEST POSITION, SITTER OUTSIDE OF PT'S ROOM WATCHING PT. WILL CONTINUE PLAN OF CARE.
--- NOTE | 2022-03-06 23:10 | NUR ---
PT LAYING IN BED AWAKE, ALERT, BUT CONFUSED. PT SAT UP IN BED, PO ZYPREXA ADMINISTERED. PT ABLE TO TAKE PO MEDICATION AND DRINK WATER WITHOUT DIFFICULTY ON HER OWN. PT HEAD OF BED LOWERED. PT NOW RESTING IN BED. BED ALARM ON, BED IN LOWEST POSITION, WILL CONTINUE PLAN OF CARE.
--- NOTE | 2022-03-07 00:15 | NUR ---
PATIENT UP TO THE BATHROOM. ATTENDS CHANGED AND ASSISTED PATIENT TO WIPE. PATIENT IS MOSTLY REDIRECTABLE BUT IS EASILY UPSET. ASSISTED BACK TO BED AND BED ALARM ACTIVE.
--- NOTE | 2022-03-07 01:39 | NUR ---
pt AWAKE AND TALKING TO HERSELF. ATTEMPTED TO GET OUT OF BED, IN TO ASSIST. pt DENIES NEEDS AT THIS TIME. LAID BACK DOWN. CURTAIN OPEN TO NURSES STATION. BED ALARM ON.
--- NOTE | 2022-03-07 02:06 | NUR ---
pt ATTEMPTING TO GET UP OUT OF BED. IN TO ASSIST, pt UP TO TOILET TO VOID, YELLOW URINE OUT. pt INCONT. FRESH DEPENDS. pt WANDERED AROUND ROOM FOR 30 MINUTES REQUIRING CONSTANT REDIRECTION AND 1PA TO PREVENT FALLS. pt NOW SETTLED IN RECLINER WITH CHAIR ALARM ON WATCHING TV. CURTAIN OPEN TO NURSES STATION.
--- NOTE | 2022-03-07 04:15 | NUR ---
PATIENT ATTEMPTS TO EXIT THE BED FREQUENTLY. VERBAL COMMUNICATION IS DIFFICULT. PATIENT VOIDING FREQUENTLY. AMBULATED IN HALLWAY AND AROUND ROOM. MOVED FROM CHAIR TO BED SEVERAL TIMES. WHEN PATIENT APPEARS TO SLEEP IT IS FOR 15-20 MINS AT A TIME. PATIENT DOESN'T APPEAR TO BE IN PAIN OR DISTRESS. IS PLESANT BUT HAS DIFFICULTY FOLLOWING INSTRUCTIONS. APPEARS BASELINE.
--- NOTE | 2022-03-07 06:00 | NUR ---
VS STABLE. PATIENT RESTING IN BED. WARM BLANKET PROVIDED. ENCOURAGED PATIENT TO REST PRIOR TO BREAKFAST, PATIENT'S UNDERSTANDING LIMITED.
--- NOTE | 2022-03-07 09:17 | NUR ---
PT DAUGHTER NOW AT BEDSIDE. PROVIDED UPDATES AT THIS TIME. ALL QUESTIONS ANSWERED. CALL LIGHT WITHIN REACH. WILL CONTINUE TO MONITOR.
--- NOTE | 2022-03-07 09:29 | NUR ---
RECEIVED REPORT FOR PT AT 7AM AND PROCEEDED TO CHECK ON PT. PT WAS ALERT IN CHAIR BUT NOT ORIENTED. PERFORMED MORNING ASSESSMENT AND MEDICATION ADMINISTRATION. NS INFUSING AT 85 MLS/HR IN PATENT RT FA. VERIFIED PATENCY OF SALINE LOCKED RT AC. ASSISTED PT TO VOID, AMBULATED WITHOUT DIFFICULTY VIA ONE PERSON ASSIST. PT DID NOT EXHIBIT SOB AND MAINTAINED RR WNL DURING AMBULATION. ASSISTED PT IN BED, PT APPEARS COMFORTABLE; CALL LIGHT WITHIN REACH, BED RAILS UP, BED ALARM SET. PT IS STILL UNABLE TO FOLLOW DIRECTIONS/COMMANDS, RESPONDS WITH GARBLED SPEECH.
--- NOTE | 2022-03-07 11:48 | NUR ---
GAVE PT A BED BATH W/ASSISTANCE FROM OTHER SN. PT TOLERATED WARM WIPES AND CLEANING CAP WELL. APPLIED DEODORANT, LOTION, AND COMBED PT'S HAIR. PT WAS DRESSED WITH NEW GOWN, SOCKS, PULL UP. ASSISTED PT TO BATHROOM, 100 ML VOIDED. PT DID NOT EXPERIENCE SOB AND RR WAS WNL. PT WALKED THROUGHOUT ROOM WITH ONE PERSON ASSIST AND BRUSHED HER OWN TEETH (POTATO FROM BREAKFAST SPAT IN SINK). PT IS NOW IN BED RESTING WITH BED RAILS UP, CALL LIGHT WITHIN REACH, AND BED ALARM ON.
--- NOTE | 2022-03-07 13:00 | NUR ---
PERFORMED AFTERNOON ASSESSMENT AND VITALS ON PT. PT IS ALERT BUT NOT ORIENTED. PT IS STILL RESTLESS AND IS RESISTANT TO DIRECTIONS. PT IS AMBULATING WELL WITH ONE PERSON ASSIST AND CONTINUOUSLY STILL TRIES TO GET OUT OF BED. ALL BEHAVIORS EVIDENCE OF BASELINE BEHAVIOR. NS STILL INFUSING AT 75 MLS/HR IN RT FA, SECURED WITH COBAN. REPORT GIVEN TO JUANI ON MEDSUR, TRANSFERRED VIA STRETCHER, ALL BELONGINGS TRANSPORTED WITH PT.
--- NOTE | 2022-03-07 15:00 | NUR ---
REPORT RECIEVED FROM CCU RN, PT TRANSFERED TO ROOM 121, PT WITH SLURRED SPEECH AT BASELINE, ANTOINE ORIENTATION, FOLLOWS SIMPLE COMMANDS, DIFFICULT TO REDIRECT FALL RISK PRECAUTIONS IN PLACE, IV FLUIDS PER ORDER, VSS, SNACK PROVIDED, PT UP AMBULATING IN HALLS WITH STAFF.
--- NOTE | 2022-03-07 16:25 | NUR ---
Inez got out of bed and wanted to walk, we made two laps around the unit.
--- NOTE | 2022-03-07 16:26 | NUR ---
Inez has bed alarm, also has book to keep occupied.
--- NOTE | 2022-03-07 18:24 | NUR ---
PT UP IN MORIN WALKING AROUND THE MORIN WITH [employer] ASSOCIATE JUSTICE.
--- NOTE | 2022-03-07 19:07 | NUR ---
pt ATTEMPTING TO GET OUT OF BED, TAX COLLECTOR IN ROOM. WALKING IN HALLS WITH TAX COLLECTOR.
--- NOTE | 2022-03-07 19:30 | NUR ---
BED ALARMING. pt REORIENTED TO SITUATION, BACK TO BED. BED ALARM ON.
--- NOTE | 2022-03-07 19:40 | NUR ---
BED ALARMING, THIS RN IN TO ASSIST. pt UP TO TOILET, LIGHT YELLOW URINE OUT. pt WALKED AROUND UNIT X2 LAPS. pt BACK TO BED. BED ALARM ON. CURTAIN OPEN TO NURSES STATION.
--- NOTE | 2022-03-07 19:50 | NUR ---
pt ATTEMPTING TO GET UP. REMINDED OF THE TIME AND PLACE. pt BACK TO BED. BED ALARM ON.
--- NOTE | 2022-03-07 20:00 | NUR ---
BED ALARMING, IN TO ASSIST. pt SAT UP FOR A FEW MINUTES THEN LAID DOWN AGAIN. BED ALARM ON.
--- NOTE | 2022-03-07 20:20 | NUR ---
BED ALARMING, IN TO ASSIST. pt SITTING UP IN BED. DENIED NEED TO TOILET. BACK TO BED. BED ALARM ON.
--- NOTE | 2022-03-07 20:40 | NUR ---
BED ALARMING, IN TO ASSIST. pt REMINDED OF THE TIME, LAID BACK DONE. BED ALARM ON.
--- NOTE | 2022-03-07 21:00 | NUR ---
pt ATTEMPTING TO GET OUT OF BED. SAT WITH pt HOLDING HANDS FOR A FEW MINUTES. pt LAID BACK DOWN. BED ALARM ON.
--- NOTE | 2022-03-07 21:30 | NUR ---
BED ALARMING, IN TO ASSIST. pt SAT UP IN BED. DANCED TO MUSIC, HELD HANDS WITH pt FOR A FEW MINUTES. pt BACK TO BED. BED ALARM ON.
--- NOTE | 2022-03-07 21:49 | NUR ---
BED ALARMING, IN TO ASSIST. pt REQUIRED REDIRECTION TO NOT WANDER IN HALLS. TOILETED, LIGHT YELLOW URINE OUT. pt AND THIS RN WALKED HALLS FOR 15 MINUTES. pt BACK TO BED. REQUESTED RN "WAIT WITH HER" THIS RN AT BEDSIDE.
--- NOTE | 2022-03-07 22:03 | NUR ---
pt RESTING WITH EYES CLOSED, RESPIRATIONS REGULAR AND UNLABORED. BED ALARM ON. CURTAIN OPEN TO NURSES STATION.
--- NOTE | 2022-03-07 22:18 | NUR ---
TAKING OVER CARE OF pt. ASSESSMENT DONE. MEDICATIONS GIVEN (SEE MAR). VITALS AND I&O RECORDED. pt RESTING IN BED, BED ALARM ON. CURTAIN OPEN TO NURSES STATION.
--- NOTE | 2022-03-07 22:45 | NUR ---
BED ALARMING, IN TO ASSIST. pt LAID BACK DOWN, HELD HANDS. RESTING WITH EYES CLOSED, RESPIRATIONS REGULAR AND UNLABORED. BED ALARM ON. CURTAIN OPEN TO NURSES STATION.
--- NOTE | 2022-03-07 23:21 | NUR ---
BED ALARMING, IN TO ASSIST. pt UP WALKING HALLS WITH THIS RN. DIFFICULT TO REDIRECT AT TIMES. BACK TO BED. THIS RN REMAINED WITH pt UNTIL RESTING WITH EYES CLOSED. BED ALARM ON. CURTAIN OPEN TO NURSES STATION.
--- NOTE | 2022-03-07 23:55 | NUR ---
BED ALARMING. VANESSA RN IN TO ASSIST. pt BACK TO BED. BED ALARM ON. CURTAIN OPEN TO NURSES STATION.
--- NOTE | 2022-03-08 01:00 | NUR ---
pt ATTEMPTING TO GET UP, IN TO ASSIST. NOTED LARGE INCONT VOID. pt REQUIRED 30 MINUTES OF COAXING TO COMPLETE LINEN CHANGE AND SKIN CARE. pt NOW SITTING ON SIDE OF BED. THIS RN REMAINS AT BEDSIDE.
--- NOTE | 2022-03-08 01:32 | NUR ---
pt WALKED HALLS FOR 30 MINUTES, MULTIPLE LAPS. THIS RN REMAINED WITH pt. pt CURRENTLY SITTING ON SIDE OF BED. THIS RN AT BEDSIDE.
--- NOTE | 2022-03-08 01:54 | NUR ---
pt UP AND WALKING HALLS AGAIN WITH THIS RN. pt BACK TO SITTING ON THE EDGE OF THE BED FOR A WHILE. ATTEMPTING TO SMOKE IV TUBING, REORIENTED TO SITUATION. LAID IN BED. BED ALARM ON.
--- NOTE | 2022-03-08 02:07 | NUR ---
BED ALARMING, IN TO ASSIST. pt STOOD AND WALKED IN A [place], BACK TO BED. BED ALARM ON.
--- NOTE | 2022-03-08 02:50 | NUR ---
in to check on pt, bed alarm set off, legs over rail, iv alarming, rn in to fix, pt sits up for a little bit before laying back on her side, blankets pulled up for pt after motioning and simple "okay and yes", bed alrm set
--- NOTE | 2022-03-08 03:22 | NUR ---
pt CLIMBING OUT OF BED. IN TO ASSIST. pt REDIRECTED FOR 5 MINUTES THEN STANDING UP. ABLE TO DIRECT TO TOILET. pt VOIDED YELLOW URINE AND WAS INCONT. NEW BRIEF. pt WALKING AROUND UNIT, VANESSA CHAUDHARY WITH pt.
--- NOTE | 2022-03-08 03:32 | NUR ---
pt NOW RESTING IN BED WITH EYES CLOSED, RESPIRATIONS REGULAR. BED ALARM ON.
--- NOTE | 2022-03-08 03:50 | NUR ---
BED ALARMING, pt OUT OF BED. VANESSA CHAUDHARY WITH pt.
--- NOTE | 2022-03-08 04:12 | NUR ---
BED ALARMING, ENGINEERING SCIENTIST IN ROOM TO ASSIST. pt BACK TO BED. BED ALARM ON.
--- NOTE | 2022-03-08 04:14 | NUR ---
bed alarming, pt sitting up in bed, fidgits with blanket, asked pt if she wanted blankets pulled up, pt lays back and says "yes", and "i need to try to sleep" bed alarm is set
--- NOTE | 2022-03-08 04:33 | NUR ---
BED ALARMING, pt SITTING UP IN BED. BACK TO BED. BED ALARM ON.
--- NOTE | 2022-03-08 04:42 | NUR ---
BED ALARMING, pt GETTING OUT OF BED. REDIRECTED BACK TO BED. BED ALARM ON.
--- NOTE | 2022-03-08 05:19 | NUR ---
BED ALARMING, THIS RN IN TO ASSIST. pt MORE DIFFICULT TO REDIRECT. SPEECH REMAINS GARBLED. WITH MUCH PROMPTING pt BRUSHED TEETH AND TOOK MORNING MEDICATION. ASSESSMENT DONE. VITALS AND I&O RECORDED. pt PROVIDED WITH FOOD, pt EATING AND DRINKING INDEPENDENTLY. THIS RN REMAINS AT BEDSIDE.
--- NOTE | 2022-03-08 05:48 | NUR ---
pt RESTING IN BED. PROVIDED A WARM BLANKET. CALL LIGHT WITHIN REACH. BED ALARM ON. CURTAIN OPEN TO NURSES STATION.
--- NOTE | 2022-03-08 06:35 | NUR ---
pt FINISHED EATING YOGURT. SITTING ON SIDE OF BED. THIS RN WATCHING pt FROM DOOR.
--- NOTE | 2022-03-08 06:55 | NUR ---
BEDSIDE HANDOFF REPORT RECEIVED FROM LOWER IN SUPERVISOR RN. PT WANDERING IN MORIN WITH TAR CHASER.
--- NOTE | 2022-03-08 07:06 | NUR ---
pt UP WALKING IN HALLS FOR 30 MINUTES. BACK TO BED. BED ALARM ON. WARM BLANKET PROVIDED.
--- NOTE | 2022-03-08 07:20 | NUR ---
PT RESTING IN BED, BED ALARM ON. DIRECT VISUALIZATION FROM NURSES STATION.
--- NOTE | 2022-03-08 08:39 | NUR ---
PT TRYING TO GET OUT OF BED AT 0800, PT ASSISTED TO WALK IN MORIN, COMPLETED ONE LAP AND THEN ASSISTED TO CHAIR FOR BREAKFATS. PT ATE 50% OF MEAL. PT ON ROOM AIR, LUNG SOUNDS CLEAR. BOWLE TONES ACTIVE. PT WITHOUT EDEMA, PULSES STRONG. PT ASSISTED TO BATHROOM, GOWN CHANGED. PT AGAIN WALKED IN MORIN, COMPLETED 4 LAPS. PT ASSISTED TO BED, INCONTINENT OF URINE, BRIEFS CHANGED. PT RESTING IN BED, BED ALARM IN PLACE. MORNING MEDICATIONS ADMINISTERED PER EMAR. IV SALINE LOCKED, FLUSHED X2, PATENT.
--- NOTE | 2022-03-08 09:30 | NUR ---
PT SET OFF CHAIR ALARM, ASSISTED TO WALK IN MORIN, ORAL CARE COMPLETED.
--- NOTE | 2022-03-08 13:05 | NUR ---
PT DISCAHRGED VIE NON EMERGENT TRANSPORT PFD. ALL PT BELONGINGS WITH PT. ORDERS SENT TO DESIRE FOR HEALING.
== END 2022-03-08 13:00 | disposition home or self-care (01) | DRG 682 ==
LOC: ED 13:24 → CCU 17:52 → MS 17:52
PROVIDERS: ADMIT Internal Medicine; ATTEND Internal Medicine
DX: N17.9 Acute kidney failure, unspecified (principal); G93.41 Metabolic encephalopathy; F03.91 Unspecified dementia, unspecified severity, with behavioral disturbance; E86.0 Dehydration; T36.8X5A Adverse effect of other systemic antibiotics, initial encounter; I10 Essential (primary) hypertension; E03.9 Hypothyroidism, unspecified; G31.84 Mild cognitive impairment of uncertain or unknown etiology; F29 Unspecified psychosis not due to a substance or known physiological condition; E78.5 Hyperlipidemia, unspecified; F32.A Depression, unspecified; Z85.118 Personal history of other malignant neoplasm of bronchus and lung; Z98.890 Other specified postprocedural states; Z90.49 Acquired absence of other specified parts of digestive tract; Z79.890 Hormone replacement therapy; Z79.899 Other long term (current) drug therapy; Z87.440 Personal history of urinary (tract) infections
CPT/HCPCS: 36415; 36600; 70450; 71045; 80048; 80053; 81001; 82565; 82803; 83605; 84520; 85025; 87088; 93005; 93010; C9803; J0696; J1630; J1650; J7030; U0003

== ENCOUNTER 2022-08-31 16:16 | Emergency (ER) | payer MEDICARE, OTHER ==
[~2022-08-31] VITALS: Ht 160 cm; Wt 60.8 kg
[~2022-08-31 16:16] MED LIST changes: +ACETAMINOPHEN500 M1 PO; +GABAPENTIN300 MG PO
--- OUTSIDE RECORDS SUMMARY | 2022-08-31 16:18 | XMS ---
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 Care History Medical/Surgical 12/04/2021 [facility] PATIENT- [facility] ELIGIBLE PLEASE REFER PATIENT TO [facility] FOR NON EMERGENT MEDICAL NEEDS. [facility] CAN SEE PATIENTS SAME DAY FOR APTS IF PATIENT CALLS FIRST THING IN THE MORNING. Nithin VISIT COUNT (12 MO.) 3 JAYLEEN Eagle TOTAL 3 NOTE: Visits indicate total known visits. ED/UCC VISIT TRACKING (12 MO.) 08/31/2022 16:16 [facility] [place] TYPE: Emergency COMPLAINT: - FALL 03/05/2022 13:25 [facility] [place] TYPE: Emergency COMPLAINT: - WEAKNESS 12/03/2021 14:34 [facility] [place] TYPE: Emergency COMPLAINT: - FALL DIAGNOSES: - Other custodial (current) drug therapy - Contusion of scalp, initial encounter - Acquired absence of other specified parts of digestive tract - Unspecified fall, initial encounter - Unspecified injury of head, initial encounter - Hyperlipidemia, unspecified - Essential (primary) hypertension - Nicotine dependence, unspecified, uncomplicated - Localized swelling, mass and lump, head INPATIENT VISIT TRACKING (12 MO.) 03/05/2022 17:52 [facility] [place] TYPE: Medical Surgical COMPLAINT: - SHANNON DIAGNOSES: - Hormone replacement therapy - Hypothyroidism, unspecified - Hyperlipidemia, unspecified - Mild cognitive impairment, so stated - Unspecified dementia with behavioral disturbance - Personal history of urinary (tract) infections - Adverse effect of other systemic antibiotics, initial encounter - Other specified postprocedural states - Dehydration - Metabolic encephalopathy - Essential (primary) hypertension - Personal history of other malignant neoplasm of bronchus and lung - Acute kidney failure, unspecified - Acquired absence of other specified parts of digestive tract - Other manager intermediate (current) drug therapy - Depression, unspecified - Unspecified psychosis not due to a substance or known physiological condition [email or web address]
[2022-08-31] MEDS ORDERED: BACTRIM DS TAB1 EACH PO (19:31)
--- NOTE | 2022-09-01 16:50 | EKG ---
[facility] [address] [facility] [place] [address] Signed Normal sinus rhythm Normal ECG When compared with ECG of 05-MAR-2022 13:24, No significant change was found Confirmed by MIGUEL JO MD ([id number]) on 09/01/2022 4:49:44 PM Electronically Signed By: MIGUEL JO MD 09/01/22 1650 PATIENT NAME: MIAH ANDERS Stormy Electrocardiogram DATE OF : 51 PHYSICIAN: MIGUEL JO MD REPORT #: [id number] REPORT IS CONFIDENTIAL AND NOT TO BE RELEASED WITHOUT AUTHORIZATION
== END 2022-08-31 21:21 | disposition home or self-care (01) ==
LOC: ED 16:16
DX: U07.1 COVID-19 (principal); F03.90 Unspecified dementia, unspecified severity, without behavioral disturbance, psychotic disturbance, mood disturbance, and anxiety; N39.0 Urinary tract infection, site not specified; E78.5 Hyperlipidemia, unspecified; I10 Essential (primary) hypertension; F17.200 Nicotine dependence, unspecified, uncomplicated; Z79.899 Other long term (current) drug therapy
CPT/HCPCS: 36415; 70450; 71045; 72125; 74176; 80053; 81001; 83690; 83735; 84484; 85025; 87088; 87186; 93005; 93010; 96374; 99285-25; C9803; J0696; U0003

== ENCOUNTER 2022-09-07 17:37 | Emergency (ER) | payer MEDICARE, OTHER ==
[~2022-09-07] VITALS: Ht 160 cm; Wt 60.8 kg
[~2022-09-07 17:37] MED LIST changes: +BACTRIM DS TAB1 EACH PO
--- OUTSIDE RECORDS SUMMARY | 2022-09-07 17:40 | XMS ---
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 Care History Medical/Surgical 12/04/2021 [facility] PATIENT- [facility]IG[facility] REFER PATIENT TO [facility] FOR NON EMERGENT MEDICAL NEEDS. [facility] CAN SEE PATIENTS SAME DAY FOR APTS IF PATIENT CALLS FIRST THING IN THE MORNING. Nithin VISIT COUNT (12 MO.) 4 JAYLEEN Eagle TOTAL 4 NOTE: Visits indicate total known visits. ED/UCC VISIT TRACKING (12 MO.) 09/07/2022 17:38 [facility] Scott [place] TYPE: Emergency COMPLAINT: - FALL 08/31/2022 16:16 [facility] [place] TYPE: Emergency COMPLAINT: - FALL 03/05/2022 13:25 [facility] [place] TYPE: Emergency COMPLAINT: - WEAKNESS 12/03/2021 14:34 [facility] Scott [place] TYPE: Emergency COMPLAINT: - FALL DIAGNOSES: - Acquired absence of other specified parts of digestive tract - Unspecified fall, initial encounter - Unspecified injury of head, initial encounter - Hyperlipidemia, unspecified - Essential (primary) hypertension - Nicotine dependence, unspecified, uncomplicated - Localized swelling, mass and lump, head - Other intermediate accountant (current) drug therapy - Contusion of scalp, initial encounter INPATIENT VISIT TRACKING (12 MO.) 03/05/2022 17:[address] [facility] [place] TYPE: Medical Surgical COMPLAINT: - SHANNON DIAGNOSES: - Mild cognitive impairment, so stated - [...] specified parts of digestive tract - Other intermediate accountant (current) drug therapy - Depression, unspecified - Unspecified psychosis not due to a substance or known physiological condition - Hormone replacement therapy - Hypothyroidism, unspecified - Hyperlipidemia, unspecified [email or web address]
== END 2022-09-07 22:02 | disposition home or self-care (01) ==
LOC: ED 17:37
DX: S00.03XA Contusion of scalp, initial encounter (principal); E78.5 Hyperlipidemia, unspecified; I10 Essential (primary) hypertension; F17.200 Nicotine dependence, unspecified, uncomplicated; Z79.899 Other long term (current) drug therapy; W19.XXXA Unspecified fall, initial encounter
CPT/HCPCS: 70450; 72125; 99284-25

== ENCOUNTER 2022-09-12 15:57 | Inpatient (IN) | payer MEDICARE, OTHER ==
[~2022-09-12] VITALS: Ht 160 cm; Wt 61.4 kg
--- OUTSIDE RECORDS SUMMARY | 2022-09-12 16:00 | XMS ---
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 PHONE: [phone] [facility] Clinic/Center 09/15/2019-[facility] PHONE: [phone] Kanchan has no Care Guidelines for this patient. Care History Medical/Surgical 12/04/2021 [facility] PATIENT- [facility] ELIGIBLE PLEASE REFER PATIENT TO [facility] FOR NON EMERGENT MEDICAL NEEDS. [facility] CAN SEE PATIENTS SAME DAY FOR APTS IF PATIENT CALLS FIRST THING IN THE MORNING. Nithin VISIT COUNT (12 MO.) 5 JAYLEEN Eagle TOTAL 5 NOTE: Visits indicate total known visits. ED/UCC VISIT TRACKING (12 MO.) 09/12/2022 15:58 [facility] [place] TYPE: Emergency COMPLAINT: - POSS STROKE 09/07/2022 17:38 [facility] [place] TYPE: Emergency COMPLAINT: - FALL 08/31/2022 16:16 [facility] [place] TYPE: Emergency COMPLAINT: - FALL 03/05/2022 13:25 [facility] [place] TYPE: Emergency COMPLAINT: - WEAKNESS 12/03/2021 14:34 [facility] [place] TYPE: Emergency COMPLAINT: - FALL DIAGNOSES: - Unspecified injury of head, initial encounter - Hyperlipidemia, unspecified - Essential (primary) hypertension - Nicotine dependence, unspecified, uncomplicated - Localized swelling, mass and lump, head - Other intermediate card tender (current) drug therapy - Contusion of scalp, initial encounter - Acquired absence of other specified parts of digestive tract - Unspecified fall, initial encounter INPATIENT VISIT TRACKING (12 MO.) 03/05/2022 17:[address] [facility] [place] TYPE: Medical Surgical COMPLAINT: - SHANNON DIAGNOSES: - Adverse effect of other systemic antibiotics, initial encounter - Other specified postprocedural states - Dehydration - Metabolic encephalopathy - Essential (primary) hypertension - Personal history of other malignant neoplasm of bronchus and lung - Acute kidney failure, unspecified - Acquired absence of other specified parts of digestive tract - Other fci (current) drug therapy - Depression, unspecified - Unspecified psychosis not due to a substance or known physiological condition - Hormone replacement therapy - Hypothyroidism, unspecified - Hyperlipidemia, unspecified - Mild cognitive impairment, so stated - Unspecified dementia with behavioral disturbance - Personal history of urinary (tract) infections [email or web address]
[2022-09-14] MEDS ORDERED: AMLODIPINE BES2.5 MG PO (13:01)
[2022-09-14] MEDS ORDERED: CEPHALEXIN500 MG PO (13:01)
== END 2022-09-14 14:00 | disposition home or self-care (01) | DRG 682 ==
LOC: ED 15:57 → MS 18:42
PROVIDERS: ADMIT Internal Medicine; ATTEND Internal Medicine
DX: N17.9 Acute kidney failure, unspecified (principal); G93.41 Metabolic encephalopathy; N39.0 Urinary tract infection, site not specified; C34.90 Malignant neoplasm of unspecified part of unspecified bronchus or lung; E87.5 Hyperkalemia; B96.20 Unspecified Escherichia coli [E. coli] as the cause of diseases classified elsewhere; E86.0 Dehydration; I10 Essential (primary) hypertension; E03.9 Hypothyroidism, unspecified; F03.90 Unspecified dementia, unspecified severity, without behavioral disturbance, psychotic disturbance, mood disturbance, and anxiety; E78.5 Hyperlipidemia, unspecified; F32.A Depression, unspecified; C73 Malignant neoplasm of thyroid gland; F17.210 Nicotine dependence, cigarettes, uncomplicated; Z90.49 Acquired absence of other specified parts of digestive tract; Z98.890 Other specified postprocedural states; Z79.899 Other long term (current) drug therapy; Z86.16 Personal history of COVID-19
CPT/HCPCS: 36415; 51701; 71045; 80048; 80053; 81001; 83605; 83735; 85025; 87040; 87088; 87186; 97110; 97163; 99285-25; A9270; J0696; J1650; J7030; Q0177